=== PATIENT | male | born 1940 | race Caucasian/White ===

== ENCOUNTER 2019-09-19 07:10 | Outpatient (CLI) | payer MEDICARE, SELFPAY ==
--- NOTE | 2019-09-19 07:18 | XR_ITS ---
WS: [id number] ABDOMEN KUB CLINICAL INFORMATION: Renal/ureteral calculi. COMPARISON: September 01, 2019 FINDINGS: Left double-J ureteral stent in place. No visualized ureteral calculi. Moderate spondylitic changes l umbar spine with mild lumbar curve convex right. XR/XR KUB [id number] Impression: Left double-J ureteral stent in place. No visualized ureteral calculi.
== END 2019-09-19 07:11 | disposition home or self-care (01) ==
LOC: RAD 07:15
PROVIDERS: Family Provider Nurse Practitioner; PCP Nurse Practitioner; Visit Provider Urology
DX: Z98.890 Other specified postprocedural states (principal)
CPT/HCPCS: 74018

== ENCOUNTER → 2019-09-25 15:34 | Outpatient (BNVA) | payer MEDICARE, SELFPAY | PROVIDERS: Family Provider Nurse Practitioner; PCP Nurse Practitioner; Visit Provider Nurse Practitioner | DX: E11.65 Type 2 diabetes mellitus with hyperglycemia (principal); I10 Essential (primary) hypertension | CPT/HCPCS: 80053; 80061; 83036 ==

== ENCOUNTER 2019-11-07 08:32 | Outpatient (CLI) | payer MEDICARE, SELFPAY ==
--- NOTE | 2019-11-07 08:45 | USCV_ITS ---
Aris Srinivas Age: 79 Gender: M : 1940 Exam Date: 11/07/2019 08:50 Ordering Phys: Oumar Rae MD ([email or web address]) Technologist: Deepali Palomares Exam Location: [facility] Indication: PULMONARY HYPERTENSION BP: / HR: 74 Rhythm: Sinus Technical Quality: Technically difficult study MEASUREMENTS (Male / Female) Normal Values 2D ECHO LV Diastolic Diameter PLAX 5.4 cm 4.2 - 5.9 / 3.9 - 5.3 cm LV Systolic Diameter PLAX 3.5 cm LV Chamber Size 3.7 cm IVS Diastolic Thickness 1.7 cm 0.6 - 1.0 / 0.6 - 0.9 cm IVS Systolic Thickness 2.4 cm LVPW Diastolic Thickness 1.8 cm 0.6 - 1.0 / 0.6 - 0.9 cm LVPW Systolic Thickness 2.6 cm RV Chamber Size 3.1 cm LVOT Diameter 2.3 cm LV Ejection Fraction 2D Teich 62.3 % LV Ejection Fraction MOD 2C 58.8 % LV Ejection Fraction 2C AL 61.9 % LA Diameter 3.6 cm LA Width 3.3 cm LA Height 5.0 cm RA Width 3.3 cm RA Height 4.8 cm Aorta at Sinotubular Diameter 3.8 cm M-MODE LV Diastolic Diameter MM 6.0 cm 4.2 - 5.9 / 3.9 - 5.3 cm LV Systolic Diameter MM 4.8 cm LV Ejection Fraction MM Teich 41.3 % IVS Diastolic Thickness MM 1.4 cm 0.6 - 1.0 / 0.6 - 0.9 cm IVS Systolic Thickness MM 1.5 cm LVPW Diastolic Thickness MM 1.4 cm 0.6 - 1.0 / 0.6 - 0.9 cm LVPW Systolic Thickness MM 2.1 cm RV Diastolic Diameter MM 2.7 cm Aortic Annulus Diameter 4.8 cm LA Ao Ratio MM 0.8 MV E Point Septal Separation 1.2 cm DOPPLER AV Peak Velocity 167.0 cm/s LVOT Peak Velocity 99.0 cm/s AV Area Cont Eq vti 2.5 cm squared AV Area Cont Eq pk 2.4 cm squared MV Area PHT 3.3 cm squared Mitral E to A Ratio 0.7 MV E' Velocity 6.0 cm/s Mitral E to MV E' Ratio 11.4 Mitral E to LV E' Lateral Ratio 11.0 Mitral E to LV E' Septal Ratio 11.8 TR Peak Velocity 158.0 cm/s TR Peak Gradient 10.0 mmHg TR Mean Velocity 130.1 cm/s TR Mean Gradient 7.4 mmHg TR Velocity Time Integral 43.9 cm TV Peak E Velocity 64.0 cm/s Right Atrial Pressure 3.0 mmHg Pulmonary Artery Systolic Pressu 13.0 mmHg PV Peak Velocity 74.0 cm/s RV Acceleration Time 0.1 s RV Ejection Time 0.3 s RV AcT/ET 0.4 FINDINGS Left Ventricle Normal left ventricular cavity size. Normal left ventricular systolic function. No regional wall motion abnormalities. Left ventricular ejection fraction is estimated at 55 %.Grade I/IV diastolic dysfunction (abnormal relaxation filling pattern), normal to mildly elevated filling pressures. Right Ventricle The right ventricle is normal in size and function. Right Atrium The right atrium is normal in size. Left Atrium The left atrium is normal in size. Mitral Valve Structurally normal mitral valve without significant stenosis or prolapse. There is no mitral regurgitation. Aortic Valve Moderate aortic valve calcification. No aortic valve stenosis. Mild to moderate aortic valve regurgitation. Tricuspid Valve Trace to mild tricuspid valve regurgitation. Pulmonic Valve Structurally normal pulmonic valve without significant stenosis. There is no pulmonic regurgitation. Pericardium Normal pericardium without effusion. Aorta Normal ascending aorta dimension. CONCLUSIONS 1-Normal left ventricular cavity size. Normal left ventricular systolic function. No regional wall motion abnormalities. Left ventricular ejection fraction is estimated at 55 %.Grade I/IV diastolic dysfunction (abnormal relaxation filling pattern), normal to mildly elevated filling pressures. 2-Moderate aortic valve calcification. No aortic valve stenosis. Mild to moderate aortic valve regurgitation. 3-Trace to mild tricuspid valve regurgitation. 4-There is no pericardial effusion. 5-Pulmonary artery systolic pressure is within normal limits. 6-When compared to the prior echocardiogram dated 08/24/2019 there is moderate aortic valve regurgitation now Oumar Rae MD (Electronically Signed) Final Date: 07 November 2019 18:50 S
== END 2019-11-07 08:33 | disposition home or self-care (01) ==
LOC: US 08:37
PROVIDERS: Family Provider Nurse Practitioner; PCP Nurse Practitioner; Visit Provider Internal Medicine Cardiovascular Disease
DX: I27.20 Pulmonary hypertension, unspecified (principal); I70.0 Atherosclerosis of aorta; I08.2 Rheumatic disorders of both aortic and tricuspid valves
CPT/HCPCS: 93306

== ENCOUNTER → 2019-12-19 08:51 | Outpatient (BNVA) | payer MEDICARE, SELFPAY | PROVIDERS: Family Provider Nurse Practitioner; PCP Nurse Practitioner; Visit Provider Nurse Practitioner | DX: E11.65 Type 2 diabetes mellitus with hyperglycemia (principal) | CPT/HCPCS: 80053; 80061; 83036; 85025 ==

== ENCOUNTER → 2020-02-09 12:10 | Outpatient (BNVA) | payer MEDICARE, SELFPAY | PROVIDERS: Family Provider Nurse Practitioner; PCP Nurse Practitioner; Visit Provider Nurse Practitioner | DX: R30.0 Dysuria (principal); L30.9 Dermatitis, unspecified | CPT/HCPCS: 80053; 81003; 87077; 87086; 87186 ==

== ENCOUNTER → 2020-03-01 09:06 | Outpatient (BNVA) | payer MEDICARE, SELFPAY | PROVIDERS: Family Provider Nurse Practitioner; PCP Nurse Practitioner; Visit Provider Nurse Practitioner | DX: N39.0 Urinary tract infection, site not specified (principal); B96.4 Proteus (mirabilis) (morganii) as the cause of diseases classified elsewhere | CPT/HCPCS: 81000 ==

== ENCOUNTER → 2020-03-19 08:20 | Outpatient (BNVA) | payer MEDICARE, SELFPAY | PROVIDERS: Family Provider Nurse Practitioner; PCP Nurse Practitioner; Visit Provider Nurse Practitioner | DX: E11.65 Type 2 diabetes mellitus with hyperglycemia (principal); I10 Essential (primary) hypertension | CPT/HCPCS: 80053; 80061; 83036 ==

== ENCOUNTER 2020-03-22 07:07 | Outpatient (CLI) | payer MEDICARE, SELFPAY ==
--- NOTE | 2020-03-22 07:15 | XR_ITS ---
WS: [id number] KUB, 03/22/2020 Clinical Data: URETERAL STONE Comparison: KUB, 09/19/2019. Findings: No abnormal intraabdominal masses or calcifications are seen. There is no dilatated small bowel or ev idence of obstruction. There is a large amount of fecal material throughout the colon. Degenerative changes of the lumbar sp ine is moderate. There are surgical clips overlying the pelvis and pubic symphysis. XR/XR KUB [id number] Impression: 1. Negative for definite renal or ureteral calculus. 2. Large amount of fecal material obscures detail over the abdomen.
== END 2020-03-22 07:08 | disposition home or self-care (01) ==
LOC: RAD 07:08
PROVIDERS: PCP Nurse Practitioner; Visit Provider Urology
DX: N20.1 Calculus of ureter (principal); N20.9 Urinary calculus, unspecified
CPT/HCPCS: 74018; 81001

== ENCOUNTER → 2020-04-22 09:11 | Outpatient (BNVA) | payer MEDICARE, SELFPAY | PROVIDERS: PCP Nurse Practitioner; Visit Provider Urology | DX: N39.0 Urinary tract infection, site not specified (principal); B96.4 Proteus (mirabilis) (morganii) as the cause of diseases classified elsewhere | CPT/HCPCS: 81001 ==

== ENCOUNTER → 2020-06-21 08:32 | Outpatient (BNVA) | payer MEDICARE, SELFPAY | PROVIDERS: PCP Nurse Practitioner; Visit Provider Nurse Practitioner | DX: I10 Essential (primary) hypertension (principal); E11.65 Type 2 diabetes mellitus with hyperglycemia; I27.20 Pulmonary hypertension, unspecified; Z23 Encounter for immunization | CPT/HCPCS: 80053; 80061; 81000; 83036; 85025 ==

== ENCOUNTER → 2020-09-14 08:36 | Outpatient (BNVA) | payer MEDICARE, SELFPAY | PROVIDERS: PCP Nurse Practitioner; Visit Provider Nurse Practitioner | DX: E11.65 Type 2 diabetes mellitus with hyperglycemia (principal); I10 Essential (primary) hypertension; J44.9 Chronic obstructive pulmonary disease, unspecified | CPT/HCPCS: 80053; 80061; 83036 ==

== ENCOUNTER → 2020-11-12 09:40 | Outpatient (BNVA) | payer MEDICARE, SELFPAY | PROVIDERS: PCP Nurse Practitioner; Visit Provider Nurse Practitioner Family | DX: R30.0 Dysuria (principal); N39.0 Urinary tract infection, site not specified; N48.1 Balanitis | CPT/HCPCS: 81000 ==

== ENCOUNTER → 2020-11-24 08:52 | Outpatient (BNVA) | payer MEDICARE, SELFPAY | PROVIDERS: PCP Nurse Practitioner; Visit Provider Nurse Practitioner Family | DX: N39.0 Urinary tract infection, site not specified (principal); N48.1 Balanitis | CPT/HCPCS: 81000 ==

== ENCOUNTER → 2020-12-08 08:00 | Outpatient (BNVA) | payer MEDICARE, SELFPAY | PROVIDERS: PCP Nurse Practitioner; Visit Provider Nurse Practitioner | DX: E11.65 Type 2 diabetes mellitus with hyperglycemia (principal); I10 Essential (primary) hypertension | CPT/HCPCS: 80053; 80061; 83036 ==

== ENCOUNTER → 2021-01-03 10:36 | Outpatient (BNVA) | payer MEDICARE, SELFPAY | PROVIDERS: PCP Nurse Practitioner; Visit Provider Urology | DX: N20.2 Calculus of kidney with calculus of ureter (principal); N47.1 Phimosis; E66.01 Morbid (severe) obesity due to excess calories; Z68.41 Body mass index [BMI] 40.0-44.9, adult | CPT/HCPCS: 81003 ==

== ENCOUNTER → 2021-03-07 08:14 | Outpatient (BNVA) | payer MEDICARE, SELFPAY | PROVIDERS: PCP Nurse Practitioner; Visit Provider Nurse Practitioner | DX: E11.65 Type 2 diabetes mellitus with hyperglycemia (principal); I10 Essential (primary) hypertension | CPT/HCPCS: 80053; 80061; 81000; 83036 ==

== ENCOUNTER → 2021-03-22 08:19 | Outpatient (BNVA) | payer MEDICARE, SELFPAY | PROVIDERS: PCP Nurse Practitioner; Visit Provider Nurse Practitioner | DX: R00.2 Palpitations (principal); R00.0 Tachycardia, unspecified | CPT/HCPCS: 84443 ==

== ENCOUNTER → 2021-06-08 08:01 | Outpatient (BNVA) | payer MEDICARE, SELFPAY | PROVIDERS: PCP Nurse Practitioner; Visit Provider Nurse Practitioner | DX: E11.65 Type 2 diabetes mellitus with hyperglycemia (principal); I10 Essential (primary) hypertension | CPT/HCPCS: 80053; 80061; 83036 ==

== ENCOUNTER 2021-07-05 13:49 | Outpatient (CLI) | payer MEDICARE, SELFPAY ==
--- NOTE | 2021-07-05 14:15 | USCV_ITS ---
Srinivas Hurst Age: 80 Gender: M : 1940 Exam Date: 07/05/2021 14:19 Ordering Phys: Luli Jimenez Technologist: RYNE [place]am Location[place] [facility] [place] Indication: TACHYCARDIA BP: 130 / 66 HR: 96 Rhythm: Sinus Technical Quality: Poor because of body habitus MEASUREMENTS (Male / Female) Normal Values 2D ECHO LVOT Diameter 2.0 cm LA Diameter 4.2 cm Aorta at Sinotubular Diameter 3.3 cm DOPPLER AV Peak Velocity 128.0 cm/s TR Peak Velocity 257.0 cm/s TR Peak Gradient 26.4 mmHg PV Peak Velocity 158.0 cm/s RV Acceleration Time 0.2 s RV Ejection Time 0.3 s RV AcT/ET 0.6 FINDINGS Left Ventricle Possibly normal LV size and ejection fraction. Could not evaluate for any segmental wall motion. Right Ventricle Right ventricle could not visualized well Right Atrium Right atrium not well visualized. Left Atrium Left atrium not well visualized. Mitral Valve Mitral valve not well visualized. Aortic Valve Aortic valve not well visualized. Tricuspid Valve Tricuspid valve not well visualized. Pulmonic Valve Pulmonic valve not well visualized. Pericardium Possible small pericardial effusion. Aorta Normal ascending aortic dimension CONCLUSIONS Possibly normal LV size and ejection fraction. Could not evaluate for any segmental wall motion. Possible Small pericardial effusion. Technically very difficult study because of the poor ultrasonic window. Dr Eliseo Mcclendon MD FAC (Electronically Signed) Final Date: 05 July 2021 23:14 S
== END 2021-07-05 13:50 | disposition home or self-care (01) ==
LOC: RAD 13:51
PROVIDERS: PCP Nurse Practitioner; Visit Provider Nurse Practitioner Family
DX: R00.0 Tachycardia, unspecified (principal); I51.7 Cardiomegaly; I27.20 Pulmonary hypertension, unspecified
CPT/HCPCS: 93306

== ENCOUNTER 2021-08-30 12:15 | Outpatient (CLI) | payer MEDICARE, SELFPAY ==
--- NOTE | 2021-08-30 12:45 | USCV_ITS ---
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 Minimal plaques in the iliac and femoral arteries bilaterally. CONCLUSIONS Normal resting ABIs bilaterally Minimal plaques in the iliac and femoral arteries bilaterally . No significant arterial obstruction, based on the above findings Dr Eliseo Mcclendon MD [facility] (Electronically Signed) Final Date: 02 September 2021 09:52 S
== END 2021-08-30 12:16 | disposition home or self-care (01) ==
LOC: RAD 12:18
PROVIDERS: PCP Nurse Practitioner; Visit Provider Nurse Practitioner
DX: L97.929 Non-pressure chronic ulcer of unspecified part of left lower leg with unspecified severity (principal); L97.919 Non-pressure chronic ulcer of unspecified part of right lower leg with unspecified severity
CPT/HCPCS: 93925

== ENCOUNTER → 2021-09-12 08:41 | Outpatient (BNVA) | payer MEDICARE, SELFPAY | PROVIDERS: PCP Nurse Practitioner; Visit Provider Nurse Practitioner | DX: E11.65 Type 2 diabetes mellitus with hyperglycemia (principal); I10 Essential (primary) hypertension | CPT/HCPCS: 80053; 80061; 83036 ==

== ENCOUNTER → 2021-12-05 08:58 | Outpatient (BNVA) | payer MEDICARE, SELFPAY | PROVIDERS: PCP Nurse Practitioner; Visit Provider Nurse Practitioner | DX: E11.65 Type 2 diabetes mellitus with hyperglycemia (principal); I10 Essential (primary) hypertension | CPT/HCPCS: 80053; 80061; 83036 ==

== ENCOUNTER → 2022-02-27 08:21 | Outpatient (BNVA) | payer MEDICARE, SELFPAY | PROVIDERS: PCP Nurse Practitioner; Visit Provider Nurse Practitioner | DX: E11.65 Type 2 diabetes mellitus with hyperglycemia (principal) | CPT/HCPCS: 80053; 80061; 83036 ==

== ENCOUNTER → 2022-04-17 13:06 | Outpatient (BNVA) | payer MEDICARE, SELFPAY | PROVIDERS: PCP Nurse Practitioner; Visit Provider Nurse Practitioner Family | DX: I10 Essential (primary) hypertension (principal) | CPT/HCPCS: 99213 ==

== ENCOUNTER 2022-04-28 03:35 | Emergency (ER) | payer MEDICARE, SELFPAY ==
[2022-04-28 03:37] VITALS: BP 168/76; PULSE 73; RESP 20; TEMP 36.7; O2SAT 95; BMI 41.8
--- NOTE | 2022-04-28 03:40 | XRR_ITS ---
PROCEDURE INFORMATION: Exam: XR Chest Exam date and time: 04/28/2022 3:42 AM Age: 81 years old Clinical indication: Chest pressure; Patient HX: C/O chest pain. History of copd. ; Additional info: Cp TECHNIQUE: Imaging protocol: Radiologic exam of the chest. Views: 1 view. COMPARISON: [place] [id number] 08/24/2019 3:26 PM FINDINGS: Lungs: There increased peribronchial and perihilar markings present bilaterally, findings that may represent pulmonary edema although a bilateral bronchitis and pneumonitis could have this appearance. Pleural spaces: There are calcified pleural plaques seen bilaterally. Heart/Mediastinum: Unremarkable. No cardiomegaly. Bones/joints: Unremarkable. XR/XR chest 1V portable [id number] IMPRESSION: 1. Calcified pleural plaques present bilaterally. 2. Mildly prominent peribronchial perihilar opacities could represent bilateral bronchitis and or pneumonitis versus pulmonary edema.
--- NOTE | 2022-04-28 03:41 | W.ED.CHESTPA ---
HPI - Chest Pain General: Chief Complaint: Chest Pain Stated Complaint: CP Time Seen by Provider: 04/28/22 03:36 Source: patient and EMS Mode of arrival: EMS Limitations: no limitations History of Present Illness: 81-year-old male who states that he started having chest pain this morning around 2:00. States that sharp pain in his lower chest he states the pain lasted roughly 20 to 40 minutes he is currently pain-free. Pain resolved when EMS arrived they did give him 324 of aspirin. He denies any nausea denies any diaphoresis denies any shortness of breath. Associated symptoms: Deny abdominal pain, dyspnea, fever(s), nausea or vomiting Review of Systems Const: Denies: fever(s), chills, body aches or change in appetite Eyes: Denies: blurry vision or eye discomfort ENMT: Denies: throat pain or dental pain Card: Reports: chest pain Resp: Denies: dyspnea GI: Denies: abdominal pain, nausea, vomiting or diarrhea : Denies: dysuria Musc: Denies: neck pain or back pain Skin/Breast: Denies: rash Neuro: Denies: headache(s) Psych: Denies: depression Kehinde/Lymph: Denies: easy bruising All/Imm: Denies: urticaria PFSH ED PFSH: Medical History Atherosclerosis Balanitis Cardiomegaly Controlled diabetes mellitus with hyperglycemia, without long-term current use of insulin COPD (chronic obstructive pulmonary disease) Essential (primary) hypertension History of kidney stones Multiple environmental allergies 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 Social History Smoking and tobacco status: never smoked Second hand smoke exposure: No Smoking risk assessment/counseling performed?: No Alcohol intake: never Desire information about alcohol rehabilitation?: No Counseling given: No Desire information about substance/drug rehabilitation?: No Counseling given: No Adopted: No Caregiver/support person: No Lives independently: No Household members: spouse Housing: House Marital status: Number of children: 5 Number of grandchildren: 15 service: Yes Current occupational status: retired Pets and animals: No History of recent travel: No Current gender identity: Male Physical Exam Const: COMMON NORMALS: no acute distress, patient oriented x3 and healthy appearing HENMT: COMMON NORMALS: normocephalic and atraumatic HEAD & SCALP: normocephalic and atraumatic Eye: COMMON NORMALS: Equal, round and reactive pupils present and EOMs intact bilaterally PUPIL: Yes Equal, round and reactive pupils present Neck/C-Spine: COMMON NORMALS: full ROM and supple Chest: COMMONS NORMALS: normal inspection of the chest and normal palpation of entire chest wall Resp: COMMON NORMALS: normal respiratory effort, No retractions, No use of accessory muscles and clear to auscultation bilaterally AUSCULTATION: clear to auscultation bilaterally Cardio: COMMON NORMALS: regular rate, regular rhythm and No murmurs present (Cardio) RATE: regular rate RHYTHM: regular rhythm GI: COMMON NORMALS: Normal to inspection, nondistended, normoactive bowel sounds present, Soft to palpation, non-tender and no masses PALPATION: Yes Soft to palpation Extremity: COMMON NORMALS: normal to inspection and full ROM Neuro: COMMON NORMALS: patient oriented x3, moves all extremities and no focal motor deficits Psych: COMMON NORMALS: mental status grossly normal, Normal thought process present and cooperative THOUGHT PROCESS: Normal thought process present Skin: COMMON NORMALS: no rashes or lesions noted and no wounds GENERAL SKIN EXAM: no rashes or lesions noted Course Vital Signs: Vital signs: Vital Signs Temperature 98.0 F 04/28/22 03:37 Pulse Rate 73 04/28/22 06:18 Respiratory Rate 18 04/28/22 06:18 Blood Pressure 171/67 04/28/22 06:18 Pulse Oximetry 93 04/28/22 06:18 Oxygen Delivery Me thod 04/28/22 05:42 MDM - Chest Pain Medical Decision Making Patient presents for chest pain atypical in nature has been pain-free here initial repeat troponin here is normal EKGs are normal as well he is to follow-up with PCP and return if worsening he understands agrees to plan. Lab Data : 04/28/22 03:48 04/28/22 03:48 Radiology Impressions Chest X-Ray 04/28/22 03:40 IMPRESSION: 1. Calcified pleural plaques present bilaterally. 2. Mildly prominent peribronchial perihilar opacities could represent bilateral bronchitis and or pneumonitis versus pulmonary edema. Laboratory Results WBC 5.9 10^3/uL (4.0-10.0) 04/28/22 03:48 RBC 3.91 10^6/uL (4.1-5.3) L 04/28/22 03:48 Hgb 12.7 g/dL (11.7-16.6) 04/28/22 03:48 Hct 38.9 % (42.0-52.0) L 04/28/22 03:48 MCV 99.5 fl (80-94) H 04/28/22 03:48 MCH 32.5 pg (28.0-34.0) 04/28/22 03:48 MCHC 32.6 g/dL (30.0-36.0) 04/28/22 03:48 RDW 12.7 % (12.1-15.1) 04/28/22 03:48 Plt Count 229 10^3/cmm (130-400) 04/28/22 03:48 MPV 9.3 fL (7.4-10.4) 04/28/22 03:48 Neut % (Auto) 68.6 % 04/28/22 03:48 Lymph % (Auto) 18.5 % 04/28/22 03:48 Pine % (Auto) 10.6 % 04/28/22 03:48 Eos % (Auto) 1.7 % 04/28/22 03:48 Baso % (Auto) 0.3 % 04/28/22 03:48 Neut # (Auto) 4.07 10^3/uL (1.8-7.7) 04/28/22 03:48 Lymph # (Auto) 1.1 10^3/uL (0.8-4.8) 04/28/22 03:48 Pine # (Auto) 0.6 10^3/uL (0.2-0.9) 04/28/22 03:48 Eos # (Auto) 0.1 10^3/uL (0.0-0.8) 04/28/22 03:48 Baso # (Auto) 0.0 10^3/uL (0.0-0.1) 04/28/22 03:48 Nucleated RBC % (auto) 0 % 04/28/22 03:48 Nucleated RBCs # 0.0 /100WBC 04/28/22 03:48 Sodium 139 mmol/L (136-145) 04/28/22 03:48 Potassium 4.2 mmol/L (3.5-5.1) 04/28/22 03:48 Chloride 99 mmol/L (98-107) 04/28/22 03:48 Carbon Dioxide 31 mmol/L (22-29) H 04/28/22 03:48 Anion Gap 13.2 (5-19) 04/28/22 03:48 BUN 23 mg/dL (8-23) 04/28/22 03:48 Creatinine 1.0 mg/dL (0.7-1.2) 04/28/22 03:48 GFR Calculation Not Reportable 04/28/22 03:48 Glucose 157 mg/dL (65-115) H 04/28/22 03:48 Calculated Osmolality 295 mOsm/kg (285-295) 04/28/22 03:48 Calcium 9.6 mg/dL (8.5-10.5) 04/28/22 03:48 Total Bilirubin 0.4 mg/dL (0.15-1.2) 04/28/22 03:48 AST 19 U/L (0-40) 04/28/22 03:48 ALT 21 U/L (0-41) 04/28/22 03:48 Alkaline Phosphatase 75 U/L (40-130) 04/28/22 03:48 Troponin T Baseline 32 ng/L (0-15) H 04/28/22 03:48 Troponin T 120 Minute 24.08 ng/L (0-15) H 04/28/22 05:25 Delta Troponin T -7.92 ABS# (0-10) L 04/28/22 05:25 Total Protein 7.0 g/dL (6.6-8.7) 04/28/22 03:48 Albumin 4.0 g/dL (3.5-5.2) 04/28/22 03:48 Globulin 3.0 g/dL (1.3-4.6) 04/28/22 03:48 EKG Data EKG 1: I personally reviewed and interpreted this EKG as follows: EKG interpretation date: 04/28/22 EKG interpretation time: 03:42 Interpretation: nsr hr [address] or t wave abnormalities qrs 100 qtc 419 EKG 2: I personally reviewed and interpreted this EKG as follows: EKG interpretation date: 04/28/22 EKG interpretation time: 05:22 Interpretation: nsr hr [address] or t wave abnormalities qrs 103 qtc 416 Discharge Plan Discharge Patient Disposition: Home Clinical Impression: Chest pain Qualifiers: Chest pain type: unspecified Qualified Code(s): R07.9 - Chest pain, unspecified Condition: Stable Prescriptions: No Action multivitamin [Daily Multi-Vitamin] Tablet 1 tab PO QAM vitamin B complex [B Complex-Vitamin B12] Tablet 1 tab PO QAM vitamin E 200 unit capsule 200 unit PO DAILY aspirin [Aspir-81] 81 mg tablet,delayed release (DR/EC) 81 mg PO DAILY Rx Instructions: on hold for procedure bupivacaine (PF) 0.5 % (5 mg/mL) solution 5 mg INTRAVESIC ONCE Qty: 1 0RF lidocaine (PF) 10 mg/mL (1 %) solution 10 mg SUBCUT ONCE Qty: 1 0RF (DME) blood-glucose meter [Tumbieuch Verio Flex Start] Kit See Rx Instructions .ROUTE .MEDSUPPLY Qty: 1 0RF Rx Instructions: daily (DME) lancing device with lancets [MaxxAthlete Delica Lanc Device] Kit See Rx Instructions .Route Qty: 1 2RF Rx Instructions: use daily ascorbate calcium (vitamin C) 500 mg tablet 500 mg PO DAILY furosemide 40 mg tablet 40 mg PO DAILY PRN (Reason: edema) Qty: 30 6RF potassium chloride 20 mEq tablet extended release 20 meq PO DAILY PRN (Reason: Take with Lasix) Qty: 30 6RF amlodipine 5 mg tablet 5 mg PO DAILY Qty: 90 0RF atorvastatin 20 mg tablet 20 mg PO DAILY Qty: 90 0RF (DME) OneTouch Verio test strips Strip See Rx Instructions .ROUTE .MEDSUPPLY Qty: 100 3RF Rx Instructions: 1 strip daily clopidogrel [Plavix] 75 mg tablet 75 mg PO DAILY Qty: 90 0RF Trulicity 1.5 mg/0.5 mL pen injector 1.5 mg SUBCUT .weekly Qty: 6 0RF glimepiride 4 mg tablet 4 mg PO DAILY Qty: 90 0RF (DME) lancets [OneTouch Delica Plus Lancet] 33 gauge misc See Rx Instructions .ROUTE .MEDSUPPLY Qty: 100 3RF Rx Instructions: daily metformin 500 mg tablet extended release 24 hr 2,000 mg PO QDAY Qty: 360 0RF montelukast [Singulair] 10 mg tablet 10 mg PO DAILY Qty: 90 0RF nystatin 100,000 unit/gram cream 1 applic topical BID Qty: 30 5RF valsartan 320 mg tablet 320 mg PO DAILY Qty: 90 0RF duloxetine [Cymbalta] 30 mg capsule,delayed release(DR/EC) 30 mg PO BID Qty: 180 0RF Discharge Orders: Discharge ED (Routine); Ordered 04/28/22 Ordered By: Sarah Yang Referrals: Lloyd Spencer, MEDIA SERVICES COORDINATOR-C [Primary Care Provider] - 1-3 days Discharge Diet: Advance as tolerated Discharge Activity: Resume usual activity Patient Instructions: Chest Pain (ED) Coding Level of Care Code ED Dramatic Director for Estrella Fwaquiles Exam Comprehensive
--- NOTE | 2022-04-28 03:42 | ECG_ITS ---
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 Measurements Intervals [place] Rate: 72 P: 19 CA: 227 QRS: -41 QRSD: 100 T: 76 QT: 395 QTc: 434 Interpretive Statements SINUS RHYTHM WITH FIRST DEGREE AV BLOCK LEFT AXIS DEVIATION [QRS AXIS < -30] PATTERN CONSISTENT WITH PULMONARY DISEASE INCOMPLETE RIGHT BUNDLE BRANCH BLOCK [90+ ms QRS DURATION, TERMINAL R IN V1/V2, 40+ ms S IN I/aVL/V4/V5/V6] NONSPECIFIC T-WAVE ABNORMALITY Compared to ECG 09/04/2019 11:04:30 First degree AV block now present Incomplete right bundle-branch block now present T-wave abnormality now present Myocardial infarct finding no longer present Electronically Signed On 04-28-2022 17:47:51 CDT by Zack Harrison M.D. [id number]
[2022-04-28 03:53] LABS: Basophils % 0.3 %; Eosinophils # 0.1 10^3/uL (0.0-0.8); Eosinophils % 1.7 %; Hematocrit 38.9 % (42.0-52.0); Hemoglobin 12.7 g/dL (11.7-16.6); Lymphocytes # 1.1 10^3/uL (0.8-4.8); Lymphocytes % 18.5 %; Mean Corpuscular HGB Conc 32.6 g/dL (30.0-36.0); Mean Corpuscular Hemoglobin 32.5 pg (28.0-34.0); Mean Corpuscular Volume 99.5 fl (80-94); Mean Platelet Volume 9.3 fL (7.4-10.4); Monocytes # 0.6 10^3/uL (0.2-0.9); Monocytes % 10.6 %; Neutrophils # 4.07 10^3/uL (1.8-7.7); Neutrophils % 68.6 %; Nucleated Red Blood Cells % 0 %; Platelet Count 229 10^3/cmm (130-400); Red Blood Count 3.91 10^6/uL (4.1-5.3); Red Cell Distribution Width 12.7 % (12.1-15.1); White Blood Count 5.9 10^3/uL (4.0-10.0)
[2022-04-28 04:11] LABS: Troponin(5th) Baseline 32 ng/L (0-15)
[2022-04-28 04:14] LABS: Alanine Aminotransferase 21 U/L (0-41); Alkaline Phosphatase 75 U/L (40-130); Anion Gap 13.2 (5-19); Aspartate Amino Transferase 19 U/L (0-40); Blood Urea Nitrogen 23 mg/dL (8-23); Calcium 9.6 mg/dL (8.5-10.5); Carbon Dioxide 31 mmol/L (22-29); Chloride 99 mmol/L (98-107); Glucose 157 mg/dL (65-115); Osmolality Calculated 295 mOsm/kg (285-295); Potassium 4.2 mmol/L (3.5-5.1); Sodium 139 mmol/L (136-145); Total Bilirubin 0.4 mg/dL (0.15-1.2)
--- NOTE | 2022-04-28 05:40 | ECG_ITS ---
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 Measurements Intervals [place] Rate: 80 P: 7 SD: 222 QRS: -34 QRSD: 103 T: 65 QT: 379 QTc: 440 Interpretive Statements SINUS RHYTHM WITH FIRST DEGREE AV BLOCK LEFT AXIS DEVIATION [QRS AXIS < -30] PATTERN CONSISTENT WITH PULMONARY DISEASE NONSPECIFIC T-WAVE ABNORMALITY Compared to ECG 09/04/2019 11:04:30 First degree AV block now present T-wave abnormality now present Myocardial infarct finding no longer present Electronically Signed On 04-28-2022 17:52:02 CDT by Zack Harrison M.D. [id number]
[2022-04-28 05:42] VITALS: BP 116/82; PULSE 60; RESP 16; O2SAT 94
[2022-04-28 05:59] LABS: Troponin 5 2HR 24.08 ng/L (0-15)
[2022-04-28 06:00] LABS: Troponin 5 2HR Delta -7.92 ABS# (0-10)
[2022-04-28 06:18] VITALS: BP 171/67; PULSE 73; RESP 18; O2SAT 93
== END 2022-04-28 06:19 | disposition home or self-care (01) ==
PROVIDERS: Emergency Provider Emergency Medicine; PCP Nurse Practitioner
DX: R07.9 Chest pain, unspecified (principal); Z79.899 Other long term (current) drug therapy; Z79.84 Long term (current) use of oral hypoglycemic drugs; Z79.02 Long term (current) use of antithrombotics/antiplatelets; Z79.82 Long term (current) use of aspirin; I25.10 Atherosclerotic heart disease of native coronary artery without angina pectoris; E11.9 Type 2 diabetes mellitus without complications; J44.9 Chronic obstructive pulmonary disease, unspecified; I10 Essential (primary) hypertension
CPT/HCPCS: 71045; 80053; 84484; 85025; 93005; 99284

== ENCOUNTER → 2022-05-22 08:31 | Outpatient (BNVA) | payer MEDICARE, SELFPAY | PROVIDERS: PCP Nurse Practitioner; Visit Provider Nurse Practitioner | DX: E11.65 Type 2 diabetes mellitus with hyperglycemia (principal) | CPT/HCPCS: 80053; 80061; 83036 ==

== ENCOUNTER → 2022-08-14 08:42 | Outpatient (BNVA) | payer MEDICARE, SELFPAY | PROVIDERS: PCP Nurse Practitioner; Visit Provider Nurse Practitioner | DX: E11.65 Type 2 diabetes mellitus with hyperglycemia (principal); E13.42 Other specified diabetes mellitus with diabetic polyneuropathy; E66.01 Morbid (severe) obesity due to excess calories; Z68.41 Body mass index [BMI] 40.0-44.9, adult | CPT/HCPCS: 80053; 80061; 83036 ==

== ENCOUNTER → 2022-10-26 10:09 | Outpatient (BNVA) | payer MEDICARE, SELFPAY | PROVIDERS: PCP Nurse Practitioner; Visit Provider Internal Medicine Cardiovascular Disease | DX: R94.31 Abnormal electrocardiogram [ECG] [EKG] (principal); I10 Essential (primary) hypertension; E11.65 Type 2 diabetes mellitus with hyperglycemia; Z79.84 Long term (current) use of oral hypoglycemic drugs; I35.1 Nonrheumatic aortic (valve) insufficiency; I47.1 Supraventricular tachycardia | CPT/HCPCS: 99215 ==

== ENCOUNTER → 2022-11-06 08:42 | Outpatient (BNVA) | payer MEDICARE, SELFPAY | PROVIDERS: PCP Nurse Practitioner; Visit Provider Nurse Practitioner | DX: E13.42 Other specified diabetes mellitus with diabetic polyneuropathy (principal); E11.65 Type 2 diabetes mellitus with hyperglycemia; I10 Essential (primary) hypertension; Z68.41 Body mass index [BMI] 40.0-44.9, adult; E66.01 Morbid (severe) obesity due to excess calories | CPT/HCPCS: 80053; 80061; 83036 ==

== ENCOUNTER 2023-01-02 08:53 | Outpatient (CLI) | payer MEDICARE, SELFPAY ==
[2023-01-02 09:16] VITALS: BMI 41.8
--- NOTE | 2023-01-02 09:18 | NMCV_ITS ---
NM trupti perf SPECT r/s* [id number] Srinivas Hurst Age: 82 Gender: M : 1940 Exam Date: 01/02/2023 09:18 Ordering Phys: Eliseo Mcclendon MD ([email or web address]) Technologist: CLARA Sin Exam Location: [facility] Indications: CORONARY ANGIOPLASTY STATUS; ABNORMAL EKG STRESS TEST Please see separate stress test report in Ephiphany for full findings IMAGE PROTOCOL Rest/Stress 1 Lexiscan Day Radiopharmaceutical Dose (mCi) Administration Site Administered by Rest: Tc-99m 11.0 IV CLARA Gleason Sestamibi Stress:Tc-99m 33.0 IV CLARA Gleason Sestamibi Rest: 02-Jan-2023 60 Discovery 630 Stress: 02-Jan-2023 30 Discovery 630 0.4mg Lexiscan. Supine position only as patient was unable to lay prone. SPECT RESULTS Technical Quality: Excellent Raw Data Analysis: Normal Image Corrections: No attenuation or motion correction applied Summed Stress Score: 8 Summed Rest Score: 5 Summed Difference Score: 4 PERFUSION FINDINGS Moderate area of minimal to moderately decreased tracer uptake was noted in the mid and apical anterior, mid anteroseptal, mid inferolateral, apical lateral and mid anteroseptal regions. Significant reversibility was noted in the mid anterolateral, inferolateral and apical anterior regions. FUNCTIONAL RESULTS (calculated via Gated SPECT) Stress Image LV EF (%): 66 Stress EDV (mL):133 TID: 0.83 Stress ESV (mL):45 FUNCTIONAL FINDINGS: Segmental wall motion analysis revealing no gross wall motion abnormalities IMPRESSIONS 1. Myocardial perfusion imaging revealing moderate area of reversible defect involving the anterolateral, inferolateral and apical anterior regions suggesting ischemia, mostly in the distribution of the left circumflex artery with some involvement of the distal left anterior descending artery. 2. Normal LV ejection fraction of 66%. 3. LV wall motion analysis revealing no gross wall motion abnormalities. 4. Normal LV volume. No similar previous studies are available for comparison Dr Eliseo Mcclendon MD FAC (Electronically Signed) Final Date: 02 January 2023 13:35 S
--- NOTE | 2023-01-02 09:18 | ECG_ITS ---
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 Interpretive Statements NAME OF STUDY: LEXISCAN SESTAMIBI STRESS TEST INDICATION: abn ekg, PROCEDURE: At the baseline, the EKG revealed normal sinus rhythm with a first-degree AV block and some nonspecific T wave changes. The baseline heart was 81 bpm with a blood pressue of 119/64 mm of Hg Lexiscan was infused over a period of 20 seconds. A total of 0.4 milligrams of Lexiscan was infused. The stress phase was continued for a total of 5 minutes. Heart rate at the end of the stress phase was 87 bpm with a blood pressure 138/57 mm of Hg. The EKG at the peak infusion revealed no significant changes. Sestamibi was injected 20 seconds after the Lexiscan infusion. Heart rate at the end of the recovery phase was 85 bpm with a blood pressure of 111/58 mm of Hg. CONCLUSION: 1. No significant EKG changes with the LexiScan infusion 2. No LexiScan induced chest pain or cardiac arrhythmia 3. Normal blood pressure and heart rate response 4. Sestamibi/sestamibi perfusion scan pending; see separate report. Electronically Signed On 01-06-2023 19:44:58 CDT by Eliseo Mcclendon M.D. [id number]
[2023-01-02] MEDS: regadenoson 0.4 Mg/5 ml Syringe IVP (10:28)
[2023-01-02 11:00] VITALS: BP 111/58; PULSE 86
== END 2023-01-02 08:54 | disposition home or self-care (01) ==
PROVIDERS: PCP Nurse Practitioner; Visit Provider Internal Medicine Cardiovascular Disease
DX: R94.31 Abnormal electrocardiogram [ECG] [EKG] (principal); I44.0 Atrioventricular block, first degree
CPT/HCPCS: 36415; 78452; 93017; 96374; A9500; J2785

== ENCOUNTER → 2023-01-11 10:09 | Outpatient (BNVA) | payer MEDICARE, SELFPAY | PROVIDERS: PCP Nurse Practitioner; Visit Provider Internal Medicine Cardiovascular Disease | DX: R94.39 Abnormal result of other cardiovascular function study (principal); R94.31 Abnormal electrocardiogram [ECG] [EKG]; I47.1 Supraventricular tachycardia; I35.1 Nonrheumatic aortic (valve) insufficiency; I27.20 Pulmonary hypertension, unspecified; E11.65 Type 2 diabetes mellitus with hyperglycemia; I10 Essential (primary) hypertension; Z79.84 Long term (current) use of oral hypoglycemic drugs | CPT/HCPCS: 99214 ==

== ENCOUNTER → 2023-01-19 11:23 | Outpatient (BNVA) | payer MEDICARE, SELFPAY | PROVIDERS: PCP Nurse Practitioner; Visit Provider Nurse Practitioner Family | DX: C44.622 Squamous cell carcinoma of skin of right upper limb, including shoulder (principal); L81.4 Other melanin hyperpigmentation; D22.5 Melanocytic nevi of trunk; Z71.89 Other specified counseling; L85.3 Xerosis cutis; L82.1 Other seborrheic keratosis; L57.0 Actinic keratosis; L57.8 Other skin changes due to chronic exposure to nonionizing radiation; D69.2 Other nonthrombocytopenic purpura | CPT/HCPCS: 11102; 17000; 17003; 99213 ==

== ENCOUNTER → 2023-01-29 08:34 | Outpatient (BNVA) | payer MEDICARE, SELFPAY | PROVIDERS: PCP Nurse Practitioner; Visit Provider Nurse Practitioner | DX: E66.01 Morbid (severe) obesity due to excess calories (principal); Z68.41 Body mass index [BMI] 40.0-44.9, adult; E11.65 Type 2 diabetes mellitus with hyperglycemia | CPT/HCPCS: 80053; 80061; 83036 ==

== ENCOUNTER → 2023-03-30 09:13 | Outpatient (BNVA) | payer MEDICARE, SELFPAY | PROVIDERS: PCP Nurse Practitioner; Visit Provider Nurse Practitioner Family | DX: L30.4 Erythema intertrigo (principal); I87.2 Venous insufficiency (chronic) (peripheral); Z85.828 Personal history of other malignant neoplasm of skin; L57.0 Actinic keratosis; L81.4 Other melanin hyperpigmentation; D22.5 Melanocytic nevi of trunk; L85.3 Xerosis cutis; L57.8 Other skin changes due to chronic exposure to nonionizing radiation; D69.2 Other nonthrombocytopenic purpura | CPT/HCPCS: 17000; 17003; 99214 ==

== ENCOUNTER → 2023-04-23 08:12 | Outpatient (BNVA) | payer MEDICARE, SELFPAY | PROVIDERS: PCP Nurse Practitioner; Visit Provider Nurse Practitioner | DX: E11.65 Type 2 diabetes mellitus with hyperglycemia (principal) | CPT/HCPCS: 80053; 80061; 83036 ==

== ENCOUNTER → 2023-05-03 10:45 | Outpatient (BNVA) | payer MEDICARE, SELFPAY | PROVIDERS: PCP Nurse Practitioner; Visit Provider Internal Medicine Cardiovascular Disease | DX: I47.1 Supraventricular tachycardia (principal); I35.1 Nonrheumatic aortic (valve) insufficiency; I73.9 Peripheral vascular disease, unspecified; R94.39 Abnormal result of other cardiovascular function study; J44.9 Chronic obstructive pulmonary disease, unspecified; I27.20 Pulmonary hypertension, unspecified; E11.65 Type 2 diabetes mellitus with hyperglycemia; Z79.84 Long term (current) use of oral hypoglycemic drugs | CPT/HCPCS: 99214 ==

== ENCOUNTER → 2023-06-29 09:39 | Outpatient (BNVA) | payer MEDICARE, SELFPAY | PROVIDERS: PCP Nurse Practitioner; Visit Provider Nurse Practitioner Family | DX: L30.4 Erythema intertrigo (principal); I87.2 Venous insufficiency (chronic) (peripheral); Z85.828 Personal history of other malignant neoplasm of skin; L81.4 Other melanin hyperpigmentation; D18.01 Hemangioma of skin and subcutaneous tissue | CPT/HCPCS: 17000; 99214 ==

== ENCOUNTER → 2023-07-18 09:46 | Outpatient (BNVA) | payer MEDICARE, SELFPAY | PROVIDERS: PCP Nurse Practitioner; Visit Provider Nurse Practitioner | DX: E11.65 Type 2 diabetes mellitus with hyperglycemia (principal); I10 Essential (primary) hypertension; J44.9 Chronic obstructive pulmonary disease, unspecified | CPT/HCPCS: 80053; 80061; 83036 ==

== ENCOUNTER → 2023-10-08 08:19 | Outpatient (BNVA) | payer MEDICARE, SELFPAY | PROVIDERS: PCP Nurse Practitioner; Visit Provider Nurse Practitioner | DX: E66.01 Morbid (severe) obesity due to excess calories (principal); Z68.41 Body mass index [BMI] 40.0-44.9, adult; E11.65 Type 2 diabetes mellitus with hyperglycemia | CPT/HCPCS: 80053; 80061; 83036 ==

== ENCOUNTER → 2023-10-10 08:43 | Outpatient (BNVA) | payer MEDICARE, SELFPAY | PROVIDERS: PCP Nurse Practitioner; Visit Provider Nurse Practitioner | DX: E11.65 Type 2 diabetes mellitus with hyperglycemia (principal); I10 Essential (primary) hypertension; J44.9 Chronic obstructive pulmonary disease, unspecified | CPT/HCPCS: 81000; 85025 ==

== ENCOUNTER 2023-10-10 11:41 | Observation (INO) | payer MEDICARE, SELFPAY ==
[2023-10-10] VITALS (8 sets, daily range): BP systolic 104–168; BP diastolic 50–85; PULSE 75–100; RESP 14–24; TEMP 36.5–37; O2SAT 92–97; BMI 42.5
--- NOTE | 2023-10-10 11:57 | XR_ITS ---
WS: [id number] Portable AP semiupright chest, 10/10/2023 Clinical Data: dyspnea/cough Comparison: Portable chest, 04/28/2022 Findings: No nodules, masses or effusions are seen. The heart is enlarged. The pulmonary vascularity is not increased. No pneumonia or pneumothorax is seen. The aortic arch and descending thoracic aorta show calcification and tortuosity. There are bilateral pleural plaques unchanged. Impression: Cardiomegaly and atherosclerosis.
--- NOTE | 2023-10-10 11:57 | ECG_ITS ---
[facility] Test Date: 2023-10-10 Pat Name: Srinivas Hurst Department: Room: Gender: Male Pathology Manager: : 1940 Requested By: Grey Tompkins Order Number: [id number] Jose MD: Zack Harrison M.D. Measurements Intervals [place] Rate: 79 P: 25 MD: 217 QRS: -23 QRSD: 86 T: 89 QT: 366 QTc: 422 Interpretive Statements SINUS RHYTHM WITH FIRST DEGREE AV BLOCK BORDERLINE LEFT AXIS DEVIATION [QRS AXIS < -20] LOW QRS VOLTAGE IN PRECORDIAL LEADS [QRS DEFLECTION < 1.0 mV IN CHEST LEADS] PATTERN CONSISTENT WITH PULMONARY DISEASE NONSPECIFIC T-WAVE ABNORMALITY Compared to ECG 04/28/2022 05:22:30 Low QRS voltage now present T-wave abnormality still present Electronically Signed On 10-10-2023 18:30:31 [employer] by Zack Harrison M.D. [id number]
[2023-10-10 12:41] LABS: Basophils % 0.5 %; Eosinophils # 0.2 10^3/uL (0.0-0.8); Eosinophils % 2.6 %; Hematocrit 38.9 % (37-53); Lymphocytes # 1.3 10^3/uL (0.8-4.8); Lymphocytes % 21.4 %; Mean Corpuscular HGB Conc 31.9 g/dL (30-55); Mean Corpuscular Hemoglobin 31.2 pg (27-33); Mean Corpuscular Volume 97.7 fl (82-101); Mean Platelet Volume 9.4 fL (7.4-10.4); Monocytes # 0.7 10^3/uL (0.2-0.9); Monocytes % 10.7 %; Neutrophils # 3.92 10^3/uL (1.8-7.7); Neutrophils % 64.6 %; Nucleated Red Blood Cells % 0 %; Platelet Count 252 10^3/cmm (157-399); Red Blood Count 3.98 10^6/uL (3.85-5.65); Red Cell Distribution Width 12.7 % (12.1-15.1); White Blood Count 6.07 10^3/uL (3.29-11.43)
--- NOTE | 2023-10-10 12:43 | W.ED.DIZZY ---
HPI - Dizziness General: Chief Complaint: Dizziness Stated Complaint: dizzy, fell 10-08-23 Time Seen by Provider: 10/10/23 12:05 Source: patient Mode of arrival: ambulatory History of Present Illness: HPI Narrative: 83-year-old male presents to the emergency room with complaints of lightheadedness and dizziness with postural changes. He fell a couple of days ago did not strike his head he has no evidence of any trauma he is awake and alert at this time is extremely hard of hearing. He has a history of a positive stress test in December 2022 which never had any follow-up he did not have an angiogram associated with that. He is not having any chest pain at this time. No headache nausea or vomiting no vision changes. There are no focal neurologic deficits. MD elicited complaint: dizziness Onset (ago): day(s) Description: lightheadedness, off-balance and difficulty walking Context: change in body position Exacerbating factors: change in body position Relieving factors: remaining still and lying down Associated symptoms: Denies change in hearing, chest pain, chills, cough, diaphoresis, ear discharge, ear pressure, fevers/chills, headache(s), malaise, nausea, nasal congestion, palpitations, rash, short of breath, syncope, tinnitus, vomiting or weakness Review of Systems Const: Denies: fever(s), chills, malaise or diaphoresis ENMT: Denies: ear discharge, change in hearing, tinnitus or nasal congestion Card: Reports: lightheadedness and pre-syncope; Denies: chest pain, palpitations, irregular heart rhythm, edema or syncope GI: Denies: abdominal pain, nausea or vomiting Neuro: Denies: headache(s) PFSH ED PFSH: Medical History Multiple environmental allergies Urolithiasis History of kidney stones Atherosclerosis Cardiomegaly 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 Social History Smoking and tobacco/nicotine status: never used tobacco/nicotine Second hand smoke exposure: No Alcohol intake: never Substance/Drug Use: never Adopted: No Caregiver/support person: No Lives independently: No Household members: spouse Housing: House Marital status: Number of children: 5 Number of grandchildren: 15 service: Yes Current occupational status: retired Pets and animals: No Do you think of yourself as: Straight/Heterosexual Current gender identity: Male Course Vital Signs: Vital signs: Vital Signs Temperature 97.7 F 10/10/23 11:59 Pulse Rate 75 10/10/23 14:57 Respiratory Rate 18 10/10/23 14:57 Blood Pressure 132/74 10/10/23 14:56 Pulse Oximetry 97 10/10/23 14:57 Oxygen Delivery Me thod Room Air 10/10/23 14:57 MDM - Dizziness Medical Decision Making Patient has orthostasis as well as syncopal-like episodes that he had at home and here concerned with his underlying heart disease he had a positive stress test previously. He has no focal neurologic deficits no trauma to the head. Discussed with hospitalist will admit for further cardiac workup may need to adjustment of his blood pressure medications as well given his orthostasis here. He Dr. Ramírez will see the patient. Medical Records I reviewed the patient's medical records. Lab Data I reviewed the patient's lab results. 10/10/23 12:21 10/10/23 12:21 Laboratory Results WBC 6.07 10^3/uL (3.29-11.43) 10/10/23 12:21 RBC 3.98 10^6/uL (3.85-5.65) 10/10/23 12:21 Hgb 12.40 g/dL (11.27-16.99) 10/10/23 12:21 Hct 38.9 % (37-53) 10/10/23 12:21 MCV 97.7 fl (82-101) 10/10/23 12:21 MCH 31.2 pg (27-33) 10/10/23 12:21 MCHC 31.9 g/dL (30-55) 10/10/23 12:21 RDW 12.7 % (12.1-15.1) 10/10/23 12:21 Plt Count 252 10^3/cmm (157-399) 10/10/23 12:21 MPV 9.4 fL (7.4-10.4) 10/10/23 12:21 Neut % (Auto) 64.6 % 10/10/23 12:21 Lymph % (Auto) 21.4 % 10/10/23 12:21 [place] % (Auto) 10.7 % 10/10/23 12:21 Eos % (Auto) 2.6 % 10/10/23 12:21 Baso % (Auto) 0.5 % 10/10/23 12:21 Neut # (Auto) 3.92 10^3/uL (1.8-7.7) 10/10/23 12:21 Lymph # (Auto) 1.3 10^3/uL (0.8-4.8) 10/10/23 12:21 [place] # (Auto) 0.7 10^3/uL (0.2-0.9) 10/10/23 12:21 Eos # (Auto) 0.2 10^3/uL (0.0-0.8) 10/10/23 12:21 Baso # (Auto) 0.0 10^3/uL (0.0-0.1) 10/10/23 12:21 Nucleated RBC % (auto) 0 % 10/10/23 12:21 Nucleated RBCs # 0.0 /100WBC 10/10/23 12:21 Sodium 137 mmol/L (136-145) 10/10/23 12:21 Potassium 4.5 mmol/L (3.5-5.1) 10/10/23 12:21 Chloride 100 mmol/L (98-107) 10/10/23 12:21 Carbon Dioxide 25 mmol/L (22-29) 10/10/23 12:21 Anion Gap 18.5 (5-19) 10/10/23 12:21 BUN 17 mg/dL (8-23) 10/10/23 12:21 Creatinine 0.9 mg/dL (0.7-1.2) 10/10/23 12:21 GFR Calculation Not Reportable 10/10/23 12:21 Glucose 131 mg/dL (65-115) H 10/10/23 12:21 Calculated Osmolality 287 mOsm/kg (285-295) 10/10/23 12:21 Calcium 9.3 mg/dL (8.5-10.5) 10/10/23 12:21 Total Bilirubin 0.3 mg/dL (0.15-1.2) 10/10/23 12:21 AST 20 U/L (0-40) 10/10/23 12:21 ALT 19 U/L (0-41) 10/10/23 12:21 Alkaline Phosphatase 73 U/L (40-130) 10/10/23 12:21 Troponin T Baseline 27 ng/L (0-15) H 10/10/23 12:21 Troponin T 120 Minute 27.11 ng/L (0-15) H 10/10/23 14:22 Delta Troponin T 0.11 ABS# (0-10) 10/10/23 14:22 NT-Pro-B Natriuret Pep 111 pg/mL (0-450) 10/10/23 12:21 Total Protein 7.2 g/dL (6.6-8.7) 10/10/23 12:21 Albumin 3.6 g/dL (3.5-5.2) 10/10/23 12:21 Globulin 3.6 g/dL (1.3-4.6) 10/10/23 12:21 All radiology interpretation(s) finalized by discharge Discharge Plan Discharge Patient Disposition: Admitted As Inpatient Clinical Impression: Orthostatic hypotension, Syncope, CAD (coronary artery disease) Condition: Stable Prescriptions: No Action multivitamin [Daily Multi-Vitamin] Tablet 1 tab PO QAM vitamin B complex [B Complex-Vitamin B12] Tablet 1 tab PO QAM ascorbate calcium (vitamin C) 500 mg tablet 500 mg PO DAILY promethazine-DM 6.25-15 mg/5 mL syrup 5 ml PO .every 12 hours Qty: 120 0RF Rx Instructions: for 1 week. cholecalciferol (vitamin D3) 25 mcg (1,000 unit) capsule 25 mcg PO DAILY ketoconazole 2 % shampoo 1 applic topical .Twice weekly Qty: 120 6RF Rx Instructions: Lather into scalp 2 times weekly. Allowed to sit on scalp for 5 minutes before rinsing. albuterol sulfate [ProAir HFA] 90 mcg/actuation HFA aerosol inhaler 2 puff inhalation QID PRN (Reason: shortness of breath or wheezing) Qty: 6.7 2RF amlodipine 5 mg tablet 5 mg PO DAILY Qty: 90 1RF atorvastatin 20 mg tablet 20 mg PO DAILY Qty: 90 1RF clopidogrel [Plavix] 75 mg tablet 75 mg PO DAILY Qty: 90 1RF Trulicity 1.5 mg/0.5 mL pen injector 1.5 mg SUBCUT .weekly Qty: 6 1RF duloxetine [Cymbalta] 30 mg capsule,delayed release(DR/EC) 30 mg PO BID Qty: 180 1RF finasteride [Proscar] 5 mg tablet 5 mg PO DAILY Qty: 90 1RF fluticasone propion-salmeterol [Advair Diskus] 250-50 mcg/dose blister with device 1 inh inhalation Q12H Qty: 180 1RF glimepiride 4 mg tablet 4 mg PO DAILY Qty: 90 1RF Hold Instructions: Glucose improved metformin 500 mg tablet extended release 24 hr 2,000 mg PO QDAY Qty: 360 1RF montelukast [Singulair] 10 mg tablet 10 mg PO DAILY Qty: 90 1RF mupirocin 2 % ointment 1 applic topical BID Qty: 22 0RF tamsulosin [Flomax] 0.4 mg capsule 0.4 mg PO DAILY Qty: 90 1RF valsartan 320 mg tablet 320 mg PO DAILY Qty: 90 1RF potassium chloride 20 mEq tablet extended release 20 meq PO DAILY PRN (Reason: Take with Lasix) Qty: 30 6RF furosemide 40 mg tablet 40 mg PO DAILY PRN (Reason: edema) Qty: 30 6RF vitamin E (dl, acetate) 90 mg (200 unit) Capsule 90 mg PO DAILY carvedilol 3.125 mg tablet 3.125 mg PO BID ketoconazole 2 % cream 1 applic topical BID PRN (Reason: Rash) Rx Instructions: Apply to red scaly areas of the face 1-2 times daily Referrals: Lloyd Spencer, TRANSFORMER REPAIRER-C [Primary Care Provider] - Coding Level of Care Code ED Carburetor Repairer for Estrella Granados
--- NOTE | 2023-10-10 13:03 | PC.PHAR ---
PT STATES ALL MEDS ARE NO THE PORTAL, HE FORGOT HIS LIST AT HOME. PT USES [facility] [employer] MAIL ORDER FOR ALL MAINTENANCE MEDS AND [facility] FOR IMMEDIATE NEED MEDS. PT IS TAKING LASIX AND POTASSIUM ONLY NEEDED FOR 3 DAYS AT A TIME. 10/10/23
[2023-10-10 13:07] LABS: Alanine Aminotransferase 19 U/L (0-41); Alkaline Phosphatase 73 U/L (40-130); Aspartate Amino Transferase 20 U/L (0-40); Blood Urea Nitrogen 17 mg/dL (8-23); Calcium 9.3 mg/dL (8.5-10.5); Carbon Dioxide 25 mmol/L (22-29); Total Bilirubin 0.3 mg/dL (0.15-1.2); Total Protein 7.2 g/dL (6.6-8.7); Troponin(5th) Baseline 27 ng/L (0-15)
[2023-10-10 13:24] LABS: Albumin Level 3.6 g/dL (3.5-5.2); Anion Gap 18.5 (5-19); Chloride 100 mmol/L (98-107); Globulin 3.6 g/dL (1.3-4.6); Glucose 131 mg/dL (65-115); Osmolality Calculated 287 mOsm/kg (285-295); Potassium 4.5 mmol/L (3.5-5.1); Sodium 137 mmol/L (136-145)
[2023-10-10 13:31] LABS: NT Pro B Type Natriuretic Pept 111 pg/mL (0-450)
--- NOTE | 2023-10-10 13:35 | ECG_ITS ---
[facility] Test Date: 2023-10-10 Pat Name: Srinivas Hurst Department: Room: Gender: Male Infrastructure Architect: : 1940 Requested By: Grey Tompkins Order Number: [id number] Jose MD: Zack Harrison M.D. Measurements Intervals [place] Rate: 87 P: -12 AK: 196 QRS: -21 QRSD: 99 T: 75 QT: 385 QTc: 465 Interpretive Statements SINUS RHYTHM BORDERLINE LEFT AXIS DEVIATION [QRS AXIS < -20] LOW QRS VOLTAGE IN PRECORDIAL LEADS [QRS DEFLECTION < 1.0 mV IN CHEST LEADS] PATTERN CONSISTENT WITH PULMONARY DISEASE NONSPECIFIC T-WAVE ABNORMALITY Compared to ECG 10/10/2023 11:57:52 First degree AV block no longer present T-wave abnormality still present Electronically Signed On 10-10-2023 18:33:45 [employer] [facility] by Zack Harrison M.D. [id number]
[2023-10-10 14:43] LABS: Troponin 5 2HR 27.11 ng/L (0-15); Troponin 5 2HR Delta 0.11 ABS# (0-10)
[2023-10-10] MEDS: sodium chloride 0.9% 500 ML 999 ML IV (15:20)
[2023-10-10 15:39] LABS: Add Urine Microscopic? YES; Bilirubin Urine 1+ (Negative); Blood Urine Neg (Negative); Glucose Urine UA Norm (Normal); Ketones Urine Negative (Negative); Leukocyte Esterase Urine 2+ (Negative); Nitrate Urine Negative (Negative); Protein Urine Neg (Negative); Specific Gravity, Urine 1.025 (1.005-1.030); Urine Appearance Cloudy (CLEAR); Urine Color Dark Yellow (Yellow); Urobilinogen Urine Norm (Negative); pH Urine 5 (5-7)
[2023-10-10 16:08] LABS: Add Urine Culture? Yes; Bacteria Urine TRACE /hpf; Mucus Urine 4+ /hpf; WBC Urine 25-40 /hpf (0-5)
--- NOTE | 2023-10-10 16:27 | P.CONIM_ITS ---
Providers/Reason For Consult 2 Consulting Physician/Specialty*: Zack Harrison MD/ Cardiology Reason for Consult*: Syncope/abnormal stress test Requesting Physician: Dr Mata Attending Physician: Jp Toussaint Primary Care Provider: NILES Orr History of Present Illness History of Present Illness Srinivas Hurst is a 83 year old male with past medical history of COPD, obesity, hypertension, diabetes who had a abnormal stress test last year but did not follow-up on that. He has presented with presyncopal episodes. Association with exertion. Feels lightheaded before.Troponins are mildly elevated but have not trended up signifcantly. Review of Systems 2 Const: Denies: fever(s), chills, body aches or malaise ENMT: Denies: throat pain Card: Reports: lightheadedness and pre-syncope; Denies: chest pain or dyspnea on exertion Resp: Denies: dyspnea, productive cough, change in phlegm color or hemoptysis GI: Reports: other (Dark stools); Denies: abdominal pain, nausea, vomiting, diarrhea, constipation or hematochezia : Denies: flank pain, difficulty urinating, urinary frequency or hematuria Musc: Denies: back pain, joint swelling or joint redness Skin/Breast: Denies: rash or new lesions Medications/Allergies Home Medications Medication Instructions Recorded Confirmed Last Taken Type multivitamin (Daily Multi-Vitamin 1 tab PO QAM 09/19/19 10/10/23 10/10/23 History tablet) vitamin B complex (B 1 tab PO QAM 09/19/19 10/10/23 10/10/23 History Complex-Vitamin B12 tablet) ascorbate calcium (vitamin C) 500 500 mg PO DAILY 04/22/20 10/10/23 10/10/23 History mg tablet furosemide 40 mg tablet 40 mg PO DAILY PRN edema #30 tabs 07/31/22 10/10/23 Unknown Rx potassium chloride 20 mEq 20 meq PO DAILY PRN Take with 07/31/22 10/10/23 Unknown Rx tablet,extended release Lasix #30 tabs cholecalciferol (vitamin D3) 25 25 mcg PO DAILY 10/26/22 10/10/23 10/10/23 History mcg (1,000 unit) capsule promethazine-DM 6.25 mg-15 mg/5 mL 5 ml PO .every 12 hours cough #120 10/03/23 10/10/23 Unknown Rx oral syrup mL albuterol sulfate 90 mcg/actuation 2 puff inhalation QID PRN 10/10/23 10/10/23 Unknown Rx aerosol inhaler (ProAir HFA) shortness of breath or wheezing #6.7 grams amlodipine 5 mg tablet 5 mg PO DAILY #90 tabs 10/10/23 10/10/23 10/10/23 Rx atorvastatin 20 mg tablet 20 mg PO DAILY #90 tabs 10/10/23 10/10/23 10/10/23 Rx carvedilol 3.125 mg tablet 3.125 mg PO BID 10/10/23 10/10/23 10/10/23 History clopidogrel 75 mg tablet (Plavix) 75 mg PO DAILY #90 tabs 10/10/23 10/10/23 10/10/23 Rx dulaglutide 1.5 mg/0.5 mL 1.5 mg (0.5 mL) SUBCUT .weekly #6 10/10/23 10/10/23 Unknown Rx subcutaneous pen injector mL (Trulicity) duloxetine 30 mg capsule,delayed 30 mg PO BID #180 caps 10/10/23 10/10/23 10/10/23 Rx release (Cymbalta) finasteride 5 mg tablet (Proscar) 5 mg PO DAILY #90 tabs 10/10/23 10/10/23 10/10/23 Rx fluticasone 250 mcg-salmeterol 50 1 inh inhalation Q12H #180 ea 10/10/23 10/10/23 10/10/23 Rx mcg/dose blistr powdr for inhalation (Advair Diskus) glimepiride 4 mg tablet 4 mg PO DAILY #90 tabs 10/10/23 10/10/23 10/10/23 Rx ketoconazole 2 % topical cream 1 applic topical BID PRN Rash 10/10/23 10/10/23 Unknown History metformin 500 mg tablet,extended 2,000 mg (4 x 500 mg) PO QDAY #360 10/10/23 10/10/23 10/10/23 Rx release 24 hr tabs montelukast 10 mg tablet 10 mg PO DAILY #90 tabs 10/10/23 10/10/23 10/10/23 Rx (Singulair) mupirocin 2 % topical ointment 1 applic topical BID #22 grams 10/10/23 10/10/23 10/09/23 Rx tamsulosin 0.4 mg capsule (Flomax) 0.4 mg PO DAILY #90 caps 10/10/23 10/10/23 10/09/23 Rx valsartan 320 mg tablet 320 mg PO DAILY #90 tabs 10/10/23 10/10/23 10/10/23 Rx vitamin E (dl, acetate) 90 mg (200 90 mg PO DAILY 10/10/23 10/10/23 10/10/23 History unit) capsule Allergies Allergy/AdvReac Type Severity Reaction Status Date / Time acetaminophen [From Percocet] Allergy CONFUSION Verified 10/10/23 12:03 oxycodone [From Percocet] Allergy CONFUSION Verified 10/10/23 12:03 PFSH Acute 2 PFSH: Medical History Multiple environmental allergies Urolithiasis History of kidney stones Atherosclerosis Cardiomegaly 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 Social History Smoking and tobacco/nicotine status: never used tobacco/nicotine Second hand smoke exposure: No Alcohol intake: never Substance/Drug Use: never Adopted: No Caregiver/support person: No Lives independently: No Household members: spouse Housing: House Marital status: Number of children: 5 Number of grandchildren: 15 service: Yes Current occupational status: retired Pets and animals: No Do you think of yourself as: Straight/Heterosexual Current gender identity: Male Vitals/I&O/Wt Last Vital Signs Temp 97.7 F 10/10/23 11:59 Pulse 75 10/10/23 14:57 Resp 18 10/10/23 14:57 BP 126/58 10/10/23 15:35 Pulse Ox 97 10/10/23 14:57 O2 Del Method Room Air 10/10/23 14:57 Weight last 48 hrs Weight 305 lb Physical Exam 2 Narrative: GENERAL: Patient is alert, awake and oriented x3. [] NECK: No jugular vein distension. [] HEENT: No cyanosis. No icterus. No pallor. [] HEART: Regular S1 and S2. No murmur, rub or gallop. [] LUNGS: Clear to auscultate bilaterally. [] CENTRAL NERVOUS SYSTEM: Grossly nonfocal. [] EXTREMITIES: Lower extremities with 1+ edema bilaterally. Data 10/11/23 03:27 10/11/23 03:27 A&P Assessment and plan (1) Abnormal cardiovascular stress test: (2) Orthostatic hypotension: (3) CAD (coronary artery disease): (4) Essential (primary) hypertension: (5) Cardiomegaly: (6) Pre-syncope: Plan Patient has presyncope/near syncopal episodes or. That can be related to orthostatic hypotension. However he had a significant abnormal stress test. Also has dyspnea on exertion. Will proceed with coronary angiography with possible percutaneous intervention. Risks and benefits of the procedure have been discussed with patient and family. They understand them and want to proceed. Will start aspirin. Monitor blood pressure. Order echocardiogram. Thank you for involving us with care of this patient. Will continue to follow. Please call with questions. Consult Attestations 2 Medical Necessity Statement: Care expected to cross 2 midnights. Coding Level of Care Code Acute Code for [facility] Fwd Diagnoses Abnormal cardiovascular stress test R94.39 Orthostatic hypotension I95.1 CAD (coronary artery disease) I25.10 Essential (primary) hypertension I10 Cardiomegaly I51.7 Pre-syncope R55
--- NOTE | 2023-10-10 16:40 | USCV_ITS ---
Srinivas Hurst Age: 83 Gender: M : 1940 Exam Date: 10/10/2023 21:18 Ordering Phys: Jp Toussaint MD Technologist: CHRISTI Exam Location: [facility] [place] Indication: severe orthostasis, sleeps in chair x 9 years. No history of cardiac intervention per patient. BP: 126 / 58 HR: 89 Rhythm: Sinus Technical Quality: Adequate with [employer] MEASUREMENTS (Male / Female) Normal Values 2D ECHO LV Diastolic Diameter PLAX 4.1 cm 4.2 - 5.9 / 3.9 - 5.3 cm LV Systolic Diameter PLAX 2.9 cm IVS Diastolic Thickness 1.7 cm 0.6 - 1.0 / 0.6 - 0.9 cm IVS Systolic Thickness 2.5 cm LVPW Diastolic Thickness 2.0 cm 0.6 - 1.0 / 0.6 - 0.9 cm LVPW Systolic Thickness 2.2 cm LVOT Diameter 2.1 cm LV Ejection Fraction 2D Teich 55.3 % LV Ejection Fraction MOD 2C 50.1 % LV Ejection Fraction 2C AL 52.0 % LA Diameter 3.5 cm LA Width 2.5 cm LA Height 5.6 cm RA Width 2.8 cm RA Height 5.3 cm Aorta at Sinotubular Diameter 3.7 cm IVC Diameter 1.5 cm M-MODE Aortic Annulus Diameter 3.9 cm LA Ao Ratio MM 0.9 MV E Point Septal Separation 0.2 cm DOPPLER AV Peak Velocity 118.0 cm/s LVOT Peak Velocity 68.0 cm/s AV Area Cont Eq vti 1.9 cm squared AV Area Cont Eq pk 2.1 cm squared MV Peak Velocity 130.0 cm/s MV Area PHT 2.2 cm squared Mitral E to A Ratio 0.6 MV E' Velocity 29.0 cm/s Mitral E to MV E' Ratio 9.2 Mitral E to LV E' Lateral Ratio 8.5 Mitral E to LV E' Septal Ratio 10.1 TR Peak Velocity 272.0 cm/s TR Peak Gradient 29.6 mmHg TV Peak E Velocity 55.0 cm/s Right Atrial Pressure 5.0 mmHg Pulmonary Artery Systolic Pressu 34.6 mmHg PV Peak Velocity 97.0 cm/s RV Acceleration Time 0.2 s RV Ejection Time 0.3 s RV AcT/ET 0.5 FINDINGS Left Ventricle Left ventricle is normal in size. LV systolic function is normal with EF of 55-60%. No regional wall motion abnormalities are seen. Grade 1 diastolic dysfunction Right Ventricle Normal in size and function Right Atrium Not well visualized Left Atrium Normal in size Mitral Valve Structurally normal mitral valve. Trace mitral regurgitation. Aortic Valve Structurally normal aortic valve. No significant stenosis or regurgitation. Tricuspid Valve Mild tricuspid regurgitation. Pulmonary artery systolic pressure is 35 to 40 mmHg. This is consistent with mild pulmonary hypertension. Pulmonic Valve Not well visualized Pericardium Grossly normal Aorta Aortic root is midlly dilated IVC Normal CONCLUSIONS LV systolic function is normal with EF of 55-60% Grade 1 diastolic dysfunction Trace mitral regurgitation Mild tricuspid regurgitation Mild pulmonary hypertension Aortic root is mildly dilated Accurate comparison with prior echocardiogram is not possible because of limited as contrast was not used for previous study Zack Harrison MD (Electronically Signed) Final Date: 11 October 2023 11:14 S
--- NOTE | 2023-10-10 16:46 | P.HP_ITS ---
Providers/Chief Complaint 2 Admitting Physician: Jp Toussaint Primary Care Provider: NILES Orr Chief Complaint: dizzy, fell 10-08-23 History of Present Illness He has been getting dizzy intermittently with orthostatic symptoms, had a fall several days ago. In ER found to be severely orthostatic. In November had stress test with at least moderate reversibility and anterolateral inferolateral and apical anterior regions suggesting ischemia. Was reportedly not symptomatic at that time. He noticed dark stools over the last week, at least for several days. He occasionally takes Aleve. Review of Systems 2 Const: Denies: fever(s), chills, body aches or malaise ENMT: Denies: throat pain Card: Reports: lightheadedness and pre-syncope; Denies: chest pain or dyspnea on exertion Resp: Denies: dyspnea, productive cough, change in phlegm color or hemoptysis GI: Reports: other (Dark stools); Denies: abdominal pain, nausea, vomiting, diarrhea, constipation or hematochezia : Denies: flank pain, difficulty urinating, urinary frequency or hematuria Musc: Denies: back pain, joint swelling or joint redness Skin/Breast: Denies: rash or new lesions Medications/Allergies Home Medications Medication Instructions Recorded Confirmed Last Taken Type multivitamin (Daily Multi-Vitamin 1 tab PO QAM 09/19/19 10/10/23 10/10/23 History tablet) vitamin B complex (B 1 tab PO QAM 09/19/19 10/10/23 10/10/23 History Complex-Vitamin B12 tablet) ascorbate calcium (vitamin C) 500 500 mg PO DAILY 04/22/20 10/10/23 10/10/23 History mg tablet furosemide 40 mg tablet 40 mg PO DAILY PRN edema #30 tabs 07/31/22 10/10/23 Unknown Rx potassium chloride 20 mEq 20 meq PO DAILY PRN Take with 07/31/22 10/10/23 Unknown Rx tablet,extended release Lasix #30 tabs cholecalciferol (vitamin D3) 25 25 mcg PO DAILY 10/26/22 10/10/23 10/10/23 History mcg (1,000 unit) capsule promethazine-DM 6.25 mg-15 mg/5 mL 5 ml PO .every 12 hours cough #120 10/03/23 10/10/23 Unknown Rx oral syrup mL albuterol sulfate 90 mcg/actuation 2 puff inhalation QID PRN 10/10/23 10/10/23 Unknown Rx aerosol inhaler (ProAir HFA) shortness of breath or wheezing #6.7 grams amlodipine 5 mg tablet 5 mg PO DAILY #90 tabs 10/10/23 10/10/23 10/10/23 Rx atorvastatin 20 mg tablet 20 mg PO DAILY #90 tabs 10/10/23 10/10/23 10/10/23 Rx carvedilol 3.125 mg tablet 3.125 mg PO BID 10/10/23 10/10/23 10/10/23 History clopidogrel 75 mg tablet (Plavix) 75 mg PO DAILY #90 tabs 10/10/23 10/10/23 10/10/23 Rx dulaglutide 1.5 mg/0.5 mL 1.5 mg (0.5 mL) SUBCUT .weekly #6 10/10/23 10/10/23 Unknown Rx subcutaneous pen injector mL (Trulicity) duloxetine 30 mg capsule,delayed 30 mg PO BID #180 caps 10/10/23 10/10/23 10/10/23 Rx release (Cymbalta) finasteride 5 mg tablet (Proscar) 5 mg PO DAILY #90 tabs 10/10/23 10/10/23 10/10/23 Rx fluticasone 250 mcg-salmeterol 50 1 inh inhalation Q12H #180 ea 10/10/23 10/10/23 10/10/23 Rx mcg/dose blistr powdr for inhalation (Advair Diskus) glimepiride 4 mg tablet 4 mg PO DAILY #90 tabs 10/10/23 10/10/23 10/10/23 Rx ketoconazole 2 % topical cream 1 applic topical BID PRN Rash 10/10/23 10/10/23 Unknown History metformin 500 mg tablet,extended 2,000 mg (4 x 500 mg) PO QDAY #360 10/10/23 10/10/23 10/10/23 Rx release 24 hr tabs montelukast 10 mg tablet 10 mg PO DAILY #90 tabs 10/10/23 10/10/23 10/10/23 Rx (Singulair) mupirocin 2 % topical ointment 1 applic topical BID #22 grams 10/10/23 10/10/23 10/09/23 Rx tamsulosin 0.4 mg capsule (Flomax) 0.4 mg PO DAILY #90 caps 10/10/23 10/10/23 10/09/23 Rx valsartan 320 mg tablet 320 mg PO DAILY #90 tabs 10/10/23 10/10/23 10/10/23 Rx vitamin E (dl, acetate) 90 mg (200 90 mg PO DAILY 10/10/23 10/10/23 10/10/23 History unit) capsule Allergies Allergy/AdvReac Type Severity Reaction Status Date / Time acetaminophen [From Percocet] Allergy CONFUSION Verified 10/10/23 12:03 oxycodone [From Percocet] Allergy CONFUSION Verified 10/10/23 12:03 PFSH Acute 2 PFSH: Medical History Multiple environmental allergies Urolithiasis History of kidney stones Atherosclerosis Cardiomegaly 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 Social History Smoking and tobacco/nicotine status: never used tobacco/nicotine Second hand smoke exposure: No Alcohol intake: never Substance/Drug Use: never Adopted: No Caregiver/support person: No Lives independently: No Household members: spouse Housing: House Marital status: Number of children: 5 Number of grandchildren: 15 service: Yes Current occupational status: retired Pets and animals: No Do you think of yourself as: Straight/Heterosexual Current gender identity: Male Vitals/I&O/Wt Last Vital Signs Temp 97.7 F 10/10/23 11:59 Pulse 75 10/10/23 14:57 Resp 18 10/10/23 14:57 BP 126/58 10/10/23 15:35 Pulse Ox 97 10/10/23 14:57 O2 Del Method Room Air 10/10/23 14:57 Weight last 48 hrs Weight 138.346 kg Physical Exam 2 Narrative: Accompanied by his . Const: COMMON NORMALS: patient oriented x3 and alert GENERAL APPEARANCE: c ooperative NUTRITIONAL APPEARANCE: obese morbidly obese O RIENTATION/CONSCIOUSNESS: Yes awake OTHER: Hard of hearing HENMT: COMMON NORMALS: oropharynx normal Neck/C-Spine: COMMON NORMALS: no JVD Resp: COMMON NORMALS: normal respiratory effort and clear to auscultation bilaterally AUSCULTATION: clear to auscultation bilaterally Cardio: COMMON NORMALS: no JVD, regular rhythm, S1 normal heart sound present, S2 normal heart sound present and No murmurs present (Cardio) RHYTHM: regular rhythm HEART SOUNDS: S1 normal heart sound present and S2 normal heart sound present GI: COMMON NORMALS: Normal to inspection, nondistended, normoactive bowel sounds present, Soft to palpation and non-tender PALPATION: Yes Soft to palpation Extremity: COMMON NORMALS: no joint enlargement and no pedal edema Neuro: COMMON NORMALS: patient oriented x3 and moves all extremities S ENSORIUM/ORIENTATION: Yes alert Skin: COMMON NORMALS: no rashes or lesions noted NARRATIVE SKIN EXAM: Hemosiderosis/chronic venous stasis GENERAL SKIN EXAM: no rashes or lesions noted Data 10/10/23 12:21 10/10/23 12:21 A&P Assessment and plan (1) Orthostatic hypotension: Severe orthostatic hypotension found in ER, with presyncopal episodes, additionally with abnormal stress test back in November with at least moderate reversible defect. Reviewed vitals, CBC, CMP, troponin so far, UA, chest x-ray. Hold amlodipine for now. He is also on tamsulosin, continue for now. Continue valsartan, carvedilol for now. Monitor vitals, monitor on telemetry. Assess TTE. Additional cardiac workup as per cardiology. Complete troponin EKG series. Treat UTI. Consider midodrine, but hold off for now given known abnormal stress test, risk of cardiac ischemia. Gentle IV hydration, but at risk of fluid overload with cardiomegaly, unclear cardiac function, previously abnormal stress test. Monitor for fluid overload. (2) Pre-syncope: With severe orthostasis. Assess for additional cardiac etiology. Assess for possible IN, monitor for possible arrhythmia Of advanced age, previously abnormal stress test as above. Assess echocardiogram. Monitor on telemetry. Complete troponin EKG series. Cardiology consultation. (3) Abnormal cardiovascular stress test: As above. (4) UTI (urinary tract infection): Ceftriaxone. Follow up urine culture. (5) Cardiomegaly: Assess TTE Plan COPD: Nebs treatments as needed. Budesonide. Obesity Hypertension: Monitor blood pressure, complicated by orthostatic hypotension. Hold amlodipine. Continue valsartan, carvedilol. Monitor vitals with risk of hypotension. Obstructive pyelonephritis BPH: Continue finasteride, tamsulosin. Risk of orthostasis. Reassess. Attestations 2 Medical Necessity Statement*: Place in observation for additional assessment of presyncopal episodes, severe orthostasis and gentleman with abnormal stress test, cardiomegaly, UTI. and High MDM includes amount and/or complexity of data reviewed/ordered [ previous or external records, resulted lab(s)/test(s), ordered lab(s)/test(s) and other healthcare professional discussion] and described risk of complication, morbidity or mortality of management as documented Diagnoses Orthostatic hypotension I95.1 Pre-syncope R55 Abnormal cardiovascular stress test R94.39 UTI (urinary tract infection) N39.0 Cardiomegaly I51.7
[2023-10-10 18:17] LABS: Glucose Point of Care 118 mg/dL (70-110)
[2023-10-10] MEDS: aspirin 325 mg Tablet PO (18:21)
[2023-10-10] MEDS: heparin 5,000 unit/mL INJ 1 mL 5000 UNIT SUBCUT (18:22)
[2023-10-10] MEDS: cefTRIAXone 1,000 MG in sodium chloride 0.9% (plus) 50 ML 100 MG IV (18:22)
[2023-10-10] MEDS: pantoprazole 40 mg SDV IVP (18:22)
[2023-10-10] MEDS: duloxetine 30 mg Capsule PO (18:23)
[2023-10-10] MEDS: carvedilol 3.125 mg Tablet PO (18:23)
[2023-10-10 19:28] LABS: Troponin 5 6HR 27.53 ng/L (0-15); Troponin 5 6HR Delta 0.53 ng/L (0-12)
[2023-10-10 20:01] LABS: Thyroid Stimulating Hormone 3.23 uIU/mL (0.27-4.20)
[2023-10-10 20:28] LABS: Glucose Point of Care 179 mg/dL (70-110)
[2023-10-11] VITALS (12 sets, daily range): BP systolic 108–180; BP diastolic 62–90; PULSE 69–82; RESP 16–22; TEMP 36.5–36.6; O2SAT 90–98
[2023-10-11 03:52] LABS: Basophils % 0.7 %; Eosinophils # 0.2 10^3/uL (0.0-0.8); Eosinophils % 3.8 %; Hematocrit 36.5 % (37-53); Lymphocytes # 1.6 10^3/uL (0.8-4.8); Lymphocytes % 28.8 %; Mean Corpuscular HGB Conc 32.3 g/dL (30-55); Mean Corpuscular Hemoglobin 31.7 pg (27-33); Mean Corpuscular Volume 98.1 fl (82-101); Mean Platelet Volume 9.5 fL (7.4-10.4); Monocytes # 0.9 10^3/uL (0.2-0.9); Monocytes % 15.3 %; Neutrophils # 2.84 10^3/uL (1.8-7.7); Nucleated Red Blood Cells % 0 %; Platelet Count 228 10^3/cmm (157-399); Red Blood Count 3.72 10^6/uL (3.85-5.65); Red Cell Distribution Width 12.8 % (12.1-15.1); White Blood Count 5.56 10^3/uL (3.29-11.43)
[2023-10-11 04:04] LABS: Anion Gap 13.4 (5-19); Blood Urea Nitrogen 18 mg/dL (8-23); Calcium 9.2 mg/dL (8.5-10.5); Carbon Dioxide 27 mmol/L (22-29); Chloride 100 mmol/L (98-107); Creatinine Clr Calc Pharmacy 82.3692; Glucose 118 mg/dL (65-115); Osmolality Calculated 285 mOsm/kg (285-295); Potassium 4.4 mmol/L (3.5-5.1); Sodium 136 mmol/L (136-145)
[2023-10-11] MEDS: heparin 5,000 unit/mL INJ 1 mL 5000 UNIT SUBCUT (05:11)
[2023-10-11] MEDS: pantoprazole 40 mg SDV IVP (05:11)
--- NOTE | 2023-10-11 05:23 | PC.NURSE ---
Patient prepped for [facility] at this time.
--- NOTE | 2023-10-11 07:18 | XACV_ITS ---
Exam Room: 2 Ht: 180 cm Wt: 139 kg BSA: 2.71 m2 Gender: Male : 1940 Exam Priority: Routine Procedure(s): Procedure Description: Diagnostic procedure Procedure Description: Coronary IVUS Procedure Description: Coronary Angiography Procedure Description: Pressure Wire Diagnostic Cath Status: Elective Diagnostic Findings * INDICATION: Syncope/abnormal stress test. * Circumflex has mild luminal irregularities. * Left Main to Proximal Left Anterior Descendin% stenosis, SARAH: 3 flow. * Ostial Left Anterior Descending: significant 70-80% stenosis, SARAH: 3 flow. * Right Coronary Artery has no disease. * Coronary angiography shows right dominance. Interventional Findings * Procedure detail: We engaged left main artery with XB 3.5 guide catheter. IV heparin was administered to maintain anticoagulation. After normalization, IFR wire was put in distal vessel. iFR value of 0.78 was obtained that was significantly abnormal. We then proceeded with IVUS to assess left main stenosis. MLA of the left main artery is 4.6 mm2 that is significant. Guidewire and guide catheter were removed. Patient left the Milled Rubber Tender in stable condition. Conclusions 1. Severe left main to ostial LAD stenosis.. Recommendations * Heart team discussion with CT surgery. If patient is not a surgical candidate, we will proceed with left main stenting as a staged procedure. Anticoagulation: Heparin Pressures Phase:Rest AO : 148 / 70 ( 94 ) @ 8:13:00 AM Clinical Evaluation EBL: 5mL-10mL Procedural Details Pre-Procedure Time Out. Identified patient by full name and date of as verbalized by the patient/guarantor. Does the consent match the physician's order: Yes. Accurate & Complete Informed Consent: Yes. Inpatient/Outpatient History & Physical on Chart: Yes. If H&P is completed, is and addenduem needed: No. Visualize and Verify Site with Patient/Guarantor: N/A. Relevant Radiology Images available: Yes. Pre-op teaching completed and patient verbalized understanding. The risks, benefits, and alternatives of sedation and/or procedure were discussed by physician. The patient agrees to continue. Procedure started. [facility] Clinical Fraility Score: 4: Vulnerable. Milled Rubber Tender Indications: Worsening Angina. Chest Pain Symptom Assessment: Syncope and abnormal stress test. Correct patient, site and procedure confirmed by cath team. PERRLA. Strong, equal hand sheet fed printer bilaterally. Lungs clear x 5 lobes. IV Site on Arrival: 20 gauge in the left forearm. IV Fluids: 0.9% NaCl at KVO. 0 mL infused prior to veterinary laboratory technician. Pre Procedural Pulses: right radial was 3+. Oxygen started at 2liters/min via nasal canula. right groin was prepped with chloroprep then draped in the usual sterile fashion. right radial was prepped with chloroprep then draped in the usual sterile fashion. Physician notified. Baseline sample Acquired. HR: 71 BPM. Patient's family unavailable. Equipment: 6F - Radial. Cardiac Cath Pack. ACIST Manifold Kit Model BT 2000. Heparinized Saline (2 units/mL), 1000 mL bag. Physician arrived. Physician scrubbed in. Immediate Pre-Procedure Time Out. Correct Patient: Yes; Correct Procedure: Yes; Correct Site: Yes; Correct Patient Position: Yes; Correct Supplies: Yes; Dried Flammable Prep: Yes; Blood Products Available: N/A;. Lidocaine 1% infiltrated to the right radial. Arterial access obtained. A 6 salvadorean TIG catheter in over the exchange J wire. Multiple views taken of right coronary artery. Catheter removed over the exchange J wire. A 5 salvadorean JL4 catheter in over the exchange J wire. Multiple views taken of left coronary artery. Catheter removed over the exchange wire. 6 salvadorean XB 3.5 guide catheter was inserted over the wire. iFR wire in amd advamced past the lesion in the ostial LAD. iFR spot of the ostial LAD 0.78 with a pullback of 0.78. iFR wire out. Runthrough guidewire was advanced through the guide catheter to lesion in the ostial LAD. IVUS catheter in. Ultrasound performed and measurements obatined. MLA of the left main=4.6. Wire out. Guide catheter out over the exchange J wire. A 5 salvadorean Angled Pig catheter in over wire. Catheter removed over the exchange J wire. Dr. Harrison scrubbed out. A TR Band was successful obtaining hemostatsis at the Right Radial artery insertion site. Post Procedure: Pulses reassessed and unchanged. PERRLA. Strong, equal hand sheet fed printer bilaterally. No VTE prophylaxis required. Medication's Wasted: Nitro = 2 mL. Medication's Wasted: Nitro = 49.7 mg. Medication's Wasted: Other = Versed 1 mg. Medication's Wasted: Other = Fentanyl 75 mcg. Medication's Wasted: Heparin = 4000 units. Total IV fluids: 40 mL. Post-op diagnosis: Severe distal LM and ostial LAD stenosis. Will refer to CV surgery. Complications: none. Estimated blood loss: 5mL-10mL. Responsiveness - Normal response to verbal stimuli; alert and oriented, PERRLA. Airway - Unaffected, no intervention required; spontaneous ventilation. Circulation: W/N/L, pulses unchanged. Nausea/Vomiting: No. Procedure completed. Patient transferred by bed to 1st floor. Vital chart was stopped. Access Site Site: Right Radial artery Sheath Size: 6 Fr Hemostasis Method: TR Band Hemostasis Success: Successful Procedure Medications Start: 8:12 AM Stop: 8:12 AM Medication: Versed Amount: 1 mg Route: I.V. Start: 8:13 AM Stop: 8:13 AM Medication: Fentanyl Amount: 25 mcg Route: I.V. Start: 8:13 AM Stop: 8:13 AM Medication: Heparin Amount: 5000 units Route: I.V. Start: 8:17 AM Stop: 8:17 AM Medication: Nitrogylcerin Amount: 100 mcg Route: I.A. Start: 8:24 AM Stop: 8:24 AM Medication: Heparin Amount: 6000 units Route: I.V. Start: 8:33 AM Stop: 8:33 AM Medication: Heparin Amount: 1000 units Route: I.V. I, the attending physician, have reviewed and verified all procedure medications. Yes, all medications given per verbal order History/Risk Factors Hypertension: Yes Dyslipidemia: No Peripheral Arterial Disease (PAD): Yes Myocardial Infarction (OR): No Obesity: Yes Renal Disease: No Tobacco Use: Never Prior Interventions PCI: No CABG: No Valve Surgery: No Report Signatures Finalized by Zack Harrison MD on 10/22/2023 10:32 AM
[2023-10-11] MEDS: perflutren protein-a microsphr 0.22 mg/mL SDV 3 mL IV (07:58)
--- NOTE | 2023-10-11 08:03 | P.HPUD_ITS ---
Surgery/Procedure H&P Update DATE OF PROCEDURE: October 11, 2023 DATE H&P PERFORMED: 10/10/23 H&P UPDATE INFORMATION: I have reviewed H&P completed within last 30 days, I have examined patient prior to procedure and No changes to prior documentation PREOP DIAGNOSIS: Syncope/abnormal stress test PRIMARY INDICATION FOR PROCEDURE: Syncope/abnormal stress test PLANNED PROCEDURE: Left heart cath with possible percuteneous coronary intervention PATIENT REASSESSED PRIOR TO SEDATION, WITH NO CHANGE NOTED: Yes PHYSICAL EXAM: alert, oriented x 3, clear to auscultation bilaterally and regular rate & rhythm AIRWAY EVAL/ANESTHESIA PLAN: normal airway, ASA III, Local Anesthesia, Risks, be nefits & alternatives of sedation and/or procedure discussed and Patient agrees to continue as planned ADDITIONAL INFORMATION: Moderate sedation
--- NOTE | 2023-10-11 09:00 | P.PN_ITS ---
Subjective 2 Subjective: Patient has coronary angiogram done that showed severe distal left main artery/ ostial LAD stenosis. Vitals/I&O/Wt Last Vital Signs Temp 97.8 F 10/11/23 05:21 Pulse 70 10/11/23 05:34 Resp 22 H 10/11/23 05:21 BP 148/70 10/11/23 05:21 Pulse Ox 95 10/11/23 05:21 O2 Del Method Room Air 10/11/23 05:21 10/10/23 10/11/23 10/11/23 22:59 06:59 14:59 Intake Total 550 / 550 Output Total 300 / 300 Balance 250 / 250 Weight last 48 hrs Weight 307 lb 11.2 oz Weight 307 lb 11.2 oz Weight 305 lb Weight 305 lb Physical Exam 2 Narrative: GENERAL: Patient is alert, awake and oriented x3. [] NECK: No jugular vein distension. [] HEENT: No cyanosis. No icterus. No pallor. [] HEART: Regular S1 and S2. No murmur, rub or gallop. [] LUNGS: Clear to auscultate bilaterally. [] CENTRAL NERVOUS SYSTEM: Grossly nonfocal. [] EXTREMITIES: Lower extremities with 1+ edema bilaterally. Data 10/11/23 03:27 10/11/23 03:27 A&P Assessment and plan (1) Abnormal cardiovascular stress test: (2) Orthostatic hypotension: (3) CAD (coronary artery disease): (4) Essential (primary) hypertension: (5) Cardiomegaly: (6) Pre-syncope: Plan Coronary angiogram performed today shows severe ostial LAD/distal left main stenosis. We had heart team discussion with CT surgeon Dr. Ordaz at [facility]. Given patient's morbid obesity, age and COPD, shared decision made to proceed with PCI of distal left main artery. He has mentioned dark stools before. No ongoing bleeding. Hgb is stable. We will put him on dual antiplatelet therapy with aspirin and Plavix for 1 week and plan for outpatient PCI. Will obtain CBC in 4 to 5 days. Will start aspirin. Monitor blood pressure. ECHO pending Thank you for involving us with care of this patient. Will continue to follow. Please call with questions. Attestations 2 Medical Necessity Statement*: Care expected to cross 2 midnights. Coding Level of Care Code Acute Code for Chg Fwd Diagnoses Abnormal cardiovascular stress test R94.39 Orthostatic hypotension I95.1 CAD (coronary artery disease) I25.10 Essential (primary) hypertension I10 Cardiomegaly I51.7 Pre-syncope R55
[2023-10-11] MEDS: tamsulosin 0.4 mg Capsule PO (09:54)
[2023-10-11] MEDS: atorvastatin 40 mg Tablet 20 MG PO (09:54)
[2023-10-11] MEDS: losartan 50 mg Tablet 100 MG PO (09:54)
[2023-10-11] MEDS: duloxetine 30 mg Capsule PO (09:55)
[2023-10-11] MEDS: finasteride 5 mg Tablet PO (09:55)
[2023-10-11] MEDS: clopidogrel 75 mg Tablet PO (09:55)
[2023-10-11] MEDS: carvedilol 3.125 mg Tablet PO (09:55)
[2023-10-11] MEDS: montelukast sodium 10 mg Tablet PO (09:55)
--- NOTE | 2023-10-11 10:05 | PC.CHAP ---
Pastoral Care Encounter/Spiritual Assessment Type of Contact [] Declined supervisor histology visit [] Patient/Family/Request visit [] Outpatient visit [] Follow-up visit [] Physician referral [] Code/Alert [x] Routine visit [] Staff referral [] Actively dying [] Patient sleeping [] Family support [] [] Out of room [] Palliative care [] [x] Receiving care in room [] Pre-surgical visit [] Trauma [] Long length of stay [] ICU visit [] Other: Relational/Emotional Strength [x] Patient feels connected with others/family/visitors/staff [] Distress [] Loneliness/isolation [] Abandonment Spirituality of Patient [x] Person of Donna [] Attends Taoist of their Donna [x] Believes in Prayer [] Reads Bible or Denominational materials [] There are Spiritual issues to be addressed Tank Builder Helper Interventions [x] Prayer [x] Active listening [x] Non-anxious presence [x] Spiritual/emotional support [] Crisis/trauma care [x] Spiritual counseling [] Bereavement support [] Provided bereavement packet [] Provided Bible/devotional materials [] Provided toy/stuffed animal, coloring book to patient or family member [] Provided Communion [] Anointing/Miller [] Salvation [x] Completed spiritual assessment [] Other: Impact on Illness or Injury [] Angry [] Fearful [] Anxious [] Often cries [] Exhaustion [] Unable to work [] Unable to attend advent [] Unable to walk/stand [] Unable to read [] Unable to drive [] Unable to eat/drink [] Unable to sleep [] Unable to be with family [] Patient intubated [] Other: Summary senior had tests negative well go to [facility] for stend or bypass in the Blood versals + 1 postive attitude Time spent with patient 10 mins
[2023-10-11 12:07] LABS: Glucose Point of Care 196 mg/dL (70-110)
[2023-10-11] MEDS: insulin lispro 100 unit/1 mL SUBCUT (13:16)
--- NOTE | 2023-10-11 15:36 | P.DS_ITS ---
Discharge Providers Date of Admission: 10/10/23 15:50 Date of Discharge: October 11, 2023 Attending Provider at Admission: Jp Toussaint Attending Provider at Discharge: Jp Toussaint Primary Care Provider: NILES Orr Diagnoses at Discharge Discharge Diagnosis (1) Abnormal cardiovascular stress test: Status: Acute (2) Orthostatic hypotension: Status: Acute (3) CAD (coronary artery disease): Status: Acute (4) Essential (primary) hypertension: Status: Chronic (5) Cardiomegaly: Status: Acute (6) Pre-syncope: Status: Acute Reason for Visit Reason for Visit: dizzy, fell 10-08-23 Hospital Course Hospital Course Pleasant 83-year-old gentleman, hard of hearing, with history of hypertension, cardiomegaly, COPD, pulmonary hypertension, obstructive pyelonephritis, BPH, was hospitalized for additional assessment management after multiple presyncopal episodes, found to be severely orthostatic in ER, additionally with abnormal stress test back in July at that time asymptomatic, positional assess with echocardiogram, found to have normal ejection fraction, grade 1 diastolic dysfunction, mild TVR, mild pulmonary hypertension. Amlodipine was held while in the hospital. Otherwise hypertensive blood pressures up into the 160s-170s so other antihypertensives including carvedilol, valsartan were continued and he is also on tamsulosin for BPH. Usual medications for orthostatic hypotension were not started due to concern for cardiac ischemia with abnormal stress test previously, he was assessed by cardiology and underwent coronary angiography with finding of distal left main/ostial LAD stenosis, per discussion of cardiology with CT surgery would not be a safe candidate for bypass surgery, plans are to return for staged high risk PCI procedure. He did incidentally on review of systems report having some dark stools recently. He is on Plavix at home, he is started on aspirin to assess tolerance to dual antiplatelet therapy, additionally Hemoccult was requested but he did not have a bowel movement in the hospital. Hemoccult was requested as outpatient, please follow-up on dark stools, blood counts, coronary disease as well as orthostatic hypotension. He and his were counseled and cautioned regarding orthostatic hypotension, risk of syncope, fall, injury, he is instructed to lie down immediately in case of any presyncopal symptoms as he is quite significantly orthostatic, blood pressure laying 171/83, standing 108/62. Amlodipine is not continued at current time. Symptoms may improve with cardiac revascularization, in the meantime as discussed with him and his he is instructed for any longer transfers/walks to use wheelchair instead until that time, which is requested for him. He was additionally currently found to have urinary tract infection for which he is given a course of cefdinir. Please follow-up urine culture. Electrolytes and TSH were unremarkable. In sinus rhythm, heart rate 70-80s. Physical Exam Narrative: Accompanied by his . Const: COMMON NORMALS: patient oriented x3 and alert GENERAL APPEARANCE: cooperative NUTRITIONAL APPEARANCE: obese morbidly obese ORIENTATION/CONSCIOUSNESS: Yes awake OTHER: Hard of hearing HENMT: COMMON NORMALS: oropharynx normal Neck/C-Spine: COMMON NORMALS: no JVD Resp: COMMON NORMALS: normal respiratory effort and clear to auscultation bilaterally AUSCULTATION: clear to auscultation bilaterally Cardio: COMMON NORMALS: no JVD, regular rhythm, S1 normal heart sound present, S2 normal heart sound present and No murmurs present (Cardio) RHYTHM: regular rhythm HEART SOUNDS: S1 normal heart sound present and S2 normal heart sound present GI: COMMON NORMALS: Normal to inspection, nondistended, normoactive bowel sounds present, Soft to palpation and non-tender PALPATION: Yes Soft to palpation Extremity: COMMON NORMALS: no joint enlargement and no pedal edema Neuro: COMMON NORMALS: patient oriented x3 and moves all extremities SENSORIUM/ORIENTATION: Yes alert Skin: COMMON NORMALS: no rashes or lesions noted NARRATIVE SKIN EXAM: Hemosiderosis/chronic venous stasis GENERAL SKIN EXAM: no rashes or lesions noted Discharge Data Studies Completed and Pending Completed Studies During Hospitalization Category Date Time Status XR chest 1V portable [id number] Stat Exams 10/10/23 11:57 Completed CV. 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 service Routine Exams 10/11/23 07:18 Ordered Basic Metabolic Panel AM LABS Lab 10/12/23 04:00 Ordered Basic Metabolic Panel AM LABS Lab 10/13/23 04:00 Ordered Complete Blood Count w/Auto AM LABS Lab 10/12/23 04:00 Ordered Complete Blood Count w/Auto AM LABS Lab 10/13/23 04:00 Ordered Urine Culture Stat Lab 10/10/23 14:20 Received Laboratory Results WBC 5.56 10^3/uL (3.29-11.43) 10/11/23 03:27 RBC 3.72 10^6/uL (3.85-5.65) L 10/11/23 03:27 Hgb 11.80 g/dL (11.27-16.99) 10/11/23 03:27 Hct 36.5 % (37-53) L 10/11/23 03:27 MCV 98.1 fl (82-101) 10/11/23 03:27 MCH 31.7 pg (27-33) 10/11/23 03:27 MCHC 32.3 g/dL (30-55) 10/11/23 03:27 RDW 12.8 % (12.1-15.1) 10/11/23 03:27 Plt Count 228 10^3/cmm (157-399) 10/11/23 03:27 MPV 9.5 fL (7.4-10.4) 10/11/23 03:27 Neut % (Auto) 51.0 % 10/11/23 03:27 Lymph % (Auto) 28.8 % 10/11/23 03:27 [place] % (Auto) 15.3 % 10/11/23 03:27 Eos % (Auto) 3.8 % 10/11/23 03:27 Baso % (Auto) 0.7 % 10/11/23 03:27 Neut # (Auto) 2.84 10^3/uL (1.8-7.7) 10/11/23 03:27 Lymph # (Auto) 1.6 10^3/uL (0.8-4.8) 10/11/23 03:27 [place] # (Auto) 0.9 10^3/uL (0.2-0.9) 10/11/23 03:27 Eos # (Auto) 0.2 10^3/uL (0.0-0.8) 10/11/23 03:27 Baso # (Auto) 0.0 10^3/uL (0.0-0.1) 10/11/23 03:27 Nucleated RBC % (auto) 0 % 10/11/23 03:27 Nucleated RBCs # 0.0 /100WBC 10/11/23 03:27 Sodium 136 mmol/L (136-145) 10/11/23 03:27 Potassium 4.4 mmol/L (3.5-5.1) 10/11/23 03:27 Chloride 100 mmol/L (98-107) 10/11/23 03:27 Carbon Dioxide 27 mmol/L (22-29) 10/11/23 03:27 Anion Gap 13.4 (5-19) 10/11/23 03:27 BUN 18 mg/dL (8-23) 10/11/23 03:27 Creatinine 1.0 mg/dL (0.7-1.2) 10/11/23 03:27 GFR Calculation Not Reportable 10/11/23 03:27 Glucose 118 mg/dL (65-115) H 10/11/23 03:27 POC Glucose 196 mg/dL (70-110) H 10/11/23 12:03 Calculated Osmolality 285 mOsm/kg (285-295) 10/11/23 03:27 Calcium 9.2 mg/dL (8.5-10.5) 10/11/23 03:27 Total Bilirubin 0.3 mg/dL (0.15-1.2) 10/10/23 12:21 AST 20 U/L (0-40) 10/10/23 12:21 ALT 19 U/L (0-41) 10/10/23 12:21 Alkaline Phosphatase 73 U/L (40-130) 10/10/23 12:21 Troponin T Baseline 27 ng/L (0-15) H 10/10/23 12:21 Troponin T 120 Minute 27.11 ng/L (0-15) H 10/10/23 14:22 Delta Troponin T 0.11 ABS# (0-10) 10/10/23 14:22 Troponin T Hi Sens 6Hr 27.53 ng/L (0-15) H 10/10/23 18:48 Troponin T Hi Sens 6Hr Delta 0.53 ng/L (0-12) 10/10/23 18:48 NT-Pro-B Natriuret Pep 111 pg/mL (0-450) 10/10/23 12:21 Total Protein 7.2 g/dL (6.6-8.7) 10/10/23 12:21 Albumin 3.6 g/dL (3.5-5.2) 10/10/23 12:21 Globulin 3.6 g/dL (1.3-4.6) 10/10/23 12:21 TSH 3.23 uIU/mL (0.27-4.20) 10/10/23 18:48 Urine Color Dark yellow (Yellow) 10/10/23 14:20 Urine Appearance Cloudy (CLEAR) A 10/10/23 14:20 Urine pH 5 (5-7) 10/10/23 14:20 Ur Specific [place] 1.025 (1.005-1.030) 10/10/23 14:20 Urine Protein Neg (Negative) 10/10/23 14:20 Urine Glucose (UA) Norm (Normal) 10/10/23 14:20 Urine Ketones Negative (Negative) 10/10/23 14:20 Urine Blood Neg (Negative) 10/10/23 14:20 Urine Nitrate Negative (Negative) 10/10/23 14:20 Urine Bilirubin 1+ (Negative) H 10/10/23 14:20 Urine Urobilinogen Norm mg/dL (Negative) 10/10/23 14:20 Ur Leukocyte Esterase 2+ (Negative) H 10/10/23 14:20 Urine RBC 5-10 /hpf (0-2) H 10/10/23 14:20 Urine WBC 25-40 /hpf (0-5) H 10/10/23 14:20 Ur Squamous Epith Cells 5-10 /hpf (0-5) H 10/10/23 14:20 Amorphous Sediment Not Reportable 10/10/23 14:20 Urine Bacteria Trace /hpf (NONE) 10/10/23 14:20 Urine Mucus 4+ /hpf 10/10/23 14:20 Vitals Last Vital Signs Temp 97.8 F 10/11/23 05:21 Pulse 82 10/11/23 14:47 Resp 16 10/11/23 12:00 BP 171/83 10/11/23 14:49 Pulse Ox 96 10/11/23 12:00 O2 Del Method Room Air 10/11/23 12:00 Discharge Plan Discharge Patient Disposition: Home Condition: Stable Prescriptions: New cefdinir 300 mg capsule 300 mg PO BID 5 Days Qty: 10 0RF aspirin 81 mg capsule 81 mg PO DAILY Qty: 90 0RF pantoprazole 40 mg tablet,delayed release (DR/EC) 40 mg PO BID Qty: 90 0RF Continued multivitamin [Daily Multi-Vitamin] Tablet 1 tab PO QAM vitamin B complex [B Complex-Vitamin B12] Tablet 1 tab PO QAM ascorbate calcium (vitamin C) 500 mg tablet 500 mg PO DAILY promethazine-DM 6.25-15 mg/5 mL syrup 5 ml PO .every 12 hours Qty: 120 0RF Rx Instructions: for 1 week. cholecalciferol (vitamin D3) 25 mcg (1,000 unit) capsule 25 mcg PO DAILY albuterol sulfate [ProAir HFA] 90 mcg/actuation HFA aerosol inhaler 2 puff inhalation QID PRN (Reason: shortness of breath or wheezing) Qty: 6.7 2RF atorvastatin 20 mg tablet 20 mg PO DAILY Qty: 90 1RF clopidogrel [Plavix] 75 mg tablet 75 mg PO DAILY Qty: 90 1RF Trulicity 1.5 mg/0.5 mL pen injector 1.5 mg SUBCUT .weekly Qty: 6 1RF duloxetine [Cymbalta] 30 mg capsule,delayed release(DR/EC) 30 mg PO BID Qty: 180 1RF finasteride [Proscar] 5 mg tablet 5 mg PO DAILY Qty: 90 1RF fluticasone propion-salmeterol [Advair Diskus] 250-50 mcg/dose blister with device 1 inh inhalation Q12H Qty: 180 1RF glimepiride 4 mg tablet 4 mg PO DAILY Qty: 90 1RF Hold Instructions: Glucose improved metformin 500 mg tablet extended release 24 hr 2,000 mg PO QDAY Qty: 360 1RF montelukast [Singulair] 10 mg tablet 10 mg PO DAILY Qty: 90 1RF mupirocin 2 % ointment 1 applic topical BID Qty: 22 0RF tamsulosin [Flomax] 0.4 mg capsule 0.4 mg PO DAILY Qty: 90 1RF valsartan 320 mg tablet 320 mg PO DAILY Qty: 90 1RF potassium chloride 20 mEq tablet extended release 20 meq PO DAILY PRN (Reason: Take with Lasix) Qty: 30 6RF furosemide 40 mg tablet 40 mg PO DAILY PRN (Reason: edema) Qty: 30 6RF vitamin E (dl, acetate) 90 mg (200 unit) Capsule 90 mg PO DAILY carvedilol 3.125 mg tablet 3.125 mg PO BID ketoconazole 2 % cream 1 applic topical BID PRN (Reason: Rash) Rx Instructions: Apply to red scaly areas of the face 1-2 times daily Discontinued amlodipine 5 mg tablet 5 mg PO DAILY Qty: 90 1RF Discharge Orders: Discharge Order (Routine); Ordered 10/11/23 Ordered By: Jp Toussaint Other Ambulatory Orders: DME: Wheelchair (Order) Location: None Selected Ordered By: Jp Toussaint Immunochemical Fecal OCB (Routine) Timeframe: 1 Day Facility: [facility] - Location: Lab - Main Lab Ordered By: Jp Toussaint Referrals: Lloyd Spencer FNP-C [Primary Care Provider] - 4-7 days (We have notified your physician's clinic of the need for a follow-up appointment to be scheduled. If you have not heard from them within the next 2 business days, please call them directly. ) Luli Jimenez FNP [Nurse Practitioner] - 10/15/23 Discharge Diet: Cardiac and Diabetic Discharge Activity: Limit activity as instructed Patient Instructions: Coronary Artery Disease (GEN), Hypotension (GEN), Heart Catheterization (GEN) Activity Restrictions/Additional Instructions: Maintain strict orthostatic precautions as discussed, rise slowly from laying to sitting and sitting to standing, use wheelchair for any longer distances requiring walking, avoid standing for long time as your blood pressure decreases quite significantly with standing. At this time it is not yet safe to start additional medications like midodrine until your heart is further assessed and treated, for now amlodipine is stopped. If symptoms may improve as well with treatment of coronary disease as per cardiology recommendations. Did not try to fight lightheadedness, avoid fainting and falling/injury at all costs. In case getting lightheaded or faint when you are standing up, lie down immediately. Follow-up with your primary doctor for additional assessment of dark stools. Reassessment of blood counts and assessment for occult blood in stool. Follow-up with cardiology for arrangements for repeat angiogram to see if coronary artery narrosing can be reopened. Complete treatment for urinary tract infection. Follow-up with your primary doctor. Urine cultures are pending, please have your primary doctor check on final results of urine culture. Discharge Attestations Time Spent in Discharge Care*: greater than 30 min Quality Metrics Clinical Quality Measures [ No reported AMI, CVA or VTE this stay] Coding Level of Care Code 55045 Total time (in minutes) for Discharge: 50 Diagnoses Abnormal cardiovascular stress test R94.39 Orthostatic hypotension I95.1 CAD (coronary artery disease) I25.10 Essential (primary) hypertension I10 Cardiomegaly I51.7 Pre-syncope R55
== END 2023-10-11 16:36 | disposition home or self-care (01) ==
LOC: ER 15:29 → CSU 20:25
PROVIDERS: Internal Medicine; Admitting Provider Internal Medicine; Emergency Provider Family Medicine; PCP Nurse Practitioner; Visit Provider Internal Medicine
DX: R94.39 Abnormal result of other cardiovascular function study (principal); I95.1 Orthostatic hypotension; I25.10 Atherosclerotic heart disease of native coronary artery without angina pectoris; J44.9 Chronic obstructive pulmonary disease, unspecified; N40.0 Benign prostatic hyperplasia without lower urinary tract symptoms; E66.01 Morbid (severe) obesity due to excess calories; Z68.41 Body mass index [BMI] 40.0-44.9, adult; Z79.84 Long term (current) use of oral hypoglycemic drugs; E66.9 Obesity, unspecified; I10 Essential (primary) hypertension
CPT/HCPCS: 36415; 36416; 71045; 80048; 80053; 81001; 82962; 83880; 84443; 84484; 85025; 87086; 92978; 93005; 93454; 93571; 96365; 96372; 96375; 99152; 99153; 99285; C1753; C1769; C1887; C1894; C8929; C9113; G0378; J0696; J1644; J1815; J2250; J3010; J3490; J7030; J7040; Q9956; Q9967

== ENCOUNTER → 2023-10-24 09:40 | Outpatient (BNVA) | payer MEDICARE, SELFPAY | PROVIDERS: PCP Nurse Practitioner; Visit Provider Internal Medicine | DX: I95.1 Orthostatic hypotension (principal); I35.1 Nonrheumatic aortic (valve) insufficiency; I73.9 Peripheral vascular disease, unspecified; I10 Essential (primary) hypertension | CPT/HCPCS: 80048; 85025 ==

== ENCOUNTER 2023-11-08 05:45 | Outpatient (CLI) | payer MEDICARE, SELFPAY ==
[2023-11-08] VITALS (33 sets, daily range): BP systolic 135–179; BP diastolic 61–94; PULSE 62–89; RESP 16–22; TEMP 36.4–36.6; O2SAT 92–96; BMI 43.2
--- NOTE | 2023-11-08 06:00 | XACV_ITS ---
Exam Room: 2 Ht: 180 cm Wt: 141 kg BSA: 2.72 m2 Gender: Male : 1940 Any Known Allergies: Other Exam Priority: Routine Procedure(s): Procedure Description: Diagnostic procedure Procedure Description: PCI procedure Procedure Description: Drug Eluting Coronary Stent Procedure Description: PTCA Procedure Description: Miscellaneous Procedure Description: ACT Procedure Description: Coronary Angiography Diagnostic Cath Status: Elective Diagnostic Findings * INDICATION: 83-year-old man who was recently admitted to hospital with syncope and had a abnormal stress test before. He had coronary angiogram that demonstrated severe distal left main/ostial LAD stenosis. Heart team discussion done with CT surgery. Patient considered high risk for surgery and PCI is recommended. Patient is here for staged PCI. Risks and benefits of the procedure have been discussed in detail with patient and family. They understand it and want to proceed. * Left Anterior Descending has ostial 70% heavily calcified stenosis.. * Circumflex has no significant disease. * Right Coronary Artery not injected as it was staged PCI of left main to ostial LAD. * Left Main to Proximal Left Anterior Descending: obstructive 50% calcified stenosis. * Coronary angiography shows right dominance. PCI Status: Elective PCI Indication: Staged PCI Interventional Findings * Procedure detal: We engaged the left main artery with XB 3.5 guide catheter. IV heparin was administered to maintain anticoagulation. 0.014 run-through guidewire was used to cross the severe distal left main/ostial LAD stenosis and was put in distal vessel. We then first performed intravascular lithotripsy using shockwave 4.0 x 12 mm balloon. 40 pulses were delivered. After calcium modification we proceeded with predilation of distal left main to ostial LAD stenosis with a 4.5 x 12 mm NC balloon. This was followed by placement of 4.5 x 15 mm resolute Gail drug-eluting stent. We then performed IVUS that showed malapposition of the left main artery stent. We postdilated the left main segment of the stent with a 5.0 x 8 mm NC balloon. This was followed by post dilation of ostial LAD segment with 4.5 x 12 mm NC balloon at high pressure. MSA of 12 mm2 was obtained. At this time final angiogram was performed that showed excellent stent expansion, no residual stenosis and SARAH-3 flow. Guidewire and guide catheter were removed. Patient left the Unit Control Clerk in a stable condition. * Left Main to Proximal Left Anterior Descendin% stenosis treated with a Shockwave IVL Balloon 4.0 X 12mm, MDT NC EUPHORA RX [id number] BALLOON, MDT R GAIL 4.5X15 JOIE, and MDT NC EUPHORA RX [id number] BALLOON. 0% residual stenosis, SARAH: 3 flow. Conclusions 1. Severe left main to ostial LAD calcified stenosis s/p successful revascularization 2. with shockwave intravascular lithotripsy using shockwave balloon and 1 stent.. 3. Left Main to Proximal Left Anterior Descending was treated with a Balloon, Balloon, Drug Eluting Stent, and Balloon. Recommendations * Dual antiplatelet therapy with aspirin and Plavix for at least 1 year. * High intensity statin therapy. * Outpatient cardiology follow up in 2 weeks. Interventional RX Recommendation: PCI w/o planned CABG Diagnostic RX Recommendation: PCI w/o planned CABG Anticoagulation: Heparin Pressures Phase:Rest AO : 155 / 79 ( 109 ) @ 7:52:00 AM 163 / 73 ( 108 ) @ 8:03:00 AM Clinical Evaluation EBL: 5mL-10mL Procedural Details Procedure Consent Obtained. Admit Source: Out Patient. Pre-Procedure Time Out. Identified patient by full name and date of as verbalized by the patient/guarantor. Does the consent match the physician's order: Yes. Accurate & Complete Informed Consent: Yes. Inpatient/Outpatient History & Physical on Chart: Yes. If H&P is completed, is and addenduem needed: Yes; If yes, is the addendum complete: No. Visualize and Verify Site with Patient/Guarantor: N/A. Relevant Radiology Images available: Yes. The risks, benefits, and alternatives of sedation and/or procedure were discussed by physician. The patient agrees to continue. Procedure started. [facility] Clinical Fraility Score: 5: Mildly Frail. Unit Control Clerk Indications: Stable Known CAD. Chest Pain Symptom Assessment: Typical Angina Symptoms. Correct patient, site and procedure confirmed by cath team. Current diagnosis: Stable angina, Staged PCI of Left main. PERRLA. Strong, equal hand rv body mechanic bilaterally. Lungs clear x 5 lobes. IV Site on Arrival: 18 gauge in the left anticubital. IV Fluids: 0.9% NaCl at 75ml/hr. 0 mL infused prior to chemical laboratory scientist. Pre Procedural Pulses: bilateral radial was 3+. Pre Procedural Pulses: bilateral posterior tibial was Doppled. Pre Procedural Pulses: bilateral dorsalis pedis was 3+. Pre Procedural Pulses: bilateral dorsalis pedis was 2+. Oxygen started at 2liters/min via nasal canula. right groin was prepped with chloroprep then draped in the usual sterile fashion. right radial was prepped with chloroprep then draped in the usual sterile fashion. Physician notified. Baseline sample Acquired. HR: 67 BPM. Physician arrived. Physician scrubbed in. Immediate Pre-Procedure Time Out. Correct Patient: Yes; Correct Procedure: Yes; Correct Site: Yes; Correct Patient Position: Yes; Correct Supplies: Yes; Dried Flammable Prep: Yes; Blood Products Available: No;. Lidocaine 1% infiltrated to the right radial. Arterial access obtained. 6 sinhala XB 3.5 guide catheter was inserted over the wire. Runthrough guidewire was advanced through the guide catheter to lesion in the distal left main/ostial LAD. Guidewire advanced across lesion, seated in distal LAD. ACT drawn. Results 368 seconds. Therapeutic limits - pre-heparin administration 90-150 seconds and monitoring heparin during a vascular procedure >250 seconds. Shockwave balloon in over runthrough wire. Inflation number : 1 A Shockwave IVL Balloon 4.0 X 12mm was prepped and advanced across the LMCA , then inflated to 4 FLORES for 0:18 seconds. IVL 10 pulses performed of distal left main artery. Inflation number: 2 The Shockwave IVL Balloon 4.0 X 12mm was reinflated across the LMCA, to 4 FLORES for 0:20 seconds. IVL 10 pulses performed of distal left main artery. Inflation number: 3 The Shockwave IVL Balloon 4.0 X 12mm was reinflated across the LMCA, to 4 FLORES for 0:18 seconds. IVL 10 pulses performed of distal left main artery. Inflation number: 4 The Shockwave IVL Balloon 4.0 X 12mm was reinflated across the LMCA, to 4 FLORES for 0:09 seconds. Inflation number: 5 The Shockwave IVL Balloon 4.0 X 12mm was reinflated across the LMCA, to 4 FLORES for 0:18 seconds. IVL 10 pulses performed of distal left main artery. IVL balloon out over wire. Balloon inserted to lesion in the distal left main. Inflation number : 6 A MDT NC EUPHORA RX [id number] BALLOON was prepped and advanced across the LMCA , then inflated to 12 FLORES for 0:15 seconds. Balloon out. Stent inserted to lesion in the distal left main. Inflation Number : 7 A MDT R GAIL 4.5X15 JOIE -Lot Number#[id number] EXP 01-01-2024 was prepped and advanced across the LMCA. The stent was deployed at 12 FLORES for 0:21 seconds. Stent balloon out over wire. Results checked. IVUS catheter in over runthrough wire to lesion in distal left main/ostial LAD. IVUS run performed of distal left main. IVUS catheter out. Balloon inserted to lesion in the distal left main. Inflation number : 8 A MDT NC EUPHORA RX [id number] BALLOON was prepped and advanced across the LMCA , then inflated to 12 [place]ORES for 0:20 seconds. Inflation number: 9 The MDT NC EUPHORA RX [id number] BALLOON was reinflated across the LMCA, to 12 FLORES for 0:15 seconds. Inflation number: 10 The MDT NC EUPHORA RX [id number] BALLOON was reinflated across the LMCA, to 14 FLORES for 0:11 seconds. Balloon out. IVUS catheter in over runthrough wire. IVUS run performed of distal left main. IVUS catheter out. Results checked. Balloon inserted to lesion in the distal left main. Inflation number: 11 The MDT BENJIE EUPHORA RX [id number] BALLOON was reinflated across the LMCA, to 18 FLORES for 0:13 seconds. Balloon out. Results checked. Runthrough wire out. Results checked. ACT drawn. Results out of range high results. Therapeutic limits - pre-heparin administration 90-150 seconds and monitoring heparin during a vascular procedure >250 seconds. Guide catheter out. Post Procedure: Pulses reassessed and unchanged. PERRLA. Strong, equal hand rv body mechanic bilaterally. No VTE prophylaxis required. Medication's Wasted: Nitro = 49.8 mg. Medication's Wasted: Other = Fentanyl 75mcg. Medication's Wasted: Heparin =. PCI Indication: Stable Angina. Post-op diagnosis: Severe distal left main/ostial LAD stenosis. Status post PCI placement of 1 stent. Complications: None. Estimated blood loss: 5mL-10mL. Responsiveness - Normal response to verbal stimuli; alert and oriented, PERRLA. Airway - Unaffected, no intervention required; spontaneous ventilation. Circulation: W/N/L, pulses unchanged. Nausea/Vomiting: No. ACT drawn. Results 214 seconds. Therapeutic limits - pre-heparin administration 90-150 seconds and monitoring heparin during a vascular procedure >250 seconds. A TR Band was successful obtaining hemostatsis at the Right Radial artery insertion site. Total IV fluids: 75 mL. Procedure completed. Vital chart was stopped. Patient transferred by bed to CPRU. Access Site Site: Right Radial artery Sheath Size: 6 Fr Hemostasis Method: TR Band Hemostasis Success: Successful Procedure Medications Start: 7:48 AM Stop: 7:48 AM Medication: Versed Amount: 1 mg Route: I.V. Start: 7:48 AM Stop: 7:48 AM Medication: Fentanyl Amount: 25 mcg Route: I.V. Start: 7:50 AM Stop: 7:50 AM Medication: Nitrogylcerin Amount: 200 mcg Route: I.A. Start: 7:53 AM Stop: 7:53 AM Medication: Heparin Amount: 36521 units Start: 8:06 AM Stop: 8:06 AM Medication: Versed Amount: 1 mg Route: I.V. Start: 8:41 AM Stop: 8:41 AM Medication: Heparin Amount: 2000 units Route: I.V. I, the attending physician, have reviewed and verified all procedure medications. Yes, all medications given per verbal order History/Risk Factors Hypertension: Yes Dyslipidemia: No Peripheral Arterial Disease (PAD): Yes Myocardial Infarction (MA): No Obesity: Yes Renal Disease: No Tobacco Use: Never Prior Interventions PCI: No CABG: No Valve Surgery: No Report Signatures Finalized by Zack Harrison MD on 11/10/2023 12:50 PM
[2023-11-08] MEDS: diphenhydrAMINE 50 mg Capsule PO (06:15)
[2023-11-08 06:20] LABS: Basophils % 0.9 %; Eosinophils # 0.4 10^3/uL (0.0-0.8); Eosinophils % 8.6 %; Hematocrit 38.8 % (37-53); Lymphocytes # 1.2 10^3/uL (0.8-4.8); Lymphocytes % 26.3 %; Mean Corpuscular HGB Conc 32.2 g/dL (30-55); Mean Corpuscular Hemoglobin 31.8 pg (27-33); Mean Corpuscular Volume 98.7 fl (82-101); Mean Platelet Volume 9.2 fL (7.4-10.4); Monocytes # 0.6 10^3/uL (0.2-0.9); Monocytes % 12.2 %; Neutrophils # 2.33 10^3/uL (1.8-7.7); Neutrophils % 51.6 %; Nucleated Red Blood Cells % 0 %; Platelet Count 240 10^3/cmm (157-399); Red Blood Count 3.93 10^6/uL (3.85-5.65); Red Cell Distribution Width 12.9 % (12.1-15.1); White Blood Count 4.52 10^3/uL (3.29-11.43)
[2023-11-08 06:46] LABS: Anion Gap 12.5 (5-19); Blood Urea Nitrogen 11 mg/dL (8-23); Calcium 9.2 mg/dL (8.5-10.5); Carbon Dioxide 31 mmol/L (22-29); Chloride 99 mmol/L (98-107); Creatinine Clr Calc Pharmacy 92.3474; Glucose 155 mg/dL (65-115); Osmolality Calculated 289 mOsm/kg (285-295); Potassium 4.5 mmol/L (3.5-5.1); Sodium 138 mmol/L (136-145)
[2023-11-08] MEDS: clopidogrel 300 mg Tablet PO (07:04)
--- NOTE | 2023-11-08 07:27 | W.PM.OPSFHP ---
Same Day Surgery H&P Indication for Procedure/HPI DATE OF PROCEDURE: November 08, 2023 CHIEF COMPLAINT/INDICATIONFOR SURGICAL PROCEDURE: Severe left main artery/ostial LAD stenosis PREOP DIAGNOSIS: Staged PCI of Left main artery to LAD PLANNED PROCEDURE: Operation Date: 11/08/23 07:00 Proposed Procedures Staged PCI of Left main artery to LAD - Zack Harrison M.D 83-year-old man who was recently admitted to hospital with right syncope and had a abnormal stress test before. He had coronary angiogram that demonstrated severe distal left main/ostial LAD stenosis. Heart team discussion done with CT surgery. Patient considered high risk for surgery and PCI is recommended. Patient is here for staged PCI. Risks and benefits of the procedure have been discussed in detail with patient and family. They understand it and want to proceed. Medications/Allergies* Home Medications Medication Instructions Recorded Confirmed Type multivitamin (Daily Multi-Vitamin 1 tab PO QAM 09/19/19 11/07/23 History tablet) vitamin B complex (B 1 tab PO QAM 09/19/19 11/07/23 History Complex-Vitamin B12 tablet) ascorbate calcium (vitamin C) 500 500 mg PO DAILY 04/22/20 11/07/23 History mg tablet cholecalciferol (vitamin D3) 25 25 mcg PO DAILY 10/26/22 11/07/23 History mcg (1,000 unit) capsule carvedilol 3.125 mg tablet 3.125 mg PO BID 10/10/23 11/07/23 History ketoconazole 2 % topical cream 1 applic topical BID PRN Rash 10/10/23 11/07/23 History vitamin E (dl, acetate) 90 mg (200 90 mg PO DAILY 10/10/23 11/07/23 History unit) capsule Allergies/Adverse Reactions Allergy/AdvReac Type Severity Reaction Status Date / Time acetaminophen [From Percocet] Allergy CONFUSION Verified 11/07/23 10:22 oxycodone [From Percocet] Allergy CONFUSION Verified 11/07/23 10:22 Pertinent History/Comorbid Conditions* Medical History (Updated 10/24/23 @ 11:11 by Chelsi Lr LPN) Diabetes mellitus with hyperglycemia, with long-term current use of insulin Multiple environmental allergies Urolithiasis History of kidney stones Atherosclerosis Cardiomegaly 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 COPD (chronic obstructive pulmonary disease) Obesity Pulmonary hypertension Essential (primary) hypertension Phimosis Obstructive pyelonephritis Balanitis Urinary hesitancy Ureteral stone Surgical History (Updated 11/12/22 @ 10:46 by NILES Orr) History of cataract surgery 2013 H/O circumcision partial in 2019 History of oral lesions Oral polyp Hx of total knee replacement Bilateral H/O umbilical hernia repair History of colonoscopy 2011 Family History (Updated 09/25/19 @ 09:24 by Mihaela Sharif MA) Father Mother, IN HER 80'S Congestive heart failure (CHF) Mother Social History Smoking and tobacco/nicotine status: never used tobacco/nicotine Second hand smoke exposure: No Alcohol intake: never Substance/Drug Use: never Adopted: No Caregiver/support person: No Lives independently: No Household members: spouse Housing: House Marital status: Number of children: 5 Number of grandchildren: 15 service: Yes Current occupational status: retired Pets and animals: No Do you think of yourself as: Straight/Heterosexual Current gender identity: Male Pertinent Exam Findings alert, oriented x 3, clear to auscultation bilaterally and regular rate & rhythm Conscious Sedation Assessment PATIENT ASSESSED PRIOR TO SEDATION, WITH NO CHANGE NOTED: Yes AIRWAY EVAL/ANESTHESIA PLAN: normal airway, ASA III, Local Anesthesia, Risks, benefits & alternatives of sedation and/or procedure discussed and Patient agrees to continue as planned ADDITIONAL INFORMATION: Moderate sedation Recommendations Surgery/Procedure today (PCI of left main artery/LAD) Coding Level of Care Code Acute Code for Chg Fwd
[2023-11-08] MEDS: sodium chloride 0.9% 1,000 ML 75 ML IV ×2 (11:00→20:15)
[2023-11-08] MEDS: albuterol 2.5 mg/3 mL Neb INHALATION ×3 (11:58→20:31)
--- NOTE | 2023-11-08 12:40 | ECG_ITS ---
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 Measurements Intervals [place] Rate: 69 P: 80 OK: 250 QRS: -28 QRSD: 104 T: 69 QT: 351 QTc: 378 Interpretive Statements SINUS RHYTHM WITH FIRST DEGREE AV BLOCK BORDERLINE LEFT AXIS DEVIATION [QRS AXIS < -20] LOW QRS VOLTAGE IN PRECORDIAL LEADS [QRS DEFLECTION < 1.0 mV IN CHEST LEADS] PATTERN CONSISTENT WITH PULMONARY DISEASE NONSPECIFIC T-WAVE ABNORMALITY INTERPRETATION BASED ON A DEFAULT AGE OF 40 YEARS Compared to ECG 10/10/2023 13:35:42 First degree AV block now present T-wave abnormality still present Electronically Signed On 11-08-2023 21:08:21 [employer] by Eliseo Mcclendon M.D. [id number]
--- NOTE | 2023-11-08 12:49 | PC.NURSE ---
patient called out with reports of 8/10 chest pain patient sitting in bed clenching chest stat EKG was obtained and by the time the ekg was completed patient reported pain had decreased provider made aware of pain instructed by provider to monitor for more pain no significance noted to ekg
[2023-11-08 17:13] LABS: Glucose Point of Care 174 mg/dL (70-110)
[2023-11-08] MEDS: pantoprazole DR 40 mg Tablet PO (17:34)
[2023-11-08] MEDS: carvedilol 3.125 mg Tablet PO (17:34)
[2023-11-08] MEDS: insulin lispro 100 unit/1 mL SUBCUT ×2 (17:35→21:04)
[2023-11-08] MEDS: budesonide 0.5 mg/2 mL Neb INHALATION (20:31)
[2023-11-08 21:12] LABS: Glucose Point of Care 196 mg/dL (70-110)
[2023-11-09 00:57] VITALS: BP 192/80; PULSE 72; RESP 23; O2SAT 90
[2023-11-09] MEDS: temazepam 15 mg Capsule PO (01:05)
[2023-11-09 04:29] LABS: Basophils # 0.1 10^3/uL (0.0-0.1); Basophils % 0.8 %; Eosinophils # 0.4 10^3/uL (0.0-0.8); Eosinophils % 5.6 %; Hematocrit 37.8 % (37-53); Lymphocytes # 1.3 10^3/uL (0.8-4.8); Lymphocytes % 19.9 %; Mean Corpuscular HGB Conc 31.2 g/dL (30-55); Mean Corpuscular Volume 99.2 fl (82-101); Mean Platelet Volume 9.4 fL (7.4-10.4); Monocytes # 0.7 10^3/uL (0.2-0.9); Monocytes % 11.6 %; Neutrophils # 3.95 10^3/uL (1.8-7.7); Neutrophils % 61.9 %; Nucleated Red Blood Cells % 0 %; Platelet Count 223 10^3/cmm (157-399); Red Blood Count 3.81 10^6/uL (3.85-5.65); Red Cell Distribution Width 13.1 % (12.1-15.1); White Blood Count 6.38 10^3/uL (3.29-11.43)
[2023-11-09 04:56] LABS: Anion Gap 11.3 (5-19); Blood Urea Nitrogen 12 mg/dL (8-23); Calcium 8.6 mg/dL (8.5-10.5); Carbon Dioxide 30 mmol/L (22-29); Chloride 100 mmol/L (98-107); Creatinine Clr Calc Pharmacy 75.5569; Glucose 159 mg/dL (65-115); Osmolality Calculated 287 mOsm/kg (285-295); Potassium 4.3 mmol/L (3.5-5.1); Sodium 137 mmol/L (136-145)
[2023-11-09 05:10] VITALS: BP 153/71; PULSE 71; RESP 22; TEMP 37; O2SAT 90
[2023-11-09 06:00] VITALS: PULSE 69
[2023-11-09 06:38] LABS: Glucose Point of Care 146 mg/dL (70-110)
[2023-11-09 08:00] VITALS: BP 173/70; PULSE 69; RESP 23; TEMP 36.6; O2SAT 91
--- NOTE | 2023-11-09 08:18 | P.DS_ITS ---
Discharge Providers Date of Admission: 11/08/2023 Date of Discharge: November 09, 2023 Attending Provider at Admission: Zack Harrison MD Attending Provider at Discharge: Zack Harrison M.D Primary Care Provider: NILES Orr Reason for Visit Reason for Visit: I25.10 Brief History: 83-year-old man who was recently admitte d to hospital with syncope and had a abnormal stress test before. He had coronary angiogram that demonstrated severe distal left main/ostial LAD stenosis. Heart team discussion done with CT surgery. Patient considered high risk for surgery and PCI is recommended. Patient is here for staged PCI. Risks and benefits of the procedure have been discussed in detail with patient and family. They understand it and want to pr oceed. Hospital Course Hospital Course Patient had successful revascularization of left main to LAD with 1 stent and i ntravascular lithotripsy. Patient did well overnight and is stable to be discharged home today on dual antiplatelet therapy. Physical Exam Narrative: GENERAL: Patient is alert, awake and oriented x3. [] NECK: No jugular vein distension. [] HEENT: No cyanosis. No icterus. No pallor. [] HEART: Regular S1 and S2. No murmur, rub or gallop. [] LUNGS: Clear to auscultate bilaterally. [] CENTRAL NERVOUS SYSTEM: Grossly nonfocal. [] EXTREMITIES: Lower extremities with 1+ edema bilaterally. Discharge Data Studies Completed and Pending Pending at discharge Category Date Time Status SLATE CUTTER request for service Routine Exams 11/08/23 06:00 Ordered Laboratory Results WBC 6.38 10^3/uL (3.29-11.43) 11/09/23 04:11 RBC 3.81 10^6/uL (3.85-5.65) L 11/09/23 04:11 Hgb 11.80 g/dL (11.27-16.99) 11/09/23 04:11 Hct 37.8 % (37-53) 11/09/23 04:11 MCV 99.2 fl (82-101) 11/09/23 04:11 MCH 31.0 pg (27-33) 11/09/23 04:11 MCHC 31.2 g/dL (30-55) 11/09/23 04:11 RDW 13.1 % (12.1-15.1) 11/09/23 04:11 Plt Count 223 10^3/cmm (157-399) 11/09/23 04:11 MPV 9.4 fL (7.4-10.4) 11/09/23 04:11 Neut % (Auto) 61.9 % 11/09/23 04:11 Lymph % (Auto) 19.9 % 11/09/23 04:11 [place] % (Auto) 11.6 % 11/09/23 04:11 Eos % (Auto) 5.6 % 11/09/23 04:11 Baso % (Auto) 0.8 % 11/09/23 04:11 Neut # (Auto) 3.95 10^3/uL (1.8-7.7) 11/09/23 04:11 Lymph # (Auto) 1.3 10^3/uL (0.8-4.8) 11/09/23 04:11 [place] # (Auto) 0.7 10^3/uL (0.2-0.9) 11/09/23 04:11 Eos # (Auto) 0.4 10^3/uL (0.0-0.8) 11/09/23 04:11 Baso # (Auto) 0.1 10^3/uL (0.0-0.1) 11/09/23 04:11 Nucleated RBC % (auto) 0 % 11/09/23 04:11 Nucleated RBCs # 0.0 /100WBC 11/09/23 04:11 Sodium 137 mmol/L (136-145) 11/09/23 04:11 Potassium 4.3 mmol/L (3.5-5.1) 11/09/23 04:11 Chloride 100 mmol/L (98-107) 11/09/23 04:11 Carbon Dioxide 30 mmol/L (22-29) H 11/09/23 04:11 Anion Gap 11.3 (5-19) 11/09/23 04:11 BUN 12 mg/dL (8-23) 11/09/23 04:11 Creatinine 1.1 mg/dL (0.7-1.2) 11/09/23 04:11 GFR Calculation Not Reportable 11/09/23 04:11 Glucose 159 mg/dL (65-115) H 11/09/23 04:11 POC Glucose 146 mg/dL (70-110) H 11/09/23 06:29 Calculated Osmolality 287 mOsm/kg (285-295) 11/09/23 04:11 Calcium 8.6 mg/dL (8.5-10.5) 11/09/23 04:11 Vitals Last Vital Signs Temp 97.9 F 11/09/23 08:00 Pulse 69 11/09/23 08:00 Resp 23 H 11/09/23 08:00 BP 173/70 11/09/23 08:00 Pulse Ox 91 11/09/23 08:00 O2 Del Method Room Air 11/09/23 08:00 Discharge Plan Discharge Patient Disposition: Home Prescriptions: Continued multivitamin [Daily Multi-Vitamin] Tablet 1 tab PO QAM vitamin B complex [B Complex-Vitamin B12] Tablet 1 tab PO QAM ascorbate calcium (vitamin C) 500 mg tablet 500 mg PO DAILY cholecalciferol (vitamin D3) 25 mcg (1,000 unit) capsule 25 mcg PO DAILY albuterol sulfate [ProAir HFA] 90 mcg/actuation HFA aerosol inhaler 2 puff inhalation QID PRN (Reason: shortness of breath or wheezing) Qty: 6.7 2RF clopidogrel [Plavix] 75 mg tablet 75 mg PO DAILY Qty: 90 1RF duloxetine [Cymbalta] 30 mg capsule,delayed release(DR/EC) 30 mg PO BID Qty: 180 1RF mupirocin 2 % ointment 1 applic topical BID Qty: 22 0RF (DME) pen needle, diabetic 33 gauge x 5/32 needle See Rx Instructions .ROUTE .MEDSUPPLY Qty: 100 5RF Rx Instructions: 1 time day insulin degludec [Tresiba FlexTouch U-200] 200 unit/mL (3 mL) insulin pen 10 unit SUBCUT DAILY Qty: 9 0RF potassium chloride 20 mEq tablet extended release 20 meq PO DAILY PRN (Reason: Take with Lasix) Qty: 30 6RF furosemide 40 mg tablet 40 mg PO DAILY PRN (Reason: edema) Qty: 30 6RF vitamin E (dl, acetate) 90 mg (200 unit) Capsule 90 mg PO DAILY carvedilol 3.125 mg tablet 3.125 mg PO BID ketoconazole 2 % cream 1 applic topical BID PRN (Reason: Rash) Rx Instructions: Apply to red scaly areas of the face 1-2 times daily aspirin 81 mg capsule 81 mg PO DAILY Qty: 90 0RF Discontinued atorvastatin 20 mg tablet 20 mg PO DAILY Qty: 90 1RF No Action Trulicity 1.5 mg/0.5 mL pen injector 1.5 mg SUBCUT .weekly Qty: 6 1RF atorvastatin 40 mg tablet 40 mg PO DAILY Qty: 90 1RF finasteride [Proscar] 5 mg tablet 5 mg PO DAILY Qty: 90 1RF fluticasone propion-salmeterol [Advair Diskus] 250-50 mcg/dose blister with device 1 inh inhalation Q12H Qty: 180 1RF glimepiride 4 mg tablet 4 mg PO DAILY Qty: 90 1RF Hold Instructions: Glucose improved montelukast [Singulair] 10 mg tablet 10 mg PO DAILY Qty: 90 1RF pantoprazole 20 mg tablet,delayed release (DR/EC) 20 mg PO DAILY Qty: 90 1RF tamsulosin [Flomax] 0.4 mg capsule 0.4 mg PO DAILY Qty: 90 1RF valsartan 320 mg tablet 320 mg PO DAILY Qty: 90 1RF metformin 500 mg tablet extended release 24 hr 2,000 mg PO QDAY Qty: 360 1RF Hold Instructions: Resume on 11/11/23. Discharge Orders: Discharge Order (Routine); Ordered 11/09/23 Ordered By: Zack Harrison Referrals: Lloyd Spencer FNP-C [Primary Care Provider] - 11/20/23 3:00 pm Luli Jimenez FNP [Nurse Practitioner] - 11/27/23 2:00 pm Diet: Cardiac and Diabetic Activity: Increase activity as tolerated Patient Instructions: Atorvastatin (By mouth) (Lipitor, Atorvaliq), Coronary Angioplasty (DC), Post Angiogram Home Care Instructions Discharge Date/Time: 11/09/23 09:52 Discharge Attestations Time Spent in Discharge Care*: less than 30 min Quality Metrics Clinical Quality Measures [ No reported AMI, CVA or VTE this stay] Coding Level of Care Code Acute Code for Chg Fwaquiles
[2023-11-09 08:22] VITALS: BP 173/70
[2023-11-09] MEDS: clopidogrel 75 mg Tablet PO (08:22)
[2023-11-09] MEDS: atorvastatin 40 mg Tablet 20 MG PO (08:22)
[2023-11-09] MEDS: aspirin 81 mg EC Tablet PO (08:22)
[2023-11-09] MEDS: carvedilol 3.125 mg Tablet PO (08:22)
[2023-11-09] MEDS: losartan 50 mg Tablet 100 MG PO (08:22)
[2023-11-09] MEDS: pantoprazole DR 40 mg Tablet PO (08:23)
[2023-11-09] MEDS: tamsulosin 0.4 mg Capsule 0.400000000000000022 MG PO (08:23)
== END 2023-11-09 09:52 | disposition home or self-care (01) ==
LOC: CCL 05:52 → CSU 09:26
PROVIDERS: PCP Nurse Practitioner; Visit Provider Internal Medicine
DX: I25.10 Atherosclerotic heart disease of native coronary artery without angina pectoris (principal); E11.65 Type 2 diabetes mellitus with hyperglycemia; I10 Essential (primary) hypertension
CPT/HCPCS: 36415; 36416; 80048; 82962; 85025; 85347; 92978; 93005; 94640; 96361; 96365; 96372; 99152; 99153; C1725; C1753; C1769; C1874; C1887; C1894; C9600; J1644; J1815; J2250; J3010; J3490; J7030; J7613; J7626; Q0163; Q9967

== ENCOUNTER → 2023-11-13 11:32 | Outpatient (BNVA) | payer MEDICARE, SELFPAY | PROVIDERS: PCP Nurse Practitioner; Visit Provider Internal Medicine Cardiovascular Disease | DX: I47.19 Other supraventricular tachycardia (principal); I25.10 Atherosclerotic heart disease of native coronary artery without angina pectoris; I10 Essential (primary) hypertension; I73.9 Peripheral vascular disease, unspecified; I35.1 Nonrheumatic aortic (valve) insufficiency | CPT/HCPCS: 99214 ==

== ENCOUNTER 2023-11-19 14:10 | Outpatient (CLI) | payer MEDICARE, SELFPAY ==
--- NOTE | 2023-11-19 14:30 | CT_ITS ---
WS: [id number] CT HEAD TECHNIQUE: Noncontrast CT of the head obtained from the skullbase to the vertex. CLINICAL INFORMATION: R26.81 - Unsteadiness on feet COMPARISON: 2019 DLP: 1103.[address] scans at [facility] use at least one of these dose optimization techniques: automated e xposure control; mA and/or kV adjustment per patient size (includes targeted exams where dose is matc hed to clinical indication); or iterative reconstruction. FINDINGS: No evidence of intracranial hemorrhage or mass effect. Ventricular system and basal cisterns are ibarra nt. Moderate small vessel changes with moderate parenchymal volume loss. No extra-axial fluid collect ions. No evidence of mass or mass effect. Intracranial vascular calcification. Paranasal sinuses and mastoid air cells are well aerated. .Normal visualized soft tissues. Normal pos terior nasopharynx. IMPRESSION: 1. No evidence of intracranial hemorrhage or mass effect. 2. Moderate small vessel changes. Moderate parenchymal volume loss. 3. Intracranial vascular calcification. 4. No acute intracranial findings.
== END 2023-11-19 14:11 | disposition home or self-care (01) ==
LOC: RAD 14:10
PROVIDERS: Visit Provider Nurse Practitioner
DX: R26.81 Unsteadiness on feet (principal)
CPT/HCPCS: 70450

== ENCOUNTER → 2024-01-15 08:31 | Outpatient (BNVA) | payer MEDICARE, SELFPAY | PROVIDERS: PCP Nurse Practitioner; Visit Provider Nurse Practitioner Family | DX: L57.0 Actinic keratosis (principal); L40.8 Other psoriasis; L30.4 Erythema intertrigo; L81.4 Other melanin hyperpigmentation; I87.2 Venous insufficiency (chronic) (peripheral); Z85.828 Personal history of other malignant neoplasm of skin | CPT/HCPCS: 17000; 99214 ==

== ENCOUNTER → 2024-02-20 08:51 | Outpatient (BNVA) | payer MEDICARE, SELFPAY | PROVIDERS: PCP Nurse Practitioner; Visit Provider Nurse Practitioner | DX: E11.65 Type 2 diabetes mellitus with hyperglycemia (principal); Z79.4 Long term (current) use of insulin | CPT/HCPCS: 80053; 80061; 82607; 83036; 84443 ==

== ENCOUNTER → 2024-02-25 09:34 | Outpatient (BNVA) | payer MEDICARE, SELFPAY | PROVIDERS: PCP Nurse Practitioner; Visit Provider Nurse Practitioner | DX: E11.9 Type 2 diabetes mellitus without complications (principal) | CPT/HCPCS: 82043 ==

== ENCOUNTER → 2024-04-03 16:07 | Outpatient (BNVA) | payer MEDICARE, SELFPAY | PROVIDERS: PCP Nurse Practitioner; Visit Provider Nurse Practitioner | DX: J44.9 Chronic obstructive pulmonary disease, unspecified (principal) | CPT/HCPCS: 80053; 85025 ==

== ENCOUNTER 2024-04-10 08:50 | Outpatient (CLI) | payer MEDICARE, SELFPAY ==
--- NOTE | 2024-04-10 09:00 | CT_ITS ---
WS: [id number] CT chest wo con [id number] HISTORY: R05.9 - Cough, unspecified, history of asbestosis. TECHNIQUE: Axial imaging performed through the thorax. Coronal and sagittal reformats are submitted. All CT scans at [facility] use at least one of these dose optimization techniques: automated exposure control; mA and/or kV adjustment per patient size (includes targeted exams where dose is mat ched to clinical indication); or iterative reconstruction. CONTRAST: None DLP: 736.09 mGy.cm COMPARISON: 08/24/2019 Lungs and central airway: Patient has bilateral known pleural plaques, bilateral and in the upper and lower lung schaeffer. Mild progression of the pleural-based plaques since the prior study from 2019. Th ere are no associated masses with the plaques. Additional pleural plaque extends along the diaphragma tic surface. Motion artifact at the lung bases from breathing. No mass or nodule identified taking in to consideration the extent of breathing motion artifact. No endobronchial abnormality seen. Pleura: No pleural effusions. Heart and pericardium: Mild cardiomegaly. Increased in amount of pericardial fat. Very dense calcific ation noted along the coronary arteries. No pericardial effusion. Mediastinum and juan: No mediastinum or hilar adenopathy. Vessels: Moderate atherosclerotic plaque aorta. Mildly prominent pulmonary artery. Chest wall and lower neck: No soft tissue masses. Upper abdomen: Cholelithiasis. Gallbladder is incompletely visualized but the gallbladder does appear to contain stones. No adrenal mass. Osseous structures: Increase in thoracic kyphosis. Multilevel spondylosis. No destructive bone lesion s. CT/CT chest wo con [id number] IMPRESSION: 1. Patient has known bilateral pleural plaques which have mildly progressed si nce 2018. No associated mass or effusion. 2. Motion artifact obscuring pulmonary detail. No mass identified or pneumonia . 3. No mediastinal or hilar adenopathy. 4. Mild pulmonary hypertension. 5. Mild atherosclerosis aorta. 6. Dense coronary artery calcification. 7. Cholelithiasis without acute cholecystitis.
== END 2024-04-10 08:51 | disposition home or self-care (01) ==
LOC: RAD 08:50
PROVIDERS: PCP Nurse Practitioner; Visit Provider Nurse Practitioner
DX: J92.9 Pleural plaque without asbestos (principal); R05.9 Cough, unspecified; I25.84 Coronary atherosclerosis due to calcified coronary lesion; K80.20 Calculus of gallbladder without cholecystitis without obstruction
CPT/HCPCS: 71250

== ENCOUNTER 2024-05-06 21:36 | Emergency (ER) | payer MEDICARE, SELFPAY ==
[2024-05-06 21:38] VITALS: BP 131/103; PULSE 107; RESP 24; TEMP 37.2; O2SAT 95; BMI 42.5
[2024-05-06 21:55] VITALS: BP 131/103; RESP 16; TEMP 38.1; O2SAT 93
--- NOTE | 2024-05-06 22:01 | XRR_ITS ---
PROCEDURE INFORMATION: Exam: XR Chest Exam date and time: 05/06/2024 10:07 PM Age: 83 years old Clinical indication: Cough TECHNIQUE: Imaging protocol: Radiologic exam of the chest. Views: 1 view. COMPARISON: CT chest con [id number] 04/10/2024 9:23 AM FINDINGS: Lungs: Multiple bilateral calcified pleural plaques. No focal consolidation. Pleural spaces: Unremarkable. No pleural effusion. No pneumothorax. Heart/Mediastinum: Mild cardiomegaly. Vasculature: Unfolding of the thoracic aorta. Aortic arch calcifications. Bones/joints: Moderate degenerative disease of bilateral acromioclavicular joints. XR/XR chest 1V portable [id number] IMPRESSION: No acute cardiopulmonary process.
[2024-05-06] MEDS: ibuprofen 800 mg tablet PO (22:16)
[2024-05-06] MEDS: sodium chloride 0.9% 500 ML IV (22:17)
[2024-05-06 22:21] VITALS: BP 157/82; RESP 18; O2SAT 91
[2024-05-06 22:30] LABS: Influenza A by IFA negative (Negative); Influenza B by IFA negative (Negative)
[2024-05-06 22:31] LABS: Basophils % 0.6 %; Eosinophils % 0.6 %; Hematocrit 38.8 % (37-53); Lymphocytes # 1.2 10^3/uL (0.8-4.8); Lymphocytes % 18.2 %; Mean Corpuscular HGB Conc 32.5 g/dL (30-55); Mean Corpuscular Hemoglobin 30.4 pg (27-33); Mean Corpuscular Volume 93.5 fl (82-101); Mean Platelet Volume 9.3 fL (7.4-10.4); Monocytes % 15.6 %; Neutrophils # 4.24 10^3/uL (1.8-7.7); Neutrophils % 64.7 %; Nucleated Red Blood Cells % 0 %; Platelet Count 244 10^3/cmm (157-399); Red Blood Count 4.15 10^6/uL (3.85-5.65); Red Cell Distribution Width 13.7 % (12.1-15.1); White Blood Count 6.55 10^3/uL (3.29-11.43)
[2024-05-06 22:33] LABS: SARS Covid-2 Antigen positive (Negative)
[2024-05-06 22:49] LABS: Alanine Aminotransferase 21 U/L (0-41); Albumin Level 3.7 g/dL (3.5-5.2); Alkaline Phosphatase 80 U/L (40-130); Anion Gap 15.5 (5-19); Aspartate Amino Transferase 22 U/L (0-40); Blood Urea Nitrogen 17 mg/dL (8-23); Calcium 9.1 mg/dL (8.5-10.5); Carbon Dioxide 25 mmol/L (22-29); Chloride 98 mmol/L (98-107); Creatinine Clr Calc Pharmacy 82.3692; Globulin 3.5 g/dL (1.3-4.6); Glucose 101 mg/dL (65-115); Osmolality Calculated 280 mOsm/kg (285-295); Potassium 4.5 mmol/L (3.5-5.1); Sodium 134 mmol/L (136-145); Total Bilirubin 0.3 mg/dL (0.15-1.2); Total Protein 7.2 g/dL (6.6-8.7)
[2024-05-06 23:00] VITALS: BP 150/79; PULSE 82; RESP 18; O2SAT 91
--- NOTE | 2024-05-06 23:15 | ED_ITS ---
HPI - Weakness 2 General: Chief complaint: Weakness Stated complaint: flu like symptoms Time Seen by Provider: 05/06/24 21:39 History of Present Illness: This patient is an 83-year-old white male who presents to the ER with generalized weakness, mild confusion and cough. Symptoms started yesterday. Patient states he feels like he has had flulike symptoms starting yesterday. Low-grade fever. Congestion. Patient's is here with him. She had similar symptoms last week. Patient does have a history of insulin-dependent diabetes, COPD, hypertension and coronary artery disease. 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 Social History Smoking and tobacco/nicotine status: never used tobacco/nicotine Second hand smoke exposure: No Alcohol intake: never Substance/Drug Use: never Adopted: No Caregiver/support person: No Lives independently: No Household members: spouse Housing: House Marital status: Number of children: 5 Number of grandchildren: 15 service: Yes Current occupational status: retired Pets and animals: No Do you think of yourself as: Straight/Heterosexual Current gender identity: Male Physical Exam 2 Const: COMMON NORMALS: patient oriented x3 HENMT: COMMON NORMALS: normocephalic, atraumatic, Normal nasal mucous membranes and turbinates present, moist oral mucous membranes and oropharynx normal HEAD & SCALP: normal to inspection, normocephalic and atraumatic F BERENICE & SINUS: normal facial exam NOSE: Normal nasal mucous membranes and turbinates present Eye: COMMON NORMALS: Equal, round and reactive pupils present, EOMs intact bilaterally and conjunctivae normal GENERAL EYE: appearance normal, both eyes and all related structures CONJUNCTIVA: Yes conjunctivae normal PUPIL: Yes Equal, round and reactive pupils present Neck/C-Spine: COMMON NORMALS: supple and no JVD Chest: COMMONS NORMALS: normal inspection of the chest Resp: COMMON NORMALS: normal respiratory effort and clear to auscultation bilaterally AUSCULTATION: clear to auscultation bilaterally OTHER: Cough Cardio: COMMON NORMALS: no JVD, regular rate, regular rhythm, No gallops present (Cardio), No murmurs present (Cardio) and No rub (Cardio) RATE: r egular rate RHYTHM: regular rhythm GI: COMMON NORMALS: Normal to inspection, nondistended, normoactive bowel sounds present, Soft to palpation and non-tender AUSCULTATION: Yes normoactive bowel sounds PALPATION: Yes Soft to palpation : COMMON NORMALS: Yes no CVA tenderness BLADDER/KIDNEY EXAM: Yes no CVA tenderness Back/Pelvis: COMMON NORMALS: no CVA tenderness and thoracic and lumbar spine normal to inspection Extremity: COMMON NORMALS: normal to inspection Neuro: COMMON NORMALS: patient oriented x3 and CN's II-XII intact bilaterally Psych: COMMON NORMALS: mental status grossly normal, Normal thought process present and cooperative THOUGHT PROCESS: Normal thought process present Skin: COMMON NORMALS: no rashes or lesions noted, turgor normal and no jaundice GENERAL SKIN EXAM: no rashes or lesions noted and turgor normal Course 2 Vital Signs: Vital signs: Vital Signs Temperature 100.5 F H 05/06/24 21:55 Pulse Rate 82 05/06/24 23:00 Respiratory Rate 18 05/06/24 23:00 Blood Pressure 150/79 05/06/24 23:00 Pulse Oximetry 91 05/06/24 23:00 Oxygen Delivery Me thod Nasal Cannula 05/06/24 23:00 Oxygen Flow Rate 2 05/06/24 23:00 MDM - Weakness Medical Decision Making Chest x-ray did not reveal any infiltrates. CBC and CMP were normal. Influenza negative. COVID-positive. I discussed the results with patient and his . The patient would like to go home. Since he does have multiple medical problems I did place him on Paxlovid since he is at high risk. He was discharged in stable condition. Follow-up with primary care physician in 1 week for recheck. Lab Data 05/06/24 22:21 05/06/24 22:21 Radiology Impressions Chest X-Ray 05/06/24 22:01 IMPRESSION: No acute cardiopulmonary process. Laboratory Results WBC 6.55 10^3/uL (3.29-11.43) 05/06/24 22:21 RBC 4.15 10^6/uL (3.85-5.65) 05/06/24 22:21 Hgb 12.60 g/dL (11.27-16.99) 05/06/24 22:21 Hct 38.8 % (37-53) 05/06/24 22:21 MCV 93.5 fl (82-101) 05/06/24 22:21 MCH 30.4 pg (27-33) 05/06/24 22:21 MCHC 32.5 g/dL (30-55) 05/06/24 22:21 RDW 13.7 % (12.1-15.1) 05/06/24 22:21 Plt Count 244 10^3/cmm (157-399) 05/06/24 22:21 MPV 9.3 fL (7.4-10.4) 05/06/24 22:21 Neut % (Auto) 64.7 % 05/06/24 22:21 Lymph % (Auto) 18.2 % 05/06/24 22:21 [place] % (Auto) 15.6 % 05/06/24 22:21 Eos % (Auto) 0.6 % 05/06/24 22:21 Baso % (Auto) 0.6 % 05/06/24 22:21 Neut # (Auto) 4.24 10^3/uL (1.8-7.7) 05/06/24 22:21 Lymph # (Auto) 1.2 10^3/uL (0.8-4.8) 05/06/24 22:21 [place] # (Auto) 1.0 10^3/uL (0.2-0.9) H 05/06/24 22:21 Eos # (Auto) 0.0 10^3/uL (0.0-0.8) 05/06/24 22:21 Baso # (Auto) 0.0 10^3/uL (0.0-0.1) 05/06/24 22:21 Nucleated RBC % (auto) 0 % 05/06/24 22:21 Nucleated RBCs # 0.0 /100WBC 05/06/24 22:21 Sodium 134 mmol/L (136-145) L 05/06/24 22:21 Potassium 4.5 mmol/L (3.5-5.1) 05/06/24 22:21 Chloride 98 mmol/L (98-107) 05/06/24 22:21 Carbon Dioxide 25 mmol/L (22-29) 05/06/24 22:21 Anion Gap 15.5 (5-19) 05/06/24 22:21 BUN 17 mg/dL (8-23) 05/06/24 22:21 Creatinine 1.0 mg/dL (0.7-1.2) 05/06/24 22:21 GFR Calculation Not Reportable 05/06/24 22:21 Glucose 101 mg/dL (65-115) 05/06/24 22:21 Calculated Osmolality 280 mOsm/kg (285-295) L 05/06/24 22:21 Calcium 9.1 mg/dL (8.5-10.5) 05/06/24 22:21 Total Bilirubin 0.3 mg/dL (0.15-1.2) 05/06/24 22:21 AST 22 U/L (0-40) 05/06/24 22:21 ALT 21 U/L (0-41) 05/06/24 22:21 Alkaline Phosphatase 80 U/L (40-130) 05/06/24 22:21 Total Protein 7.2 g/dL (6.6-8.7) 05/06/24 22:21 Albumin 3.7 g/dL (3.5-5.2) 05/06/24 22:21 Globulin 3.5 g/dL (1.3-4.6) 05/06/24 22:21 Influenza Type A Ag negative (Negative) 05/06/24 22:00 Influenza Type B Ag negative (Negative) 05/06/24 22:00 SARS-CoV-2 Ag (Rapid) positive (Negative) H 05/06/24 22:00 All radiology interpretation(s) finalized by discharge Discharge Plan Discharge Patient Disposition: Home Clinical Impression: COVID Condition: Stable Prescriptions: New Paxlovid 300 mg (150 mg x 2)-100 mg tablets,dose pack See Rx Instructions .ROUTE .COMPLEX Qty: 30 0RF Rx Instructions: take TWO 150 mg tablets of nirmatrelvir with ONE 100 mg tablet of ritonavir twice daily for 5 days No Action multivitamin [Daily Multi-Vitamin] Tablet 1 tab PO QAM vitamin B complex [B Complex-Vitamin B12] Tablet 1 tab PO QAM ascorbate calcium (vitamin C) 500 mg tablet 500 mg PO DAILY albuterol sulfate 2.5 mg /3 mL (0.083 %) solution for nebulization 2.5 mg inhalation Q4H PRN (Reason: shortness of breath or wheezing) Qty: 75 0RF albuterol sulfate 90 mcg/actuation HFA aerosol inhaler 2 puff inhalation QID PRN (Reason: shortness of breath or wheezing) Qty: 6.7 2RF cholecalciferol (vitamin D3) 25 mcg (1,000 unit) capsule 25 mcg PO DAILY mupirocin 2 % ointment 1 applic topical BID Qty: 22 0RF atorvastatin 40 mg tablet 40 mg PO DAILY Qty: 90 1RF clopidogrel [Plavix] 75 mg tablet 75 mg PO DAILY Qty: 90 1RF duloxetine [Cymbalta] 30 mg capsule,delayed release(DR/EC) 30 mg PO BID Qty: 180 1RF finasteride [Proscar] 5 mg tablet 5 mg PO DAILY Qty: 90 1RF fluticasone propion-salmeterol [Advair Diskus] 250-50 mcg/dose blister with device 1 inh inhalation Q12H Qty: 180 1RF glimepiride 4 mg tablet 4 mg PO DAILY Qty: 90 1RF Hold Instructions: Improved glucose metformin 500 mg tablet extended release 24 hr 2,000 mg PO QDAY Qty: 360 1RF Hold Instructions: Resume on 11/11/23. montelukast [Singulair] 10 mg tablet 10 mg PO DAILY Qty: 90 1RF pantoprazole 20 mg tablet,delayed release (DR/EC) 20 mg PO DAILY Qty: 90 1RF tamsulosin [Flomax] 0.4 mg capsule 0.4 mg PO DAILY Qty: 90 1RF valsartan 320 mg tablet 320 mg PO DAILY Qty: 90 1RF Hold Instructions: change to Entresto ketoconazole 2 % shampoo 1 applic topical .Twice weekly Qty: 120 6RF Rx Instructions: Lather into scalp 2 times weekly. Allowed to sit on scalp for 5 minutes before rinsing. potassium chloride 20 mEq tablet extended release 20 meq PO DAILY PRN (Reason: Take with Lasix) Qty: 30 6RF furosemide 40 mg tablet 40 mg PO DAILY PRN (Reason: edema) Qty: 30 6RF Entresto 24-26 mg tablet 1 tab PO BID Qty: 60 0RF Mounjaro 5 mg/0.5 mL pen injector 5 mg SUBCUT .weekly Qty: 6 0RF vitamin E (dl, acetate) 90 mg (200 unit) Capsule 90 mg PO DAILY carvedilol 3.125 mg tablet 3.125 mg PO BID ketoconazole 2 % cream 1 applic topical BID PRN (Reason: Rash) Rx Instructions: Apply to red scaly areas of the face 1-2 times daily aspirin 81 mg capsule 81 mg PO DAILY Qty: 90 0RF Discharge Orders: Discharge ED (Routine); Ordered 05/06/24 Ordered By: Wilmer Martinez Referrals: Lloyd Spencer, [employer] [Primary Care Provider] - Coding Level of Care Code ED 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 Related Data Home Medications Medication Instructions Recorded Confirmed multivitamin (Daily Multi-Vitamin 1 tab PO QAM 09/19/19 04/15/24 tablet) vitamin B complex (B 1 tab PO QAM 09/19/19 04/15/24 Complex-Vitamin B12 tablet) ascorbate calcium (vitamin C) 500 500 mg PO DAILY 04/22/20 04/15/24 mg tablet cholecalciferol (vitamin D3) 25 25 mcg PO DAILY 10/26/22 04/15/24 mcg (1,000 unit) capsule carvedilol 3.125 mg tablet 3.125 mg PO BID 10/10/23 04/15/24 ketoconazole 2 % topical cream 1 applic topical BID PRN Rash 10/10/23 04/15/24 vitamin E (dl, acetate) 90 mg (200 90 mg PO DAILY 10/10/23 04/15/24 unit) capsule Previous Rx's Medication Instructions Recorded furosemide 40 mg tablet 40 mg PO DAILY PRN edema #30 tabs 07/31/22 potassium chloride 20 mEq 20 meq PO DAILY PRN Take with 07/31/22 tablet,extended release Lasix #30 tabs mupirocin 2 % topical ointment 1 applic topical BID #22 grams 10/10/23 aspirin 81 mg capsule 81 mg PO DAILY #90 caps 10/11/23 atorvastatin 40 mg tablet 40 mg PO DAILY #90 tabs 02/25/24 clopidogrel 75 mg tablet (Plavix) 75 mg PO DAILY #90 tabs 02/25/24 duloxetine 30 mg capsule,delayed 30 mg PO BID #180 caps 02/25/24 release (Cymbalta) finasteride 5 mg tablet (Proscar) 5 mg PO DAILY #90 tabs 02/25/24 fluticasone 250 mcg-salmeterol 50 1 inh inhalation Q12H #180 ea 02/25/24 mcg/dose blistr powdr for inhalation (Advair Diskus) glimepiride 4 mg tablet 4 mg PO DAILY #90 tabs 02/25/24 ketoconazole 2 % shampoo 1 applic topical .Twice weekly 02/25/24 #120 mL metformin 500 mg tablet,extended 2,000 mg (4 x 500 mg) PO QDAY #360 02/25/24 release 24 hr tabs montelukast 10 mg tablet 10 mg PO DAILY #90 tabs 02/25/24 (Singulair) pantoprazole 20 mg tablet,delayed 20 mg PO DAILY #90 tabs 02/25/24 release tamsulosin 0.4 mg capsule (Flomax) 0.4 mg PO DAILY #90 caps 02/25/24 valsartan 320 mg tablet 320 mg PO DAILY #90 tabs 02/25/24 albuterol sulfate 2.5 mg/3 mL 2.5 mg (3 mL) inhalation Q4H PRN 03/04/24 (0.083 %) solution for nebulization shortness of breath or wheezing #75 mL albuterol sulfate 90 mcg/actuation 2 puff inhalation QID PRN 03/24/24 aerosol inhaler shortness of breath or wheezing #6.7 grams sacubitril 24 mg-valsartan 26 mg 1 tab PO BID #60 tabs 04/15/24 tablet (Entresto) tirzepatide 5 mg/0.5 mL 5 mg (0.5 mL) SUBCUT .weekly #6 mL 05/03/24 subcutaneous pen injector (Gee) nirmatrelvir 300 mg (150 mg See Rx Instructions PO .COMPLEX 05/06/24 x2)-ritonavir 100 mg tablet,dose #30 ea pack (Paxlovid) Allergies Allergy/AdvReac Type Severity Reaction Status Date / Time acetaminophen [From Percocet] Allergy CONFUSION Verified 04/15/24 10:57 oxycodone [From Percocet] Allergy CONFUSION Verified 04/15/24 10:57
[2024-05-06 23:35] VITALS: BP 150/79; PULSE 92; RESP 20; O2SAT 91
== END 2024-05-06 23:37 | disposition home or self-care (01) ==
PROVIDERS: Emergency Provider Emergency Medicine; PCP Nurse Practitioner
DX: U07.1 COVID-19 (principal); Z79.02 Long term (current) use of antithrombotics/antiplatelets; Z79.84 Long term (current) use of oral hypoglycemic drugs; Z79.82 Long term (current) use of aspirin; Z79.85 Long-term (current) use of injectable non-insulin antidiabetic drugs; E11.9 Type 2 diabetes mellitus without complications; I25.10 Atherosclerotic heart disease of native coronary artery without angina pectoris; J44.9 Chronic obstructive pulmonary disease, unspecified; I10 Essential (primary) hypertension
CPT/HCPCS: 36415; 71045; 80053; 85025; 87426; 87804; 96360; 99284; J7040

== ENCOUNTER → 2024-05-16 09:42 | Outpatient (BNVA) | payer MEDICARE, SELFPAY | PROVIDERS: PCP Nurse Practitioner; Visit Provider Nurse Practitioner Family | DX: I25.10 Atherosclerotic heart disease of native coronary artery without angina pectoris (principal); I10 Essential (primary) hypertension | CPT/HCPCS: 99214 ==

== ENCOUNTER → 2024-05-19 10:47 | Outpatient (BNVA) | payer MEDICARE, SELFPAY | PROVIDERS: PCP Nurse Practitioner; Visit Provider Nurse Practitioner | DX: E11.9 Type 2 diabetes mellitus without complications (principal) | CPT/HCPCS: 80053; 83036 ==

== ENCOUNTER → 2024-07-17 08:54 | Outpatient (BNVA) | payer MEDICARE, SELFPAY | PROVIDERS: PCP Nurse Practitioner; Visit Provider Nurse Practitioner Family | DX: I87.2 Venous insufficiency (chronic) (peripheral) (principal); R60.0 Localized edema; L81.4 Other melanin hyperpigmentation; D22.5 Melanocytic nevi of trunk; L57.8 Other skin changes due to chronic exposure to nonionizing radiation; D69.2 Other nonthrombocytopenic purpura; L82.1 Other seborrheic keratosis; Z85.828 Personal history of other malignant neoplasm of skin; L82.0 Inflamed seborrheic keratosis; L57.0 Actinic keratosis | CPT/HCPCS: 17000; 17110; 99214 ==

== ENCOUNTER → 2024-08-12 09:39 | Outpatient (BNVA) | payer MEDICARE, SELFPAY | PROVIDERS: PCP Nurse Practitioner; Visit Provider Nurse Practitioner | DX: E11.9 Type 2 diabetes mellitus without complications (principal) | CPT/HCPCS: 80053; 80061; 83036; 85025 ==

== ENCOUNTER 2024-11-02 19:31 | Emergency (ER) | payer MEDICARE, SELFPAY ==
[2024-11-02 19:44] VITALS: BP 155/81; PULSE 109; RESP 16; TEMP 37.8; O2SAT 88; BMI 41.8
[2024-11-02 20:00] VITALS: BP 151/80; PULSE 103; O2SAT 97
--- NOTE | 2024-11-02 20:01 | XRR_ITS ---
PROCEDURE INFORMATION: Exam: XR Chest Exam date and time: 11/02/2024 8:08 PM Age: 84 years old Clinical indication: Cough and fever; Cough with fever; Additional info: Cough, fever TECHNIQUE: Imaging protocol: Radiologic exam of the chest. Views: 1 view. COMPARISON: CR XR chest 1V portable [id number] 05/06/2024 10:07 PM FINDINGS: Lungs: Unchanged bilateral lung calcified pleural plaques. Faint bilateral lower lung atelectasis/scarring, unchanged. No definitive acute infiltrate or consolidation. Pleural spaces: See Lungs finding. Heart/Mediastinum: Unchanged cardiomegaly. Bones/joints: Moderate bilateral shoulder degenerative osteoarthritis. No acute osseous abnormality. XR/XR chest 1V portable [id number] IMPRESSION: No identified acute cardiopulmonary process. Stable exam.
[2024-11-02 20:13] LABS: Basophils # 0.1 10^3/uL (0.0-0.1); Basophils % 0.7 %; Eosinophils # 0.2 10^3/uL (0.0-0.8); Hematocrit 37.9 % (37-53); Lymphocytes # 0.6 10^3/uL (0.8-4.8); Lymphocytes % 8.4 %; Mean Corpuscular HGB Conc 31.4 g/dL (30-55); Mean Corpuscular Hemoglobin 30.4 pg (27-33); Mean Corpuscular Volume 96.7 fl (82-101); Monocytes # 0.6 10^3/uL (0.2-0.9); Monocytes % 8.4 %; Neutrophils # 6.06 10^3/uL (1.8-7.7); Neutrophils % 79.1 %; Nucleated Red Blood Cells % 0 %; Platelet Count 250 10^3/cmm (157-399); Red Blood Count 3.92 10^6/uL (3.85-5.65); Red Cell Distribution Width 13.6 % (12.1-15.1); White Blood Count 7.65 10^3/uL (3.29-11.43)
[2024-11-02] MEDS: acetaminophen 325 mg Tablet 650 MG PO (20:17)
--- NOTE | 2024-11-02 20:19 | PC.NURSE ---
this nurse began titrating pt o2 down from 2l NC to 1L NC to RA, pt O2 went down to 87% RA. Placed back on 2L NC.
[2024-11-02 20:31] LABS: Anion Gap 14.2 (5-19); Blood Urea Nitrogen 12 mg/dL (8-23); Carbon Dioxide 23 mmol/L (22-29); Chloride 98 mmol/L (98-107); Creatinine Clr Calc Pharmacy 100.3029; Glucose 188 mg/dL (65-115); Osmolality Calculated 277 mOsm/kg (285-295); Potassium 4.2 mmol/L (3.5-5.1); Sodium 131 mmol/L (136-145)
[2024-11-02 21:00] VITALS: BP 135/71; PULSE 103; TEMP 36.8; O2SAT 90
[2024-11-02 21:12] LABS: Influenza A POSITIVE (Negative); Influenza B NEGATIVE (Negative); Respiratory Syncytial Virus Ce NEGATIVE (Negative); SARS-CoV-2 PCR NEGATIVE (Negative)
--- NOTE | 2024-11-02 21:27 | W.ED.URI ---
HPI - URI/Sore Throat General: Chief Complaint: Upper Respiratory Infection Stated Complaint: flu like symptoms, fall Time Seen by Provider: 11/02/24 19:36 History of Present Illness: This patient is an 84-year-old white male who presents to the emergency department with cough and generalized weakness. Symptoms started last night. Patient states he has chronic shortness of breath secondary to COPD. He has not had any chest pain. He has not noticed a fever. Related Data Home Medications ?Medication ?Instructions ?Recorded ?Confirmed multivitamin (Daily Multi-Vitamin 1 tab PO QAM 09/19/19 10/31/24 tablet) vitamin B complex (B 1 tab PO QAM 09/19/19 10/31/24 Complex-Vitamin B12 tablet) ascorbate calcium (vitamin C) 500 500 mg PO DAILY 04/22/20 10/31/24 mg tablet cholecalciferol (vitamin D3) 25 25 mcg PO DAILY 10/26/22 10/31/24 mcg (1,000 unit) capsule ketoconazole 2 % topical cream 1 applic topical BID PRN Rash 10/10/23 10/31/24 vitamin E (dl, acetate) 90 mg (200 90 mg PO DAILY 10/10/23 10/31/24 unit) capsule glimepiride 2 mg tablet 2 mg PO QAM 08/13/24 10/31/24 Previous Rx's ?Medication ?Instructions ?Recorded furosemide 40 mg tablet 40 mg PO DAILY PRN edema #30 tabs 07/31/22 potassium chloride 20 mEq 20 meq PO DAILY PRN Take with 07/31/22 tablet,extended release Lasix #30 tabs mupirocin 2 % topical ointment 1 applic topical BID #22 grams 10/10/23 aspirin 81 mg capsule 81 mg PO DAILY #90 caps 10/11/23 ketoconazole 2 % shampoo 1 applic topical .Twice weekly 02/25/24 #120 mL albuterol sulfate 2.5 mg/3 mL 2.5 mg (3 mL) inhalation Q4H PRN 03/04/24 (0.083 %) solution for nebulization shortness of breath or wheezing #75 mL albuterol sulfate 90 mcg/actuation 2 puff inhalation QID PRN 05/21/24 aerosol inhaler shortness of breath or wheezing #6.7 grams fluticasone 250 mcg-salmeterol 50 1 inh inhalation Q12H #180 ea 05/21/24 mcg/dose blistr powdr for inhalation (Advair Diskus) carvedilol 3.125 mg tablet 3.125 mg PO BID #180 tabs 06/11/24 atorvastatin 40 mg tablet 40 mg PO DAILY #90 tabs 08/13/24 clopidogrel 75 mg tablet (Plavix) 75 mg PO DAILY #90 tabs 08/13/24 duloxetine 30 mg capsule,delayed 30 mg PO BID #180 caps 08/13/24 release (Cymbalta) finasteride 5 mg tablet (Proscar) 5 mg PO DAILY #90 tabs 08/13/24 metformin 500 mg tablet,extended 1,000 mg (2 x 500 mg) PO QDAY #180 08/13/24 release 24 hr tabs montelukast 10 mg tablet 10 mg PO DAILY #90 tabs 08/13/24 (Singulair) pantoprazole 20 mg tablet,delayed 20 mg PO DAILY #90 tabs 08/13/24 release sacubitril 24 mg-valsartan 26 mg 1 tab PO BID #180 tabs 08/13/24 tablet (Entresto) tamsulosin 0.4 mg capsule (Flomax) 0.4 mg PO DAILY #90 caps 08/13/24 tirzepatide 7.5 mg/0.5 mL 7.5 mg (0.5 mL) SUBCUT .weekly #6 08/13/24 subcutaneous pen injector mL (Gee) blood sugar diagnostic (OneTouch #300 ea 08/18/24 Verio test strips) lancets 33 gauge (OneTouch Delica #300 ea 08/19/24 Plus Lancet) Allergies Allergy/AdvReac Type Severity Reaction Status Date / Time acetaminophen (From Percocet) Allergy CONFUSION Verified 10/31/24 16:04 oxycodone (From Percocet) Allergy CONFUSION Verified 10/31/24 16:04 Review of Systems General: Reports: 10 or more systems reviewed and unremarkable except in HPI and below Const: Reports: malaise Resp: Reports: non-productive cough PFSH ED PFSH: Medical History Small vessel disease, cerebrovascular Diabetes mellitus with hyperglycemia, with long-term current use of insulin Multiple environmental allergies Urolithiasis History of kidney stones Atherosclerosis Cardiomegaly 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 Social History Smoking and tobacco/nicotine status: never used tobacco/nicotine Second hand smoke exposure: No Alcohol intake: never Substance/Drug Use: never Adopted: No Caregiver/support person: No Lives independently: No Household members: spouse Housing: House Marital status: Number of children: 5 Number of grandchildren: 15 service: Yes Current occupational status: retired Pets and animals: No Do you think of yourself as: Straight/Heterosexual Current gender identity: Male Physical Exam Const: COMMON NORMALS: no acute distress, patient oriented x3 and no limitations GENERAL APPEARANCE: cooperative and comfortable HENMT: COMMON NORMALS: normocephalic, atraumatic, moist oral mucous membranes and oropharynx normal HEAD & SCALP: normal to inspection, normocephalic and atraumatic FACE & SINUS: normal facial exam NOSE: Nasal discharge present Eye: COMMON NORMALS: Equal, round and reactive pupils present, EOMs intact bilaterally and conjunctivae normal GENERAL EYE: appearance normal, both eyes and all related structures CONJUNCTIVA: Yes conjunctivae normal PUPIL: Yes Equal, round and reactive pupils present Neck/C-Spine: COMMON NORMALS: supple and no JVD Chest: COMMONS NORMALS: normal inspection of the chest Resp: COMMON NORMALS: normal respiratory effort and clear to auscultation bilaterally AUSCULTATION: clear to auscultation bilaterally Cardio: COMMON NORMALS: no JVD, regular rate, regular rhythm, No gallops present (Cardio), No murmurs present (Cardio) and No rub (Cardio) RATE: regular rate RHYTHM: regular rhythm GI: COMMON NORMALS: Normal to inspection, nondistended, normoactive bowel sounds present, Soft to palpation and non-tender AUSCULTATION: Yes normoactive bowel sounds PALPATION: Yes Soft to palpation : COMMON NORMALS: Yes no CVA tenderness BLADDER/KIDNEY EXAM: Yes no CVA tenderness Back/Pelvis: COMMON NORMALS: no CVA tenderness and thoracic and lumbar spine normal to inspection Extremity: COMMON NORMALS: normal to inspection Neuro: COMMON NORMALS: patient oriented x3 and CN's II-XII intact bilaterally Psych: COMMON NORMALS: mental status grossly normal, Normal thought process present and cooperative THOUGHT PROCESS: Normal thought process present Skin: COMMON NORMALS: no rashes or lesions noted, turgor normal and no jaundice GENERAL SKIN EXAM: no rashes or lesions noted and turgor normal Course Vital Signs: Vital signs: Vital Signs Temperature 98.2 F 11/02/24 21:00 Pulse Rate 103 H 11/02/24 21:00 Respiratory Rate 16 11/02/24 19:44 Blood Pressure 135/71 11/02/24 21:00 Pulse Oximetry 90 11/02/24 21:00 Oxygen Delivery Me thod Room Air 11/02/24 21:00 Oxygen Flow Rate 2 11/02/24 20:00 MDM - URI/Sore Throat Medical Decision Making Chest x-ray did not reveal any infiltrates. CBC and BMP were normal. COVID and RSV negative. Influenza A positive. Results were discussed with the patient and his . Recommended [id number] cough and cold medications. Robitussin DM specifically for the cough. Push fluids get some rest. Follow-up with primary care physician later this week if no improvement. He was discharged in stable condition. Lab Data 11/02/24 20:00 11/02/24 20:00 Laboratory Results WBC 7.65 10^3/uL (3.29-11.43) 11/02/24 20:00 RBC 3.92 10^6/uL (3.85-5.65) 11/02/24 20:00 Hgb 11.90 g/dL (11.27-16.99) 11/02/24 20:00 Hct 37.9 % (37-53) 11/02/24 20:00 MCV 96.7 fl (82-101) 11/02/24 20:00 MCH 30.4 pg (27-33) 11/02/24 20:00 MCHC 31.4 g/dL (30-55) 11/02/24 20:00 RDW 13.6 % (12.1-15.1) 11/02/24 20:00 Plt Count 250 10^3/cmm (157-399) 11/02/24 20:00 MPV 9.0 fL (7.4-10.4) 11/02/24 20:00 Neut % (Auto) 79.1 % 11/02/24 20:00 Lymph % (Auto) 8.4 % 11/02/24 20:00 [facility] % (Auto) 8.4 % 11/02/24 20:00 Eos % (Auto) 3.0 % 11/02/24 20:00 Baso % (Auto) 0.7 % 11/02/24 20:00 Neut # (Auto) 6.06 10^3/uL (1.8-7.7) 11/02/24 20:00 Lymph # (Auto) 0.6 10^3/uL (0.8-4.8) L 11/02/24 20:00 [facility] # (Auto) 0.6 10^3/uL (0.2-0.9) 11/02/24 20:00 Eos # (Auto) 0.2 10^3/uL (0.0-0.8) 11/02/24 20:00 Baso # (Auto) 0.1 10^3/uL (0.0-0.1) 11/02/24 20:00 Nucleated RBC % (auto) 0 % 11/02/24 20:00 Nucleated RBCs # 0.0 /100WBC 11/02/24 20:00 Sodium 131 mmol/L (136-145) L 11/02/24 20:00 Potassium 4.2 mmol/L (3.5-5.1) 11/02/24 20:00 Chloride 98 mmol/L (98-107) 11/02/24 20:00 Carbon Dioxide 23 mmol/L (22-29) 11/02/24 20:00 Anion Gap 14.2 (5-19) 11/02/24 20:00 BUN 12 mg/dL (8-23) 11/02/24 20:00 Creatinine 0.8 mg/dL (0.7-1.2) 11/02/24 20:00 GFR Calculation Not Reportable 11/02/24 20:00 Glucose 188 mg/dL (65-115) H 11/02/24 20:00 Calculated Osmolality 277 mOsm/kg (285-295) L 11/02/24 20:00 Calcium 9.0 mg/dL (8.5-10.5) 11/02/24 20:00 Influenza A (PCR) Positive (Negative) 11/02/24 20:05 Influenza Type B (PCR) Negative (Negative) 11/02/24 20:05 RSV (PCR) Negative (Negative) 11/02/24 20:05 SARS-CoV-2 (PCR) Negative (Negative) 11/02/24 20:05 All radiology interpretation(s) finalized by discharge Discharge Plan Discharge Patient Disposition: Home Clinical Impression: Influenza A Condition: Stable Prescriptions: No Action multivitamin [Daily Multi-Vitamin] Tablet 1 tab PO QAM vitamin B complex [B Complex-Vitamin B12] Tablet 1 tab PO QAM ascorbate calcium (vitamin C) 500 mg tablet 500 mg PO DAILY albuterol sulfate 2.5 mg /3 mL (0.083 %) solution for nebulization 2.5 mg inhalation Q4H PRN (Reason: shortness of breath or wheezing) Qty: 75 0RF glimepiride 2 mg tablet 2 mg PO QAM Rx Instructions: administer with breakfast metformin 500 mg tablet extended release 24 hr 1,000 mg PO QDAY Qty: 180 1RF atorvastatin 40 mg tablet 40 mg PO DAILY Qty: 90 1RF clopidogrel [Plavix] 75 mg tablet 75 mg PO DAILY Qty: 90 1RF duloxetine [Cymbalta] 30 mg capsule,delayed release(DR/EC) 30 mg PO BID Qty: 180 1RF finasteride [Proscar] 5 mg tablet 5 mg PO DAILY Qty: 90 1RF montelukast [Singulair] 10 mg tablet 10 mg PO DAILY Qty: 90 1RF pantoprazole 20 mg tablet,delayed release (DR/EC) 20 mg PO DAILY Qty: 90 1RF Entresto 24-26 mg tablet 1 tab PO BID Qty: 180 1RF tamsulosin [Flomax] 0.4 mg capsule 0.4 mg PO DAILY Qty: 90 1RF Mounjaro 7.5 mg/0.5 mL pen injector 7.5 mg SUBCUT .weekly Qty: 6 0RF cholecalciferol (vitamin D3) 25 mcg (1,000 unit) capsule 25 mcg PO DAILY mupirocin 2 % ointment 1 applic topical BID Qty: 22 0RF ketoconazole 2 % shampoo 1 applic topical .Twice weekly Qty: 120 6RF Rx Instructions: Lather into scalp 2 times weekly. Allowed to sit on scalp for 5 minutes before rinsing. albuterol sulfate 90 mcg/actuation HFA aerosol inhaler 2 puff inhalation QID PRN (Reason: shortness of breath or wheezing) Qty: 6.7 2RF fluticasone propion-salmeterol [Advair Diskus] 250-50 mcg/dose blister with device 1 inh inhalation Q12H Qty: 180 1RF potassium chloride 20 mEq tablet extended release 20 meq PO DAILY PRN (Reason: Take with Lasix) Qty: 30 6RF furosemide 40 mg tablet 40 mg PO DAILY PRN (Reason: edema) Qty: 30 6RF carvedilol 3.125 mg tablet 3.125 mg PO BID Qty: 180 3RF (DME) OneTouch Verio test strips Strip See Rx Instructions .Route Qty: 300 4RF Rx Instructions: use 3 times day (DME) lancets [OneTouch Delica Plus Lancet] 33 gauge misc See Rx Instructions .Route Qty: 300 4RF Rx Instructions: use one lancet 3 times day vitamin E (dl, acetate) 90 mg (200 unit) Capsule 90 mg PO DAILY ketoconazole 2 % cream 1 applic topical BID PRN (Reason: Rash) Rx Instructions: Apply to red scaly areas of the face 1-2 times daily aspirin 81 mg capsule 81 mg PO DAILY Qty: 90 0RF Discharge Orders: Discharge ED (Routine); Ordered 11/02/24 Ordered By: Wilmer Martinez Referrals: Lloyd Spencer FNP-C [Primary Care Provider] - Patient Instructions: Influenza (DC) Print Language: Somali Coding Level of Care Code ED French Folder for Estrella Granados
[2024-11-02 21:47] VITALS: BP 134/75; PULSE 108; O2SAT 90
== END 2024-11-02 21:49 | disposition home or self-care (01) ==
PROVIDERS: Emergency Provider Emergency Medicine; PCP Nurse Practitioner
DX: J10.1 Influenza due to other identified influenza virus with other respiratory manifestations (principal); Z11.52 Encounter for screening for COVID-19; Z79.84 Long term (current) use of oral hypoglycemic drugs; Z79.02 Long term (current) use of antithrombotics/antiplatelets; Z79.82 Long term (current) use of aspirin; E11.9 Type 2 diabetes mellitus without complications; J44.9 Chronic obstructive pulmonary disease, unspecified; I10 Essential (primary) hypertension
CPT/HCPCS: 71045; 80048; 85025; 87637; 99284

== ENCOUNTER → 2024-11-12 09:41 | Outpatient (BNVA) | payer MEDICARE, SELFPAY | PROVIDERS: PCP Nurse Practitioner | DX: E11.9 Type 2 diabetes mellitus without complications (principal) | CPT/HCPCS: 80053; 83036 ==

== ENCOUNTER → 2024-12-17 14:58 | Outpatient (BNVA) | payer MEDICARE, SELFPAY | PROVIDERS: PCP Nurse Practitioner; Visit Provider Internal Medicine Cardiovascular Disease | DX: I25.10 Atherosclerotic heart disease of native coronary artery without angina pectoris (principal); I10 Essential (primary) hypertension; I47.10 Supraventricular tachycardia, unspecified; I73.9 Peripheral vascular disease, unspecified | CPT/HCPCS: 99214 ==

== ENCOUNTER → 2025-01-15 08:38 | Outpatient (BNVA) | payer MEDICARE, SELFPAY | PROVIDERS: PCP Nurse Practitioner; Visit Provider Nurse Practitioner Family | DX: I87.2 Venous insufficiency (chronic) (peripheral) (principal); L30.4 Erythema intertrigo; L57.8 Other skin changes due to chronic exposure to nonionizing radiation; L81.4 Other melanin hyperpigmentation; D22.5 Melanocytic nevi of trunk; Z08 Encounter for follow-up examination after completed treatment for malignant neoplasm; Z85.828 Personal history of other malignant neoplasm of skin; D48.5 Neoplasm of uncertain behavior of skin | CPT/HCPCS: 11104; 99213 ==

== ENCOUNTER → 2025-01-27 09:00 | Outpatient (BNVA) | payer MEDICARE, SELFPAY | PROVIDERS: PCP Nurse Practitioner; Visit Provider Nurse Practitioner Family | DX: Z48.02 Encounter for removal of sutures (principal); T81.40XA Infection following a procedure, unspecified, initial encounter; X58.XXXA Exposure to other specified factors, initial encounter | CPT/HCPCS: 99214 ==

== ENCOUNTER → 2025-02-03 08:32 | Outpatient (BNVA) | payer MEDICARE, SELFPAY | PROVIDERS: PCP Nurse Practitioner; Visit Provider Nurse Practitioner | DX: E11.65 Type 2 diabetes mellitus with hyperglycemia (principal); Z79.4 Long term (current) use of insulin | CPT/HCPCS: 80053; 80061; 83036 ==

== ENCOUNTER 2025-02-04 14:45 | Emergency (ER) | payer MEDICARE, SELFPAY ==
[2025-02-04 14:54] VITALS: BP 133/70; PULSE 119; RESP 18; TEMP 36.7; O2SAT 92
--- NOTE | 2025-02-04 17:49 | ECG_ITS ---
[facility]: 2025-02[facility]04 Pat Name: Srinivas Hurst Department: Room: Gender: Male Hurl Shaker: : 1940 Requested By: Arthur Thomas Order Number: [id number] Jose MD: Zack Harrison M.D. Measurements Intervals Wilsey Rate: 97 P: 24 LA: 269 QRS: -23 QRSD: 98 T: 71 QT: 367 QTc: 467 Interpretive Statements SINUS RHYTHM WITH FIRST DEGREE AV BLOCK BORDERLINE LEFT AXIS DEVIATION [QRS AXIS < -20] LOW QRS VOLTAGE IN PRECORDIAL LEADS [QRS DEFLECTION < 1.0 mV IN CHEST LEADS] PATTERN CONSISTENT WITH PULMONARY DISEASE Compared to ECG 11/08/2023 12:40:48 T-wave abnormality no longer present Electronically Signed On 02-10-2025 11:53:50 CDT by Zack Harrison M.D. [email or web address]
[2025-02-04 18:43] LABS: Basophils % 0.4 %; Eosinophils # 0.2 10^3/uL (0.0-0.8); Eosinophils % 1.4 %; Hematocrit 37.3 % (37-53); Lymphocytes # 1.5 10^3/uL (0.8-4.8); Lymphocytes % 13.8 %; Mean Corpuscular HGB Conc 32.4 g/dL (30-55); Mean Corpuscular Hemoglobin 31.1 pg (27-33); Mean Corpuscular Volume 95.9 fl (82-101); Mean Platelet Volume 9.1 fL (7.4-10.4); Monocytes # 0.8 10^3/uL (0.2-0.9); Monocytes % 7.4 %; Neutrophils # 8.54 10^3/uL (1.8-7.7); Neutrophils % 76.6 %; Nucleated Red Blood Cells % 0 %; Platelet Count 274 10^3/cmm (157-399); Red Blood Count 3.89 10^6/uL (3.85-5.65); White Blood Count 11.14 10^3/uL (3.29-11.43)
[2025-02-04 18:59] LABS: Alanine Aminotransferase 12 U/L (0-41); Albumin Level 3.5 g/dL (3.5-5.2); Alkaline Phosphatase 101 U/L (40-130); Anion Gap 17.6 (5-19); Aspartate Amino Transferase 14 U/L (0-40); Blood Urea Nitrogen 18 mg/dL (8-23); Calcium 9.2 mg/dL (8.5-10.5); Carbon Dioxide 26 mmol/L (22-29); Chloride 95 mmol/L (98-107); Creatinine Clr Calc Pharmacy 88.9956; Globulin 3.8 g/dL (1.3-4.6); Glucose 164 mg/dL (65-115); Magnesium 1.9 mg/dL (1.7-2.3); Osmolality Calculated 284 mOsm/kg (285-295); Potassium 4.6 mmol/L (3.5-5.1); Sodium 134 mmol/L (136-145); Total Bilirubin 0.3 mg/dL (0.15-1.2); Total Protein 7.3 g/dL (6.6-8.7)
--- NOTE | 2025-02-04 19:58 | XRR_ITS ---
PROCEDURE INFORMATION: Exam: XR Left Elbow Exam date and time: 02/04/2025 8:17 PM Age: 84 years old Clinical indication: Injury or trauma; Fall; Blunt trauma (contusions or hematomas); Elbow; Left; Additional info: Fall, pain TECHNIQUE: Imaging protocol: Radiologic exam of the left elbow. Views: 3 or more views. COMPARISON: CR (UP EXM, ) 02/04/2025 8:17 PM FINDINGS: Bones/joints: There are degenerative changes involving the elbow with joint space narrowing, subchondral sclerosis, and marginal spurs. There is irregularity of the radial head and neck which could be related to prior trauma or could be degenerative. No acute fracture is detected. There is a hypertrophic spur arising from the olecranon. Soft tissues: Unremarkable. XR/XR elbow LT min 3V* [id number] IMPRESSION: 1. Osteoarthritis involving the elbow as described. 2. Irregularity of the radial head and neck most likely related to prior trauma versus degenerative change. 3. No definite acute fracture detected.
--- NOTE | 2025-02-04 19:58 | XRR_ITS ---
PROCEDURE INFORMATION: Exam: XR Left Humerus Exam date and time: 02/04/2025 8:17 PM Age: 84 years old Clinical indication: Injury or trauma; Fall; Blunt trauma (contusions or hematomas); Arm, upper; Left; Additional info: Fall, pain TECHNIQUE: Imaging protocol: Radiologic exam of the left humerus. Views: 2 or more views. COMPARISON: [place] [id number] 08/24/2019 3:26 PM FINDINGS: Bones/joints: There is a mildly displaced fracture involving the proximal humerus with a vertically oriented component through the base of the greater tuberosity. Other humeral head fractures are difficult to exclude on this exam. No distal humeral fracture is seen. Soft tissues: There is soft tissue edema surrounding the left mid to upper arm. Lucency is seen within the mid soft tissues which could potentially represent air within the axilla. No radiopaque foreign body is seen. XR/[place] [id number] IMPRESSION: 1. Mildly displaced fracture involving at least the base of the greater tuberosity. The humeral head is suboptimally evaluated on this exam. Dedicated left shoulder radiographs are recommended for further evaluation. 2. Soft tissue edema. Lucency within the mid soft tissues may be within an axillary skin fold. Soft tissue injury cannot be excluded. No radiopaque foreign body seen.
[2025-02-04 19:59] VITALS: BP 149/92; PULSE 99; RESP 16; O2SAT 93
--- NOTE | 2025-02-04 20:02 | XRR_ITS ---
PROCEDURE INFORMATION: Exam: XR Left Knee Exam date and time: 02/04/2025 8:15 PM Age: 84 years old Clinical indication: Injury or trauma; Fall; Blunt trauma; Left; Prior surgery; Surgery date: 6+ months; Surgery type: Knee replacement 2014; Additional info: Fall, poain TECHNIQUE: Imaging protocol: Radiologic exam of the left knee. Views: 3 views. COMPARISON: No relevant prior studies available. FINDINGS: Bones/joints: There is a total knee prosthesis in place. There is no significant lucency at the metal bone interface to suggest loosening or infection. There is diffuse osteopenia. No acute fracture is detected. Soft tissues: Vascular calcification is noted. XR/XR knee LT 3V* [id number] IMPRESSION: 1. Status post left total knee arthroplasty. 2. No acute fracture or evidence for hardware loosening.
--- NOTE | 2025-02-04 20:02 | CTR_ITS ---
PROCEDURE INFORMATION: Exam: CT Head Without Contrast Exam date and time: 02/04/2025 9:02 PM Age: 84 years old Clinical indication: Injury or trauma; Fall; Blunt trauma (contusions or hematomas); Consciousness not specified; Additional info: Multiple falls TECHNIQUE: Imaging protocol: Computed tomography of the head without contrast. Radiation optimization: All CT scans at this facility use at least one of these dose optimization techniques: automated exposure control; mA and/or kV adjustment per patient size (includes targeted exams where dose is matched to clinical indication); or iterative reconstruction. COMPARISON: CT head wo con* [id number] 11/19/2023 2:19 PM RADIATION DOSE METRICS: Total DLP (mGy-cm): 1177.3 FINDINGS: Brain: There is enlargement of the ventricular system and cortical sulci compatible with diffuse cerebral atrophy, age-related.There is patchy hypoattenuation in the deep white matter most suggestive of chronic small vessel ischemic change in a patient this age. No acute intracranial hemorrhage or significant mass effect is seen. Cerebral ventricles: Mildly enlarged compatible with atrophy. No hydrocephalus. Paranasal sinuses: Visualized sinuses are clear. No air fluid levels. Mastoid air cells: Visualized mastoid air cells are well aerated. Bones: Intact. No acute fracture detected. Soft tissues: Unremarkable. Vasculature: There is atherosclerotic calcification of the internal carotid arteries and vertebral arteries at the skull base. CT/CT head wo con* [id number] IMPRESSION: 1. Age-related atrophy with patchy chronic small-vessel ischemic changes in the deep white matter. 2. No acute intracranial hemorrhage or significant mass effect seen.
[2025-02-04 20:26] VITALS: BP 157/79; RESP 22
--- NOTE | 2025-02-04 20:38 | XRR_ITS ---
PROCEDURE INFORMATION: Exam: XR Left Shoulder Exam date and time: 02/04/2025 8:53 PM Age: 84 years old Clinical indication: Injury or trauma; Fall; Blunt trauma (contusions or hematomas); Shoulder; Left; Additional info: Shoulder pain TECHNIQUE: Imaging protocol: Radiologic exam of the left shoulder. Views: 2 or more views. COMPARISON: CR (UP EXM, ) 02/04/2025 8:17 PM FINDINGS: Bones/joints: Images are limited as a true AP view was not obtained. There appears to be a comminuted fracture involving the humeral head extending to the superior articular surface. There is mild lateral displacement of a vertically oriented fracture through the base of the greater tuberosity. The humeral head remains normally located within the glenoid fossa. There are degenerative changes involving the acromioclavicular and glenohumeral joints. Diffuse osteopenia is present. Soft tissues: There is soft tissue edema surrounding the shoulder and visualized upper arm. XR/XR shoulder LT min 2V* [id number] IMPRESSION: Suboptimal radiographs as a true AP view was not obtained. There appears to be a comminuted humeral head fracture with mildly displaced greater tuberosity fragment as described.
--- NOTE | 2025-02-04 20:38 | W.ED.EXTPRO ---
HPI - Extremity Problem General: Chief complaint: Extremity Injury, Upper Stated complaint: fall-left arm pain Time Seen by Provider: 02/04/25 19:56 History of Present Illness: 84-year-old man with a history of morbid obesity, diabetes, COPD, pulmonary hypertension, hypertension, who presents to the emergency room after a fall today. He was using his walker and lost his balance and fell. says this was a single fall. He has not had multiple falls. No increased weakness. No altered mental status. He has pain in his left knee with some swelling. There is a blister and an abrasion on the left knee. Also complaining of some pain in his left humerus. No head injury. No blood thinners. No focal motor deficits. No chest pain. No shortness of breath. No abdominal pain. No nausea or vomiting. Related Data Home Medications ?Medication ?Instructions ?Recorded ?Confirmed multivitamin (Daily Multi-Vitamin 1 tab PO QAM 09/19/19 02/04/25 tablet) vitamin B complex (B 1 tab PO QAM 09/19/19 02/04/25 Complex-Vitamin B12 tablet) ascorbate calcium (vitamin C) 500 500 mg PO DAILY 04/22/20 02/04/25 mg tablet cholecalciferol (vitamin D3) 25 25 mcg PO DAILY 10/26/22 02/04/25 mcg (1,000 unit) capsule ketoconazole 2 % topical cream 1 applic topical BID PRN Rash 10/10/23 02/04/25 vitamin E (dl, acetate) 90 mg (200 90 mg PO DAILY 10/10/23 02/04/25 unit) capsule Previous Rx's ?Medication ?Instructions ?Recorded furosemide 40 mg tablet 40 mg PO DAILY PRN edema #30 tabs 07/31/22 potassium chloride 20 mEq 20 meq PO DAILY PRN Take with 07/31/22 tablet,extended release Lasix #30 tabs mupirocin 2 % topical ointment 1 applic topical BID #22 grams 10/10/23 aspirin 81 mg capsule 81 mg PO DAILY #90 caps 10/11/23 ketoconazole 2 % shampoo 1 applic topical .Twice weekly 02/25/24 #120 mL lancets 33 gauge ([facility] #300 ea 08/19/24 Plus Lancet) albuterol sulfate 2.5 mg/3 mL 2.5 mg (3 mL) inhalation Q4H PRN 11/13/24 (0.083 %) solution for nebulization shortness of breath or wheezing #75 mL glimepiride 2 mg tablet 2 mg PO QAM #90 tabs 11/13/24 Held on 02/04/25. Instructions: Monitor glucose level albuterol sulfate 90 mcg/actuation 2 puff inhalation QID PRN 02/04/25 aerosol inhaler shortness of breath or wheezing #6.7 grams atorvastatin 40 mg tablet 40 mg PO DAILY #90 tabs 02/04/25 blood sugar diagnostic (OneTouch #300 ea 02/04/25 Verio test strips) carvedilol 3.125 mg tablet 3.125 mg PO BID #180 tabs 02/04/25 clopidogrel 75 mg tablet (Plavix) 75 mg PO DAILY #90 tabs 02/04/25 duloxetine 30 mg capsule,delayed 30 mg PO BID #180 caps 02/04/25 release (Cymbalta) finasteride 5 mg tablet (Proscar) 5 mg PO DAILY #90 tabs 02/04/25 fluticasone 250 mcg-salmeterol 50 1 inh inhalation Q12H #180 ea 02/04/25 mcg/dose blistr powdr for inhalation (Advair Diskus) montelukast 10 mg tablet 10 mg PO DAILY #90 tabs 02/04/25 (Singulair) pantoprazole 20 mg tablet,delayed 20 mg PO DAILY #90 tabs 02/04/25 release sacubitril 24 mg-valsartan 26 mg 1 tab PO BID #180 tabs 02/04/25 tablet (Entresto) tamsulosin 0.4 mg capsule (Flomax) 0.4 mg PO DAILY #90 caps 02/04/25 tirzepatide 12.5 mg/0.5 mL 12.5 mg (0.5 mL) SUBCUT .weekly #6 02/04/25 subcutaneous pen injector mL (Gee) Allergies Allergy/AdvReac Type Severity Reaction Status Date / Time acetaminophen (From Percocet) Allergy CONFUSION Verified 02/04/25 08:29 oxycodone (From Percocet) Allergy CONFUSION Verified 02/04/25 08:29 Review of Systems Narrative: Constitutional symptoms: Negative except as documented in HPI. Skin symptoms: Negative except as documented in HPI. Eye symptoms: Negative except as documented in HPI. ENMT symptoms: Negative except as documented in HPI. Respiratory symptoms: Negative except as documented in HPI. Cardiovascular symptoms: Negative except as documented in HPI. Gastrointestinal symptoms: Negative except as documented in HPI. Genitourinary symptoms: Negative except as documented in HPI. Musculoskeletal symptoms: Negative except as documented in HPI. Neurologic symptoms: Negative except as documented in HPI. Psychiatric symptoms: Negative except as documented in HPI. Endocrine symptoms: Negative except as documented in HPI. 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 Social History Smoking and tobacco/nicotine status: never used tobacco/nicotine Second hand smoke exposure: No Alcohol intake: never Substance/Drug Use: never Adopted: No Caregiver/support person: No Lives independently: No Household members: spouse Housing: House Marital status: Number of children: 5 Number of grandchildren: 15 service: Yes Current occupational status: retired Pets and animals: No Do you think of yourself as: Straight/Heterosexual Current gender identity: Male Physical Exam Narrative: EXAM NARRATIVE: General: Alert, no acute distress. Skin: Warm, dry. Head: Normocephalic, atraumatic. Neck: Supple, trachea midline. Eye: Extraocular movements are intact. Ears, nose, mouth and throat: mucosa moist. Cardiovascular: Regular, Normal peripheral perfusion. Respiratory: Lungs are clear to auscultation, respirations are non-labored, breath sounds are equal, Symmetrical chest wall expansion. Gastrointestinal: Soft, Nontender, Non distended Musculoskeletal: No obvious deformities. Pain in the left arm with movement or palpation. Neurovascular intact. Swelling in the left knee with bruising and the blister Neurological: Alert and oriented, No focal neurological deficit observed. Psychiatric: Cooperative, appropriate mood & affect. Course Vital Signs: Vital signs: Vital Signs Temperature 98.0 F 02/04/25 14:54 Pulse Rate 101 H 02/04/25 21:53 Respiratory Rate 18 02/04/25 21:53 Blood Pressure 155/104 02/04/25 22:29 Pulse Oximetry 95 02/04/25 22:29 Oxygen Delivery Me thod Room Air 02/04/25 22:29 MDM - Extremity (Nontraumatic) Medical Decision Making Medical decision making: Differential diagnosis including but not limited to and based on the above HPI, review of systems and physical exam: Basic lab work and imaging for trauma were ordered. Concern for fractures or intracranial hemorrhage. Orders placed to evaluate differential diagnosis based on the above differential, HPI and physical exam CT head: No acute intracranial process. no intracranial hemorrhage, no evidence of infarct. no evidence of acute fracture.This was reviewed and interpreted by myself the ER physician. X-ray of the right knee: Soft tissue swelling but no acute fractures. This was reviewed and interpreted by myself the emergency room physician. I also reviewed the radiology report. X-ray of the elbow: Osteoarthritis. What appears to be an old radial head injury that does not appear new. This was reviewed and interpreted by myself the emergency room physician. I also reviewed the radiology report. Humerus x-ray: Mildly displaced fracture involving at least the base of the greater tuberosity. Numeral head is suboptimally evaluated. Shoulder x-ray was ordered. Some soft tissue edema. This was reviewed and interpreted by myself the emergency room physician. I also reviewed the radiology report. Lab Review: Laboratory results were reviewed and interpreted by myself the emergency room physician. No leukocytosis. No anemia. No renal failure. Urinalysis is positive for urinary tract infection that is leukocyte Estrace positive with 21-50 whites. I reviewed the patient's medical record. Reexamination: Patient remained stable. No increased work of breathing. No altered mental status. No focal motor deficits. Sling being placed Consultation: I spoke with Dr. Pavon who reviewed the films and agrees with sling and follow-up in clinic. Assessment and plan: Fall Proximal humerus fracture Knee injury Urinary tract infection ? Sling and IV Rocephin. - Discharged home - Discussed plan with patient. Answered any questions. - Evaluation and treatment of this problem were appropriate in the emergency setting. Lab Data 02/04/25 18:33 02/04/25 18:33 Radiology Impressions Elbow X-Ray 02/04/25 19:58 IMPRESSION: 1. Osteoarthritis involving the elbow as described. 2. Irregularity of the radial head and neck most likely related to prior trauma versus degenerative change. 3. No definite acute fracture detected. Humerus X-Ray 02/04/25 19:58 IMPRESSION: 1. Mildly displaced fracture involving at least the base of the greater tuberosity. The humeral head is suboptimally evaluated on this exam. Dedicated left shoulder radiographs are recommended for further evaluation. 2. Soft tissue edema. Lucency within the mid soft tissues may be within an axillary skin fold. Soft tissue injury cannot be excluded. No radiopaque foreign body seen. Head CT 02/04/25 20:02 IMPRESSION: 1. Age-related atrophy with patchy chronic small-vessel ischemic changes in the deep white matter. 2. No acute intracranial hemorrhage or significant mass effect seen. Knee X-Ray 02/04/25 20:02 IMPRESSION: 1. Status post left total knee arthroplasty. 2. No acute fracture or evidence for hardware loosening. Shoulder X-Ray 02/04/25 20:38 IMPRESSION: Suboptimal radiographs as a true AP view was not obtained. There appears to be a comminuted humeral head fracture with mildly displaced greater tuberosity fragment as described. Chest X-Ray 02/04/25 21:02 IMPRESSION: 1. Bilateral calcified pleural plaque and coarsened interstitial lung markings, not significantly changed. 2. Stable moderate cardiomegaly. 3. No dense focal consolidation seen. 4. The left costophrenic angle is incompletely imaged. No significant pleural effusion is appreciated. Laboratory Results WBC 11.14 10^3/uL (3.29-11.43) 02/04/25 18:33 RBC 3.89 10^6/uL (3.85-5.65) 02/04/25 18:33 Hgb 12.10 g/dL (11.27-16.99) 02/04/25 18:33 Hct 37.3 % (37-53) 02/04/25 18: MCV 95.9 fl (82-101) 02/04/25 18:33 MCH 31.1 pg (27-33) 02/04/25 18: MCHC 32.4 g/dL (30-55) 02/04/25 18: RDW 14.0 % (12.1-15.1) 02/04/25 18: Plt Count 274 10^3/cmm (157-399) 02/04/25 18: MPV 9.1 fL (7.4-10.4) 02/04/25 18:33 Neut % (Auto) 76.6 % 02/04/25 18: Lymph % (Auto) 13.8 % 02/04/25 18: Phillips % (Auto) 7.4 % 02/04/25 18: Eos % (Auto) 1.4 % 02/04/25 18: Baso % (Auto) 0.4 % 02/04/25 18: Neut # (Auto) 8.54 10^3/uL (1.8-7.7) H 02/04/25 18: Lymph # (Auto) 1.5 10^3/uL (0.8-4.8) 02/04/25 18:33 Phillips # (Auto) 0.8 10^3/uL (0.2-0.9) 02/04/25 18: Eos # (Auto) 0.2 10^3/uL (0.0-0.8) 02/04/25 18: Baso # (Auto) 0.0 10^3/uL (0.0-0.1) 02/04/25 18: Nucleated RBC % (auto) 0 % 02/04/25 18: Nucleated RBCs # 0.0 /100WBC 02/04/25 18:33 Sodium 134 mmol/L (136-145) L 02/04/25 18:33 Potassium 4.6 mmol/L (3.5-5.1) 02/04/25 18:33 Chloride 95 mmol/L (98-107) L 02/04/25 18:33 Carbon Dioxide 26 mmol/L (22-29) 02/04/25 18:33 Anion Gap 17.6 (5-19) 02/04/25 18:33 BUN 18 mg/dL (8-23) 02/04/25 18: Creatinine 0.9 mg/dL (0.7-1.2) 02/04/25 18:33 GFR Calculation Not Reportable 02/04/25 18: Glucose 164 mg/dL (65-115) H 02/04/25 18:33 Calculated Osmolality 284 mOsm/kg (285-295) L 02/04/25 18: Calcium 9.2 mg/dL (8.5-10.5) 02/04/25 18: Magnesium 1.9 mg/dL (1.7-2.3) 02/04/25 18: Total Bilirubin 0.3 mg/dL (0.15-1.2) 02/04/25 18: AST 14 U/L (0-40) 02/04/25 18: ALT 12 U/L (0-41) 02/04/25 18: Alkaline Phosphatase 101 U/L (40-130) 02/04/25 18:33 Total Protein 7.3 g/dL (6.6-8.7) 02/04/25 18: Albumin 3.5 g/dL (3.5-5.2) 02/04/25 18: Globulin 3.8 g/dL (1.3-4.6) 02/04/25 18:33 Urine Color Dark yellow (Yellow) A 02/04/25 20: Urine Appearance Cloudy (CLEAR) A 02/04/25 20: Urine pH 5.5 (5-7) 02/04/25 20: Ur Specific Duncan 1.024 (1.005-1.030) 02/04/25 20: Urine Protein 1+ (Negative) A 02/04/25 20: Urine Glucose (UA) Negative (Normal) 02/04/25: Urine Ketones Trace (Negative) 02/04/25 20: Urine Blood Negative (Negative) 02/04/25 20: Urine Nitrate Negative (Negative) 02/04/25: Urine Bilirubin Negative (Negative) 02/04/25 20: Urine Urobilinogen 1.0 mg/dL (Negative) 02/04/25 20:44 Ur Leukocyte Esterase 2+ (Negative) A 02/04/25 20:44 Urine RBC 0-2 /hpf (0-2) 02/04/25 20:44 Urine WBC 21-50 /hpf (0-5) H 02/04/25 20:44 Ur Squamous Epith Cells 0-5 /hpf (0-5) 02/04/25 20:44 Calcium Oxalate Crystal 15-25 /hpf H 02/04/25 20:44 Amorphous Sediment Not Reportable 02/04/25 20:44 Urine Bacteria None seen /hpf (NONE) 02/04/25 20:44 Hyaline Casts 3.30 /lpf 02/04/25 20:44 All radiology interpretation(s) finalized by discharge Discharge Plan Discharge Patient Disposition: Home Clinical Impression: Fracture of proximal humerus, Knee injury, Fall Condition: Stable Prescriptions: No Action multivitamin [Daily Multi-Vitamin] Tablet 1 tab PO QAM vitamin B complex [B Complex-Vitamin B12] Tablet 1 tab PO QAM ascorbate calcium (vitamin C) 500 mg tablet 500 mg PO DAILY cholecalciferol (vitamin D3) 25 mcg (1,000 unit) capsule 25 mcg PO DAILY mupirocin 2 % ointment 1 applic topical BID Qty: 22 0RF ketoconazole 2 % shampoo 1 applic topical .Twice weekly Qty: 120 6RF Rx Instructions: Lather into scalp 2 times weekly. Allowed to sit on scalp for 5 minutes before rinsing. albuterol sulfate 2.5 mg /3 mL (0.083 %) solution for nebulization 2.5 mg inhalation Q4H PRN (Reason: shortness of breath or wheezing) Qty: 75 0RF glimepiride 2 mg tablet 2 mg PO QAM Qty: 90 1RF Rx Instructions: administer with breakfast albuterol sulfate 90 mcg/actuation HFA aerosol inhaler 2 puff inhalation QID PRN (Reason: shortness of breath or wheezing) Qty: 6.7 2RF atorvastatin 40 mg tablet 40 mg PO DAILY Qty: 90 1RF (DME) OneTouch Verio test strips Strip See Rx Instructions .Route Qty: 300 4RF Rx Instructions: use 3 times day clopidogrel [Plavix] 75 mg tablet 75 mg PO DAILY Qty: 90 1RF duloxetine [Cymbalta] 30 mg capsule,delayed release(DR/EC) 30 mg PO BID Qty: 180 1RF finasteride [Proscar] 5 mg tablet 5 mg PO DAILY Qty: 90 1RF fluticasone propion-salmeterol [Advair Diskus] 250-50 mcg/dose blister with device 1 inh inhalation Q12H Qty: 180 1RF montelukast [Singulair] 10 mg tablet 10 mg PO DAILY Qty: 90 1RF pantoprazole 20 mg tablet,delayed release (DR/EC) 20 mg PO DAILY Qty: 90 1RF Entresto 24-26 mg tablet 1 tab PO BID Qty: 180 1RF tamsulosin [Flomax] 0.4 mg capsule 0.4 mg PO DAILY Qty: 90 1RF Mounjaro 12.5 mg/0.5 mL pen injector 12.5 mg SUBCUT .weekly Qty: 6 1RF potassium chloride 20 mEq tablet extended release 20 meq PO DAILY PRN (Reason: Take with Lasix) Qty: 30 6RF furosemide 40 mg tablet 40 mg PO DAILY PRN (Reason: edema) Qty: 30 6RF (DME) lancets [OneTouch Delica Plus Lancet] 33 gauge misc See Rx Instructions .Route Qty: 300 4RF Rx Instructions: use one lancet 3 times day carvedilol 3.125 mg tablet 3.125 mg PO BID Qty: 180 3RF vitamin E (dl, acetate) 90 mg (200 unit) Capsule 90 mg PO DAILY ketoconazole 2 % cream 1 applic topical BID PRN (Reason: Rash) Rx Instructions: Apply to red scaly areas of the face 1-2 times daily aspirin 81 mg capsule 81 mg PO DAILY Qty: 90 0RF Discharge Orders: Discharge ED (Routine); Ordered 02/04/25 Ordered By: Shauna Hurtado Referrals: Lloyd Spencer, LUCILLE-C [Primary Care Provider, Family Practice] Vinod Pavon DO [Physician, Orthopedics] - 4-7 days Referral Note: Please call for a follow-up appointment with orthopedics. Patient Instructions: How to Use a Sling (ED), Opioid Safety, Pain Management Activity Restrictions/Additional Instructions: Thank you for choosing [facility] for your healthcare needs today. You have been screened and evaluated and felt safe for discharge. Health conditions do change or evolve sometimes and as such it is important that you follow up with your Primary Doctor to be re checked, 3-5 days is a general good time frame for follow up. You are always welcome to return to the ED for re assessment if your symptoms are worsening or you have new concerns Print Language: Estonian Coding Level of Care Code ED Gynecological Assistant for Estrella Granados
[2025-02-04 20:49] LABS: Bilirubin Urine Negative (Negative); Blood Urine Negative (Negative); Glucose Urine UA Negative (Normal); Ketones Urine Trace (Negative); Leukocyte Esterase Urine 2+ (Negative); Nitrate Urine Negative (Negative); Protein Urine 1+ (Negative); Specific Gravity, Urine 1.024 (1.005-1.030); Urine Appearance Cloudy (CLEAR); Urine Color Dark Yellow (Yellow); pH Urine 5.5 (5-7)
[2025-02-04 20:51] LABS: Add Urine Microscopic? YES; Bacteria Urine None Seen /hpf; RBC Urine 0-2 /hpf (0-2); Squamous Epithelial Cell Urine 0-5 /hpf (0-5); WBC Urine 21-50 /hpf (0-5)
[2025-02-04 21:02] LABS: Add Urine Culture? Yes; Calcium Oxalate Crystals Urine 15-25 /hpf; UA Slide Review UA Slide Review Perf
--- NOTE | 2025-02-04 21:02 | XRR_ITS ---
PROCEDURE INFORMATION: Exam: XR Chest Exam date and time: 02/04/2025 9:05 PM Age: 84 years old Clinical indication: Injury or trauma; Fall; Blunt trauma (contusions or hematomas); Additional info: Lt arm pain/swelling TECHNIQUE: Imaging protocol: Radiologic exam of the chest. Views: 1 view. COMPARISON: CR XR chest 1V portable [id number] 11/02/2024 8:08 PM FINDINGS: Lungs: Calcified bilateral pleural plaque is again noted. There are mildly coarsened interstitial markings throughout the lungs which appear chronic and not significantly changed. No dense focal consolidation is seen. No hussein pulmonary edema. Pleural spaces: The left costophrenic angle is incompletely imaged. No significant pleural effusion is appreciated. No pneumothorax. Heart/Mediastinum: Moderately enlarged, stable. Bones/joints: Intact. Other findings: None. XR/XR chest 1V portable [id number] IMPRESSION: 1. Bilateral calcified pleural plaque and coarsened interstitial lung markings, not significantly changed. 2. Stable moderate cardiomegaly. 3. No dense focal consolidation seen. 4. The left costophrenic angle is incompletely imaged. No significant pleural effusion is appreciated.
[2025-02-04 21:53] VITALS: BP 161/71; PULSE 101; RESP 18; O2SAT 96
[2025-02-04] MEDS: cefTRIAXone 1,000 mg SDV 1000 MG IVP (21:53)
[2025-02-04 22:29] VITALS: BP 155/104; O2SAT 95
[2025-02-05 00:55] VITALS: BP 154/75; PULSE 85; O2SAT 95
== END 2025-02-05 00:57 | disposition home or self-care (01) ==
PROVIDERS: Emergency Medicine; Emergency Provider Emergency Medicine; PCP Nurse Practitioner
DX: S42.202A Unspecified fracture of upper end of left humerus, initial encounter for closed fracture (principal); W19.XXXA Unspecified fall, initial encounter; Z79.02 Long term (current) use of antithrombotics/antiplatelets; Z79.82 Long term (current) use of aspirin; J44.9 Chronic obstructive pulmonary disease, unspecified; I10 Essential (primary) hypertension; E11.9 Type 2 diabetes mellitus without complications
CPT/HCPCS: 36415; 70450; 71045; 73030; 73060; 73080; 73562; 80053; 81001; 83735; 85025; 87086; 93005; 96374; 99285; J0696

== ENCOUNTER 2025-02-06 13:17 | Observation (INO) | payer MEDICARE, SELFPAY ==
--- OUTSIDE RECORDS SUMMARY | 2024-11-05 03:47 | XMS_ITS | Continuity of Care Document ---
Author Name [facility] Organization [facility] Care Team Providers Care Registered Medical Assistant Name Role Phone [facility] Unavailable Unavailable Problems Combined list of problems from Department of [facility] and [facility] facilities. It does not include entries that were removed or entered in error. Problem Status Onset Date Problem Type Date of Resolution Comments Source Diabetes Mellitus Type II or unspecified * (ICD-9-CM 250.00) Active Condition [facility] Essential Hypertension (ICD-9-CM 401.9) Active Condition [facility] HYPERTENSION NOS Active Condition [facility] Hypertrophy (Benign) of Prostate without Urinary obstruction (ICD-9-CM 600.00) Active Condition [facility] HYPERTROPHY BENIGN PROSTATE Active Condition [facility] Issue of Repeat Prescriptions (ICD-9-CM V68.1) Active Condition [facility] Laboratory Procedures (ICD-9-CM V72.6) Active Condition [facility] Morbid Obesity * (ICD-9-CM 278.01) Active Condition [facility] OBESITY, UNSP Active Condition [facility] OSTEOARTHROS NOS-UNSPEC Active Condition [facility] Routine General Medical Examination at a Health Care Facility * (ICD-9-CM V70.0) Active Condition [facility] Diagnosis: ICD-10-CM Z02.89 Encounter for other administrative examinations Active Diagnosis [facility] Medications Combined list of outpatient medications from Department of [facility] and [facility] facilities.Medications provided include 1) outpatient medications from the last 15 months, and 2) patient-reported medications. Medication Details Route Status Patient Instructions Prescription Expires Prescription Number Last Dispense Date Ordering Provider Order Date Order Qty Source ASPIRIN 81MG TAB,EC TAKE ONE TABLET BY MOUTH ONCE A DAY ORAL ACTIVE NEW,LUDMILA OTHY [facility] 5MG TAB TAKE ONE TABLET BY MOUTH ONCE A DAY ORAL ACTIVE NEW,LUDMILA OTHY 2008 [facility] METFORMIN (IMMEDIATE RELEASE) TAB,ORAL TAKE BY MOUTH TWO TIMES A DAY BEFORE MEALS ORAL ACTIVE EMILYPAWEL ELIZABETH Sweet 2009 [facility] METFORMIN HCL 500MG 24HR TAB,SA TAKE ONE TABLET BY MOUTH TWICE A DAY ORAL ACTIVE Maldonado JASSO 2009 [facility] METOPROLOL SUCCINATE 100MG TAB,SA TAKE ONE-HALF TABLET BY MOUTH ONCE A DAY ORAL ACTIVE Maldonado JASSO 2009 [facility] Allergies, Adverse Reactions, Alerts Combined list of allergies from Department of [facility] and [facility] facilities. It does not include entries that were removed or entered in error. Substance Category Reaction Severity Reaction type Status Date Reported Comments Source LISINOPRIL Propensity to adverse reactions to drug (finding) active 0 [facility] Immunizations Combined list of available immunizations from the Department of [facility] and [facility] facilities. 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 Status Comments Source INFLUENZA, UNSPECIFIED FORMULATION 2010 88 complet ed [facility] INFLUENZA, UNSPECIFIED FORMULATION 2009 88 complet ed [facility] INFLUENZA, UNSPECIFIED FORMULATION 2008 MARBELLA PANIAGUA 88 complet ed [facility] INFLUENZA (HISTORICAL) 2007 88 complet ed [facility] INFLUENZA, UNSPECIFIED FORMULATION 2007 88 complet ed [facility] OUT[facility]IDE PNEUMOVAX (HISTORICAL) 2007 109 complet [facility] INFLUENZA, UNSPECIFIED FORMULATION 2006 88 complet ed [facility] INFLUENZA, UNSPECIFIED FORMULATION 2004 88 complet ed [facility] INFLUENZA (HISTORICAL) 2003 88 complet ed [facility] INFLUENZA (HISTORICAL) 2002 88 complet ed [facility] TD(ADULT) UNSPECIFIED FORMULATION 1998 139 complet [facility] Encounters Combined list of: 1) Encounters from Department of [facility] facilities going backup to the last 18 months, not all [place] inpatient encounters are included; 2) Encounters from the Department of [facility] facilities going backup to 280 months. Location Location Details Encounter Type Encounter Number Reason For Visit Attending Provider ADM Date DC Date Status Disposition Source [facility] PH1 ASSMT&MGMT NQHP 11-20 [id number] Diagnos is: ICD-10- CM Z02.89 Encount er for other adminis trative examraji moreira PRABHJOTCELESTE [place] 11/05 [facility] Social History Combined list of available smoking, tobacco, and other social history from Department of Defense and Veterans Affairs facilities. 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
[2025-02-06] VITALS (13 sets, daily range): BP systolic 94–165; BP diastolic 47–101; PULSE 79–111; RESP 16–25; TEMP 36.5–37.5; O2SAT 90–98; BMI 45.4; BMI 47.6
--- NOTE | 2025-02-06 13:21 | XRR_ITS ---
PROCEDURE INFORMATION: Exam: XR Chest Exam date and time: 02/06/2025 2:21 PM Age: 84 years old Clinical indication: Other: Weakness TECHNIQUE: Imaging protocol: Radiologic exam of the chest. Views: 1 view. COMPARISON: CR (CHEST, ) 02/04/2025 9:05 PM FINDINGS: Tubes, catheters and devices: None. Lungs: Lung volumes are decreased. Mild bilateral perihilar and basilar interstitial lung opacities, suggesting pulmonary edema versus infiltrates. No consolidation. Pleural spaces: Pleural calcifications identified within bilateral chest. Findings are most suggestive of previous asbestos exposure. Differential includes previous hemorrhage, infectious or inflammatory process. Heart/Mediastinum: Cardiac silhouette appears moderately enlarged. Vasculature: Tortuous and ectatic aorta is demonstrated. [id number] atherosclerotic calcification demonstrated within the aorta. Bones/joints: Diffusely decreased bone density. Moderate to severe generalized bony degenerative changes. Soft tissues: This study is limited by patient's body habitus. XR/XR chest 1V portable [id number] IMPRESSION: 1. Moderate enlarged cardiac silhouette. 2. Mild interstitial pulmonary edema versus infiltrates. 3. Chronic findings.
--- NOTE | 2025-02-06 13:21 | CT_ITS ---
WS: [id number] CT of the lumbar spine, additional two-dimensional coronal and sagittal imaging was obtained. 02/06/2025 Clinical Data: fall Comparison: Lumbar spine, 10/10/2009 DLP: 3001.[address] scans at [facility] use at least one of these dose optimization techniques: automated exposure control; mA and/or kV adjustment per patient size (includes targeted exams where dose is matched to clinical indication); or iterative reconstruction. Findings: There is osteoarthritis and osteoporosis of all the lumbar vertebral bodies. There is degenerative disc narrowing at L4-L5 and L5-S1. There is a unilateral right spondylolysis at L5-S1. No compression fractures are noted. The SI joints and transverse processes are unremarkable. CT/CT lumbar spine wo con* [id number] Impression: 1. Negative for compression fracture. 2. Osteoarthritis, osteoporosis and multilevel degenerative disc narrowing.
--- NOTE | 2025-02-06 13:21 | CT_ITS ---
WS: [email or web address] CT scan of the head, 02/06/2025 Clinical Data: fall Comparison: CT head 02/04/2025 DLP: All CT scans at [facility] use at least one of these dose optimization techniques: automated exposure control; mA and/or kV adjustment per patient size (includes targeted exams where dose is matched to clinical indication); or iterative reconstruction. Findings: The ventricular system is slightly dilated without shift. The sulci are minimally prominent. No recent infarct or hemorrhage is seen. There are no abnormal intracerebral masses. The cerebellum and brainstem are not remarkable. Bony windows of the skull and skull base show no fractures or erosions. The mastoid air cells, internal auditory canals, sella turcica, intraorbital contents, and paranasal sinuses are unremarkable. CT/CT head thrombolytic [id number] Impression: Mild cerebral atrophy.
--- NOTE | 2025-02-06 13:21 | CT_ITS ---
WS: [email or web address] CT scan of the thoracic spine. Additional two-dimensional coronal and sagittal reconstruction was performed. 02/06/2025 Clinical Data: fall Comparison: None. DLP: 3001.[address] scans at [facility] use at least one of these dose optimization techniques: automated exposure control; mA and/or kV adjustment per patient size (includes targeted exams where dose is matched to clinical indication); or iterative reconstruction. Findings: No compression fractures are seen. There is anterior osteoarthritic ridging of the thoracic vertebral bodies. The spinous processes are in good alignment. The proximal ribs are not remarkable. The paravertebral regions are normal. There is pleural thickening in pleural calcifications bilaterally. The coronary arteries show calcification. There is air in the esophagus.. CT/CT thoracic spin wo con* [id number] Impression: Negative for thoracic spine fracture.
--- NOTE | 2025-02-06 13:22 | ECG_ITS ---
[employer] Test Date: 2025-02-06 Pat Name: Srinivas Hurst Department: Room: Gender: Male Educational Aide: : 1940 Requested By: Sarah Yang Order Number: [id number] Jose MD: Zack Harrison M.D. Measurements Intervals [place] Rate: 89 P: -38 NE: 211 QRS: -26 QRSD: 99 T: 69 QT: 377 QTc: 460 Interpretive Statements SINUS RHYTHM WITH FIRST DEGREE AV BLOCK BORDERLINE LEFT AXIS DEVIATION [QRS AXIS < -20] LOW QRS VOLTAGE IN PRECORDIAL LEADS [QRS DEFLECTION < 1.0 mV IN CHEST LEADS] PATTERN CONSISTENT WITH PULMONARY DISEASE INCOMPLETE RIGHT BUNDLE BRANCH BLOCK [90+ ms QRS DURATION, TERMINAL R IN V1/V2, 40+ ms S IN I/aVL/V4/V5/V6] NONSPECIFIC T-WAVE ABNORMALITY Compared to ECG 02/04/2025 20:05:40 Incomplete right bundle-branch block now present T-wave abnormality now present Electronically Signed On 02-10-2025 11:45:45 CDT by Zack Harrison M.D. [email or web address]
--- NOTE | 2025-02-06 13:29 | XR_ITS ---
WS: [id number] Left knee, 3 views, 02/06/2025 Clinical Data: fall Comparison: Left knee, 02/04/2025 Findings: No fractures or dislocations are seen. The joint spaces are normal. The patella is intact. The soft tissues are unremarkable. There is a small calcification adjacent to the lateral distal femoral condyle unchanged. There is vascular calcification. XR/XR knee LT 3V* [id number] Impression: Left knee arthroplasty unchanged.
--- NOTE | 2025-02-06 13:29 | ED_ITS ---
HPI - General Adult 2 General: Chief complaint: Fall Stated complaint: fall, weakness Time Seen by Provider: 02/06/25 13:17 Source: patient and EMS Mode of arrival: EMS Limitations: no limitations History of Present Illness: 84-year-old male here with EMS for weakn ess and frequent falls EMS states he had to have left assist on him multiple times including last night from falls he states he does have some low back pain from his falls some slight left knee pain. He states this morning was not able to get out of bed typically gets around with a walker states he is too weak to even walk with a walker or get up. Denies any recent illness fever vomiting Associated symptoms: Reports malaise; Deny chest pain, dyspnea, headache(s), nausea, rash or vomiting Related Data Home Medications ?Medication ?Instructions ?Recorded ?Confirmed multivitamin (Daily Multi-Vitamin 1 tab PO QAM 0 02/04/25 tablet) vitamin B complex (B 1 tab PO QAM 09/19/19 Complex-Vitamin B12 tablet) ascorbate calcium (vitamin C) 500 500 mg PO DAILY 04/1002/04/25 mg tablet cholecalciferol (vitamin D3) 25 25 mcg PO DAILY 02/04/25 mcg (1,000 unit) capsule ketoconazole 2 % topical cream 1 applic topical BID AR N Rash 10/10/23 02/04/25 vitamin E (dl, acetate) 90 mg (200 90 mg PO DAILY 09/1202/04/25 unit) capsule Previous Rx's ?Medication ?Instructions ?Recorded furosemide 40 mg tablet 40 mg PO DAILY PRN edema #30 tabs 07/31/22 potassium chloride 20 mEq 20 meq PO DAILY PRN Take wit h 07/31/22 tablet,extended release Lasix #30 tabs mupirocin 2 % topical ointment 1 applic topical BID #2 2 grams 10/10/23 aspirin 81 mg capsule 81 mg PO DAILY #90 caps 10/03 ketoconazole 2 % shampoo 1 applic topical .Twice week ly 02/25/24 #120 mL lancets 33 gauge (Shiny AdsTouch [place] #300 ea 08/19/24 Plus Lancet) albuterol sulfate 2.5 mg/3 mL 2.5 mg (3 mL) inhalation Q4H PRN 11/13/24 (0.083 %) solution for nebulization shortness of breat h or wheezing #75 mL glimepiride 2 mg tablet 2 mg PO QAM #90 tabs 5 Held on 02/04/25. Instructions: Monitor glucose level albuterol sulfate 90 mcg/actuation 2 puff inhalation Q ID PRN 02/04/25 aerosol inhaler shortness of breath or wheez ing #6.7 grams atorvastatin 40 mg tablet 40 mg PO DAILY #90 tabs 01/09 05/04 blood sugar diagnostic (OneTouch #300 ea 02/04/25 Verio test strips) carvedilol 3.125 mg tablet 3.125 mg PO BID #180 tabs 0 02/04/25 clopidogrel 75 mg tablet (Plavix) 75 mg PO DAILY #90 t abs 02/04/25 duloxetine 30 mg capsule,delayed 30 mg PO BID #180 cap s 02/04/25 release (Cymbalta) finasteride 5 mg tablet (Proscar) 5 mg PO DAILY #90 ta bs 02/04/25 fluticasone 250 mcg-salmeterol 50 1 inh inhalation Q12 H #180 ea 02/04/25 mcg/dose blistr powdr for inhalation (Advair Diskus) montelukast 10 mg tablet 10 mg PO DAILY #90 tabs 01/09 05/04 (Singulair) pantoprazole 20 mg tablet,delayed 20 mg PO DAILY #90 t abs 02/04/25 release sacubitril 24 mg-valsartan 26 mg 1 tab PO BID #180 tab s 02/04/25 tablet (Entresto) tamsulosin 0.4 mg capsule (Flomax) 0.4 mg PO DAILY #90 caps 02/04/25 tirzepatide 12.5 mg/0.5 mL 12.5 mg (0.5 mL) SUBCUT .we ekly #6 02/04/25 subcutaneous pen injector mL (Gee) Allergies Allergy/AdvReac Type Severity Reaction Status Date / Time acetaminophen (From Percocet) Allergy CONFUSION Verified 02/06/25 13:30 oxycodone (From Percocet) Allergy CONFUSION Verified 02/06/25 13:30 Review of Systems 2 Const: Reports: fatigue and malaise; Denies: fever(s), chills, body aches or change in appetite ENMT: Denies: throat pain or dental pain Card: Denies: chest pain Resp: Denies: dyspnea GI: Denies: abdominal pain, nausea, vomiting or diarrhea Musc: Denies: neck pain or back pain Skin/Breast: Denies: rash Neuro: Denies: headache(s) PFSH ED 2 PFSH: Medical History Diabetes mellitus with hyperglycemia, without long-term current use of insulin Small vessel disease, cerebrovascular Multiple environmental allergies Urolithiasis History of kidney stones Atherosclerosis Cardiomegaly 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 Social History Smoking and tobacco/nicotine status: never used tobacco/nicotine Second hand smoke exposure: No Alcohol intake: never Substance/Drug Use: never Adopted: No Caregiver/support person: No Lives independently: No Household members: spouse Housing: House Marital status: Number of children: 5 Number of grandchildren: 15 service: Yes Current occupational status: retired Pets and animals: No Do you think of yourself as: Straight/Heterosexual Current gender identity: Male Physical Exam 2 Const: COMMON NORMALS: patient oriented x3 HENMT: COMMON NORMALS: normocephalic and atraumatic HEAD & SCALP: n ormocephalic and atraumatic Eye: COMMON NORMALS: Equal, round and reactive pupils present and EOMs intact bilaterally PUPIL: Yes Equal, round and reactive pupils present Neck/C-Spine: COMMON NORMALS: full ROM and supple Chest: COMMONS NORMALS: normal inspection of the chest and normal palpation of entire chest wall Resp: COMMON NORMALS: normal respiratory effort, No retractions, No use of accessory muscles and clear to auscultation bilaterally AUSCULTATION: clear to auscultation bilaterally Cardio: COMMON NORMALS: regular rate, regular rhythm and No murmurs present (Cardio) RATE: regular rate RHYTHM: regular rhythm GI: COMMON NORMALS: Normal to inspection, nondistended, normoactive bowel sounds present, Soft to palpation, non-tender and no masses PALPATION: Yes Soft to palpation Extremity: COMMON NORMALS: normal to inspection and full ROM Neuro: COMMON NORMALS: patient oriented x3, moves all extremities and no focal motor deficits Psych: COMMON NORMALS: mental status grossly normal, Normal thought process present and cooperative THOUGHT PROCESS: Normal thought process present Skin: COMMON NORMALS: no rashes or lesions noted and no wounds GENERAL SKIN EXAM: no rashes or lesions noted Course 2 Vital Signs: Vital signs: Vital Signs Temperature 97.9 F 02/06/25 13:19 Pulse Rate 85 02/06/25 14:55 Blood Pressure 125/64 02/06/25 14:55 Pulse Oximetry 95 02/06/25 14:55 Oxygen Delivery Me thod Room Air 02/06/25 13:19 [facility] - General Adult Medical Decision Making Patient presents for generalized weakness he is unable to ambulate on his own imaging blood work normal spoke to hospitalist will bit for observation. Medical Records I reviewed the patient's medical records. Lab Data I reviewed the patient's lab results. 02/06/25 13:37 02/06/25 13:37 Radiology Impressions Chest X-Ray 02/06/25 13:21 IMPRESSION: 1. Moderate enlarged cardiac silhouette. 2. Mild interstitial pulmonary edema versus infiltrates. 3. Chronic findings. Head CT 02/06/25 13:21 Impression: Mild cerebral atrophy. Lumbar Spine CT 02/06/25 13:21 Impression: 1. Negative for compression fracture. 2. Osteoarthritis, osteoporosis and multilevel degenerative disc narrowing. Thoracic Spine CT 02/06/25 13:21 Impression: Negative for thoracic spine fracture. Knee X-Ray 02/06/25 13:29 Impression: Left knee arthroplasty unchanged. Laboratory Results WBC 7.71 10^3/uL (3.29-11.43) 02/06/25 13:37 RBC 3.31 10^6/uL (3.85-5.65) L 02/06/25 13:37 Hgb 10.10 g/dL (11.27-16.99) L 02/06/25 13:37 Hct 31.6 % (37-53) L 02/06/25 13:37 MCV 95.5 fl (82-101) 02/06/25 13:37 MCH 30.5 pg (27-33) 02/06/25 13:37 MCHC 32.0 g/dL (30-55) 02/06/25 13:37 RDW 14.4 % (12.1-15.1) 02/06/25 13:37 Plt Count 239 10^3/cmm (157-399) 02/06/25 13:37 MPV 9.2 fL (7.4-10.4) 02/06/25 13:37 Neut % (Auto) 73.0 % 02/06/25 13:37 Lymph % (Auto) 14.7 % 02/06/25 13:37 [place] % (Auto) 10.9 % 02/06/25 13:37 Eos % (Auto) 0.6 % 02/06/25 13:37 Baso % (Auto) 0.4 % 02/06/25 13:37 Neut # (Auto) 5.63 10^3/uL (1.8-7.7) 02/06/25 13:37 Lymph # (Auto) 1.1 10^3/uL (0.8-4.8) 02/06/25 13:37 [place] # (Auto) 0.8 10^3/uL (0.2-0.9) 02/06/25 13:37 Eos # (Auto) 0.1 10^3/uL (0.0-0.8) 02/06/25 13:37 Baso # (Auto) 0.0 10^3/uL (0.0-0.1) 02/06/25 13:37 Nucleated RBC % (auto) 0 % 02/06/25 13:37 Nucleated RBCs # 0.0 /100WBC 02/06/25 13:37 Sodium 136 mmol/L (136-145) 02/06/25 13:37 Potassium 5.0 mmol/L (3.5-5.1) 02/06/25 13:37 Chloride 98 mmol/L (98-107) 02/06/25 13:37 Carbon Dioxide 25 mmol/L (22-29) 02/06/25 13:37 Anion Gap 18.0 (5-19) 02/06/25 13:37 BUN 24 mg/dL (8-23) H 02/06/25 13:37 Creatinine 1.0 mg/dL (0.7-1.2) 02/06/25 13:37 GFR Calculation Not Reportable 02/06/25 13:37 Glucose 189 mg/dL (65-115) H 02/06/25 13:37 POC Glucose 193 mg/dL (70-110) H 02/06/25 14:56 Calculated Osmolality 291 mOsm/kg (285-295) 02/06/25 13:37 Calcium 8.7 mg/dL (8.5-10.5) 02/06/25 13:37 Magnesium 2.0 mg/dL (1.7-2.3) 02/06/25 13:37 Total Bilirubin 0.4 mg/dL (0.15-1.2) 02/06/25 13:37 AST 13 U/L (0-40) 02/06/25 13:37 ALT 13 U/L (0-41) 02/06/25 13:37 Alkaline Phosphatase 86 U/L (40-130) 02/06/25 13:37 Creatine Kinase 71 U/L (39-308) 02/06/25 13:37 Total Protein 6.6 g/dL (6.6-8.7) 02/06/25 13:37 Albumin 3.1 g/dL (3.5-5.2) L 02/06/25 13:37 Globulin 3.5 g/dL (1.3-4.6) 02/06/25 13:37 TSH 3.95 uIU/mL (0.27-4.20) 02/06/25 13:37 Urine Color Dark yellow (Yellow) A 02/06/25 14:50 Urine Appearance Clear (CLEAR) 02/06/25 14:50 Urine pH 5.5 (5-7) 02/06/25 14:50 Ur Specific [place] 1.023 (1.005-1.030) 02/06/25 14:50 Urine Protein Trace (Negative) A 02/06/25 14:50 Urine Glucose (UA) Negative (Normal) 02/06/25 14:50 Urine Ketones Negative (Negative) 02/06/25 14:50 Urine Blood Negative (Negative) 02/06/25 14:50 Urine Nitrate Negative (Negative) 02/06/25 14:50 Urine Bilirubin Negative (Negative) 02/06/25 14:50 Urine Urobilinogen 1.0 mg/dL (Negative) 02/06/25 14:50 Ur Leukocyte Esterase 2+ (Negative) A 02/06/25 14:50 Urine RBC 0-2 /hpf (0-2) 02/06/25 14:50 Urine WBC 6-10 /hpf (0-5) 02/06/25 14:50 Ur Squamous Epith Cells 0-5 /hpf (0-5) 02/06/25 14:50 Amorphous Sediment Not Reportable 02/06/25 14:50 Urine Bacteria 1+ /hpf (NONE) H 02/06/25 14:50 Hyaline Casts 5.36 /lpf 02/06/25 14:50 Coarse Granular Casts 0-4 /lpf H 02/06/25 14:50 All radiology interpretation(s) finalized by discharge Discharge Plan Discharge Patient Disposition: Admitted As Inpatient Clinical Impression: Generalized weakness, Frequent falls Condition: Stable Coding Level of Care Code ED [employer] 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
[2025-02-06 13:43] LABS: Basophils % 0.4 %; Eosinophils # 0.1 10^3/uL (0.0-0.8); Eosinophils % 0.6 %; Hematocrit 31.6 % (37-53); Lymphocytes # 1.1 10^3/uL (0.8-4.8); Lymphocytes % 14.7 %; Mean Corpuscular Hemoglobin 30.5 pg (27-33); Mean Corpuscular Volume 95.5 fl (82-101); Mean Platelet Volume 9.2 fL (7.4-10.4); Monocytes # 0.8 10^3/uL (0.2-0.9); Monocytes % 10.9 %; Neutrophils # 5.63 10^3/uL (1.8-7.7); Nucleated Red Blood Cells % 0 %; Platelet Count 239 10^3/cmm (157-399); Red Blood Count 3.31 10^6/uL (3.85-5.65); Red Cell Distribution Width 14.4 % (12.1-15.1); White Blood Count 7.71 10^3/uL (3.29-11.43)
--- NOTE | 2025-02-06 14:06 | PC.PHAR ---
[facility] 02/06/25 2:06pm
[2025-02-06 14:11] LABS: Alanine Aminotransferase 13 U/L (0-41); Albumin Level 3.1 g/dL (3.5-5.2); Alkaline Phosphatase 86 U/L (40-130); Aspartate Amino Transferase 13 U/L (0-40); Blood Urea Nitrogen 24 mg/dL (8-23); Calcium 8.7 mg/dL (8.5-10.5); Carbon Dioxide 25 mmol/L (22-29); Chloride 98 mmol/L (98-107); Creatinine Clr Calc Pharmacy 76.7611; Globulin 3.5 g/dL (1.3-4.6); Glucose 189 mg/dL (65-115); Osmolality Calculated 291 mOsm/kg (285-295); Sodium 136 mmol/L (136-145); Thyroid Stimulating Hormone 3.95 uIU/mL (0.27-4.20); Total Bilirubin 0.4 mg/dL (0.15-1.2); Total Protein 6.6 g/dL (6.6-8.7)
[2025-02-06 14:15] LABS: Creatine Phosphokinase 71 U/L (39-308)
[2025-02-06 14:59] LABS: Glucose Point of Care 193 mg/dL (70-110)
[2025-02-06 15:02] LABS: Bilirubin Urine Negative (Negative); Blood Urine Negative (Negative); Glucose Urine UA Negative (Normal); Ketones Urine Negative (Negative); Leukocyte Esterase Urine 2+ (Negative); Nitrate Urine Negative (Negative); Protein Urine Trace (Negative); Specific Gravity, Urine 1.023 (1.005-1.030); Urine Appearance Clear (CLEAR); Urine Color Dark Yellow (Yellow); pH Urine 5.5 (5-7)
[2025-02-06 15:04] LABS: Add Urine Microscopic? YES; Hyaline Casts Urine 5.36 /lpf; RBC Urine 0-2 /hpf (0-2); Squamous Epithelial Cell Urine 0-5 /hpf (0-5)
[2025-02-06 15:39] LABS: UA Slide Review UA Slide Review Perf
[2025-02-06 15:40] LABS: Add Urine Culture? Yes; Bacteria Urine 1+ /hpf; Coarse Granular Casts Urine 0-4 /lpf
--- NOTE | 2025-02-06 15:43 | ECG_ITS ---
[facility] [employer] Test Date: 2025-02-06 Pat Name: Srinivas Hurst Department: Room: Gender: Male [employer]: : 1940 Requested By: Sarah Yang Order Number: [id number] Reading MD: Zack Harrison M.D. Measurements Intervals [place] Rate: 83 P: -26 NV: 218 QRS: -24 QRSD: 102 T: 71 QT: 387 QTc: 457 Interpretive Statements SINUS RHYTHM WITH FIRST DEGREE AV BLOCK WITH OCCASIONAL SUPRAVENTRICULAR PREMATURE COMPLEXES BORDERLINE LEFT AXIS DEVIATION [QRS AXIS < -20] LOW QRS VOLTAGE IN PRECORDIAL LEADS [QRS DEFLECTION < 1.0 mV IN CHEST LEADS] PATTERN CONSISTENT WITH PULMONARY DISEASE INCOMPLETE RIGHT BUNDLE BRANCH BLOCK [90+ ms QRS DURATION, TERMINAL R IN V1/V2, 40+ ms S IN I/aVL/V4/V5/V6] NONSPECIFIC T-WAVE ABNORMALITY Compared to ECG 02/06/2025 13:33:12 No significant changes Electronically Signed On 02-10-2025 11:45:27 CDT by Zack Harrison M.D. [email or web address]
--- NOTE | 2025-02-06 16:10 | PC.PHAR ---
Spouse presented a current med list for pt. [facility] also[facility] med [facility] did not have Doxycycline 100mg bid (current therapy), Metformin 500mg bid ([facility]), or Triamcinolone 0.1% oint ([facility]). Added to pts' current medication list.
[2025-02-06 17:26] LABS: Troponin(5th) Baseline 24 ng/L (0-15)
--- NOTE | 2025-02-06 18:10 | PM.HP ---
Providers/Chief Complaint Admitting Physician: Tamra Danielle MD Primary Care Provider: Lloyd Spencer, GRADES 9 12 TUTOR-C Chief Complaint: fall, weakness History of Present Illness Srinivas Hurst is a 84 year old male With a past medical history of supraventricular tachycardia, aortic regurgitation, peripheral artery disease, COPD, sleep apnea not compliant with CPAP, diabetes mellitus and history of CAD. He presented to the hospital now with recurrent episodes of syncope. Patient's who is at bedside providing most of the history states that patient has had multiple episodes of syncope associated with lightheadedness and drowsiness over the past 2 years. Initially this was thought to be related to CAD but his symptoms did not resolve even after having a stent. He has continued to had falls at home, most recently on 02/04/2025 for which she was brought to the emergency room where he was noted to have a nondisplaced fracture of the proximal humerus. He returned home on this day however sustained another fall last night and has been brought back by the family. Family states that with his previous fall he had also injured his knee, however was not able to get it yesterday. Appeared to be more swollen anti-D. New bruising compared to previously. There is also now a blister over the anterior aspect of the knee. He has been unable to get out of bed or bear any weight on the extremity. Patient states that he feels extremely dizzy upon any attempts at ambulation and is preferring to lay MRI. Denies any chest pain dyspnea. He is currently on 2 L/min supplemental O2. He does state he felt some palpitations around the time when he is dizzy and almost always knows when he is about to fall. Given last night he was ambulating with a walker and was able to tell his before he fell to the floor. Patient did not recall the events on February 04 but was able to narrate the events of last night. There is no known history of seizure disorder. No history of postictal confusion. Review of systems is negative for any abdominal pain nausea vomiting diarrhea or other GI losses. Review of Systems General: Reports: 10 or more systems reviewed and unremarkable except in HPI and below Const: Denies: fever(s), chills or body aches Eyes: Denies: change in vision, blurry vision or photophobia ENMT: Reports: hoarseness; Denies: throat pain, enlarged tonsils, odynophagia or nasal congestion Card: Denies: chest pain, palpitations, irregular heart rhythm, edema, swelling of feet/ankles, lightheadedness, pre-syncope, dyspnea on exertion or orthopnea Resp: Denies: dyspnea, productive cough, non-productive cough, wheezing, stridor, pain on inspiration, change in phlegm color, hemoptysis or chest congestion GI: Denies: abdominal pain, nausea, vomiting, hematemesis, coffee ground emesis, dysphagia, heartburn, diarrhea, constipation, GI cramping, change in stool character, hematochezia or melena : Denies: flank pain, dysuria, urinary frequency, urinary urgency, urinary hesitancy or hematuria Musc: Denies: neck pain, back pain, extremity pain, joint swelling, joint warmth or deformity Neuro: Denies: headache(s), numbness in extremities, weakness in extremities, sensory changes, difficulty walking, frequent falls, dizziness, vertigo, behavioral changes, Slurred speech present or seizure-like activity Psych: Denies: anxiety, depression, suicidal ideation or homicidal ideation Endo: Denies: polyuria, polydipsia, tired all the time, cold intolerance or hot flashes Kehinde/Lymph: Denies: easy bruising or easy bleeding Medications/Allergies Home Medications ?Medication ?Instructions ?Recorded ?Confirmed ?Last Taken ?Type multivitamin (Daily Multi-Vitamin 1 tab PO QAM 09/19/19 02/06/25 02/06/25 History tablet) ascorbate calcium (vitamin C) 500 500 mg PO DAILY 04/22/20 02/06/25 02/06/25 History mg tablet furosemide 40 mg tablet 40 mg PO DAILY PRN edema #30 tabs 07/31/22 02/06/25 Unknown Rx potassium chloride 20 mEq 20 meq PO DAILY PRN Take with 07/31/22 02/06/25 Unknown Rx tablet,extended release Lasix #30 tabs cholecalciferol (vitamin D3) 25 25 mcg PO DAILY 10/26/22 02/06/25 02/06/25 History mcg (1,000 unit) capsule ketoconazole 2 % topical cream 1 applic topical BID PRN Rash 10/10/23 02/06/25 11/07/23 History mupirocin 2 % topical ointment 1 applic topical BID #22 grams 10/10/23 02/06/25 02/06/25 Rx vitamin E (dl, acetate) 90 mg (200 90 mg PO DAILY 10/10/23 02/06/25 02/06/25 History unit) capsule ketoconazole 2 % shampoo 1 applic topical .Twice weekly 02/25/24 02/06/25 Unknown Rx #120 mL lancets 33 gauge ([facility] #300 ea 08/19/24 02/06/25 Unknown Rx Plus Lancet) albuterol sulfate 2.5 mg/3 mL 2.5 mg (3 mL) inhalation Q4H PRN 11/13/24 02/06/25 Unknown Rx (0.083 %) solution for nebulization shortness of breath or wheezing #75 mL glimepiride 2 mg tablet 2 mg PO QAM #90 tabs 11/13/24 02/06/25 02/06/25 Rx Held on 02/04/25. Instructions: Monitor glucose level albuterol sulfate 90 mcg/actuation 2 puff inhalation QID PRN 02/04/25 02/06/25 Unknown Rx aerosol inhaler shortness of breath or wheezing #6.7 grams atorvastatin 40 mg tablet 40 mg PO DAILY #90 tabs 02/04/25 02/06/25 02/06/25 Rx blood sugar diagnostic ([facility] #300 ea 02/04/25 02/06/25 Unknown Rx Verio test strips) carvedilol 3.125 mg tablet 3.125 mg PO BID #180 tabs 02/04/25 02/06/25 02/06/25 Rx clopidogrel 75 mg tablet (Plavix) 75 mg PO DAILY #90 tabs 02/04/25 02/06/25 02/06/25 Rx duloxetine 30 mg capsule,delayed 30 mg PO BID #180 caps 02/04/25 02/06/25 02/06/25 Rx release (Cymbalta) finasteride 5 mg tablet (Proscar) 5 mg PO DAILY #90 tabs 02/04/25 02/06/25 02/06/25 Rx fluticasone 250 mcg-salmeterol 50 1 inh inhalation Q12H #180 ea 02/04/25 02/06/25 02/06/25 Rx mcg/dose blistr powdr for inhalation (Advair Diskus) montelukast 10 mg tablet 10 mg PO DAILY #90 tabs 02/04/25 02/06/25 02/06/25 Rx (Singulair) pantoprazole 20 mg tablet,delayed 20 mg PO DAILY #90 tabs 02/04/25 02/06/25 02/06/25 Rx release sacubitril 24 mg-valsartan 26 mg 1 tab PO BID #180 tabs 02/04/25 02/06/25 02/06/25 Rx tablet (Entresto) tamsulosin 0.4 mg capsule (Flomax) 0.4 mg PO DAILY #90 caps 02/04/25 02/06/25 02/06/25 Rx tirzepatide 12.5 mg/0.5 mL 12.5 mg (0.5 mL) SUBCUT .weekly #6 02/04/25 02/06/25 02/04/25 Rx subcutaneous pen injector mL (Mounjaro) aspirin 81 mg tablet,delayed 81 mg PO DAILY 02/06/25 02/06/25 02/06/25 History release doxycycline hyclate 100 mg capsule 100 mg PO BID 02/06/25 02/06/25 02/06/25 History metformin 500 mg tablet,extended 500 mg PO BID 02/06/25 02/06/25 Unknown History release 24 hr triamcinolone acetonide 0.1 % 1 applic topical DAILY PRN Skin 02/06/25 02/06/25 Unknown History topical cream Irritation vitamin B complex 1 tab PO DAILY 02/06/25 02/06/25 02/06/25 History Allergies Allergy/AdvReac Type Severity Reaction Status Date / Time acetaminophen (From Percocet) Allergy CONFUSION Verified 02/06/25 13:30 oxycodone (From Percocet) Allergy CONFUSION Verified 02/06/25 13:30 PFSH Acute PFSH: Medical History Diabetes mellitus with hyperglycemia, without long-term current use of insulin Small vessel disease, cerebrovascular Multiple environmental allergies Urolithiasis History of kidney stones Atherosclerosis Cardiomegaly 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 Social History Smoking and tobacco/nicotine status: never used tobacco/nicotine Second hand smoke exposure: No Alcohol intake: never Substance/Drug Use: never Adopted: No Caregiver/support person: No Lives independently: No Household members: spouse Housing: House Marital status: Number of children: 5 Number of grandchildren: 15 service: Yes Current occupational status: retired Pets and animals: No Do you think of yourself as: Straight/Heterosexual Current gender identity: Male Vitals/I&O/Wt Last Vital Signs Temp 97.9 F 02/06/25 13:19 Pulse 79 02/06/25 15:00 BP 138/101 02/06/25 15:00 Pulse Ox 90 02/06/25 15:00 O2 Del Method Room Air 02/06/25 13:19 02/06/25 02/06/25 02/06/25 06:59 14:59 22:59 Intake Total 0 / 0 Balance 0 / 0 Weight last 48 hrs Weight 135.624 kg Physical Exam Narrative: General: elderly man who appears uncomfortable on exam , AO x3 HEENT: PERRLA, pupils bilaterally equal and reactive, pallors not present Chest: Normal vesicular breath sounds, no added sounds, equal good air entry bilaterally CVS: S1-S2 regular, no murmurs, no tachycardia, no gallops, no rubs Abdomen: Soft, nontender, no organomegaly, bowel sounds present Neuro: No focal deficits, generalzied weakness and deconditioining noted Data 02/06/25 13:37 02/06/25 13:37 Other data: Radiology Impressions Chest X-Ray 02/06/25 13:21 IMPRESSION: 1. Moderate enlarged cardiac silhouette. 2. Mild interstitial pulmonary edema versus infiltrates. 3. Chronic findings. Head CT 02/06/25 13:21 Impression: Mild cerebral atrophy. Lumbar Spine CT 02/06/25 13:21 Impression: 1. Negative for compression fracture. 2. Osteoarthritis, osteoporosis and multilevel degenerative disc narrowing. Thoracic Spine CT 02/06/25 13:21 Impression: Negative for thoracic spine fracture. Knee X-Ray 02/06/25 13:29 Impression: Left knee arthroplasty unchanged. Knee CT 02/07/25 09:30 IMPRESSION: 1. Total left knee prosthesis creates severe metallic artifact. Limited study. 2. No evidence for acute bony fracture. Decreased bone density. Limited sensitivity. 3. Large hematoma throughout the anterior left knee extending medially and laterally. Hematoma measures up to 13 cm. 4. Subcutaneous edema is mostly within the anterior left knee. 5. Arterial vascular calcifications. Shoulder X-Ray 02/07/25 09:30 IMPRESSION: 1. Comminuted fractures involving the proximal left humerus, as described above. 2. Moderate enlarged cardiac silhouette. Decreased lung volumes. 3. Severe degenerative changes involving the left AC joint. Severe decreased bone density. Laboratory Results WBC 7.71 10^3/uL (3.29-11.43) 02/06/25 13:37 RBC 3.31 10^6/uL (3.85-5.65) L 02/06/25 13:37 Hgb 10.10 g/dL (11.27-16.99) L 02/06/25 13:37 Hct 31.6 % (37-53) L 02/06/25 13:37 MCV 95.5 fl (82-101) 02/06/25 13:37 MCH 30.5 pg (27-33) 02/06/25 13:37 MCHC 32.0 g/dL (30-55) 02/06/25 13:37 RDW 14.4 % (12.1-15.1) 02/06/25 13:37 Plt Count 239 10^3/cmm (157-399) 02/06/25 13:37 MPV 9.2 fL (7.4-10.4) 02/06/25 13:37 Neut % (Auto) 73.0 % 02/06/25 13:37 Lymph % (Auto) 14.7 % 02/06/25 13:37 Iron % (Auto) 10.9 % 02/06/25 13:37 Eos % (Auto) 0.6 % 02/06/25 13:37 Baso % (Auto) 0.4 % 02/06/25 13:37 Neut # (Auto) 5.63 10^3/uL (1.8-7.7) 02/06/25 13:37 Lymph # (Auto) 1.1 10^3/uL (0.8-4.8) 02/06/25 13:37 Iron # (Auto) 0.8 10^3/uL (0.2-0.9) 02/06/25 13:37 Eos # (Auto) 0.1 10^3/uL (0.0-0.8) 02/06/25 13:37 Baso # (Auto) 0.0 10^3/uL (0.0-0.1) 02/06/25 13:37 Nucleated RBC % (auto) 0 % 02/06/25 13:37 Nucleated RBCs # 0.0 /100WBC 02/06/25 13:37 Sodium 136 mmol/L (136-145) 02/06/25 13:37 Potassium 5.0 mmol/L (3.5-5.1) 02/06/25 13:37 Chloride 98 mmol/L (98-107) 02/06/25 13:37 Carbon Dioxide 25 mmol/L (22-29) 02/06/25 13:37 Anion Gap 18.0 (5-19) 02/06/25 13:37 BUN 24 mg/dL (8-23) H 02/06/25 13:37 Creatinine 1.0 mg/dL (0.7-1.2) 02/06/25 13:37 GFR Calculation Not Reportable 02/06/25 13:37 Glucose 189 mg/dL (65-115) H 02/06/25 13:37 POC Glucose 158 mg/dL (70-110) H 02/07/25 13:46 Calculated Osmolality 291 mOsm/kg (285-295) 02/06/25 13:37 Calcium 8.7 mg/dL (8.5-10.5) 02/06/25 13:37 Magnesium 2.0 mg/dL (1.7-2.3) 02/06/25 13:37 Total Bilirubin 0.4 mg/dL (0.15-1.2) 02/06/25 13:37 AST 13 U/L (0-40) 02/06/25 13:37 ALT 13 U/L (0-41) 02/06/25 13:37 Alkaline Phosphatase 86 U/L (40-130) 02/06/25 13:37 Creatine Kinase 71 U/L (39-308) 02/06/25 13:37 Troponin T Baseline 24 ng/L (0-15) H 02/06/25 16:58 Troponin T 120 Minute 23.13 ng/L (0-15) H 02/06/25 18:47 Delta Troponin T -0.87 ABS# (0-10) L 02/06/25 18:47 Troponin T Hi Sens 6Hr 24.12 ng/L (0-15) H 02/06/25 23:02 Troponin T Hi Sens 6Hr Delta 0.12 ng/L (0-12) 02/06/25 23:02 C-Reactive Protein 58.1 mg/L (0.0-4.9) H 02/06/25 16:58 Total Protein 6.6 g/dL (6.6-8.7) 02/06/25 13:37 Albumin 3.1 g/dL (3.5-5.2) L 02/06/25 13:37 Globulin 3.5 g/dL (1.3-4.6) 02/06/25 13:37 TSH 3.95 uIU/mL (0.27-4.20) 02/06/25 13:37 Urine Color Dark yellow (Yellow) A 02/06/25 14:50 Urine Appearance Clear (CLEAR) 02/06/25 14:50 Urine pH 5.5 (5-7) 02/06/25 14:50 Ur Specific [place] 1.023 (1.005-1.030) 02/06/25 14:50 Urine Protein Trace (Negative) A 02/06/25 14:50 Urine Glucose (UA) Negative (Normal) 02/06/25 14:50 Urine Ketones Negative (Negative) 02/06/25 14:50 Urine Blood Negative (Negative) 02/06/25 14:50 Urine Nitrate Negative (Negative) 02/06/25 14:50 Urine Bilirubin Negative (Negative) 02/06/25 14:50 Urine Urobilinogen 1.0 mg/dL (Negative) 02/06/25 14:50 Ur Leukocyte Esterase 2+ (Negative) A 02/06/25 14:50 Urine RBC 0-2 /hpf (0-2) 02/06/25 14:50 Urine WBC 6-10 /hpf (0-5) 02/06/25 14:50 Ur Squamous Epith Cells 0-5 /hpf (0-5) 02/06/25 14:50 Amorphous Sediment Not Reportable 02/06/25 14:50 Urine Bacteria 1+ /hpf (NONE) H 02/06/25 14:50 Hyaline Casts 5.36 /lpf 02/06/25 14:50 Coarse Granular Casts 0-4 /lpf H 02/06/25 14:50 A&P Assessment and plan (1) Recurrent syncope: 84-year-old male with multiple comorbidities as listed above presenting to the hospital with recurrent syncope over the past 3 days. Patient states he is able to feel palpitations and the dizziness before he takes a fall. Will admit to [facility] Telemetry monitoring to assess for any underlying arrhythmias which may be contributing to his syncope. CT head taken today in the emergency room without any intracranial events. No acute fracture or dislocation of the C-spine. Obtain carotid Doppler bilateral and also echocardiogram as suspecting cardiogenic syncope. Obtain orthostatics. (2) Knee injury: Noted to have bruising around the left knee especially the medial compartment along with a fluid-filled blister overlying. Ecchymosis involving the medial and the lateral aspects of the knee. No close puncture wound noted to underlying prosthetic knee. Patient states he has been unable to bear weight on the knee since taking the fall X-ray of the knee without any acute fracture or dislocation Will consult orthopedics for further management, assess for any underlying hemarthrosis, no this is X-ray did not show any joint space swelling. (3) Fall: Recurrent falls which appear to be syncope per patient description Patient appears to be significantly deconditioned. Will obtain PT OT assessment. (4) Knee swelling: Left knee swelling as noted above, consult orthopedics (5) Chronic foot ulcer: Chronic foot ulcer over the left plantar aspect. Unchanged to the previously Patient states this has been attributed to poor peripheral circulation in the past No gross signs of infection at the site currently. Will arrange outpatient follow-up (6) Humerus fracture: Fracture of the humerus sustained on February 04, 2025 Consult orthopedics as above Please sling left arm. (7) Sleep apnea: CPAP ordered for nighttime use Plan DVT prophylaxis: Lovenox DNR/DNI as expressed by patient PDMP PDMP Reviewed: Not Reviewed Attestations Medical Necessity Statement*: Greater than 2 midnight stay is anticipated Coding Level of Care Code Acute Code for Chg Fwd Diagnoses Recurrent syncope R55 Knee injury S89.90XA Fall W19.XXXA Knee swelling M25.469 Chronic foot ulcer L97.509 Humerus fracture S42.309A Sleep apnea G47.30
[2025-02-06 19:18] LABS: Troponin 5 2HR 23.13 ng/L (0-15)
[2025-02-06 19:24] LABS: Troponin 5 2HR Delta -0.87 ABS# (0-10)
[2025-02-06 20:29] LABS: C Reactive Protein 58.1 mg/L (0.0-4.9)
[2025-02-06 21:22] LABS: Glucose Point of Care 172 mg/dL (70-110)
--- NOTE | 2025-02-06 21:43 | ECG_ITS ---
[facility] Date: 2025-[facility]06 Pat Name: Srinivas Hurst Department: Room: 253 Gender: Male In Home Aide: : 1940 Requested By: Sarah Yang Order Number: [id number] Reading MD: NUNO JARVIS Measurements Intervals Barker Rate: 83 P: 0 IL: 0 QRS: -21 QRSD: 89 T: 62 QT: 362 QTc: 427 Interpretive Statements SINUS RYTHM BORDERLINE LEFT AXIS DEVIATION [QRS AXIS < -20] LOW QRS VOLTAGE IN PRECORDIAL LEADS [QRS DEFLECTION < 1.0 mV IN CHEST LEADS] PATTERN CONSISTENT WITH PULMONARY DISEASE NONSPECIFIC T-WAVE ABNORMALITY Compared to ECG 02/06/2025 16:20:31 THERE IS NO CHANGE Electronically Signed On 02-11-2025 23:00:41 CDT by NUNO JARVIS [email or web address]
[2025-02-06] MEDS: enoxaparin 40 mg/0.4 mL Syringe SUBCUT (21:50)
[2025-02-06] MEDS: insulin lispro 100 unit/1 mL SUBCUT (21:51)
[2025-02-06 23:32] LABS: Troponin 5 6HR 24.12 ng/L (0-15); Troponin 5 6HR Delta 0.12 ng/L (0-12)
[2025-02-07] VITALS (12 sets, daily range): BP systolic 93–130; BP diastolic 52–67; PULSE 78–99; RESP 16–22; TEMP 36.5–36.9; O2SAT 93–97
--- NOTE | 2025-02-07 00:07 | PC.NURSE ---
patient didn not feel comfortable standing for orthostatic vitals. so done sitting and laying
[2025-02-07 06:53] LABS: Glucose Point of Care 148 mg/dL (70-110)
[2025-02-07] MEDS: tamsulosin 0.4 mg Capsule PO (09:22)
[2025-02-07] MEDS: atorvastatin 40 mg Tablet PO (09:23)
[2025-02-07] MEDS: duloxetine 30 mg Capsule PO ×2 (09:23→19:18)
[2025-02-07] MEDS: insulin lispro 100 unit/1 mL SUBCUT ×3 (09:23→21:27)
[2025-02-07] MEDS: carvedilol 3.125 mg Tablet PO ×2 (09:23→19:18)
[2025-02-07] MEDS: aspirin 81 mg EC Tablet PO (09:23)
[2025-02-07] MEDS: pantoprazole DR 40 mg Tablet PO (09:23)
[2025-02-07] MEDS: clopidogrel 75 mg Tablet PO (09:23)
[2025-02-07] MEDS: finasteride 5 mg Tablet PO (09:23)
[2025-02-07] MEDS: FUROsemide 40 mg Tablet PO (09:23)
--- NOTE | 2025-02-07 09:30 | XRR_ITS ---
PROCEDURE INFORMATION: Exam: XR Left Shoulder Exam date and time: 02/07/2025 10:34 AM Age: 84 years old Clinical indication: Pain; Shoulder; Left; Lt humeral head FX; Ap grashy and axillary per Dr. Pavon; Additional info: Left proximal humerus FX, ap grashey TECHNIQUE: Imaging protocol: Radiologic exam of the left shoulder. Views: 2 or more views. AP INT/ EXT ROTATION, SCAPULAR Y COMPARISON: CR XR shoulder LT min 2V* [id number] 02/04/2025 8:53 PM FINDINGS: Bones/joints: Comminuted fractures are identified within the proximal left humerus. Largest fracture defect through the left humerus neck. Multiple fracture lines and bony fragments. Likely fractures through the greater tuberosity as well. Adjacent severe edema. Diffusely severely decreased bone density. Limited sensitivity to detect acute abnormalities. Moderate to severe generalized bony degenerative changes. Severe degenerative changes of the left acromioclavicular joint. Lungs: Lung volumes are decreased. Pleural spaces: Pleural calcifications identified within left chest. Findings are most suggestive of previous asbestos exposure. Differential includes previous hemorrhage, infectious or inflammatory process. Heart/Mediastinum: Cardiac silhouette appears moderately enlarged. Coronary arterial calcifications are demonstrated. Vasculature: Mild atherosclerotic calcification demonstrated within the aorta. Soft tissues: Unremarkable. XR/XR shoulder LT min 2V* [id number] IMPRESSION: 1. Comminuted fractures involving the proximal left humerus, as described above. 2. Moderate enlarged cardiac silhouette. Decreased lung volumes. 3. Severe degenerative changes involving the left AC joint. Severe decreased bone density.
--- NOTE | 2025-02-07 09:30 | CTR_ITS ---
PROCEDURE INFORMATION: Exam: CT Left Lower Extremity Without Contrast, Knee Exam date and time: 02/07/2025 10:33 AM Age: 84 years old Clinical indication: Pain; Knee; Left; Additional info: Left knee bruising, pain TECHNIQUE: Imaging protocol: CT of the left lower extremity without contrast was performed. Exam focused on the knee. Radiation optimization: All CT scans at this facility use at least one of these dose optimization techniques: automated exposure control; mA and/or kV adjustment per patient size (includes targeted exams where dose is matched to clinical indication); or iterative reconstruction. COMPARISON: CR XR knee LT 3V* [id number] 02/06/2025 2:07 PM RADIATION DOSE METRICS: Total DLP (mGy-cm): 889.31 FINDINGS: Tubes, catheters and devices: Severely limiting artifact created by metallic hardware. Bones/joints: Total left knee prosthesis is demonstrated and appears grossly unremarkable. Diffusely decreased bone density. No visualized evidence for acute bony fracture or dislocation. No joint effusion is demonstrated. Soft tissues: Diffuse muscular atrophy. Moderate to severe subcutaneous edema throughout the anterior left knee region extending medially and laterally. Subcutaneous soft tissue hematoma identified in the anterior left knee region. Hematoma measures up to 13 cm craniocaudal length. Hematoma measures up to 13 cm transverse diameter extending medially and laterally within the anterior aspect of the knee. Hematoma measures up to 3 cm anterior-posterior thickness on axial image 55 of series 6 within the anteromedial left knee region. This hematoma is dense compatible with blood products measuring 84 Hounsfield units. Vasculature: Moderate to severe diffuse atherosclerotic arterial vascular wall calcifications are demonstrated. CT/CT knee LT wo con* [id number] IMPRESSION: 1. Total left knee prosthesis creates severe metallic artifact. Limited study. 2. No evidence for acute bony fracture. Decreased bone density. Limited sensitivity. 3. Large hematoma throughout the anterior left knee extending medially and laterally. Hematoma measures up to 13 cm. 4. Subcutaneous edema is mostly within the anterior left knee. 5. Arterial vascular calcifications.
--- NOTE | 2025-02-07 09:31 | PM.CONSULT ---
Providers/Reason For Consult Consulting Physician/Specialty*: Vinod Pavon DO/orthopedic surgery Reason for Consult*: Left proximal humerus fracture, left knee injury Requesting Physician: Dr. Danielle Attending Physician: Tamra Danielle MD Primary Care Provider: Lloyd Spencer, MEDIA MARKETING MANAGER-C History of Present Illness History of Present Illness Srinivas Hurst is a 84 year old male who sustained a fall and had a left proximal humerus fracture was seen originally in the emergency department on 02/04/2025 placed in sling for outpatient follow-up. Patient subsequently was brought to emergency department again on 02/06/2025 for generalized weakness and frequent falls patient has some left knee pain as well with some bruising and ecchymosis he subsequently was admitted by hospitalist due to his weakness and frequency of falls. Currently sling for the left upper extremity proximal humerus fracture. Orthopedics was consulted for left proximal humerus fracture and left knee pain/abrasion. Review of Systems General: Reports: 10 or more systems reviewed and unremarkable except in HPI and below Medications/Allergies Home Medications ?Medication ?Instructions ?Recorded ?Confirmed ?Last Taken ?Type multivitamin (Daily Multi-Vitamin 1 tab PO QAM 09/19/19 02/06/25 02/06/25 History tablet) ascorbate calcium (vitamin C) 500 500 mg PO DAILY 04/22/20 02/06/25 02/06/25 History mg tablet furosemide 40 mg tablet 40 mg PO DAILY PRN edema #30 tabs 07/31/22 02/06/25 Unknown Rx potassium chloride 20 mEq 20 meq PO DAILY PRN Take with 07/31/22 02/06/25 Unknown Rx tablet,extended release Lasix #30 tabs cholecalciferol (vitamin D3) 25 25 mcg PO DAILY 10/26/22 02/06/25 02/06/25 History mcg (1,000 unit) capsule ketoconazole 2 % topical cream 1 applic topical BID PRN Rash 10/10/23 02/06/25 11/07/23 History mupirocin 2 % topical ointment 1 applic topical BID #22 grams 10/10/23 02/06/25 02/06/25 Rx vitamin E (dl, acetate) 90 mg (200 90 mg PO DAILY 10/10/23 02/06/25 02/06/25 History unit) capsule ketoconazole 2 % shampoo 1 applic topical .Twice weekly 02/25/24 02/06/25 Unknown Rx #120 mL lancets 33 gauge ([facility] #300 ea 08/19/24 02/06/25 Unknown Rx Plus Lancet) albuterol sulfate 2.5 mg/3 mL 2.5 mg (3 mL) inhalation Q4H PRN 11/13/24 02/06/25 Unknown Rx (0.083 %) solution for nebulization shortness of breath or wheezing #75 mL glimepiride 2 mg tablet 2 mg PO QAM #90 tabs 11/13/24 02/06/25 02/06/25 Rx Held on 02/04/25. Instructions: Monitor glucose level albuterol sulfate 90 mcg/actuation 2 puff inhalation QID PRN 02/04/25 02/06/25 Unknown Rx aerosol inhaler shortness of breath or wheezing #6.7 grams atorvastatin 40 mg tablet 40 mg PO DAILY #90 tabs 02/04/25 02/06/25 02/06/25 Rx blood sugar diagnostic ([facility] #[facility] ea 02/04/25 02/06/25 Unknown Rx Verio test strips) carvedilol 3.125 mg tablet 3.125 mg PO BID #180 tabs 02/04/25 02/06/25 02/06/25 Rx clopidogrel 75 mg tablet (Plavix) 75 mg PO DAILY #90 tabs 02/04/25 02/06/25 02/06/25 Rx duloxetine 30 mg capsule,delayed 30 mg PO BID #180 caps 02/04/25 02/06/25 02/06/25 Rx release (Cymbalta) finasteride 5 mg tablet (Proscar) 5 mg PO DAILY #90 tabs 02/04/25 02/06/25 02/06/25 Rx fluticasone 250 mcg-salmeterol 50 1 inh inhalation Q12H #180 ea 02/04/25 02/06/25 02/06/25 Rx mcg/dose blistr powdr for inhalation (Advair Diskus) montelukast 10 mg tablet 10 mg PO DAILY #90 tabs 02/04/25 02/06/25 02/06/25 Rx (Singulair) pantoprazole 20 mg tablet,delayed 20 mg PO DAILY #90 tabs 02/04/25 02/06/2525 Rx release sacubitril 24 mg-valsartan 26 mg 1 tab PO BID #180 tabs 02/04/25 02/06/25 02/06/25 Rx tablet (Entresto) tamsulosin 0.4 mg capsule (Flomax) 0.4 mg PO DAILY #90 caps 02/04/25 02/06/25 02/06/25 Rx tirzepatide 12.5 mg/0.5 mL 12.5 mg (0.5 mL) SUBCUT .weekly #6 02/04/25 02/06/25 02/04/25 Rx subcutaneous pen injector mL (Mounjaro) aspirin 81 mg tablet,delayed 81 mg PO DAILY 02/06/25 02/06/25 02/06/25 History release doxycycline hyclate 100 mg capsule 100 mg PO BID 02/06/25 02/06/25 02/06/25 History metformin 500 mg tablet,extended 500 mg PO BID 02/06/25 02/06/25 Unknown History release 24 hr triamcinolone acetonide 0.1 % 1 applic topical DAILY PRN Skin 02/06/25 02/06/25 Unknown History topical cream Irritation vitamin B complex 1 tab PO DAILY 02/06/25 02/06/25 02/06/25 History Allergies Allergy/AdvReac Type Severity Reaction Status Date / Time acetaminophen (From Percocet) Allergy CONFUSION Verified 02/06/25 13:30 oxycodone (From Percocet) Allergy CONFUSION Verified 02/06/25 13:30 Current Medications Generic Name Dose Route Start Last Admin Trade Name Freq PRN Reason Stop Dose Admin Aspirin 81 mg 02/07/25 09:00 02/07/25 09:23 Aspirin 81 Mg Ec Tablet PO 81 mg DAILY JS Administration Atorvastatin Calcium 40 mg 02/07/25 09:00 02/07/25 09:23 Atorvastatin 40 Mg Tablet PO 40 mg DAILY JS Administration Carvedilol 3.125 mg 02/07/25 09:00 02/07/25 09:23 Carvedilol 3.125 Mg Tablet PO 3.125 mg BID JS Administration Clopidogrel Bisulfate 75 mg 02/07/25 09:00 02/07/25 09:23 Clopidogrel 75 Mg Tablet PO 75 mg DAILY JS Administration Duloxetine HCl 30 mg 02/07/25 09:00 02/07/25 09:23 Duloxetine 30 Mg Capsule PO 30 mg BID JS Administration Enoxaparin Sodium 40 mg 02/06/25 19:59 02/06/25 21:50 Enoxaparin 40 Mg/0.4 Ml Syringe SUBCUT 40 mg Q24H JS Administration Finasteride 5 mg 02/07/25 09:00 02/07/25 09:23 Finasteride 5 Mg Tablet PO 5 mg DAILY JS Administration Furosemide 40 mg 02/07/25 09:00 02/07/25 09:23 Furosemide 40 Mg Tablet PO 40 mg DAILY JS Administration Insulin Human Lispro 0 unit 02/06/25 21:00 02/07/25 09:23 Insulin Lispro 100 Unit/1 Ml SUBCUT 2 unit WM&BEDTIME JS Administration Protocol Pantoprazole Sodium 40 mg 02/07/25 09:00 02/07/25 09:[address] 40 Mg Tablet PO 40 mg DAILY JS Administration Tamsulosin HCl 0.4 mg 02/07/25 09:00 02/07/25 09:22 Tamsulosin 0.4 Mg Capsule PO 0.4 mg DAILY JS Administration PFSH Acute PFSH: Medical History Diabetes mellitus with hyperglycemia, without long-term current use of insulin Small vessel disease, cerebrovascular Multiple environmental allergies Urolithiasis History of kidney stones Atherosclerosis Cardiomegaly 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 Social History Smoking and tobacco/nicotine status: never used tobacco/nicotine Second hand smoke exposure: No Alcohol intake: never Substance/Drug Use: never Adopted: No Caregiver/support person: No Lives independently: No Household members: spouse Housing: House Marital status: Number of children: 5 Number of grandchildren: 15 service: Yes Current occupational status: retired Pets and animals: No Do you think of yourself as: Straight/Heterosexual Current gender identity: Male Vitals/I&O/Wt Last Vital Signs Temp 97.7 F 02/07/25 07:22 Pulse 98 02/07/25 08:10 Resp 18 02/07/25 08:10 BP 93/54 02/07/25 07:22 Pulse Ox 93 02/07/25 08:10 O2 Del Method Nasal Cannula 02/07/25 08:10 O2 Flow Rate 2 02/07/25 08:50 02/06/25 02/07/25 02/07/25 22:59 06:59 14:59 Intake Total 240 / 240 480 / 720 Balance 240 / 240 480 / 720 Weight last 48 hrs Weight 309 lb 12.8 oz Weight 313 lb 4.8 oz Weight 299 lb Physical Exam Narrative: Morbidly obese male examination of the left shoulder demonstrates swelling and tenderness palpation about the left shoulder no active range of motion tested due to patient's fracture patient currently has a sling in place. He is able to perform all cardinal hand movements of AIN/PIN/radial/ulnar/median nerve intact. Distal pulse palpable left upper extremity warm well-perfused compartments soft compressible. Examination of left knee demonstrates patient has bruising ecchymosis as well as edematous blistering due to his swelling. His previous total knee incision all appears to be well-healed with no signs of infection this bruising ecchymosis does appear to be more associated with an abrasion given the swelling he does have a noticeable epithelialized blister. This was deroofed today and Vaseline gauze and placed. He has stable varus valgus stress testing has tenderness palpation over the anterior aspect of the knee. Able to gently flex and extend the knee with no significant pain or discomfort. He is able to perform straight leg raise. Examination right lower extremity negative logroll able to plantarflex and dorsiflex ankle no tenderness palpation about the right hip knee or foot and ankle. No tenderness palpation of the right upper extremity joints. Data 02/06/25 13:37 02/06/25 13:37 Xray Ortho: Radiologist's impression: Ordering Provider/Ordering MD: Sarah Yang MD Date of Service: 02/06/25 Procedure(s): XR knee LT 3V* [id number] Accession Number(s): [id number] Report Number: [id number] WS: [id number] Left knee, 3 views, 02/06/2025 Clinical Data: fall Comparison: Left knee, 02/04/2025 Findings: No fractures or dislocations are seen. The joint spaces are normal. The patella is intact. The soft tissues are unremarkable. There is a small calcification adjacent to the lateral distal femoral condyle unchanged. There is vascular calcification. XR/XR knee LT 3V* [id number] Impression: Left knee arthroplasty unchanged. Ordering Provider/Ordering MD: Shauna Hurtado MD Date of Service: 02/04/25 Procedure(s): XR shoulder LT min 2V* [id number] Accession Number(s): [id number] Report Number: [id number] PROCEDURE INFORMATION: Exam: XR Left Shoulder Exam date and time: 02/04/2025 8:53 PM Age: 84 years old Clinical indication: Injury or trauma; Fall; Blunt trauma (contusions or hematomas); Shoulder; Left; Additional info: Shoulder pain TECHNIQUE: Imaging protocol: Radiologic exam of the left shoulder. Views: 2 or more views. COMPARISON: CR ([facility], ) 02/04/2025 8:17 PM FINDINGS: Bones/joints: Images are limited as a true AP view was not obtained. There appears to be a comminuted fracture involving the humeral head extending to the superior articular surface. There is mild lateral displacement of a vertically oriented fracture through the base of the greater tuberosity. The humeral head remains normally located within the glenoid fossa. There are degenerative changes involving the acromioclavicular and glenohumeral joints. Diffuse osteopenia is present. Soft tissues: There is soft tissue edema surrounding the shoulder and visualized upper arm. XR/XR shoulder LT min 2V* [id number] IMPRESSION: Suboptimal radiographs as a true AP view was not obtained. There appears to be a comminuted humeral head fracture with mildly displaced greater tuberosity fragment as described. A&P Assessment and plan (1) Fracture of proximal humerus: (2) Knee injury: (3) Fall: (4) Blister of knee, left: Plan Left knee x-rays reviewed?stable left total knee arthroplasty Left shoulder x-rays from emergency department reviewed demonstrate a proximal humerus fracture appears to be in good alignment for nonoperative treatment Orthopedics consulted for evaluation and treatment recommendations Internal medicine on board as primary Pain control Order new x-rays of left shoulder to include a AP grashey and axillary views as patient's had new falls since original x-rays Maintain sling for left proximal humerus fracture Nonweightbearing left upper extremity, strict no range of motion of the left shoulder Ice as needed for pain and discomfort Ordered left knee CT scan for evaluation and rule out periprosthetic fracture Patient had blistering of the left knee with bruising and ecchymosis due to his recent falls. At this point time may be removed at the epithelial layer of the blister and decompress this as well as then placed this with Vaseline gauze Plan for daily Vaseline gauze dressing change for this Will await CT scan of the left knee for final knee recommendations No need for any acute orthopedic surgical intervention at this time. Orthopedics will continue to follow tomorrow after imaging is been performed. patient understands and agrees with current plan. All questions answered. PDMP PDMP Reviewed: Not Reviewed Coding Level of Care Code Acute Code for [facility] Fwd Diagnoses Fracture of proximal humerus S42.209A Knee injury S89.90XA Fall W19.XXXA Blister of knee, left S80.222A Time Spent (min) 45
--- NOTE | 2025-02-07 10:49 | PC.CHAP ---
Pastoral Care Encounter/Spiritual Assessment Type of Contact [] Declined mine car repairer visit [] Patient/Family/Request visit [] Outpatient visit [] Follow-up visit [] Physician referral [] Code/Alert [x] Routine visit [] Staff referral [] Actively dying [] Patient sleeping [] Family support [] [] Out of room [] Palliative care [] [x] Receiving care in room [] Pre-surgical visit [] Trauma [] Long length of stay [] ICU visit [] Other: Relational/Emotional Strength [] Patient feels connected with others/family/visitors/staff [] Distress [] Loneliness/isolation [] Abandonment Spirituality of Patient [] Person of Donna [] Attends Mandaeism of their Donna [] Believes in Prayer [] Reads Bible or Islam materials [] There are Spiritual issues to be addressed Signing Agent Interventions [] Prayer [] Active listening [] Non-anxious presence [] Spiritual/emotional support [] Crisis/trauma care [] Spiritual counseling [] Bereavement support [] Provided bereavement packet [] Provided Bible/devotional materials [] Provided toy/stuffed animal, coloring book to patient or family member [] Provided Communion [] Anointing/Tappen [] Salvation [] Completed spiritual assessment [] Other: Impact on Illness or Injury [] Angry [] Fearful [] Anxious [] Often cries [] Exhaustion [] Unable to work [] Unable to attend orthodox [] Unable to walk/stand [] Unable to read [] Unable to drive [] Unable to eat/drink [] Unable to sleep [] Unable to be with family [] Patient intubated [] Other: Summary Time spent with patient
[2025-02-07] MEDS: sacubitril/valsartan 24-26 mg Tablet 1 EACH PO (11:11)
[2025-02-07 13:49] LABS: Glucose Point of Care 158 mg/dL (70-110)
[2025-02-07 17:07] LABS: Glucose Point of Care 138 mg/dL (70-110)
--- NOTE | 2025-02-07 17:25 | P.PN_ITS ---
Subjective 2 Subjective: CT of the knee was completed today which did not show any fractures or dislocations. Noted to be having soft blood pressure between 95-1 05 systolic. Holding Entresto. Medications: Reviewed: Yes Vitals/I&O/Wt Last Vital Signs Temp 97.9 F 02/07/25 15:28 Pulse 83 02/07/25 15:28 Resp 16 02/07/25 15:28 BP 98/55 02/07/25 15:28 Pulse Ox 93 02/07/25 15:28 O2 Del Method Nasal Cannula 02/07/25 15:28 O2 Flow Rate 2.5 02/07/25 15:28 02/07/25 02/07/25 02/07/25 06:59 14:59 22:59 Intake Total 480 / 720 118 / 118 Balance 480 / 720 118 / 118 Weight last 48 hrs Weight 140.523 kg Weight 142.11 kg Weight 135.624 kg Physical Exam 2 Narrative: General: elderly man who appears uncomfortable on exam , AO x3 HEENT: PERRLA, pupils bilaterally equal and reactive, pallors not present Chest: Normal vesicular breath sounds, no added sounds, equal good air entry bilaterally CVS: S1-S2 regular, no murmurs, no tachycardia, no gallops, no rubs Abdomen: Soft, nontender, no organomegaly, bowel sounds present Neuro: No focal deficits, generalzied weakness and deconditioining noted Data 02/06/25 13:37 02/06/25 13:37 Micro: Microbiology 02/06/25 14:50 Urine Culture - Preliminary Urine,Clean Catch A&P Assessment and plan (1) Recurrent syncope: 84-year-old male with multiple comorbidities as listed above presenting to the hospital with recurrent syncope over the past 3 days. Patient states he is able to feel palpitations and the dizziness before he takes a fall. [facility] Telemetry monitoring to assess for any underlying arrhythmias which may be contributing to his syncope. CT head taken today in the emergency room without any intracranial events. No acute fracture or dislocation of the C-spine. Obtain carotid Doppler bilateral and also echocardiogram as suspecting cardiogenic syncope. Obtain orthostatics. (2) Knee injury: Noted to have bruising around the left knee especially the medial compartment along with a fluid-filled blister overlying. Ecchymosis involving the medial and the lateral aspects of the knee. No close puncture wound noted to underlying prosthetic knee. Patient states he has been unable to bear weight on the knee since taking the fall X-ray of the knee without any acute fracture or dislocation Will consult orthopedics for further management, assess for any underlying hemarthrosis, no this is X-ray did not show any joint space swelling. (3) Fall: Recurrent falls which appear to be syncope per patient description Patient appears to be significantly deconditioned. Will obtain PT OT assessment. (4) Knee swelling: Left knee swelling as noted above, consult orthopedics (5) Chronic foot ulcer: Chronic foot ulcer over the left plantar aspect. Unchanged to the previously Patient states this has been attributed to poor peripheral circulation in the past No gross signs of infection at the site currently. Will arrange outpatient follow-up (6) Humerus fracture: Fracture of the humerus sustained on February 04, 2025 Consult orthopedics as above Please sling left arm. (7) Sleep apnea: CPAP ordered for nighttime use Plan DVT prophylaxis: Lovenox DNR/DNI as expressed by patient February 07, 2025 Add as needed tramadol for pain management. Patient states he does not do well with opiates as it makes him very easily confused. Noted to have soft blood pressures for which Lasix and Entresto have been held for now. Evaluated by orthopedics today. Appreciate recommendations. CT of the knee without any fractures or dislocation. Noted medial hematoma. Awaiting echocardiogram and carotid Doppler. No arrhythmias encountered on telemetry thus far. PDMP PDMP Reviewed: Not Reviewed Attestations 2 Medical Necessity Statement*: Continued admission for evaluation of recurrent syncope, CT of the need today, PT OT assessment. Coding Level of Care Code Acute Code for g Fwd Diagnoses Recurrent syncope R55 Knee injury S89.90XA Fall W19.XXXA Knee swelling M25.469 Chronic foot ulcer L97.509 Humerus fracture S42.309A Sleep apnea G47.30
--- OUTSIDE RECORDS SUMMARY | 2025-02-07 18:34 | XMS_ITS | Clinical Summary ---
Author Organization [facility] Address [address] [place] [address] Care Team Providers Care Digital Asset Specialist Name Role Phone Unavailable Primary Care Provider Unavailabl e Allergies No known active allergies Medications atorvastatin (LIPITOR) 10 mg tablet 01/06/2015 Active gabapentin (NEURONTIN) 300 mg capsule 01/05/2015 Active glimepiride (AMARYL) 2 mg tablet 01/05/2015 Active ketoconazole (NIZORAL) 2 % Shampoo 11/02/2014 Active losartan (COZAAR) 50 mg tablet 01/05/2015 Active metFORMIN (GLUCOPHAGE XR) 500 mg Extended Release 24 hour tablet 01/05/2015 Active montelukast (SINGULAIR) 10 mg tablet 02/03/2015 Active nystatin (MYCOSTATIN) 100,000 unit/gram Cream 01/05/2015 Act eliseo omeprazole (PRILOSEC) 20 mg Capsule, Delayed Release(E.C.) 01/05/2015 Activ e Aspirin, Buffered 81 mg Tablet Take by mouth. Active lidocaine (LIDODERM) 5 % Adhesive Patch, Medicated Apply 1 Patch to affected area every 24 hours. Active naproxen sodium (ALEVE) 220 mg Tablet Take 220 mg by mouth every 4 hours as needed for Pain, Moderate. Active FOLIC ACID ORAL Take by mouth. Active VITAMIN B COMPLEX NO.12-NIACIN ORAL Take by mouth. Active Active Problems Problem Noted Date Diagnosed Date Primary osteoarthritis of both knees 02/03/2015 Social History Tobacco Use Types Packs/Day Years Used Date Smoking Tobacco: Never Smokeless Tobacco: Never Alcohol Use Standard Drinks/Week Comments No 0 (1 standard drink = 0.6 oz pur e alcohol) Sex and Gender Information Value Date Recorded Sex Assigned at Not on file Legal Sex Male 9:11 AM CDT Gender Identity Not on file Sexual Orientation Not on file Last Filed Vital Signs Vital Sign Reading Time Taken Comments Blood Pressure 149/77 06/11/2015 11:35 AM CDT Pulse 85 06/11/2015 11:35 AM CDT Temperature - - Respiratory Rate - - Oxygen Saturation - - Inhaled Oxygen Concentration - - Weight 150.6 kg (332 lb) 06/11/2015 11:35 AM CDT Height 175.3 cm (5' 9 ) 06/11/2015 11:35 AM CDT Body Mass Index 49.03 06/11/2015 11:35 AM CDT Plan of Treatment Health Maintenance Due Date Last Done Comments DTAP/TDAP/TD VACCINES (1 - Tdap) 1961 PNEUMOCOCCAL VACCINE 50+ YEARS (1 of 1 - PCV) 08/23/19 92 ZOSTER VACCINE (1 of 2) 1992 RSV VACCINE (60+ or ) (1 - 1-dose 75+ series) 2017 INFLUENZA VACCINE (#1) 2024 Insurance [employer]OVEMENT [facility]
--- OUTSIDE RECORDS SUMMARY | 2025-02-07 18:34 | XMS_ITS | Encounter Summary ---
Author Organization [facility] Address [address] [place] [address] Care Team Providers Care Sheet Sewer Name Role Phone Unavailable Primary Care Provider Unavailabl e Encounter Details Date Type Department Care Team (Late st Contact Info) Description 01/29/2025 External Device Data [place] ABSTRACTION Provider, Abstract NO ADDRESS ON FILE Social History Tobacco Use Types Packs/Day Years Used Date Smoking Tobacco: Never Smokeless Tobacco: Never Alcohol Use Standard Drinks/Week Comments No 0 (1 standard drink = 0.6 oz pur e alcohol) Feeling Safe Answer Date Recorded Are you in a relationship wi th someone who hurts you emotionally and/or physically? No 11/04/2024 Food Insecurity Answer Date Recorded Patient needs follow up regardin 01/12/2025 Transportation Needs Answer Date Record ed Patient needs follow up regardin 01/12/2025 Housing Stability Answer Date Recorded Social/Environmental Concerns No concerns Utility Needs Answer Date Recorded Patient needs follow up regardin 01/12/2025 Education Answer Date Recorded What is the highest level of school you have completed or the highest degree you have received? 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
--- OUTSIDE RECORDS SUMMARY | 2025-02-07 18:34 | XMS_ITS | Clinical Summary ---
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 5 Active FOLIC ACID ORAL Take by mouth. 5 Active Aspirin, Buffered 81 mg Tablet Take by mouth. 5 Active metFORMIN (GLUCOPHAGE XR) 500 mg Extended Release 24 hour tablet 5 Active lidocaine (LIDODERM) 5 % Adhesive Patch, Medicated Apply 1 Patch to affected area every 24 hours. 5 Active atorvastatin (LIPITOR) 10 mg tablet Take 40 mg by mouth daily at bedtime. 5 Active losartan (COZAAR) 50 mg tablet Take 50 mg by mouth daily. 5 Active nystatin (MYCOSTATIN) 100,000 unit/gram Cream 5 Active vit B complex no.12/niacin,B3 , (VITAMIN B COMPLEX NO.12-NIACIN ORAL) Take by mouth. 5 Active glimepiride (AMARYL) 2 mg tablet 5 Active ketoconazole (NIZORAL) 2 % Shampoo Apply to affected area twice weekly. 5 Active fluticasone propion-salmete roL (ADVAIR DISKUS,WIXELA INHUB) 250-50 mcg/dose disk inhaler Take 1 Puff by inhalation 2 times daily. Active clopidogreL (PLAVIX) 75 mg Tablet Take 75 mg by mouth. Active DULoxetine (CYMBALTA) 30 mg Capsule, Delayed Release(E.C.) Take 30 mg by mouth daily. Active pantoprazole (PROTONIX) 20 mg Tablet, Delayed Release (E.C.) Take 20 mg by mouth daily. Active tirzepatide (Mounjaro) 7.5 mg/0.5 mL Pen Injector Inject by subcutaneous injection. Active potassium CHLORIDE (KLOR-CON M20) 20 mEq Extended Release tablet Take 20 mEq by mouth daily. Active furosemide (LASIX) 40 mg tablet Take 40 mg by mouth daily. Active carvediloL (COREG) 3.125 mg tablet Take 3.125 mg by mouth 2 times daily with meals. Active tamsulosin (FLOMAX) 0.4 mg capsule Take 0.4 mg by mouth daily. Active finasteride (PROSCAR) 5 mg tablet Take 5 mg by mouth daily. Active multivitamin (DAILY-MELVA) tablet Take 1 Tablet by mouth daily. Active VITAMIN E ORAL Take by mouth. Active ASCORBIC ACID, VITAMIN C, ORAL Take by mouth. Active CHOLECALCIFEROL , VITAMIN D3, ORAL Take by mouth. Activ e albuterol sulfate HFA 90 mcg/actuation aerosol inhaler Take 2 Puffs by inhalation 2 times daily. Active zinc oxide-hydrocort isone-ketoconaz ole Apply to affected area. To folds Active Active Problems Problem Noted Date Diagnosed Date Inability to perform activities of daily living 11/05/2024 Pneumonia of left lower lobe due to infectious o rganism 11/05/2024 Influenza 11/04/2024 Generalized muscle weakness 11/04/2024 Chronic respiratory failure with hypoxia 025 Primary osteoarthritis of both knees 02/03/2015 Coronary artery disease Diabetes mellitus Emphysema of lung Hypertension BPH (benign prostatic hyperplasia) Encounters Date Type Department Care Team Description 01/29/2025 External Device Data [facility] ABSTRACTION Provider, Abstract 12/30/2024 External Device Data [facility] Provider, Abstract 12/09/2024 External Device Data [facility] Provider, Abstract 12/02/2024 External Device Data [facility] Provider, Abstract 11/12/2024 External Device Data [facility] Provider, Abstract 11/12/2024 External Device Data [facility] Provider, Abstract 11/11/2024 External Device Data [facility]STRACTION Provider, Abstract 11/03/2024 8:21 PM DIRECTOR SURGICAL - 11/07/2024 4:00 PM DIRECTOR SURGICAL Hospital Encounter [facility] [address] [place] [id number] Silver Martinez MD Nwodo, Nathan Mayes MD Influenza Discharge Disposition: Intermediate Fac(SNF) with Medicare Certification in Anticipation of Skilled Care from Last 3 Months Family History Medical History Relation Name Comments Heart Disease Father Cancer Mother Relation Name Status Comments Father Mother Social History Tobacco Use Types Packs/Day Years [...] on file Legal Sex Male 12:13 AM DIRECTOR SURGICAL Gender Identity Not on file Sexual Orientation Not on file Last Filed Vital Signs Vital Sign Reading Time Taken Comments Blood Pressure 154/64 11/07/2024 11:51 AM DIRECTOR SURGICAL Pulse 90 11/07/2024 1:28 PM DIRECTOR SURGICAL Temperature 36.6 C (97.9 F) 11/07/2024 11:51 AM DIRECTOR SURGICAL Respiratory Rate 20 11/07/2024 1:28 PM DIRECTOR SURGICAL Oxygen Saturation 92% 11/07/2024 1:28 PM DIRECTOR SURGICAL Inhaled Oxygen Concentration - - Weight 132.4 kg (291 lb 12.8 oz) 11/04/2024 1:29 AM DIRECTOR SURGICAL Height 175.3 cm (5' 9 ) 11/04/2024 1:29 AM DIRECTOR SURGICAL Body Mass Index 43.09 11/04/2024 1:29 AM DIRECTOR SURGICAL Plan of Treatment Health Maintenance Due Date Last Done Comments DIABETES ANNUAL FOOT EXAM 1960 DIABETES ANNUAL RETINAL EXAM 1960 DIABETES MICROALBUMIN ANNUAL SCREEN 1960 LDL CHOLESTEROL ANNUAL 1960 ZOSTER VACCINE (1 of 2) 1992 DTAP/TDAP/TD VACCINES (1 - Tdap) 09/11/1998 09/10/18 99 RSV VACCINE (60+ or ) (1 - 1-dose 75+ series) 2017 INFLUENZA VACCINE (#1) 2024 06/18/2023 COVID-19 Vaccine ( - 2023-2 5 season) 2024 06/03/2024, 06/22/2023, 05/31/2022, Additional history exists DIABETES HBA1C Q 6 MONTHS 05/03/2025 11/03/2024 PNEUMOCOCCAL VACCINE 50+ YEARS Completed 07/18/2023 , 09/10/2007 Procedures Procedure Name Priority Date/Time Associated Diagnosis Comments POC GLUCOSE Routine 11/07/2024 11:49 AM DIRECTOR SURGICAL POC GLUCOSE Routine 11/07/2024 7:21 AM DIRECTOR SURGICAL HEMOGLOBIN A1C Routine 11/03/2024 9:28 PM DIRECTOR SURGICAL from Last 3 Months or Most Recently Relevant to Health Maintenance Results * (ABNORMAL) POC GLUCOSE (11/07/2024 11:49 AM DIRECTOR SURGICAL) Only the most recent of2 resultswithin the time period is included. GLUCOSE POC 112(H) 74 - 99 mg/dL 11/07/2024 11:49 AM DIRECTOR SURGICAL [facility] SPECIMEN SOURCE, GLUCOSE POC Whole Blood 11/07/2024 11:49 AM DIRECTOR SURGICAL [facility] Blood, whole 11/07/2024 11:4 9 AM DIRECTOR SURGICAL 11/07/2024 2:23 PM DIRECTOR SURGICAL us Nathan Littlejohn MD POINT OF CARE TESTING Final Result Performing Organization Address [facility]/ZIP Co de Phone Number [facility] # [id number] [address] [place] [address] * (ABNORMAL) HEMOGLOBIN A1C (11/03/2024 9:28 PM DIRECTOR SURGICAL) HEMOGLOBIN A1C 6.5(H) <=5.6 % 11/04/2024 4:15 AM DIRECTOR SURGICAL [facility] EST. AVG GLUCOSE, A1C 140 mg/dL 11/04/2024 4:15 AM DIRECTOR SURGICAL [facility] Blood BLOOD SPECIMEN / Unknown Collection / Unknown 11/03/2024 9:28 PM DIRECTOR SURGICAL 11/03/2024 9:31 PM DIRECTOR SURGICAL Narrative [facility] - 11/04/2024 4:15 AM DIRECTOR SURGICAL HGB A1C INTERPRETATION NORMAL: <5.7% PRE-DIABETES: 5.7 - 6.4% DIABETES: 6.5% OR GREATER us Kathleen Brunson MD CHEMISTRY ORDERABLES Final Re sult Performing Organization Address City/[facility] Co de Phone Number [facility] # [id number] [address] [place] [phone] from Last 3 Months or Most Recently Relevant to Health Maintenance Insurance Advance Directives For more information, please contact: [phone] Documents on File Type Date Recorded 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 intubation): No Mechanical Ventilation (for respiratory distress) - Non-Invasive (i.e. BiPAP, CPAP): No * Full Code Date Activated Date Inactivated Comments 11/04/2024 3:05 AM 11/04/2024 4:09 PM
[2025-02-07] MEDS: TRAMadol 50 mg Tablet PO (19:19)
[2025-02-07] MEDS: enoxaparin 40 mg/0.4 mL Syringe SUBCUT (20:14)
[2025-02-07 20:39] LABS: Glucose Point of Care 147 mg/dL (70-110)
[2025-02-07] MEDS: albuterol 2.5 mg/3 mL Neb INHALATION (21:00)
[2025-02-08] VITALS (10 sets, daily range): BP systolic 100–142; BP diastolic 58–93; PULSE 65–81; RESP 15–20; TEMP 36.6–37.5; O2SAT 94–98
[2025-02-08 03:13] LABS: Basophils % 0.4 %; Eosinophils # 0.1 10^3/uL (0.0-0.8); Eosinophils % 1.3 %; Hematocrit 25.5 % (37-53); Lymphocytes # 1.5 10^3/uL (0.8-4.8); Lymphocytes % 19.1 %; Mean Corpuscular HGB Conc 32.2 g/dL (30-55); Mean Corpuscular Hemoglobin 30.8 pg (27-33); Mean Corpuscular Volume 95.9 fl (82-101); Mean Platelet Volume 9.6 fL (7.4-10.4); Monocytes # 1.1 10^3/uL (0.2-0.9); Monocytes % 14.1 %; Neutrophils # 5.09 10^3/uL (1.8-7.7); Neutrophils % 64.6 %; Nucleated Red Blood Cells % 0 %; Platelet Count 230 10^3/cmm (157-399); Red Blood Count 2.66 10^6/uL (3.85-5.65); Red Cell Distribution Width 14.6 % (12.1-15.1); White Blood Count 7.87 10^3/uL (3.29-11.43)
[2025-02-08 04:26] LABS: Alanine Aminotransferase 12 U/L (0-41); Albumin Level 2.8 g/dL (3.5-5.2); Alkaline Phosphatase 71 U/L (40-130); Aspartate Amino Transferase 24 U/L (0-40); Blood Urea Nitrogen 41 mg/dL (8-23); Calcium 8.4 mg/dL (8.5-10.5); Carbon Dioxide 26 mmol/L (22-29); Creatinine Clr Calc Pharmacy 65.5754; Globulin 3.2 g/dL (1.3-4.6); Glucose 103 mg/dL (65-115); Total Bilirubin 0.6 mg/dL (0.15-1.2)
[2025-02-08 05:50] LABS: Anion Gap 15.6 (5-19); Chloride 95 mmol/L (98-107); Osmolality Calculated 284 mOsm/kg (285-295); Potassium 4.6 mmol/L (3.5-5.1); Sodium 132 mmol/L (136-145)
[2025-02-08] MEDS: perflutren protein-a microsphr 0.22 mg/mL SDV 3 mL IV (08:19)
[2025-02-08] MEDS: albuterol 2.5 mg/3 mL Neb INHALATION ×2 (08:30→20:51)
[2025-02-08] MEDS: aspirin 81 mg EC Tablet PO (09:10)
[2025-02-08] MEDS: finasteride 5 mg Tablet PO (09:11)
[2025-02-08] MEDS: tamsulosin 0.4 mg Capsule PO (09:11)
[2025-02-08] MEDS: clopidogrel 75 mg Tablet PO (09:11)
[2025-02-08] MEDS: duloxetine 30 mg Capsule PO ×2 (09:11→17:08)
[2025-02-08] MEDS: pantoprazole DR 40 mg Tablet PO (09:11)
[2025-02-08] MEDS: atorvastatin 40 mg Tablet PO (09:12)
[2025-02-08] MEDS: insulin lispro 100 unit/1 mL SUBCUT ×3 (09:12→17:09)
[2025-02-08] MEDS: carvedilol 3.125 mg Tablet PO ×2 (09:12→17:08)
[2025-02-08] MEDS: TRAMadol 50 mg Tablet PO ×2 (09:17→17:09)
--- NOTE | 2025-02-08 10:42 | USR_ITS ---
PROCEDURE INFORMATION: Exam: US Duplex Bilateral Extracranial Arteries; Complete; Carotid Arteries Exam date and time: 02/08/2025 6:33 AM Age: 84 years old Clinical indication: Condition or disease; Other: Recurrent syncope TECHNIQUE: Imaging protocol: Real-time duplex ultrasound scan of the bilateral extracranial arteries combining hardin scale, color Doppler and spectral waveform analysis with image documentation. Complete exam. Exam focused on the carotid arteries. COMPARISON: CT head thrombolytic [id number] 02/06/2025 1:50 PM FINDINGS: Right common carotid artery: Unremarkable. No occlusion or stenosis. Waveforms are normal. Right internal carotid artery: Unremarkable. No occlusion or stenosis. Waveforms are normal. Right ICA/CCA ratio: Mildly elevated at 1.9 but peak systolic flow velocity is only 134. No significant stenosis is visualized on two-dimensional images. No hemodynamically significant stenosis is present. Right external carotid artery: No stenosis in the origin. Right vertebral artery: Unremarkable. Antegrade flow. Left common carotid artery: Unremarkable. No occlusion or stenosis. Waveforms are normal. Left internal carotid artery: Unremarkable. No occlusion or stenosis. Waveforms are normal. Left ICA/CCA ratio: Within normal limits. Left external carotid artery: No stenosis in the origin. Left vertebral artery: Unremarkable. Antegrade flow. US/CV carotid duplex BI* [id number] IMPRESSION: No hemodynamically significant stenosis. REFERENCES: SRU CRITERIA. The degree of internal carotid artery stenosis is based on criteria defined by the Society of Radiologists in Ultrasound (SRU). Normal is no stenosis. Mild is less than 50% stenosis. Moderate is 50-69% stenosis. Severe is greater than 69% stenosis to near occlusion. Near occlusion is a markedly narrowed lumen. Total occlusion is no detectable patent lumen.
--- NOTE | 2025-02-08 10:42 | USCV_ITS ---
Srinivas Hurst Age: 84 Gender: M : 1940 Exam Date: 02/08/2025 06:56 Ordering Phys: Tamra Danielle MD Technologist: Jermaine Tomlin [place] [facility] [place]ication: RECURRENT SYNCOPE BP: 108 / 63 HR: 78 Rhythm: Sinus Technical Quality: Adequate MEASUREMENTS (Male / Female) Normal Values 2D ECHO LVOT Diameter 2.2 cm LV Ejection Fraction MOD 4C 80.8 % LV Ejection Fraction MOD 2C 73.8 % LV Ejection Fraction 2C AL 72.7 % LA Diameter 4.3 cm RA Systolic Volume 4C AL 27.5 ml RA Systolic Volume 4C MOD 27.0 ml LA Sys Volume AL 44.8 cm cubed LA Sys Volume Index AL 16.7 cm cubed/m squared Aorta at Sinotubular Diameter 2.5 cm IVC Diameter 1.4 cm M-MODE LA Ao Ratio MM 1.0 AV Cusp Separation MM 1.9 cm DOPPLER AV Peak Velocity 183.7 cm/s LVOT Peak Velocity 102.0 cm/s AV Area Cont Eq vti 1.8 cm squared AV Area Cont Eq pk 2.1 cm squared MV Peak Velocity 114.0 cm/s MV Area PHT 5.6 cm squared Mitral E to A Ratio 0.7 TR Peak Velocity 285.0 cm/s TR Peak Gradient 32.5 mmHg TR Mean Velocity 204.0 cm/s TR Mean Gradient 19.3 mmHg TR Velocity Time Integral 99.0 cm PV Peak Velocity 114.0 cm/s RV Ejection Time 0.3 s FINDINGS Left Ventricle Technically limited quality echocardiogram because of poor ultrasonic windows. LV systolic function is normal with EF of 60-65%. Grade 1 diastolic dysfunction. Right Ventricle Grossly normal Right Atrium Grossly normal Left Atrium Grossly normal Mitral Valve Grossly normal. Mild mitral regurgitation. Aortic Valve Grossly normal. No significant stenosis or regurgitation. Tricuspid Valve Mild tricuspid regurgitation. Pulmonary artery systolic pressure is normal Pulmonic Valve Not well visualized Pericardium Normal Aorta Not well visualized IVC Appears to be normal CONCLUSIONS Technically limited quality echocardiogram because of poor ultrasonic windows. LV systolic function is normal with EF of 60-65%. Grade 1 diastolic dysfunction. Mild mitral regurgitation. Mild tricuspid regurgitation. Zack Harrison MD (Electronically Signed) Final Date: 08 February 2025 11:43 S
[2025-02-08] MEDS: ketorolac 30 mg/mL INJ 15 MG IVP ×2 (10:58→20:04)
[2025-02-08] MEDS: neomycin-poly-bacitracin oint 28 gm 1 APPLIC TOPICAL (10:59)
[2025-02-08 11:39] LABS: Glucose Point of Care 158 mg/dL (70-110)
--- NOTE | 2025-02-08 12:48 | P.PN_ITS ---
Subjective 2 Subjective: Patient seen and examined today. Reviewed findings from x-rays of the left proximal humerus as well as left knee. Findings of the left shoulder demonstrate comminuted proximal humerus fracture located glenohumeral joint. Continue with conservative treatment with sling and no active range of motion or weightbearing to left upper extremity. CT scanning findings consistent with subcutaneous edema and findings consistent with hematoma in the subcutaneous tissue. No evidence of hardware failure or fracture. Can weight-bear as tolerated left lower extremity will continue with dressing changes daily as instructed. Patient and family who is accompanying him and the bedside today understand agree with current plan. All questions answered. Vitals/I&O/Wt Last Vital Signs Temp 98.3 F 02/08/25 11:57 Pulse 78 02/08/25 11:57 Resp 19 H 02/08/25 11:57 BP 100/58 02/08/25 11:57 Pulse Ox 94 02/08/25 11:57 O2 Del Method Nasal Cannula 02/08/25 11:57 O2 Flow Rate 3 02/08/25 08:30 02/07/25 02/08/25 02/08/25 22:59 06:59 14:59 Intake Total 240 / 358 500 / 858 480 / 480 Balance 240 / 358 500 / 858 480 / 480 Weight last 48 hrs Weight 312 lb 3.2 oz Weight 309 lb 12.8 oz Weight 313 lb 4.8 oz Weight 299 lb Physical Exam 2 Narrative: Morbidly obese male examination of the left shoulder demonstrates swelling and tenderness palpation about the left shoulder no active range of motion tested due to patient's fracture, patient currently sitting upright in bed. Patient able to wiggle fingers. Left upper extremity warm well-perfused compartments soft compressible. Dressing on in place to the left knee. Patient's swelling of the left knee is stable. Tenderness to palpation over ecchymosis and area of swelling. Compartments soft and compressible. Patient is able to wiggle toes plantarflex and dorsiflex ankle. Data 02/11/25 05:45 02/11/25 05:45 Other Labs: AM labs isted below: WBC 7.87 Hemoglobin 8.2 Creatinine 1.2 Micro: Microbiology 02/06/25 14:50 Urine Culture - Final Urine,Clean Catch Xray Ortho: Radiologist's impression: Ordering Provider/Ordering MD: Sarah Yang MD Date of Service: 02/06/25 Procedure(s): XR knee LT 3V* [id number] Accession Number(s): [id number] Report Number: [id number] WS: [id number] Left knee, 3 views, 02/06/2025 Clinical Data: fall Comparison: Left knee, 02/04/2025 Findings: No fractures or dislocations are seen. The joint spaces are normal. The patella is intact. The soft tissues are unremarkable. There is a small calcification adjacent to the lateral distal femoral condyle unchanged. There is vascular calcification. XR/XR knee LT 3V* [id number] Impression: Left knee arthroplasty unchanged. Other CT: Radiologist's impression: CT/CT knee LT wo con* [id number] IMPRESSION: 1. Total left knee prosthesis creates severe metallic artifact. Limited study. 2. No evidence for acute bony fracture. Decreased bone density. Limited sensitivity. 3. Large hematoma throughout the anterior left knee extending medially and laterally. Hematoma measures up to 13 cm. 4. Subcutaneous edema is mostly within the anterior left knee. 5. Arterial vascular calcifications. A&P Assessment and plan (1) Fracture of proximal humerus: (2) Knee injury: (3) Blister of knee, left: (4) Knee swelling: (5) Hematoma of left knee region: (6) Fall: Plan Left shoulder x-rays demonstrate located glenohumeral joint with a left proximal humerus fracture CT scan of the left knee demonstrates no periprosthetic fracture stable prosthesis, subcutaneous hematoma noted Internal medicine on board as primary Pain control Maintain sling for left proximal humerus fracture Nonweightbearing left upper extremity, strict no range of motion of the left shoulder Ice as needed for pain and discomfort Recommend daily dressing change with Vaseline gauze over the deroofed blister to allow this to epithelialize and granulated Clinically hematoma appears to be stable no further intervention at this time since patient given findings of CT scan no acute fracture okay to weight-bear as tolerated to the left lower extremity. Encourage knee range of motion, encourage ice and compressive Neo wrap to the left knee to help with hematoma resorption Orthopedic surgery team will sign off patient at this time follow peripherally. If there is any question pertaining to patient's care feel free to contact orthopedics on-call. Recommend orthopedic follow-up in 1 to 2 weeks upon discharge for left shoulder proximal humerus fracture and left knee injury. Provide discharge instructions are in patient's chart will follow-up in 1 to 2 weeks patient family understand agree with current plan. All questions answered at this time. PDMP PDMP Reviewed: Not Reviewed Attestations 2 Medical Necessity Statement*: ongoing care of left shoulder proximal humerus fx and left knee injury, per primary Coding Level of Care Code Acute Code for [facility] Fwd Diagnoses Fracture of proximal humerus S42.209A Knee injury S89.90XA Blister of knee, left S80.222A Knee swelling M25.469 Hematoma of left knee region S80.02XA Fall W19.XXXA Time Spent (min) 15
--- NOTE | 2025-02-08 13:31 | PM.PN ---
Subjective Subjective: No new complaints today. Had pain involving his left upper shoulder for which he received tramadol. Currently appears to be tolerating. Medications: Reviewed: Yes Vitals/I&O/Wt Last Vital Signs Temp 98.3 F 02/08/25 11:57 Pulse 78 02/08/25 11:57 Resp 19 H 02/08/25 11:57 BP 100/58 02/08/25 11:57 Pulse Ox 94 02/08/25 11:57 O2 Del Method Nasal Cannula 02/08/25 11:57 O2 Flow Rate 3 02/08/25 08:30 02/07/25 02/08/25 02/08/25 22:59 06:59 14:59 Intake Total 240 / 358 500 / 858 480 / 480 Balance 240 / 358 500 / 858 480 / 480 Weight last 48 hrs Weight 141.612 kg Weight 140.523 kg Weight 142.11 kg Physical Exam Narrative: General: elderly man who appears uncomfortable on exam , AO x3 HEENT: PERRLA, pupils bilaterally equal and reactive, pallors not present Chest: Normal vesicular breath sounds, no added sounds, equal good air entry bilaterally CVS: S1-S2 regular, no murmurs, no tachycardia, no gallops, no rubs Abdomen: Soft, nontender, no organomegaly, bowel sounds present Neuro: No focal deficits, generalzied weakness and deconditioining noted Data 02/08/25 02:28 02/08/25 02:28 Micro: Microbiology 02/06/25 14:50 Urine Culture - Final Urine,Clean Catch A&P Assessment and plan (1) Recurrent syncope: 84-year-old male with multiple comorbidities as listed above presenting to the hospital with recurrent syncope over the past 3 days. Patient states he is able to feel palpitations and the dizziness before he takes a fall. Will admit to [facility] Telemetry monitoring to assess for any underlying arrhythmias which may be contributing to his syncope. CT head taken today in the emergency room without any intracranial events. No acute fracture or dislocation of the C-spine. Obtain carotid Doppler bilateral and also echocardiogram as suspecting cardiogenic syncope. Obtain orthostatics. (2) Knee injury: Noted to have bruising around the left knee especially the medial compartment along with a fluid-filled blister overlying. Ecchymosis involving the medial and the lateral aspects of the knee. No close puncture wound noted to underlying prosthetic knee. Patient states he has been unable to bear weight on the knee since taking the fall X-ray of the knee without any acute fracture or dislocation Will consult orthopedics for further management, assess for any underlying hemarthrosis, no this is X-ray did not show any joint space swelling. (3) Fall: Recurrent falls which appear to be syncope per patient description Patient appears to be significantly deconditioned. Will obtain PT OT assessment. (4) Knee swelling: Left knee swelling as noted above, consult orthopedics (5) Chronic foot ulcer: Chronic foot ulcer over the left plantar aspect. Unchanged to the previously Patient states this has been attributed to poor peripheral circulation in the past No gross signs of infection at the site currently. Will arrange outpatient follow-up (6) Humerus fracture: Fracture of the humerus sustained on February 04, 2025 Consult orthopedics as above Please sling left arm. (7) Sleep apnea: CPAP ordered for nighttime use Plan DVT prophylaxis: Lovenox DNR/DNI as expressed by patient February 07, 2025 Add as needed tramadol for pain management. Patient states he does not do well with opiates as it makes him very easily confused. Noted to have soft blood pressures for which Lasix and Entresto have been held for now. Evaluated by orthopedics today. Appreciate recommendations. CT of the knee without any fractures or dislocation. Noted medial hematoma. Awaiting echocardiogram and carotid Doppler. No arrhythmias encountered on telemetry thus far. February 08, 2025 Pain is controlled on a combination of tramadol and Toradol. Holding Entresto in view of soft blood pressure ranging between 95-[address] of the knee without any fracture or dislocation. Appreciate orthopedics assessment. No current surgical intervention. Ordered for PT OT, encourage out of bed. At baseline his states that patient is able to manage his ADLs. Able to walk to the bathroom, independently able to get to the kitchen, fix himself a meal and ate. Hemoglobin down to 8.2 today. He has not had a bowel movement since last week. Will add stool softeners and check FOBT. Additionally check iron panel vitamin B12 folate levels. Possibly drop in hemoglobin may be related to the hematoma that is noted around the knee. Will hold Lovenox for now to minimize risk of enlarging of her hematoma. Will obtain CT abdomen to assess for any hemoperitoneum. Suspect that his syncopal episodes at home may be related to orthostatic hypotension. Orthostatic vital signs have not been obtained as patient has not been able to stand thus far. He has been laying in bed since admission. Carotid Doppler without any hemodynamically significant stenosis. No encountered arrhythmias on telemetry. Echocardiogram shows an EF of 60 to 65% with grade 1 diastolic dysfunction. Encourage compliance with CPAP as placed at bedside. PDMP PDMP Reviewed: Not Reviewed Attestations Medical Necessity Statement*: therapy assessment given recurrent falls , patient appears to be significantly deconditioned Coding Level of Care Code Acute Code for [facility] Fwd Diagnoses Recurrent syncope R55 Knee injury S89.90XA Fall W19.XXXA Knee swelling M25.469 Chronic foot ulcer L97.509 Humerus fracture S42.309A Sleep apnea G47.30
[2025-02-08 16:36] LABS: Glucose Point of Care 142 mg/dL (70-110)
--- NOTE | 2025-02-08 18:25 | CTR_ITS ---
PROCEDURE INFORMATION: Exam: CT Abdomen And Pelvis Without Contrast Exam date and time: 02/08/2025 8:33 PM Age: 84 years old Clinical indication: Other: Decreasing hemoglobin/ multiple falls. Prior surgery; Surgery date: 6+ months; Surgery type: Umbilical hernia repair; Patient has had frequent falls and continually declining hemoglobin since admission. ; Additional info: Assess for intraperitoneal bleeding, recurrent falls, falling hb, assess for intraabdominal TECHNIQUE: Imaging protocol: Computed tomography of the abdomen and pelvis without contrast. Radiation optimization: All CT scans at this facility use at least one of these dose optimization techniques: automated exposure control; mA and/or kV adjustment per patient size (includes targeted exams where dose is matched to clinical indication); or iterative reconstruction. COMPARISON: [place] [id number] 08/24/2019 3:26 PM RADIATION DOSE METRICS: Total DLP (mGy-cm): 1891.81 FINDINGS: Lungs: Bibasilar atelectasis versus minimal infiltrate. Liver: Normal. No mass. Gallbladder and biliary ducts: Cholecystectomy. Pancreas: Normal. No ductal dilation. Spleen: Normal. No splenomegaly. Adrenal glands: Normal. No mass. Kidneys and ureters: Perinephric edema bilaterally likely reflecting renal insufficiency, please correlate for pyelonephritis. Right kidney upper pole 13.8 mm hyperdense lesion likely reflecting a proteinaceous cyst, correlation with ultrasound advised. Stomach and bowel: Constipation. Diverticulosis without diverticulitis. Appendix: No evidence of appendicitis. Intraperitoneal space: Unremarkable. No free air. No significant fluid collection. Vasculature: Unremarkable. No abdominal aortic aneurysm. Lymph nodes: Unremarkable. No enlarged lymph nodes. Urinary bladder: Unremarkable as visualized. Reproductive: Unremarkable as visualized. Bones/joints: Unremarkable. No acute fracture. Soft tissues: Right diaphragm pleural benign calcifications. CT/CT abdomen pelvis wo con [id number] IMPRESSION: 1. Negative for a focal acute inflammatory process in the abdomen or pelvis. 2. Bibasilar atelectasis versus minimal infiltrate. 3. Cholecystectomy. 4. Perinephric edema bilaterally likely reflecting renal insufficiency, please correlate for pyelonephritis. 5. Constipation. 6. Diverticulosis without diverticulitis. 7. Right kidney upper pole 13.8 mm hyperdense lesion likely reflecting a proteinaceous cyst, correlation with ultrasound advised. COMMENTS: Consistent with the [employer]'s Incidental Findings Committee white paper (J Am Pk Radiol 2018): Any incidental renal lesion less than 1 cm or classified as too small to characterize, or any incidental cystic renal lesion characterized as simple-appearing, is likely benign. No follow-up imaging is recommended for these lesions per consensus recommendations based on imaging criteria.
[2025-02-08 20:08] LABS: Glucose Point of Care 122 mg/dL (70-110)
[2025-02-08] MEDS: acetaminophen 325 mg Tablet 650 MG PO (20:23)
[2025-02-09] VITALS (10 sets, daily range): BP systolic 100–113; BP diastolic 62–68; PULSE 68–77; RESP 16–19; TEMP 36.5–37.2; O2SAT 94–99
[2025-02-09 04:00] LABS: Basophils % 0.3 %; Eosinophils # 0.3 10^3/uL (0.0-0.8); Eosinophils % 3.6 %; Hematocrit 23.9 % (37-53); Lymphocytes # 1.4 10^3/uL (0.8-4.8); Lymphocytes % 20.5 %; Mean Corpuscular HGB Conc 31.8 g/dL (30-55); Mean Corpuscular Hemoglobin 30.2 pg (27-33); Mean Corpuscular Volume 94.8 fl (82-101); Mean Platelet Volume 9.2 fL (7.4-10.4); Monocytes # 0.8 10^3/uL (0.2-0.9); Monocytes % 11.5 %; Neutrophils # 4.42 10^3/uL (1.8-7.7); Neutrophils % 63.8 %; Nucleated Red Blood Cells % 0 %; Platelet Count 229 10^3/cmm (157-399); Red Blood Count 2.52 10^6/uL (3.85-5.65); Red Cell Distribution Width 14.2 % (12.1-15.1); White Blood Count 6.93 10^3/uL (3.29-11.43)
[2025-02-09 06:41] LABS: Alanine Aminotransferase 16 U/L (0-41); Albumin Level 2.7 g/dL (3.5-5.2); Alkaline Phosphatase 66 U/L (40-130); Anion Gap 14.8 (5-19); Aspartate Amino Transferase 24 U/L (0-40); Blood Urea Nitrogen 52 mg/dL (8-23); Calcium 8.5 mg/dL (8.5-10.5); Carbon Dioxide 25 mmol/L (22-29); Chloride 97 mmol/L (98-107); Creatinine Clr Calc Pharmacy 60.5312; Ferritin 86 ng/mL (30-400); Globulin 3.1 g/dL (1.3-4.6); Glucose 113 mg/dL (65-115); Osmolality Calculated 289 mOsm/kg (285-295); Potassium 4.8 mmol/L (3.5-5.1); Sodium 132 mmol/L (136-145); Total Bilirubin 0.5 mg/dL (0.15-1.2); Total Protein 5.8 g/dL (6.6-8.7)
[2025-02-09 06:42] LABS: Iron 20 ug/dL (59-158); Percent Saturation 10.9 % (20-50); Total Iron Binding Capacity 183 mcg/dl; Unsaturated Iron Binding 163 ug/dL (112-347)
[2025-02-09 06:46] LABS: Glucose Point of Care 131 mg/dL (70-110)
[2025-02-09 06:57] LABS: Folate Level 19.4 ng/mL (4.5-32.2); Vitamin B12 401 pg/mL (232-1245)
[2025-02-09] MEDS: TRAMadol 50 mg Tablet PO (07:15)
[2025-02-09] MEDS: albuterol 2.5 mg/3 mL Neb INHALATION ×2 (08:12→19:52)
--- NOTE | 2025-02-09 08:46 | US_ITS ---
WS: [id number] ULTRASOUND RENAL TECHNIQUE: Ultrasound examination of both kidneys. CLINICAL INFORMATION: cyst right upper pole kidney COMPARISON: CT 02/08/2025 FINDINGS: Bilateral renal cortical atrophy RIGHT: Echogenicity: Increased Hydronephrosis: None. Perinephric fluid: None. Right kidney measures: 12.2 cm x 6.7 cm x 7.9 cm. LEFT: LEFT renal cyst 2.9 x 2.8 cm Echogenicity: Increased Hydronephrosis: None. Perinephric fluid: None. Left kidney measures: 12.2 cm x 6.2 cm x 6.2 cm. Normal visualized aorta. Normal bladder US/US renal BI* [id number] IMPRESSION: 1. Bilateral renal cortical atrophy with medical renal disease 2. No hydronephrosis. 3. LEFT inferior pole renal cyst measuring 2.9 x 2.8 cm 4. Small increased attenuation lesion upper pole RIGHT kidney too small to vis ualize on this study but most likely a proteinaceous or hemorrhagic cyst based on CT findings.
[2025-02-09] MEDS: FUROsemide 40 mg Tablet PO (08:54)
[2025-02-09] MEDS: duloxetine 30 mg Capsule PO ×2 (08:54→17:22)
[2025-02-09] MEDS: tamsulosin 0.4 mg Capsule PO (08:54)
[2025-02-09] MEDS: finasteride 5 mg Tablet PO (08:54)
[2025-02-09] MEDS: aspirin 81 mg EC Tablet PO (08:54)
[2025-02-09] MEDS: clopidogrel 75 mg Tablet PO (08:54)
[2025-02-09] MEDS: pantoprazole DR 40 mg Tablet PO (08:54)
[2025-02-09] MEDS: carvedilol 3.125 mg Tablet PO ×2 (08:55→17:22)
[2025-02-09] MEDS: atorvastatin 40 mg Tablet PO (08:55)
--- NOTE | 2025-02-09 09:45 | PC.CHAP ---
Pastoral Care Encounter/Spiritual Assessment Type of Contact [] Declined heel room supervisor visit [] Patient/Family/Request visit [] Outpatient visit [] Follow-up visit [] Physician referral [] Code/Alert [x] Routine visit [] Staff referral [] Actively dying [x] Patient sleeping [] Family support [] [] Out of room [] Palliative care [] [] Receiving care in room [] Pre-surgical visit [] Trauma [] Long length of stay [] ICU visit [] Other: Relational/Emotional Strength [] Patient feels connected with others/family/visitors/staff [] Distress [] Loneliness/isolation [] Abandonment Spirituality of Patient [] Person of Donna [] Attends Yazidism of their Donna [] Believes in Prayer [] Reads Bible or Faith materials [] There are Spiritual issues to be addressed Door To Door Sales Representative Interventions [x] Prayer [] Active listening [] Non-anxious presence [] Spiritual/emotional support [] Crisis/trauma care [] Spiritual counseling [] Bereavement support [] Provided bereavement packet [] Provided Bible/devotional materials [] Provided toy/stuffed animal, coloring book to patient or family member [] Provided Communion [] Anointing/[place] [] Salvation [] Completed spiritual assessment [] Other: Impact on Illness or Injury [] Angry [] Fearful [] Anxious [] Often cries [] Exhaustion [] Unable to work [] Unable to attend yarsani [] Unable to walk/stand [] Unable to read [] Unable to drive [] Unable to eat/drink [] Unable to sleep [] Unable to be with family [] Patient intubated [] Other: Summary Time spent with patient
[2025-02-09] MEDS: neomycin-poly-bacitracin oint 28 gm 1 APPLIC TOPICAL (10:42)
[2025-02-09 11:35] LABS: Glucose Point of Care 155 mg/dL (70-110)
[2025-02-09] MEDS: insulin lispro 100 unit/1 mL SUBCUT ×2 (12:06→21:15)
--- NOTE | 2025-02-09 12:55 | PC.NURSE ---
Stroke coodinator terry at 1150- patient working with therapies
[2025-02-09] MEDS: ketorolac 30 mg/mL INJ 15 MG IVP (13:28)
--- NOTE | 2025-02-09 13:32 | PC.SOCIAL ---
IMM Updated IMM dated and initialed, Copy given to patient and copy placed in chart.
--- NOTE | 2025-02-09 14:00 | P.PN_ITS ---
Subjective 2 Subjective: Hemoglobin 7.6 today. Creatinine 1.3. When seen this morning patient was not wearing left arm sling. He states we can put it back on. FOBT is pending Vitals/I&O/Wt Last Vital Signs Temp 98.7 F 02/09/25 11:40 Pulse 77 02/09/25 11:40 Resp 17 02/09/25 11:40 BP 111/68 02/09/25 11:40 Pulse Ox 96 02/09/25 11:40 O2 Del Method Nasal Cannula 02/09/25 11:40 O2 Flow Rate 2.5 02/09/25 08:00 02/08/25 02/09/25 02/09/25 22:59 06:59 14:59 Intake Total 480 / 960 480 / 480 Output Total 200 / 200 Balance 480 / 960 280 / 280 Weight last 48 hrs Weight 141.152 kg Weight 141.612 kg Physical Exam 2 Narrative: General: AO x3 HEENT: PERRLA, pupils bilaterally equal and reactive, pallors not present Chest: Normal vesicular breath sounds, no added sounds, equal good air entry bilaterally CVS: S1-S2 regular, no murmurs, no tachycardia, no gallops, no rubs Abdomen: Soft, nontender, no organomegaly, bowel sounds present Neuro: No focal deficits, generalzied weakness and deconditioining noted Data 02/09/25 03:25 02/09/25 03:25 Micro: Microbiology 02/06/25 14:50 Urine Culture - Final Urine,Clean Catch A&P Assessment and plan (1) Recurrent syncope: 84-year-old male with multiple comorbidities as listed above presenting to the hospital with recurrent syncope over the past 3 days. Patient states he is able to feel palpitations and the dizziness before he takes a fall. Will admit to [facility] Telemetry monitoring to assess for any underlying arrhythmias which may be contributing to his syncope. CT head taken today in the emergency room without any intracranial events. No acute fracture or dislocation of the C-spine. Obtain carotid Doppler bilateral and also echocardiogram as suspecting cardiogenic syncope. Obtain orthostatics. (2) Knee injury: Noted to have bruising around the left knee especially the medial compartment along with a fluid-filled blister overlying. Ecchymosis involving the medial and the lateral aspects of the knee. No close puncture wound noted to underlying prosthetic knee. Patient states he has been unable to bear weight on the knee since taking the fall X-ray of the knee without any acute fracture or dislocation Will consult orthopedics for further management, assess for any underlying hemarthrosis, no this is X-ray did not show any joint space swelling. (3) Fall: Recurrent falls which appear to be syncope per patient description Patient appears to be significantly deconditioned. Will obtain PT OT assessment. (4) Knee swelling: Left knee swelling as noted above, consult orthopedics (5) Chronic foot ulcer: Chronic foot ulcer over the left plantar aspect. Unchanged to the previously Patient states this has been attributed to poor peripheral circulation in the past No gross signs of infection at the site currently. Will arrange outpatient follow-up (6) Humerus fracture: Fracture of the humerus sustained on February 04, 2025 Consult orthopedics as above Please sling left arm. (7) Sleep apnea: CPAP ordered for nighttime use Plan DVT prophylaxis: Lovenox DNR/DNI as expressed by patient February 07, 2025 Add as needed tramadol for pain management. Patient states he does not do well with opiates as it makes him very easily confused. Noted to have soft blood pressures for which Lasix and Entresto have been held for now. Evaluated by orthopedics today. Appreciate recommendations. CT of the knee without any fractures or dislocation. Noted medial hematoma. Awaiting echocardiogram and carotid Doppler. No arrhythmias encountered on telemetry thus far. February 08, 2025 Pain is controlled on a combination of tramadol and Toradol. Holding Entresto in view of soft blood pressure ranging between 95-[address] of the knee without any fracture or dislocation. Appreciate orthopedics assessment. No current surgical intervention. Ordered for PT OT, encourage out of bed. At baseline his states that patient is able to manage his ADLs. Able to walk to the bathroom, independently able to get to the kitchen, fix himself a meal and ate. Hemoglobin down to 8.2 today. He has not had a bowel movement since last week. Will add stool softeners and check FOBT. Additionally check iron panel vitamin B12 folate levels. Possibly drop in hemoglobin may be related to the hematoma that is noted around the knee. Will hold Lovenox for now to minimize risk of enlarging of her hematoma. Will obtain CT abdomen to assess for any hemoperitoneum. Suspect that his syncopal episodes at home may be related to orthostatic hypotension. Orthostatic vital signs have not been obtained as patient has not been able to stand thus far. He has been laying in bed since admission. Carotid without any hemodynamically significant stenosis. Without any hemodynamically significant stenosis. No encountered arrhythmias on telemetry. Echocardiogram shows an EF of 60 to 65% with grade 1 diastolic dysfunction. Encourage compliance with CPAP as placed at bedside. 02/09/2025 Hemoglobin 7.6 today. FOBT pending Iron panel B12 folate levels, ferritin pending CT abdomen pelvis negative for retroperitoneal bleed. No hemoperitoneum noted. BP stable Carotid Doppler negative for significant stenosis. EF 60 to 65% with grade 1 diastolic dysfunction. Continue to hold Entresto Appreciate orthopedic opinion. PDMP PDMP Reviewed: Not Reviewed Attestations 2 Medical Necessity Statement*: Requires continued hospitalization secondary to new onset anemia. Further workup pending. Diagnoses Recurrent syncope R55 Knee injury S89.90XA Fall W19.XXXA Knee swelling M25.469 Chronic foot ulcer L97.509 Humerus fracture S42.309A Sleep apnea G47.30
[2025-02-09 15:57] LABS: Basophils % 0.3 %; Eosinophils # 0.2 10^3/uL (0.0-0.8); Hematocrit 24.2 % (37-53); Lymphocytes # 1.1 10^3/uL (0.8-4.8); Lymphocytes % 13.3 %; Mean Corpuscular HGB Conc 31.8 g/dL (30-55); Mean Corpuscular Hemoglobin 30.7 pg (27-33); Mean Corpuscular Volume 96.4 fl (82-101); Mean Platelet Volume 9.3 fL (7.4-10.4); Monocytes # 0.7 10^3/uL (0.2-0.9); Neutrophils # 5.93 10^3/uL (1.8-7.7); Nucleated Red Blood Cells % 0 %; Platelet Count 228 10^3/cmm (157-399); Red Blood Count 2.51 10^6/uL (3.85-5.65)
[2025-02-09 16:28] LABS: Glucose Point of Care 140 mg/dL (70-110)
[2025-02-09 20:49] LABS: Glucose Point of Care 168 mg/dL (70-110)
[2025-02-10] VITALS (11 sets, daily range): BP systolic 99–123; BP diastolic 62–67; PULSE 65–86; RESP 16–18; TEMP 36.6–36.9; O2SAT 93–98
[2025-02-10 05:01] LABS: Basophils % 0.4 %; Eosinophils # 0.3 10^3/uL (0.0-0.8); Eosinophils % 3.4 %; Lymphocytes # 1.2 10^3/uL (0.8-4.8); Lymphocytes % 13.7 %; Mean Corpuscular HGB Conc 32.5 g/dL (30-55); Mean Corpuscular Hemoglobin 31.5 pg (27-33); Mean Corpuscular Volume 96.8 fl (82-101); Mean Platelet Volume 9.3 fL (7.4-10.4); Monocytes # 0.6 10^3/uL (0.2-0.9); Monocytes % 7.5 %; Neutrophils # 6.38 10^3/uL (1.8-7.7); Neutrophils % 74.5 %; Nucleated Red Blood Cells % 0 %; Platelet Count 265 10^3/cmm (157-399); Red Blood Count 2.48 10^6/uL (3.85-5.65); Red Cell Distribution Width 13.9 % (12.1-15.1); White Blood Count 8.55 10^3/uL (3.29-11.43)
[2025-02-10 05:42] LABS: Alanine Aminotransferase 18 U/L (0-41); Albumin Level 2.7 g/dL (3.5-5.2); Alkaline Phosphatase 72 U/L (40-130); Aspartate Amino Transferase 24 U/L (0-40); Blood Urea Nitrogen 47 mg/dL (8-23); Calcium 8.6 mg/dL (8.5-10.5); Carbon Dioxide 27 mmol/L (22-29); Chloride 96 mmol/L (98-107); Creatinine Clr Calc Pharmacy 78.5423; Globulin 3.4 g/dL (1.3-4.6); Glucose 129 mg/dL (65-115); Magnesium 2.2 mg/dL (1.7-2.3); Osmolality Calculated 286 mOsm/kg (285-295); Sodium 131 mmol/L (136-145); Total Bilirubin 0.5 mg/dL (0.15-1.2); Total Protein 6.1 g/dL (6.6-8.7)
[2025-02-10 06:34] LABS: Glucose Point of Care 145 mg/dL (70-110)
[2025-02-10] MEDS: insulin lispro 100 unit/1 mL SUBCUT ×3 (08:35→21:01)
[2025-02-10] MEDS: FUROsemide 40 mg Tablet PO (08:36)
[2025-02-10] MEDS: TRAMadol 50 mg Tablet PO (08:36)
[2025-02-10] MEDS: pantoprazole DR 40 mg Tablet PO (08:36)
[2025-02-10] MEDS: clopidogrel 75 mg Tablet PO (08:36)
[2025-02-10] MEDS: atorvastatin 40 mg Tablet PO (08:36)
[2025-02-10] MEDS: carvedilol 3.125 mg Tablet PO ×2 (08:36→17:40)
[2025-02-10] MEDS: aspirin 81 mg EC Tablet PO (08:37)
[2025-02-10] MEDS: tamsulosin 0.4 mg Capsule PO (08:37)
[2025-02-10] MEDS: finasteride 5 mg Tablet PO (08:37)
[2025-02-10] MEDS: duloxetine 30 mg Capsule PO ×2 (08:37→17:40)
[2025-02-10] MEDS: albuterol 2.5 mg/3 mL Neb INHALATION ×2 (08:39→20:20)
--- NOTE | 2025-02-10 09:37 | PC.CHAP ---
Pastoral Care Encounter/Spiritual Assessment Type of Contact [] Declined wirer helper visit [] Patient/Family/Request visit [] Outpatient visit [] Follow-up visit [] Physician referral [] Code/Alert [] Routine visit [] Staff referral [] Actively dying [x] Patient sleeping [x] Family support [] [] Out of room [] Palliative care [] [] Receiving care in room [] Pre-surgical visit [] Trauma [] Long length of stay [] ICU visit [] Other: Relational/Emotional Strength [] Patient feels connected with others/family/visitors/staff [] Distress [] Loneliness/isolation [] Abandonment Spirituality of Patient [] Person of Donna [] Attends Mandaen of their Donna [] Believes in Prayer [] Reads Bible or Jehovah'S Witness materials [] There are Spiritual issues to be addressed Utility Bagger Interventions [x] Prayer [] Active listening [x] Non-anxious presence [x] Spiritual/emotional support [] Crisis/trauma care [] Spiritual counseling [] Bereavement support [] Provided bereavement packet [] Provided Bible/devotional materials [] Provided toy/stuffed animal, coloring book to patient or family member [] Provided Communion [] Anointing/[place] [] Salvation [x] Completed spiritual assessment [] Other: Impact on Illness or Injury [] Angry [] Fearful [] Anxious [] Often cries [] Exhaustion [] Unable to work [] Unable to attend sikh [] Unable to walk/stand [] Unable to read [] Unable to drive [] Unable to eat/drink [] Unable to sleep [] Unable to be with family [] Patient intubated [] Other: Summary Time spent with patient 5 min
[2025-02-10] MEDS: neomycin-poly-bacitracin oint 28 gm 1 APPLIC TOPICAL (09:41)
--- NOTE | 2025-02-10 11:26 | PM.PN ---
Subjective Subjective: Seen this morning. Laying in bed. at bedside. She states that he normally sleeps in a recliner and has been uncomfortable all night. He also complains of pain in his left arm and left knee. Hemoglobin slightly improved to 7.8 today. Vitals/I&O/Wt Last Vital Signs Temp 98.1 F 02/10/25 08:00 Pulse 79 02/10/25 08:51 Resp 18 02/10/25 08:40 BP 108/66 02/10/25 08:00 Pulse Ox 98 02/10/25 08:40 O2 Del Method Nasal Cannula 02/10/25 08:40 O2 Flow Rate 2 02/10/25 08:40 02/09/25 02/10/25 02/10/25 22:59 06:59 14:59 Intake Total 360 / 840 240 / 240 Output Total 100 / 300 Balance 260 / 540 240 / 240 Weight last 48 hrs Weight 138.799 kg Weight 141.152 kg Physical Exam Narrative: General: AO x3 HEENT: PERRLA, pupils bilaterally equal and reactive, pallors not present Chest: Normal vesicular breath sounds, no added sounds, equal good air entry bilaterally, left arm sling in place. CVS: S1-S2 regular, no murmurs, no tachycardia, no gallops, no rubs Abdomen: Soft, nontender, no organomegaly, bowel sounds present Neuro: No focal deficits, generalized weakness and deconditioining noted Data 02/10/25 04:31 02/10/25 04:31 A&P Assessment and plan (1) Recurrent syncope: 84-year-old male with multiple comorbidities as listed above presenting to the hospital with recurrent syncope over the past 3 days. Patient states he is able to feel palpitations and the dizziness before he takes a fall. Will admit to [facility] Telemetry monitoring to assess for any underlying arrhythmias which may be contributing to his syncope. CT head taken today in the emergency room without any intracranial events. No acute fracture or dislocation of the C-spine. Obtain carotid Doppler bilateral and also echocardiogram as suspecting cardiogenic syncope. Obtain orthostatics. (2) Knee injury: Noted to have bruising around the left knee especially the medial compartment along with a fluid-filled blister overlying. Ecchymosis involving the medial and the lateral aspects of the knee. No close puncture wound noted to underlying prosthetic knee. Patient states he has been unable to bear weight on the knee since taking the fall X-ray of the knee without any acute fracture or dislocation Will consult orthopedics for further management, assess for any underlying hemarthrosis, no this is X-ray did not show any joint space swelling. (3) Fall: Recurrent falls which appear to be syncope per patient description Patient appears to be significantly deconditioned. Will obtain PT OT assessment. (4) Knee swelling: Left knee swelling as noted above, consult orthopedics (5) Chronic foot ulcer: Chronic foot ulcer over the left plantar aspect. Unchanged to the previously Patient states this has been attributed to poor peripheral circulation in the past No gross signs of infection at the site currently. Will arrange outpatient follow-up (6) Humerus fracture: Fracture of the humerus sustained on February 04, 2025 Consult orthopedics as above Please sling left arm. (7) Sleep apnea: CPAP ordered for nighttime use Plan DVT prophylaxis: Lovenox DNR/DNI as expressed by patient February 07, 2025 Add as needed tramadol for pain management. Patient states he does not do well with opiates as it makes him very easily confused. Noted to have soft blood pressures for which Lasix and Entresto have been held for now. Evaluated by orthopedics today. Appreciate recommendations. CT of the knee without any fractures or dislocation. Noted medial hematoma. Awaiting echocardiogram and carotid Doppler. No arrhythmias encountered on telemetry thus far. February 08, 2025 Pain is controlled on a combination of tramadol and Toradol. Holding Entresto in view of soft blood pressure ranging between 95-[address] of the knee without any fracture or dislocation. Appreciate orthopedics assessment. No current surgical intervention. Ordered for PT OT, encourage out of bed. At baseline his states that patient is able to manage his ADLs. Able to walk to the bathroom, independently able to get to the kitchen, fix himself a meal and ate. Hemoglobin down to 8.2 today. He has not had a bowel movement since last week. Will add stool softeners and check FOBT. Additionally check iron panel vitamin B12 folate levels. Possibly drop in hemoglobin may be related to the hematoma that is noted around the knee. Will hold Lovenox for now to minimize risk of enlarging of her hematoma. Will obtain CT abdomen to assess for any hemoperitoneum. Suspect that his syncopal episodes at home may be related to orthostatic hypotension. Orthostatic vital signs have not been obtained as patient has not been able to stand thus far. He has been laying in bed since admission. Carotid without any hemodynamically significant stenosis. Without any hemodynamically significant stenosis. No encountered arrhythmias on telemetry. Echocardiogram shows an EF of 60 to 65% with grade 1 diastolic dysfunction. Encourage compliance with CPAP as placed at bedside. 02/09/2025 Hemoglobin 7.6 today. FOBT pending Iron panel B12 folate levels, ferritin pending CT abdomen pelvis negative for retroperitoneal bleed. No hemoperitoneum noted. BP stable Carotid Doppler negative for significant stenosis. EF 60 to 65% with grade 1 diastolic dysfunction. Continue to hold Entresto Appreciate orthopedic opinion. 02/11/2025 Hemoglobin 7.8 today. Up from 7.6 yesterday. Seeing a slight upward trend. If hemoglobin continues to trend upwards by tomorrow may consider discharge to nursing facility Will discuss with Dr. Pavon to reevaluate left knee as appears to be more swollen today. Will check x-ray left knee 3 views. Patient complains of pain in left arm. Recently received pain medication. Sling readjusted. Patient sleeps in a recliner usually. Discussed with nursing staff to place a recliner in the room to make him more comfortable. Patient was restless all night and could not sleep due to positioning in bed. At this time he would like to rest and is sleepy. is at bedside. Blood pressure soft. I would continue to hold Entresto at this time and to evaluate patient as an outpatient with cardiology follow-up for restart. Order Lasix 40 IV x 1 today. Patient does have history of diastolic heart failure. Carotid Doppler negative for significant stenosis. EF 60 to 65% with grade 1 diastolic dysfunc PDMP PDMP Reviewed: Not Reviewed Attestations Medical Necessity Statement*: Continue monitoring hemoglobin today and reevaluate left knee. Diagnoses Recurrent syncope R55 Knee injury S89.90XA Fall W19.XXXA Knee swelling M25.469 Chronic foot ulcer L97.509 Humerus fracture S42.309A Sleep apnea G47.30
--- NOTE | 2025-02-10 11:38 | CT_ITS ---
WS: [id number] Noncontrast CT LEFT knee TECHNIQUE: Noncontrast CT LEFT knee with coronal and sagittal reformatted images. CLINICAL INFORMATION: knee effusion, trauma COMPARISON: 02/07/2025 DLP: 361.[address] scans at [facility] use at least one of these dose optimization techniques: automated exposure control; mA and/or kV adjustment per patient size (includes targeted exams where dose is matched to clinical indication); or iterative reconstruction. FINDINGS: LEFT TKA. TKA results in beam hardening artifact which limits detailed evaluation No evidence of hardware loosening. No acute fractures. Osteopenia. Vascular calcification. Diffuse muscular atrophy is unchanged. No significant joint effusion. Subcutaneous edema with skin thickening. Soft tissue hematoma involving the medial distal femur and joint line soft tissues. This does not appear remarkably changed compared to 02/07/2025. This appears slightly increased in size on some images compared to previous with the same configuration extending over the tibial tubercle anteriorly. CT/CT knee LT wo con* [id number] IMPRESSION: 1. TKA degrades images. 2. No visualized fractures considering limitations from beam hardening artifac t 3. Diffuse advanced muscular atrophy. 4. Soft tissue hematoma is similar in configuration compared to previous, this measures slightly increased in size on some images but otherwise not significa ntly changed.
--- NOTE | 2025-02-10 11:55 | PC.NURSE ---
it project coordinator rounds @ 1020- stroke looks to be ruled out but visited with patient and and gave her the stroke education book.
[2025-02-10 12:10] LABS: Glucose Point of Care 140 mg/dL (70-110)
[2025-02-10] MEDS: FUROsemide 10 mg/mL SDV 4mL 40 MG IVP (14:54)
[2025-02-10 16:38] LABS: Glucose Point of Care 149 mg/dL (70-110)
[2025-02-10] MEDS: ketorolac 30 mg/mL INJ 15 MG IVP (17:40)
[2025-02-10 20:32] LABS: Glucose Point of Care 196 mg/dL (70-110)
[2025-02-11] VITALS (7 sets, daily range): BP systolic 102–111; BP diastolic 5–75; PULSE 69–82; RESP 16–18; TEMP 36.6–37.1; O2SAT 93–98
[2025-02-11] MEDS: ketorolac 30 mg/mL INJ 15 MG IVP (01:06)
[2025-02-11 06:20] LABS: Basophils % 0.4 %; Eosinophils # 0.2 10^3/uL (0.0-0.8); Eosinophils % 3.3 %; Lymphocytes # 1.6 10^3/uL (0.8-4.8); Lymphocytes % 22.4 %; Mean Corpuscular Hemoglobin 30.8 pg (27-33); Mean Corpuscular Volume 96.2 fl (82-101); Mean Platelet Volume 9.2 fL (7.4-10.4); Monocytes # 0.9 10^3/uL (0.2-0.9); Neutrophils # 4.26 10^3/uL (1.8-7.7); Neutrophils % 60.6 %; Nucleated Red Blood Cells % 0 %; Platelet Count 265 10^3/cmm (157-399); Red Cell Distribution Width 13.7 % (12.1-15.1); White Blood Count 7.02 10^3/uL (3.29-11.43)
[2025-02-11 06:38] LABS: Alanine Aminotransferase 20 U/L (0-41); Albumin Level 2.6 g/dL (3.5-5.2); Alkaline Phosphatase 74 U/L (40-130); Anion Gap 11.5 (5-19); Aspartate Amino Transferase 24 U/L (0-40); Blood Urea Nitrogen 49 mg/dL (8-23); Calcium 9.1 mg/dL (8.5-10.5); Carbon Dioxide 27 mmol/L (22-29); Chloride 96 mmol/L (98-107); Creatinine Clr Calc Pharmacy 77.6382; Globulin 3.6 g/dL (1.3-4.6); Glucose 119 mg/dL (65-115); Magnesium 2.2 mg/dL (1.7-2.3); Osmolality Calculated 284 mOsm/kg (285-295); Potassium 4.5 mmol/L (3.5-5.1); Sodium 130 mmol/L (136-145); Total Bilirubin 0.7 mg/dL (0.15-1.2); Total Protein 6.2 g/dL (6.6-8.7)
[2025-02-11 06:44] LABS: Glucose Point of Care 135 mg/dL (70-110)
--- NOTE | 2025-02-11 07:52 | PM.DCS ---
Discharge Providers Date of Admission: 02/06/25 15:48 Date of Discharge: February 11, 2025 Attending Provider at Admission: Tamra Danielle MD Attending Provider at Discharge: Kathrin Montgomery MD Primary Care Provider: NILES Orr Diagnoses at Discharge Discharge Diagnosis (1) Recurrent syncope: Status: Acute (2) Knee injury: Status: Acute (3) Fall: Status: Acute (4) Knee swelling: Status: Acute (5) Chronic foot ulcer: Status: Acute (6) Humerus fracture: Status: Acute (7) Sleep apnea: Status: Acute Reason for Visit Reason for Visit: fall, weakness Hospital Course Hospital Course Patient presented to the hospital with recurrent syncope which was most likely secondary to the orthostatic hypotension. His medications were adjusting during hospital stay. We stopped Entresto, tamsulosin, Coreg. He was placed on metoprolol to tartrate 12.5 twice daily. Secondary to his syncopal episode he sustained a fall causing knee injury with hematoma for which CT knee was done twice and it did not show further progression. On day of discharge patient was able to stand at the bedside and bear weight on that side. His hemoglobin did drop down to 7.7 range most likely secondary to hematoma. CT abdomen pelvis was done which ruled out retroperitoneal or hemoperitoneum. Hemoglobin is stable and trending upwards at this point. Patient suffered a humerus fracture. Management to be nonoperable at this time and patient placed in sling. Orthopedic surgery consulted on the patient. He is to follow-up with them as an outpatient within 7 to 10 days. Carotid Dopplers were negative for stenosis. Lasix 40 daily as needed continued. Echo showed EF 6065% with grade 1 diastolic dysfunction. I also stopped patient's glimepiride. Patient will be discharged to a nursing facility for rehab. Patient quite deconditioned. Stable at time of discharge today. Patient will need close follow-up with PCP going forward. Physical Exam Narrative: General: AO x3 HEENT: PERRLA, pupils bilaterally equal and reactive, pallors not present Chest: Normal vesicular breath sounds, no added sounds, equal good air entry bilaterally, left arm sling in place. CVS: S1-S2 regular, no murmurs, no tachycardia, no gallops, no rubs Abdomen: Soft, nontender, no organomegaly, bowel sounds present Neuro: No focal deficits, generalized weakness and deconditioining noted Discharge Data Studies Completed and Pending Completed Studies During Hospitalization Category Date Time Status CT abdomen pelvis wo con [id number] Routine Cat Scan 02/08/25 18:[address] head thrombolytic [id number] Stat Cat Scan 02/06/25 13:[address] knee LT wo con* [id number] Routine Cat Scan 02/07/25 09:[address] knee LT wo con* [id number] Urgent Cat Scan 02/10/25 11:[address] lumbar spine wo con* [id number] Stat Cat Scan 02/06/25 13:[address] thoracic spin wo con* [id number] Stat Cat Scan 02/06/25 13:21 Completed XR chest 1V portable [id number] Stat Exams 02/06/25 13:21 Completed XR knee LT 3V* [id number] Stat Exams 02/06/25 13:29 Completed XR shoulder LT min 2V* [id number] Routine Exams 02/07/25 09:30 Completed CV carotid duplex BI* [id number] Routine Ultrasound 02/08/25 10:42 Completed CV. echo wo/w contrast [id number] Routine Ultrasound 02/08/25 10:42 Completed US renal BI* [id number] Routine Ultrasound 02/09/25 08:46 Completed Pending at discharge Category Date Time Status Fecal Occult Blood [Immunochemical Fecal OCB] Routine Lab 02/08/25 08:42 Uncollected Radiology Impressions Chest X-Ray 02/06/25 13:21 IMPRESSION: 1. Moderate enlarged cardiac silhouette. 2. Mild interstitial pulmonary edema versus infiltrates. 3. Chronic findings. Head CT 02/06/25 13:21 Impression: Mild cerebral atrophy. Lumbar Spine CT 02/06/25 13:21 Impression: 1. Negative for compression fracture. 2. Osteoarthritis, osteoporosis and multilevel degenerative disc narrowing. Thoracic Spine CT 02/06/25 13:21 Impression: Negative for thoracic spine fracture. Knee X-Ray 02/06/25 13:29 Impression: Left knee arthroplasty unchanged. Shoulder X-Ray 02/07/25 09:30 IMPRESSION: 1. Comminuted fractures involving the proximal left humerus, as described above. 2. Moderate enlarged cardiac silhouette. Decreased lung volumes. 3. Severe degenerative changes involving the left AC joint. Severe decreased bone density. Carotid Doppler Study 02/08/25 10:42 IMPRESSION: No hemodynamically significant stenosis. REFERENCES: SRU CRITERIA. The degree of internal carotid artery stenosis is based on criteria defined by the Society of Radiologists in Ultrasound (SRU). Normal is no stenosis. Mild is less than 50% stenosis. Moderate is 50-69% stenosis. Severe is greater than 69% stenosis to near occlusion. Near occlusion is a markedly narrowed lumen. Total occlusion is no detectable patent lumen. Abdomen/Pelvis CT 02/08/25 18:25 IMPRESSION: 1. Negative for a focal acute inflammatory process in the abdomen or pelvis. 2. Bibasilar atelectasis versus minimal infiltrate. 3. Cholecystectomy. 4. Perinephric edema bilaterally likely reflecting renal insufficiency, please correlate for pyelonephritis. 5. Constipation. 6. Diverticulosis without diverticulitis. 7. Right kidney upper pole 13.8 mm hyperdense lesion likely reflecting a proteinaceous cyst, correlation with ultrasound advised. COMMENTS: Consistent with the [employer]'s Incidental Findings Committee white paper (J Am Pk Radiol 2018): Any incidental renal lesion less than 1 cm or classified as too small to characterize, or any incidental cystic renal lesion characterized as simple-appearing, is likely benign. No follow-up imaging is recommended for these lesions per consensus recommendations based on imaging criteria. Renal Ultrasound 02/09/25 08:46 IMPRESSION: 1. Bilateral renal cortical atrophy with medical renal disease 2. No hydronephrosis. 3. LEFT inferior pole renal cyst measuring 2.9 x 2.8 cm 4. Small increased attenuation lesion upper pole RIGHT kidney too small to visualize on this study but most likely a proteinaceous or hemorrhagic cyst based on CT findings. Knee CT 02/10/25 11:38 IMPRESSION: 1. TKA degrades images. 2. No visualized fractures considering limitations from beam hardening artifact 3. Diffuse advanced muscular atrophy. 4. Soft tissue hematoma is similar in configuration compared to previous, this measures slightly increased in size on some images but otherwise not significantly changed. Laboratory Results WBC 7.02 10^3/uL (3.29-11.43) 02/11/25 05:45 RBC 2.60 10^6/uL (3.85-5.65) L 02/11/25 05:45 Hgb 8.00 g/dL (11.27-16.99) L 02/11/25 05:45 Hct 25.0 % (37-53) L 02/11/25 05:45 MCV 96.2 fl (82-101) 02/11/25 05:45 MCH 30.8 pg (27-33) 02/11/25 05:45 MCHC 32.0 g/dL (30-55) 02/11/25 05:45 RDW 13.7 % (12.1-15.1) 02/11/25 05:45 Plt Count 265 10^3/cmm (157-399) 02/11/25 05:45 MPV 9.2 fL (7.4-10.4) 02/11/25 05:45 Neut % (Auto) 60.6 % 02/11/25 05:45 Lymph % (Auto) 22.4 % 02/11/25 05:45 [place] % (Auto) 13.0 % 02/11/25 05:45 Eos % (Auto) 3.3 % 02/11/25 05:45 Baso % (Auto) 0.4 % 02/11/25 05:45 Neut # (Auto) 4.26 10^3/uL (1.8-7.7) 02/11/25 05:45 Lymph # (Auto) 1.6 10^3/uL (0.8-4.8) 02/11/25 05:45 [place]clean # (Auto) 0.9 10^3/uL (0.2-0.9) 02/11/25 05:45 Eos # (Auto) 0.2 10^3/uL (0.0-0.8) 02/11/25 05:45 Baso # (Auto) 0.0 10^3/uL (0.0-0.1) 02/11/25 05:45 Nucleated RBC % (auto) 0 % 02/11/25 05:45 Nucleated RBCs # 0.0 /100WBC 02/11/25 05:45 Sodium 130 mmol/L (136-145) L 02/11/25 05:45 Potassium 4.5 mmol/L (3.5-5.1) 02/11/25 05:45 Chloride 96 mmol/L (98-107) L 02/11/25 05:45 Carbon Dioxide 27 mmol/L (22-29) 02/11/25 05:45 Anion Gap 11.5 (5-19) 02/11/25 05:45 BUN 49 mg/dL (8-23) H 02/11/25 05:45 Creatinine 1.0 mg/dL (0.7-1.2) 02/11/25 05:45 GFR Calculation Not Reportable 02/11/25 05:45 Glucose 119 mg/dL (65-115) H 02/11/25 05:45 POC Glucose 135 mg/dL (70-110) H 02/11/25 06:25 Calculated Osmolality 284 mOsm/kg (285-295) L 02/11/25 05:45 Calcium 9.1 mg/dL (8.5-10.5) 02/11/25 05:45 Magnesium 2.2 mg/dL (1.7-2.3) 02/11/25 05:45 Iron 20 ug/dL (59-158) L 02/09/25 03:25 TIBC 183 mcg/dl 02/09/25 03:25 % Saturation 10.9 % (20-50) L 02/09/25 03:25 Unsat Iron Binding 163 ug/dL (112-347) 02/09/25 03:25 Ferritin 86 ng/mL (30-400) 02/09/25 03:25 Total Bilirubin 0.7 mg/dL (0.15-1.2) 02/11/25 05:45 AST 24 U/L (0-40) 02/11/25 05:45 ALT 20 U/L (0-41) 02/11/25 05:45 Alkaline Phosphatase 74 U/L (40-130) 02/11/25 05:45 Creatine Kinase 71 U/L (39-308) 02/06/25 13:37 Troponin T Baseline 24 ng/L (0-15) H 02/06/25 16:58 Troponin T 120 Minute 23.13 ng/L (0-15) H 02/06/25 18:47 Delta Troponin T -0.87 ABS# (0-10) L 02/06/25 18:47 Troponin T Hi Sens 6Hr 24.12 ng/L (0-15) H 02/06/25 23:02 Troponin T Hi Sens 6Hr Delta 0.12 ng/L (0-12) 02/06/25 23:02 C-Reactive Protein 58.1 mg/L (0.0-4.9) H 02/06/25 16:58 Total Protein 6.2 g/dL (6.6-8.7) L 02/11/25 05:45 Albumin 2.6 g/dL (3.5-5.2) L 02/11/25 05:45 Globulin 3.6 g/dL (1.3-4.6) 02/11/25 05:45 Vitamin B12 401 pg/mL (232-1245) 02/09/25 03:25 Folate 19.4 ng/mL (4.5-32.2) 02/09/25 03:25 TSH 3.95 uIU/mL (0.27-4.20) 02/06/25 13:37 Urine Color Dark yellow (Yellow) A 02/06/25 14:50 Urine Appearance Clear (CLEAR) 02/06/25 14:50 Urine pH 5.5 (5-7) 02/06/25 14:50 Ur Specific [place] 1.023 (1.005-1.030) 02/06/25 14:50 Urine Protein Trace (Negative) A 02/06/25 14:50 Urine Glucose (UA) Negative (Normal) 02/06/25 14:50 Urine Ketones Negative (Negative) 02/06/25 14:50 Urine Blood Negative (Negative) 02/06/25 14:50 Urine Nitrate Negative (Negative) 02/06/25 14:50 Urine Bilirubin Negative (Negative) 02/06/25 14:50 Urine Urobilinogen 1.0 mg/dL (Negative) 02/06/25 14:50 Ur Leukocyte Esterase 2+ (Negative) A 02/06/25 14:50 Urine RBC 0-2 /hpf (0-2) 02/06/25 14:50 Urine WBC 6-10 /hpf (0-5) 02/06/25 14:50 Ur Squamous Epith Cells 0-5 /hpf (0-5) 02/06/25 14:50 Amorphous Sediment Not Reportable 02/06/25 14:50 Urine Bacteria 1+ /hpf (NONE) H 02/06/25 14:50 Hyaline Casts 5.36 /lpf 02/06/25 14:50 Coarse Granular Casts 0-4 /lpf H 02/06/25 14:50 Blood Type O Positive 02/09/25 15:37 Rho(D) Type Rh positive 02/09/25 15:37 Antibody Screen Negative 02/09/25 15:37 Vitals Last Vital Signs Temp 97.9 F 02/11/25 07:28 Pulse 74 02/11/25 07:28 Resp 16 02/11/25 07:28 BP 111/75 02/11/25 07:28 Pulse Ox 93 02/11/25 07:28 O2 Del Method Room Air 02/11/25 07:28 O2 Flow Rate 2 02/10/25 20:23 Discharge Plan Discharge Patient Disposition: Xfer SNF Condition: Stable Prescriptions: New tramadol 50 mg Tablet 50 mg PO Q8H PRN (Reason: Moderate Pain) Qty: 12 0RF metoprolol tartrate 25 mg tablet 12.5 mg PO BID Qty: 30 0RF Continued multivitamin [Daily Multi-Vitamin] Tablet 1 tab PO QAM ascorbate calcium (vitamin C) 500 mg tablet 500 mg PO DAILY cholecalciferol (vitamin D3) 25 mcg (1,000 unit) capsule 25 mcg PO DAILY mupirocin 2 % ointment 1 applic topical BID Qty: 22 0RF ketoconazole 2 % shampoo 1 applic topical .Twice weekly Qty: 120 6RF Rx Instructions: Lather into scalp 2 times weekly. Allowed to sit on scalp for 5 minutes before rinsing. albuterol sulfate 2.5 mg /3 mL (0.083 %) solution for nebulization 2.5 mg inhalation Q4H PRN (Reason: shortness of breath or wheezing) Qty: 75 0RF albuterol sulfate 90 mcg/actuation HFA aerosol inhaler 2 puff inhalation QID PRN (Reason: shortness of breath or wheezing) Qty: 6.7 2RF atorvastatin 40 mg tablet 40 mg PO DAILY Qty: 90 1RF (DME) OneTouch Verio test strips Strip See Rx Instructions .Route Qty: 300 4RF Rx Instructions: use 3 times day clopidogrel [Plavix] 75 mg tablet 75 mg PO DAILY Qty: 90 1RF duloxetine [Cymbalta] 30 mg capsule,delayed release(DR/EC) 30 mg PO BID Qty: 180 1RF finasteride [Proscar] 5 mg tablet 5 mg PO DAILY Qty: 90 1RF fluticasone propion-salmeterol [Advair Diskus] 250-50 mcg/dose blister with device 1 inh inhalation Q12H Qty: 180 1RF montelukast [Singulair] 10 mg tablet 10 mg PO DAILY Qty: 90 1RF pantoprazole 20 mg tablet,delayed release (DR/EC) 20 mg PO DAILY Qty: 90 1RF furosemide 40 mg tablet 40 mg PO DAILY PRN (Reason: edema) Qty: 30 6RF (DME) lancets [OneTouch Delica Plus Lancet] 33 gauge misc See Rx Instructions .Route Qty: 300 4RF Rx Instructions: use one lancet 3 times day vitamin E (dl, acetate) 90 mg (200 unit) Capsule 90 mg PO DAILY ketoconazole 2 % cream 1 applic topical BID PRN (Reason: Rash) Rx Instructions: Apply to red scaly areas of the face 1-2 times daily aspirin 81 mg Tablet,Delayed Release (Dr/Ec) 81 mg PO DAILY triamcinolone acetonide 0.1 % cream 1 applic TOPICAL DAILY PRN (Reason: Skin Irritation) vitamin B complex Tablet 1 tab PO DAILY metformin 500 mg tablet extended release 24 hr 500 mg PO BID Held tamsulosin [Flomax] 0.4 mg capsule 0.4 mg PO DAILY Qty: 90 1RF Hold Instructions: orthostatic hypotension Mounjaro 12.5 mg/0.5 mL pen injector 12.5 mg SUBCUT .weekly Qty: 6 1RF Hold Instructions: see pcp Discontinued glimepiride 2 mg tablet 2 mg PO QAM Qty: 90 1RF Rx Instructions: administer with breakfast Entresto 24-26 mg tablet 1 tab PO BID Qty: 180 1RF potassium chloride 20 mEq tablet extended release 20 meq PO DAILY PRN (Reason: Take with Lasix) Qty: 30 6RF carvedilol 3.125 mg tablet 3.125 mg PO BID Qty: 180 3RF doxycycline hyclate 100 mg capsule 100 mg PO BID Discharge Orders: Discharge Order (Routine); Ordered 02/11/25 Ordered By: Kathrin Montgomery Other Ambulatory Orders: Basic Metabolic Panel (Routine) Timeframe: 3 Days Facility: [facility] - Location: Lab - Main Lab Ordered By: Kathrin Montgomery Complete Blood Count w/Auto (Routine) Timeframe: 3 Days Location: Determined by Patient Ordered By: Kathrin Montgomery Referrals: Eliseo Mcclendon MD [Physician, Cardiology] - 02/23/25 3:30 pm Referral Note: With Lloyd Quintero FNP-C [Primary Care Provider, [facility]] - 1-3 days Vinod Pavon DO [Physician, Orthopedics] - 2 weeks Referral Note: 1 to 2 weeks upon discharge Discharge Diet: Cardiac and Diabetic Discharge Activity: As per PT/OT instructions and Oxygen as instructed Patient Instructions: Metoprolol (By mouth), Tramadol (By mouth), Opioid Safety, Pain Management Activity Restrictions/Additional Instructions: Orthopedic discharge instructions: Left shoulder fracture?nonweightbearing left upper extremity, continue utilize sling, no active range of motion or passive range of motion of the shoulder Ice shoulder as needed for pain and swelling Encourage finger range of motion and elbow range of motion Left lower extremity Continue with 1-2 times a day Vaseline gauze changes over left knee, recommend continued compressive Neo wrap Continue ice as needed for pain and swelling Encourage knee range of motion and may weight-bear as tolerated to the left lower extremity Follow-up with orthopedics in 1 to 2 weeks upon discharge Contact the orthopedic office for any questions or concerns Discharge Attestations Time Spent in Discharge Care*: greater than 30 min Quality Metrics Clinical Quality Measures [ No reported AMI, CVA or VTE this stay] Coding Level of Care Code Acute Code for Chg Fwd Diagnoses Recurrent syncope R55 Knee injury S89.90XA Fall W19.XXXA Knee swelling M25.469 Chronic foot ulcer L97.509 Humerus fracture S42.309A Sleep apnea G47.30
[2025-02-11] MEDS: neomycin-poly-bacitracin oint 28 gm 1 APPLIC TOPICAL (07:57)
[2025-02-11] MEDS: pantoprazole DR 40 mg Tablet PO (07:58)
[2025-02-11] MEDS: finasteride 5 mg Tablet PO (07:58)
[2025-02-11] MEDS: duloxetine 30 mg Capsule PO (07:58)
[2025-02-11] MEDS: tamsulosin 0.4 mg Capsule PO (07:58)
[2025-02-11] MEDS: aspirin 81 mg EC Tablet PO (07:58)
[2025-02-11] MEDS: TRAMadol 50 mg Tablet PO (07:59)
[2025-02-11] MEDS: atorvastatin 40 mg Tablet PO (07:59)
[2025-02-11] MEDS: carvedilol 3.125 mg Tablet PO (08:02)
[2025-02-11] MEDS: clopidogrel 75 mg Tablet PO (08:02)
[2025-02-11] MEDS: albuterol 2.5 mg/3 mL Neb INHALATION (08:16)
--- NOTE | 2025-02-11 09:46 | PC.NURSE ---
Called report to Peri Coleman RN at [facility]
[2025-02-11 10:57] LABS: Glucose Point of Care 169 mg/dL (70-110)
== END 2025-02-11 11:32 | disposition skilled nursing facility (03) ==
LOC: ER 15:50 → MEDSURG 02-07 00:23
PROVIDERS: Admitting Provider Student in an Organized Health Care Education/Training Program; Emergency Provider Emergency Medicine; PCP Nurse Practitioner; Visit Provider Internal Medicine
DX: R55 Syncope and collapse (principal); R53.1 Weakness; R29.6 Repeated falls; J44.9 Chronic obstructive pulmonary disease, unspecified; I10 Essential (primary) hypertension; E11.51 Type 2 diabetes mellitus with diabetic peripheral angiopathy without gangrene; G47.30 Sleep apnea, unspecified; E11.621 Type 2 diabetes mellitus with foot ulcer; L97.429 Non-pressure chronic ulcer of left heel and midfoot with unspecified severity; I25.10 Atherosclerotic heart disease of native coronary artery without angina pectoris; W19.XXXA Unspecified fall, initial encounter; Z88.5 Allergy status to narcotic agent; Z95.5 Presence of coronary angioplasty implant and graft; Z99.81 Dependence on supplemental oxygen; Z79.899 Other long term (current) drug therapy; Z79.84 Long term (current) use of oral hypoglycemic drugs; Z79.02 Long term (current) use of antithrombotics/antiplatelets; Z79.82 Long term (current) use of aspirin; S80.222A Blister (nonthermal), left knee, initial encounter; S42.202B Unspecified fracture of upper end of left humerus, initial encounter for open fracture; D64.9 Anemia, unspecified; Z79.85 Long-term (current) use of injectable non-insulin antidiabetic drugs; E11.42 Type 2 diabetes mellitus with diabetic polyneuropathy; S80.02XA Contusion of left knee, initial encounter; Z96.652 Presence of left artificial knee joint; I67.89 Other cerebrovascular disease; E66.01 Morbid (severe) obesity due to excess calories; Z68.42 Body mass index [BMI] 45.0-49.9, adult
CPT/HCPCS: 36415; 36416; 70450; 71045; 72128; 72131; 73030; 73562; 73700; 74176; 76770; 80053; 80061; 81001; 82550; 82607; 82728; 82746; 82962; 83036; 83540; 83550; 83735; 84443; 84484; 85025; 86140; 86850; 86900; 87086; 93005; 93880; 94640; 96372; 97110; 97162; 97165; 97530; 97535; 97760; 99285; C8929; G0378; J1650; J1815; J1885; J1938; J7613; J9999

== ENCOUNTER → 2025-02-23 15:17 | Outpatient (BNVA) | payer MEDICARE, SELFPAY | PROVIDERS: PCP Nurse Practitioner; Visit Provider Nurse Practitioner Family | DX: Z09 Encounter for follow-up examination after completed treatment for conditions other than malignant neoplasm (principal); R55 Syncope and collapse; I95.1 Orthostatic hypotension; I11.9 Hypertensive heart disease without heart failure; S42.309A Unspecified fracture of shaft of humerus, unspecified arm, initial encounter for closed fracture; W19.XXXA Unspecified fall, initial encounter | CPT/HCPCS: 99214 ==

== ENCOUNTER → 2025-02-26 11:00 | Outpatient (BNVA) | payer MEDICARE, SELFPAY | PROVIDERS: PCP Nurse Practitioner; Visit Provider Physician Assistant | DX: S42.292A Other displaced fracture of upper end of left humerus, initial encounter for closed fracture (principal); S42.215A Unspecified nondisplaced fracture of surgical neck of left humerus, initial encounter for closed fracture; X58.XXXA Exposure to other specified factors, initial encounter | CPT/HCPCS: 73030 ==

== ENCOUNTER 2025-02-26 12:02 | Outpatient (CLI) | payer MEDICARE, SELFPAY | END 2025-02-26 12:03 | disposition home or self-care (01) | LOC: SPT 12:02 | PROVIDERS: PCP Nurse Practitioner; Visit Provider Physician Assistant | DX: Z46.89 Encounter for fitting and adjustment of other specified devices (principal); S42.302D Unspecified fracture of shaft of humerus, left arm, subsequent encounter for fracture with routine healing; X58.XXXD Exposure to other specified factors, subsequent encounter | CPT/HCPCS: 99213; A4565 ==

== ENCOUNTER → 2025-03-04 10:07 | Outpatient (BNVA) | payer MEDICARE, SELFPAY | PROVIDERS: PCP Nurse Practitioner; Visit Provider Student in an Organized Health Care Education/Training Program | DX: M19.012 Primary osteoarthritis, left shoulder (principal) | CPT/HCPCS: 73030; 99214 ==

== ENCOUNTER → 2025-03-25 13:00 | Outpatient (BNVA) | payer MEDICARE, SELFPAY | PROVIDERS: PCP Nurse Practitioner; Visit Provider Student in an Organized Health Care Education/Training Program | DX: S42.202A Unspecified fracture of upper end of left humerus, initial encounter for closed fracture (principal); S80.222A Blister (nonthermal), left knee, initial encounter; S80.02XA Contusion of left knee, initial encounter; X58.XXXA Exposure to other specified factors, initial encounter | CPT/HCPCS: 73030; 99213 ==

== ENCOUNTER → 2025-03-30 09:07 | Outpatient (BNVA) | payer MEDICARE, SELFPAY | PROVIDERS: PCP Nurse Practitioner; Visit Provider Thoracic Surgery (Cardiothoracic Vascular Surgery) | DX: E11.52 Type 2 diabetes mellitus with diabetic peripheral angiopathy with gangrene (principal); E11.622 Type 2 diabetes mellitus with other skin ulcer; L97.822 Non-pressure chronic ulcer of other part of left lower leg with fat layer exposed | CPT/HCPCS: 11042 ==

== ENCOUNTER → 2025-04-06 13:27 | Outpatient (BNVA) | payer MEDICARE, SELFPAY | PROVIDERS: PCP Nurse Practitioner; Visit Provider Thoracic Surgery (Cardiothoracic Vascular Surgery) | DX: I96 Gangrene, not elsewhere classified (principal); S81.002D Unspecified open wound, left knee, subsequent encounter; X58.XXXD Exposure to other specified factors, subsequent encounter | CPT/HCPCS: 99212 ==

== ENCOUNTER → 2025-04-23 10:52 | Outpatient (BNVA) | payer MEDICARE, SELFPAY | PROVIDERS: PCP Nurse Practitioner; Visit Provider Nurse Practitioner | DX: E11.65 Type 2 diabetes mellitus with hyperglycemia (principal) | CPT/HCPCS: 80053; 83036 ==

== ENCOUNTER → 2025-04-30 12:08 | Outpatient (BNVA) | payer MEDICARE, SELFPAY | PROVIDERS: PCP Nurse Practitioner; Visit Provider Nurse Practitioner | DX: D64.9 Anemia, unspecified (principal); E61.1 Iron deficiency | CPT/HCPCS: 82607; 82728; 83550; 85025 ==

== ENCOUNTER → 2025-05-06 09:54 | Outpatient (BNVA) | payer MEDICARE, SELFPAY | PROVIDERS: PCP Nurse Practitioner; Visit Provider Student in an Organized Health Care Education/Training Program | DX: S42.302A Unspecified fracture of shaft of humerus, left arm, initial encounter for closed fracture (principal); S80.222A Blister (nonthermal), left knee, initial encounter; X58.XXXA Exposure to other specified factors, initial encounter | CPT/HCPCS: 73030; 99213 ==

== ENCOUNTER → 2025-07-21 11:18 | Outpatient (BNVA) | payer MEDICARE, SELFPAY | PROVIDERS: PCP Nurse Practitioner; Visit Provider Nurse Practitioner | DX: E11.9 Type 2 diabetes mellitus without complications (principal); E55.9 Vitamin D deficiency, unspecified | CPT/HCPCS: 80053; 80061; 82306; 83036; 85025 ==

== ENCOUNTER → 2025-07-23 | Outpatient (BNVA) | payer MEDICARE, SELFPAY | PROVIDERS: PCP Nurse Practitioner; Visit Provider Nurse Practitioner | DX: D50.9 Iron deficiency anemia, unspecified (principal) | CPT/HCPCS: 83540 ==

== ENCOUNTER → 2025-07-31 09:47 | Outpatient (BNVA) | payer MEDICARE, SELFPAY | PROVIDERS: PCP Nurse Practitioner; Visit Provider Nurse Practitioner Family | DX: I25.10 Atherosclerotic heart disease of native coronary artery without angina pectoris (principal); I10 Essential (primary) hypertension; I47.19 Other supraventricular tachycardia; I73.9 Peripheral vascular disease, unspecified | CPT/HCPCS: 99213 ==

== ENCOUNTER 2025-08-10 10:54 | Emergency (ER) | payer MEDICARE, SELFPAY ==
--- NOTE | 2025-08-10 10:55 | CT_ITS ---
WS: [id number] CT FACIAL BONES TECHNIQUE: Contrast-enhanced facial bones with coronal and sagittal reformatted images. CLINICAL INFORMATION: Preauricular abscess COMPARISON: None. DLP: 641.[address] scans at [facility] use at least one of these dose optimization techniques: automated exposure control; mA and/or kV adjustment per patient size (includes targeted exams where dose is matched to clinical indication); or iterative reconstruction. FINDINGS: Mild induration in the LEFT facial soft tissues with thickening of the LEFT platysma. Mild induration involving the LEFT parotid gland. No evidence of parotid duct calculi. No drainable abscess or fluid collection. Findings compatible with LEFT facial cellulitis/parotiditis. Mild mucosal thickening in the paranasal sinuses. Small amount of fluid in the sphenoid sinus. Mastoid air cells are well aerated. Vascular calcification. CT/CT facial bones w con [id number] IMPRESSION: 1. Findings compatible with LEFT facial cellulitis/prostatitis. 2. No drainable abscess or fluid collection. 3. Mild mucosal thickening in the ethmoid air cells. Fluid in the sphenoid sin us.
[2025-08-10 11:03] VITALS: BP 183/97; PULSE 99; TEMP 36.6; O2SAT 95
--- NOTE | 2025-08-10 11:11 | W.ED.SKABFB ---
HPI - Skin/Abscess/Foreign Bdy General: Chief complaint: Skin/Abscess/Foreign Body Stated complaint: urgent care sent, facial swelling Time Seen by Provider: 08/10/25 11:11 History of Present Illness: 84-year-old male presents to the emergency room from urgent care. Dr. Bishop called ahead of time patient is a diabetic who has preauricular facial swelling on the left side began yesterday with some mild redness rapidly advanced to the point being quite large and painful. Dr. Bishop seen the patient was concerned about an abscess or an abscess parotitis and directed him to the emergency room. Associated symptoms: Deny chills or fever(s) Related Data Home Medications ?Medication ?Instructions ?Recorded ?Confirmed multivitamin (Daily Multi-Vitamin 1 tab PO QAM 09/19/19 08/10/25 tablet) ascorbate calcium (vitamin C) 500 500 mg PO DAILY 04/22/20 08/10/25 mg tablet cholecalciferol (vitamin D3) 25 25 mcg PO DAILY 10/26/22 08/10/25 mcg (1,000 unit) capsule ketoconazole 2 % topical cream 1 applic topical BID PRN Rash 10/10/23 08/10/25 vitamin E (dl, acetate) 90 mg (200 90 mg PO DAILY 10/10/23 08/10/25 unit) capsule aspirin 81 mg tablet,delayed 81 mg PO DAILY 02/06/25 08/10/25 release vitamin B complex 1 tab PO DAILY 02/06/25 08/10/25 tirzepatide 12.5 mg/0.5 mL 12.5 mg SUBCUT .weekly 04/30/25 08/10/25 subcutaneous pen injector (Gee) Previous Rx's ?Medication ?Instructions ?Recorded furosemide 40 mg tablet 40 mg PO DAILY PRN edema #30 tabs 07/31/22 ketoconazole 2 % shampoo 1 applic topical .Twice weekly 02/25/24 #120 mL blood sugar diagnostic (Accu-Chek #100 ea 04/02/25 Guide test strips) blood-glucose meter (Accu-Chek #1 ea 04/02/25 Guide Me Glucose Meter) carvedilol 3.125 mg tablet 3.125 mg PO BID #180 tabs 04/30/25 DME: Walker #1 ea 05/06/25 atorvastatin 40 mg tablet 40 mg PO DAILY #90 tabs 07/23/25 clopidogrel 75 mg tablet (Plavix) 75 mg PO DAILY #90 tabs 07/23/25 duloxetine 30 mg capsule,delayed 30 mg PO BID #180 caps 07/23/25 release ferrous gluconate 324 mg (38 mg 324 mg PO DAILY #90 tabs 07/23/25 iron) tablet finasteride 5 mg tablet 5 mg PO DAILY #90 tabs 07/23/25 glimepiride 2 mg tablet 2 mg PO BID #180 tabs 07/23/25 lancets 30 gauge (Advocate Lancet) #100 ea 07/23/25 montelukast 10 mg tablet 10 mg PO DAILY #90 tabs 07/23/25 (Singulair) pantoprazole 20 mg tablet,delayed 20 mg PO DAILY #90 tabs 07/23/25 release tamsulosin 0.4 mg capsule (Flomax) 0.4 mg PO DAILY #90 caps 07/23/25 amoxicillin 875 mg-potassium 1 tab PO BID #20 tabs 08/10/25 clavulanate 125 mg tablet Allergies Allergy/AdvReac Type Severity Reaction Status Date / Time acetaminophen (From Percocet) Allergy CONFUSION Verified 08/10/25 11:10 oxycodone (From Percocet) Allergy CONFUSION Verified 08/10/25 11:10 Review of Systems Const: Denies: fever(s) or chills Card: Denies: chest pain Resp: Denies: dyspnea GI: Denies: abdominal pain : Denies: dysuria, urinary frequency or urinary urgency Musc: Denies: neck pain or back pain Skin/Breast: Denies: rash PFSH ED PFSH: Medical History Type 2 diabetes mellitus with hyperglycemia, without long-term current use of insulin Small vessel disease, cerebrovascular Multiple environmental allergies Urolithiasis History of kidney stones Atherosclerosis Cardiomegaly 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 Social History Smoking and tobacco/nicotine status: never used tobacco/nicotine Second hand smoke exposure: No Alcohol intake: never Substance/Drug Use: never Adopted: No Caregiver/support person: No Lives independently: No Household members: spouse Housing: House Marital status: Number of children: 5 Number of grandchildren: 15 service: Yes Current occupational status: retired Pets and animals: No Do you think of yourself as: Straight/Heterosexual Current gender identity: Male Physical Exam Const: GENERAL APPEARANCE: cooperative ORIENTATION/CONSCIOUSNESS: Yes awake, Yes oriented to person, Yes oriented to place and Yes oriented to time HENMT: COMMON NORMALS: normocephalic, atraumatic and hearing grossly normal bilaterally HEAD & SCALP: normocephalic and atraumatic Resp: COMMON NORMALS: normal respiratory effort, No retractions, No use of accessory muscles and clear to auscultation bilaterally AUSCULTATION: clear to auscultation bilaterally Cardio: COMMON NORMALS: regular rate, regular rhythm and No murmurs present (Cardio) RATE: regular rate RHYTHM: regular rhythm GI: COMMON NORMALS: Soft to palpation and No hepatosplenomegaly present AUSCULTATION: Yes normoactive bowel sounds PALPATION: Yes Soft to palpation, No Tenderness to palpation present (GI), No Guarding due to palpation present (GI) and Yes No hepatosplenomegaly present Extremity: COMMON NORMALS: normal to inspection, capillary refill normal, no clubbing, cyanosis or edema, no calf tenderness and no pedal edema Neuro: SENSORIUM/ORIENTATION: Yes oriented to person, Yes oriented to place and Yes oriented to time Skin: COMMON NORMALS: no rashes or lesions noted GENERAL SKIN EXAM: no rashes or lesions noted Course Vital Signs: Vital signs: Vital Signs Temperature 97.8 F 08/10/25 11:03 Pulse Rate 99 08/10/25 11:03 Blood Pressure 183/97 08/10/25 11:03 Pulse Oximetry 95 08/10/25 11:03 Oxygen Delivery Me thod Room Air 08/10/25 11:03 MDM - Skin/Abscess/Foreign Bdy Medicial Decision Making Medical decision making Social determinants: Good support at home with his patient able to maintain his own ADLs I reviewed the patient's medical record. I reviewed the patient's current home meds Alternate historians: none Differential diagnosis: Parotid abscess, lymphadenopathy, parotid parotitis Lab Review: White count normal no leukocytosis chemistry shows hyperglycemia with glucose at 189, but otherwise unremarkable Imaging: CT shows cellulitis and mild parotitis but no evidence of abscess Assessment of risk: Level of risk: Moderate Hospitalization considerations: Given the patient is diabetic hospitalization considered if abscess had shown on CT Reexamination: Stable unchanged from initial exam Assessment and plan: Acute parotitis cellulitis patient given a dose of vancomycin IV here will discharge home on Augmentin follow-up with his primary care doctor within the next week return if has worsening or changes symptoms . Encourage cyclical logs Medical Records I reviewed the patient's medical records. Lab Data I reviewed the patient's lab results. 08/10/25 11:28 08/10/25 11:[address] 08/10/25 10:55 IMPRESSION: 1. Findings compatible with LEFT facial cellulitis/prostatitis. 2. No drainable abscess or fluid collection. 3. Mild mucosal thickening in the ethmoid air cells. Fluid in the sphenoid sinus. Laboratory Results WBC 6.68 10^3/uL (3.29-11.43) 08/10/25 11:28 RBC 4.00 10^6/uL (3.85-5.65) 08/10/25 11:28 Hgb 12.30 g/dL (11.27-16.99) 08/10/25 11:28 Hct 37.2 % (37-53) 08/10/25 11:28 MCV 93.0 fl (82-101) 08/10/25 11:28 MCH 30.8 pg (27-33) 08/10/25 11:28 MCHC 33.1 g/dL (30-55) 08/10/25 11:28 RDW 14.2 % (12.1-15.1) 08/10/25 11:28 Plt Count 272 10^3/cmm (157-399) 08/10/25 11:28 MPV 9.0 fL (7.4-10.4) 08/10/25 11:28 Neut % (Auto) 66.8 % 08/10/25 11:28 Lymph % (Auto) 19.2 % 08/10/25 11:28 Brantley % (Auto) 10.3 % 08/10/25 11:28 Eos % (Auto) 3.0 % 08/10/25 11:28 Baso % (Auto) 0.6 % 08/10/25 11:28 Neut # (Auto) 4.46 10^3/uL (1.8-7.7) 08/10/25 11:28 Lymph # (Auto) 1.3 10^3/uL (0.8-4.8) 08/10/25 11:28 Brantley # (Auto) 0.7 10^3/uL (0.2-0.9) 08/10/25 11:28 Eos # (Auto) 0.2 10^3/uL (0.0-0.8) 08/10/25 11:28 Baso # (Auto) 0.0 10^3/uL (0.0-0.1) 08/10/25 11:28 Nucleated RBC % (auto) 0 % 08/10/25 11:28 Nucleated RBCs # 0.0 /100WBC 08/10/25 11:28 Sodium 138 mmol/L (136-145) 08/10/25 11:28 Potassium 4.2 mmol/L (3.5-5.1) 08/10/25 11:28 Chloride 99 mmol/L (98-107) 08/10/25 11:28 Carbon Dioxide 31 mmol/L (22-29) H 08/10/25 11:28 Anion Gap 12.2 (5-19) 08/10/25 11:28 BUN 12 mg/dL (8-23) 08/10/25 11:28 Creatinine 0.8 mg/dL (0.7-1.2) 08/10/25 11:28 GFR Calculation Not Reportable 08/10/25 11:28 Glucose 189 mg/dL (65-115) H 08/10/25 11:28 Calculated Osmolality 291 mOsm/kg (285-295) 08/10/25 11:28 Lactic Acid 2.2 mmol/L (0.5-2.2) 08/10/25 11:28 Calcium 9.1 mg/dL (8.5-10.5) 08/10/25 11:28 Total Bilirubin 0.3 mg/dL (0.15-1.2) 08/10/25 11:28 AST 14 U/L (0-40) 08/10/25 11:28 ALT 13 U/L (0-41) 08/10/25 11:28 Alkaline Phosphatase 152 U/L (40-130) H 08/10/25 11:28 Total Protein 7.2 g/dL (6.6-8.7) 08/10/25 11:28 Albumin 3.5 g/dL (3.5-5.2) 08/10/25 11:28 Globulin 3.7 g/dL (1.3-4.6) 08/10/25 11:28 All radiology interpretation(s) finalized by discharge Discharge Plan Discharge Patient Disposition: Home Clinical Impression: Acute parotitis, Type 2 diabetes mellitus with hyperglycemia, without long-term current use of insulin Condition: Stable Prescriptions: New amoxicillin-pot clavulanate 875-125 mg tablet 1 tab PO BID Qty: 20 0RF No Action multivitamin [Daily Multi-Vitamin] Tablet 1 tab PO QAM ascorbate calcium (vitamin C) 500 mg tablet 500 mg PO DAILY cholecalciferol (vitamin D3) 25 mcg (1,000 unit) capsule 25 mcg PO DAILY ketoconazole 2 % shampoo 1 applic topical .Twice weekly Qty: 120 6RF Rx Instructions: Lather into scalp 2 times weekly. Allowed to sit on scalp for 5 minutes before rinsing. Mounjaro 12.5 mg/0.5 mL pen injector 12.5 mg SUBCUT .weekly carvedilol 3.125 mg tablet 3.125 mg PO BID Qty: 180 0RF Rx Instructions: No med sent he has at home 3 bottles atorvastatin 40 mg tablet 40 mg PO DAILY Qty: 90 1RF clopidogrel [Plavix] 75 mg tablet 75 mg PO DAILY Qty: 90 1RF duloxetine 30 mg capsule,delayed release(DR/EC) 30 mg PO BID Qty: 180 1RF ferrous gluconate 324 mg (38 mg iron) tablet 324 mg PO DAILY Qty: 90 0RF finasteride 5 mg tablet 5 mg PO DAILY Qty: 90 1RF glimepiride 2 mg tablet 2 mg PO BID Qty: 180 1RF montelukast [Singulair] 10 mg tablet 10 mg PO DAILY Qty: 90 1RF pantoprazole 20 mg tablet,delayed release (DR/EC) 20 mg PO DAILY Qty: 90 1RF tamsulosin [Flomax] 0.4 mg capsule 0.4 mg PO DAILY Qty: 90 1RF (DME) lancets [Advocate Lancet] 30 gauge misc See Rx Instructions .Route Qty: 100 2RF Rx Instructions: check daily furosemide 40 mg tablet 40 mg PO DAILY PRN (Reason: edema) Qty: 30 6RF (DME) blood-glucose meter [Accu-Chek Guide Me Glucose Mtr] Misc See Rx Instructions .ROUTE .MEDSUPPLY Qty: 1 0RF Rx Instructions: As directed (DME) Accu-Chek Guide test strips Strip See Rx Instructions .ROUTE .MEDSUPPLY Qty: 100 5RF Rx Instructions: use one time daily (DME) DME: Walker Unit See Rx Instructions .ROUTE .MEDSUPPLY Qty: 1 0RF Rx Instructions: 2 wheel walker with 2 slides for weight >300 vitamin E (dl, acetate) 90 mg (200 unit) Capsule 90 mg PO DAILY ketoconazole 2 % cream 1 applic topical BID PRN (Reason: Rash) Rx Instructions: Apply to red scaly areas of the face 1-2 times daily aspirin 81 mg Tablet,Delayed Release (Dr/Ec) 81 mg PO DAILY vitamin B complex Tablet 1 tab PO DAILY Discharge Orders: Discharge ED (Routine); Ordered 08/10/25 Ordered By: Grey Mata Referrals: Lloyd Spencer, FORMULATION CHEMIST-C [Primary Care Provider, Family Practice] Discharge Diet: Usual diet Discharge Activity: Resume usual activity Patient Instructions: Opioid Safety, Pain Management, Patient Portal & Luca Instructions Activity Restrictions/Additional Instructions: Thank you for choosing [facility] for your healthcare needs today. It is very important that you follow up as instructed or that you return to the Emergency Department should you have concerns or if your condition changes or worsens in any way. Emergency department visits are focused on emergent conditions, in some cases you may require further evaluation on an outpatient basis. You were seen in the emergency room with facial swelling and redness. CT shows some cellulitis and infection of the parotid gland on the left side of your face. You are given a dose of IV antibiotics here and discharged home with oral antibiotics take 1 pill twice a day for 10 days. (Please note that included in your discharge packet is information concerning opioid safety and pain management. This information is given to all patients were discharged from the ER regardless of their discharge diagnosis or the medicines they usually take or are prescribed.) Print Language: Estonian Coding Level of Care Code ED Conditioning Coach for Estrella Granados
[2025-08-10 11:41] LABS: Hematocrit 37.2 % (37-53); Hemoglobin 12.30 g/dL (11.27-16.99); Mean Corpuscular HGB Conc 33.1 g/dL (30-55); Mean Corpuscular Hemoglobin 30.8 pg (27-33); Mean Corpuscular Volume 93.0 fl (82-101); Nucleated Red Blood Cells % 0 %; Platelet Count 272 10^3/cmm (157-399); Red Blood Count 4.00 10^6/uL (3.85-5.65); White Blood Count 6.68 10^3/uL (3.29-11.43)
--- OUTSIDE RECORDS SUMMARY | 2025-08-10 11:46 | XMS_ITS | Clinical Summary ---
Author Organization [facility] Address [address] [place] [address] Care Team Providers Care Chief Medical Officer Name Role Phone Unavailable Primary Care Provider [...] 1-dose 75+ series) 2017 INFLUENZA VACCINE (#1) 2025 Insurance [employer]OVEMENT [facility]
--- OUTSIDE RECORDS SUMMARY | 2025-08-10 11:46 | XMS_ITS | Clinical Summary ---
Author Organization [facility] Address [address] [place]: Epic Prelude ADT [place] [address] Care Team Providers Care Counter Attendant Name Role Phone Unavailable Primary Care Provider [...] Encounters Date Type Department Care Team Description 07/14/2025 External Device Data ST[facility] ABSTRACTION Provider, Abstract 06/23/2025 External Device Data [facility] ABSTRACTION Provider, Abstract from Last 3 Months Family History Medical [...] on file Legal Sex Male 12:13 AM LOG SNAKER Gender Identity Not on file Sexual Orientation Not on file Last Filed Vital Signs Vital Sign Reading Time Taken Comments Blood Pressure 154/64 11/07/2024 11:51 AM LOG SNAKER Pulse 90 11/07/2024 1:28 PM LOG SNAKER Temperature 36.6 C (97.9 F) 11/07/2024 11:51 AM LOG SNAKER Respiratory Rate 20 11/07/2024 1:28 PM LOG SNAKER Oxygen Saturation 92% 11/07/2024 1:28 PM LOG SNAKER Inhaled Oxygen Concentration - - Weight 132.4 kg (291 lb 12.8 oz) 11/04/2024 1:29 AM LOG SNAKER Height 175.3 cm (5' 9 ) 11/04/2024 1:29 AM LOG SNAKER Body Mass Index 43.09 11/04/2024 1:29 AM LOG SNAKER Plan of Treatment Health Maintenance Due Date Last Done Comments DIABETES ANNUAL FOOT EXAM 1960 DIABETES ANNUAL RETINAL EXAM 1960 DIABETES MICROALBUMIN ANNUAL SCREEN 1960 LDL CHOLESTEROL ANNUAL 1960 ZOSTER VACCINE (1 of 2) 1992 DTAP/TDAP/TD VACCINES (1 - Tdap) 09/11/1998 09/10/18 99 RSV VACCINE (60+ or ) (1 - 1-dose 75+ series) 2017 INFLUENZA VACCINE (#1) 2025 06/18/2023 DIABETES HBA1C Q 6 MONTHS 05/03/2025 11/03/2024 COVID-19 Vaccine ( - 2024-2 6 season) 2025 06/03/2024, 06/22/2023, 05/31/2022, Additional history exists PNEUMOCOCCAL VACCINE 50+ YEARS Completed 07/18/2023 , 09/10/2007 Procedures Procedure Name Priority Date/Time Associated Diagnosis Comments HEMOGLOBIN A1C Routine 11/03/2024 9:28 PM LOG SNAKER from Last 3 Months or Most Recently Relevant to Health Maintenance Results * (ABNORMAL) HEMOGLOBIN A1C (11/03/2024 9:28 PM LOG SNAKER) HEMOGLOBIN A1C 6.5(H) <=5.6 % 11/04/2024 4:15 AM LOG SNAKER [facility] EST. AVG GLUCOSE, A1C 140 mg/dL 11/04/2024 4:15 AM [facility] Blood BLOOD SPECIMEN / Unknown Collection / Unknown 11/03/2024 9:28 PM LOG SNAKER 11/03/2024 9:31 PM LOG SNAKER [facility] - 11/04/2024 4:15 AM LOG SNAKER HGB A1C INTERPRETATION NORMAL: <5.7% PRE-DIABETES: 5.7 - 6.4% DIABETES: 6.5% OR GREATER Kathleen Brunson MD CHEMISTRY ORDERABLES Final Re sult [facility] CLIA # [id number] [address] [place] [id number] from Last 3 Months or Most Recently Relevant to Health Maintenance [place] [address] [id number] Advance Directives For more information, please contact: [phone] Documents on File Type Date Recorded 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
[2025-08-10] MEDS: iohexol 350 mg/mL 500 mL Btl (per mL) IV (11:47)
[2025-08-10 11:54] LABS: Alanine Aminotransferase 13 U/L (0-41); Albumin Level 3.5 g/dL (3.5-5.2); Alkaline Phosphatase 152 U/L (40-130); Anion Gap 12.2 (5-19); Aspartate Amino Transferase 14 U/L (0-40); Blood Urea Nitrogen 12 mg/dL (8-23); Calcium 9.1 mg/dL (8.5-10.5); Carbon Dioxide 31 mmol/L (22-29); Chloride 99 mmol/L (98-107); Globulin 3.7 g/dL (1.3-4.6); Glucose 189 mg/dL (65-115); Lactic Sepsis W/Reflex 2.2 mmol/L (0.5-2.2); Osmolality Calculated 291 mOsm/kg (285-295); Potassium 4.2 mmol/L (3.5-5.1); Sodium 138 mmol/L (136-145); Total Protein 7.2 g/dL (6.6-8.7)
[2025-08-10 12:32] VITALS: BP 142/85; PULSE 97; O2SAT 94
[2025-08-10 13:22] LABS: Reflex Lactate Order REFLEX LACTIC ORDERD
[2025-08-10 13:46] VITALS: BP 131/72; PULSE 85; O2SAT 95
== END 2025-08-10 13:47 | disposition home or self-care (01) ==
PROVIDERS: Emergency Provider Family Medicine; PCP Nurse Practitioner
DX: K11.21 Acute sialoadenitis (principal); E11.65 Type 2 diabetes mellitus with hyperglycemia; Z79.02 Long term (current) use of antithrombotics/antiplatelets; Z79.4 Long term (current) use of insulin; Z79.82 Long term (current) use of aspirin; J44.9 Chronic obstructive pulmonary disease, unspecified; I10 Essential (primary) hypertension
CPT/HCPCS: 36415; 36416; 70487; 80053; 82962; 83605; 85025; 87040; 96365; 99285; J3373; J7050

== ENCOUNTER → 2025-08-12 10:47 | Outpatient (BNVA) | payer MEDICARE, SELFPAY | PROVIDERS: PCP Nurse Practitioner; Visit Provider Student in an Organized Health Care Education/Training Program | DX: S42.202A Unspecified fracture of upper end of left humerus, initial encounter for closed fracture (principal); S80.222A Blister (nonthermal), left knee, initial encounter; S80.02XA Contusion of left knee, initial encounter; X58.XXXA Exposure to other specified factors, initial encounter | CPT/HCPCS: 73030; 99213 ==

== ENCOUNTER 2025-08-27 11:13 | Outpatient (CLI) | payer MEDICARE, SELFPAY ==
--- NOTE | 2025-08-27 11:25 | XR_ITS ---
WS: [id number] KUB, AP view, 08/27/2025 Clinical Data: R19.5 - Other fecal abnormalities Comparison: KUB, 03/22/2020 Findings: No abnormal intraabdominal masses or calcifications are seen. There is no dilatated small bowel or evidence of obstruction. There is air in the stomach. There is a large amount of fecal material throughout the colon. There are surgical clips in the lower pelvis. XR/XR abdomen 1V* [id number] Impression: Large amount of fecal material in the colon.
== END 2025-08-27 11:14 | disposition home or self-care (01) ==
PROVIDERS: PCP Nurse Practitioner; Visit Provider Nurse Practitioner
DX: R19.5 Other fecal abnormalities (principal)
CPT/HCPCS: 74018